=== PATIENT | female | born 1955 | race Caucasian/White ===

== ENCOUNTER 2024-06-10 13:01 | Outpatient (OUT) | payer MEDICARE, SELFPAY ==
[2024-06-10 14:12] LABS: Thyroid Stimulating Hormone 2.357 uIU/mL (0.358-3.740)
== END 2024-06-10 13:02 | disposition home or self-care (01) ==
LOC: LAB 13:06
PROVIDERS: PCP Internal Medicine; Visit Provider Internal Medicine
DX: R53.83 Other fatigue (principal); E11.65 Type 2 diabetes mellitus with hyperglycemia; R20.2 Paresthesia of skin
CPT/HCPCS: 36415; 83036; 84443

== ENCOUNTER 2024-06-18 13:04 | Outpatient (OUT) | payer MEDICARE, SELFPAY ==
--- NOTE | 2024-06-18 13:05 | MM_ITS ---
Patient Name: LEONCIO BENITEZ MR#: [id number] : 1955 Exam Date: 06/18/2024 Ordering Doctor: DR Rob Lopez D.O. RADIOLOGY REPORT PROCEDURE: MM TOMOSYNTHESIS SCREENING BI COMPARISON: MG MAMM ROMELIA SCRN W CAD DIG, 04/01/2007. MG MAMM SCREEN 3D ROMELIA CAD, 09/26/2021. INDICATIONS: Screening Calculator Name NCI Breast Cancer Risk Assessment Tool 5 Year Breast Cancer Risk Not Reported. Lifetime Breast Cancer Risk Not Reported. Personal Breast Cancer No Personal Ovarian Cancer No Treatments None Family Cancers None LOCATION: [facility] BREAST COMPOSITION: There are scattered areas of fibroglandular density. FINDINGS: DIAGNOSTIC CATEGORY 1--NEGATIVE. NO CHANGE FROM COMPARISON ASSESSMENT. Scattered benign-appearing calcifications are present. RIGHT BREAST: No significant suspicious finding. LEFT BREAST: No significant suspicious finding. RECOMMENDATIONS: ROUTINE MAMMOGRAM AND CLINICAL EVALUATION IN 12 MONTHS. PLEASE NOTE: A NORMAL MAMMOGRAM DOES NOT EXCLUDE THE POSSIBILITY OF BREAST CANCER. A CLINICALLY SUSPICIOUS PALPABLE LUMP SHOULD BE BIOPSIED. Dictated by: Nicholas Cabezas MD on 06/18/2024 at 15:31 Approved by: Nicholas Cabezas MD on 06/18/2024 at 15:33
== END 2024-06-18 13:05 | disposition home or self-care (01) ==
LOC: MAMMO 13:04
PROVIDERS: PCP Internal Medicine; Visit Provider Internal Medicine
DX: Z12.31 Encounter for screening mammogram for malignant neoplasm of breast (principal)
CPT/HCPCS: 77063; 77067

== ENCOUNTER 2024-10-13 13:50 | Observation (INO) | payer MEDICARE, SELFPAY ==
[2024-10-13] VITALS (20 sets, daily range): BP systolic 142–174; BP diastolic 71–82; PULSE 51–75; TEMP 36.5–36.9; O2SAT 95–100; BMI 25.8; BMI 28.6
--- NOTE | 2024-10-13 14:13 | ECG_ITS ---
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
--- NOTE | 2024-10-13 14:14 | ED_ITS ---
HPI HPI - General Adult General Chief complaint: Chest Pain Stated complaint: HYPERTENSION Time Seen by Provider: 10/13/24 13:53 Source: patient Mode of arrival: Wheelchair Limitations: no limitations History of Present Illness HPI narrative: Patient is a 69-year-old female who presents to the emergency department with her for the evaluation of not feeling well for the last hour, she describes an onset of dizziness that is worse with change in position of the head, she describes the dizziness as spinning. She has not had visual changes, recent illness or upper respiratory symptoms. She states she feels very nauseous but has not had any vomiting or diarrhea. She states she feels some pressure in the left side of her chest. She states that the onset of all of her symptoms she had minimal shortness of breath but does not feel short of breath now. She feels like her left side is weak. No speech changes. She denies any history of heart or lung issues, she states she takes no medications. Related Data Home Medications ?Medication ?Instructions ?Recorded ?Confirmed No Known Home Medications 10/13/24 10/13/24 Allergies Allergy/AdvReac Type Severity Reaction Status Date / Time Penicillins Allergy Rash Verified 10/13/24 14:12 Opioid HPI Opioid Management Most Recent Opioid Data: Last Pain Scale 5 10/13/24 16:19 10/13/24 Last MAR Pain Assessment 10/13/24 16:19 Review of Systems ROS Constitutional Denies: fever or chills Ears, nose, mouth, and throat Denies: throat pain or nasal congestion Cardiovascular Reports: chest pain Respiratory Reports: shortness of breath; Denies: cough Gastrointestinal Reports: nausea; Denies: vomiting or diarrhea Musculoskeletal Denies: back pain or neck pain Integumentary/Breast Denies: rash Neurological Reports: weakness in extremities and dizziness; Denies: headache Hematologic/Lymphatic Denies: easy bruising or easy bleeding PFSH PFSH Social History Little interest or pleasure in doing things: not at all Feeling down, depressed, or hopeless: not at all Exam Narrative Exam Narrative: Gen.: Awake, alert, in no distress Head: Normocephalic, atraumatic ENT: Moist mucous membranes, left TM is bulging with fluid Respiratory: No respiratory distress, lungs clear bilaterally Cardio: Regular rate and rhythm Gastrointestinal: Abdomen is soft, nondistended and nontender to palpation Extremities: Moves extremities equally Psych: Normal mood and affect Neuro: 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 NIH stroke scale of 2 Skin: Warm, dry, intact Constitutional Vital Signs, click to edit/add: Last Vital Signs Temp 98.5 F 10/13/24 14:04 Pulse 65 10/13/24 15:15 Resp 16 10/13/24 15:15 BP 147/77 H 10/13/24 15:15 Pulse Ox 98 10/13/24 15:15 O2 Del Method Room Air 10/13/24 14:04 Course Vital Signs Vital signs: Vital Signs Temperature 98.5 F 10/13/24 14:04 Pulse Rate 71 10/13/24 14:04 Respiratory Rate 18 10/13/24 14:04 Blood Pressure 173/71 H 10/13/24 14:04 Pulse Oximetry 98 10/13/24 14:04 Oxygen Delivery Method Room Air 10/13/24 14:04 Temperature 98.5 F 10/13/24 14:04 Pulse Rate 65 10/13/24 15:15 Respiratory Rate 16 10/13/24 15:15 Blood Pressure 147/77 H 10/13/24 15:15 Pulse Oximetry 98 10/13/24 15:15 Oxygen Delivery Method Room Air 10/13/24 14:04 Medical Decision Making MDM Narrative Medical decision making narrative: Patient feels significantly better after IV fluids, Antivert and Zofran. She was able to ambulate to the bathroom. She is not noted to have any persistent focal weakness. CT of the brain, CT angio of the head and neck as well as chest x-ray are unremarkable, there is some stenosis noted with no complete occlusion. Case was discussed with Dr. Lebron for stroke interventional services in [place]. He recommended keeping the patient for a TIA workup and is agreement that she can stay at this facility. He requested a full-strength aspirin which was given in the ER and she was given Tylenol for a headache. She is resting comfortably on reevaluation and is admitted to hospitalist service. SUPERVISED APC VISIT, PHYSICIAN ATTESTATION: Based on the medical record the care appears appropriate. ? Medical Records Medical records reviewed: Yes I reviewed the patient's medical records Lab Data Lab results reviewed: Yes I reviewed the patient's lab results Labs: Lab Results 10/13/24 10/13/24 10/13/24 Range/Units 14:25 14:27 16:15 WBC 9.0 (4.0-11.0) 10^3/uL RBC 4.74 (4.20-5.40) 10^6/uL Hgb 14.0 (12.0-16.0) g/dL Hct 40.4 (36.0-48.0) % MCV 85.2 (81.0-99.0) fL MCH 29.5 (26.7-34.0) pg MCHC 34.7 (29.9-35.2) g/dL RDW 12.3 (11.0-15.0) % Plt Count 233 (150-450) 10^3/uL MPV 9.7 (9.5-13.5) fL Neut % (Auto) 51.4 (43.0-75.0) % Lymph % (Auto) 41.6 (20.5-60.0) % [place] % (Auto) 4.8 (1.7-12.0) % Eos % (Auto) 1.2 (0.9-7.0) % Baso % (Auto) 0.7 (0.2-2.0) % Neut # (Auto) 4.6 (1.4-6.5) 10^3/uL Lymph # (Auto) 3.8 (1.2-3.8) 10^3/uL [place] # (Auto) 0.4 (0.3-0.8) 10^3/uL Eos # (Auto) 0.1 (0.0-0.7) 10^3/uL Baso # (Auto) 0.1 (0.0-0.1) 10^3/uL Abs Immat Gran (auto) 0.03 (0.00-0.03) 10^3/uL Imm/Tot Granulo (auto) 0.3 (0.0-0.5) % PT 10.9 (9.0-11.6) sec INR 1.03 Sodium 137 (136-145) mmol/L Potassium 3.2 L (3.5-5.1) mmol/L Chloride 102 (98-107) mmol/L Carbon Dioxide 24.6 (21.0-32.0) mmol/L Anion Gap 13.6 BUN 25.0 H (7.0-18.0) mg/dL Creatinine 0.92 (0.55-1.02) mg/dL Est GFR ( Amer) >60 (>=60 mL/min/1.73m^2) Est GFR (Non-Af Amer) >60 (>=60 mL/min/1.73m^2) BUN/Creatinine Ratio 27.2 Glucose 96 (74-106) mg/dL Lactate 1.3 (0.4-2.0) mmol/L Calcium 9.0 (8.5-10.1) mg/dL Magnesium 1.9 (1.8-2.4) mg/dL Total Bilirubin 0.4 (0.2-1.0) mg/dL AST 25 (15-37) U/L ALT 32 (14-59) U/L Alkaline Phosphatase 89 (46-116) U/L Troponin I High Sens 4.8 6.6 (4.0-51.3) pg/mL Total Protein 7.6 (6.4-8.2) g/dL Albumin 3.8 (3.4-5.0) g/dL Globulin 3.8 g/dL Albumin/Globulin Ratio 1.0 TSH 1.790 (0.358-3.740) uIU/mL POC Glucose 94 (74-106) mg/dL ECG Data Attestation: I personally reviewed and interpreted this ECG as follows: (Normal sinus rhythm at a rate of [address] elevation or ectopy. EKG reviewed by attending physician) Discharge Plan Discharge Chief Complaint: Chest Pain Patient Disposition: Admitted as Observation Time of Disposition Decision: 17:03 Prescriptions / Home Meds: No Action No Known Home Medications Print Language: [place] Referrals: Rob Lopez DO [Primary Care Provider] - 1 week
[2024-10-13 14:28] LABS: Glucometer 94 mg/dL (74-106)
[2024-10-13] MEDS: ONDANSETRON PF 4 MG/2 ML VIAL IV (14:29)
[2024-10-13] MEDS: 0.9 % SODIUM CHLORIDE 1,000 ML 999 ML IV (14:30)
[2024-10-13] MEDS: MECLIZINE HCL 12.5 MG TABLET 25 MG PO (14:30)
[2024-10-13 14:36] LABS: Basophils Absolute Auto 0.1 10^3/uL (0.0-0.1); Basophils Percent Auto 0.7 % (0.2-2.0); Eosinophils Absolute Auto 0.1 10^3/uL (0.0-0.7); Eosinophils Percent Auto 1.2 % (0.9-7.0); Hematocrit 40.4 % (36.0-48.0); Immature Granulocytes Abs Auto 0.03 10^3/uL (0.00-0.03); Immature Granulocytes Pct Auto 0.3 % (0.0-0.5); Lymphocytes Absolute Auto 3.8 10^3/uL (1.2-3.8); Lymphocytes Percent Auto 41.6 % (20.5-60.0); Mean Corpuscular HGB Conc 34.7 g/dL (29.9-35.2); Mean Corpuscular Hemoglobin 29.5 pg (26.7-34.0); Mean Corpuscular Volume 85.2 fL (81.0-99.0); Mean Platelet Volume 9.7 fL (9.5-13.5); Monocytes Absolute Auto 0.4 10^3/uL (0.3-0.8); Monocytes Percent Auto 4.8 % (1.7-12.0); Neutrophils Absolute Auto 4.6 10^3/uL (1.4-6.5); Neutrophils Percent Auto 51.4 % (43.0-75.0); Platelet Count 233 10^3/uL (150-450); Red Blood Count 4.74 10^6/uL (4.20-5.40); Red Cell Distribution Width 12.3 % (11.0-15.0)
--- OUTSIDE RECORDS SUMMARY | 2024-10-13 14:44 | XMS_ITS | CCD ---
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 Role Phone Bobby Todd Attending Provider [phone] Rob Lopez Primary Care Provider Bobby Todd Unavailable JOHN, DR COTTON Admitting Unavailable BALL, DR COTTON Attending Unavailable BALL, DR COTTON Primary Care Unavailable BALL, DR COTTON Consulting Unavailable BALL, DR COTTON Admitting Unavailable BALL, DR COTTON Attending Unavailable BALL, DR COTTON Primary Care Unavailable BALL, DR COTTON Admitting Unavailable BALL, DR COTTON Attending Unavailable BALL, DR COTTON Primary Care Unavailable BALL, DR COTTON Admitting Unavailable BALL, DR COTTON Attending Unavailable BALL, DR COTTON Primary Care Unavailable BALL, DR COTTON Admitting Unavailable BALL, DR COTTON Attending Unavailable BALL, DR COTTON Primary Care Unavailable BALL, DR COTTON Consulting Unavailable BALL, DR COTTON Admitting Unavailable BALL, DR COTTON Attending Unavailable BALL, DR COTTON Primary Care Unavailable BALL, DR COTTON Consulting Unavailable WEST, DR GEORGI Fernandez Consulting Unavailable BALL, DR COTTON Admitting Unavailable BALL, DR COTTON Attending Unavailable BALL, DR COTTON Primary Care Unavailable BALL, DR COTTON Consulting Unavailable Ball, Rob Unavailable Karla Hull Unavailable Allergies Allergy Classification Reported Allergen(s) Allergy Type Date of Onset Reaction(s) Facility Penicillins (antibiotic) (1 source) Penicillins Drug Allergy 1 Swelling of Lip/Tongue/Thro at [facility] (9 sources) Penicillin Drug Allergy hives/swelling Merged With [facility] Other (3 sources) Penicillins Drug allergy (disorder) 5 Swelling of Lip/Tongue/Thro at [facility] (1 source) Penicillin Drug Allergy hives/swelling Merged With [facility] Other (1 source) Penicillin Drug Allergy 4 hives/swelling [facility] Medications Current Medications Medication Drug Class(es) Dates Sig (Normalized) Sig (Original) [id number] 60 actuat albuterol 0.09 mg/actuat metered dose inhaler (2 sources) beta2-Adrenergic Agonist Start: 09-08-2023 take 2 puff(s) by inhalation four times daily as needed Albuterol Sulfate HFA 108 (90 Base) MCG/ACT 2 puffs Inhalation 4 times a day prn Aug, Active azithromycin 250 mg oral tablet (3 sources) Macrolide Antimicrobial Start: 09-06-2023 Azithromycin 250 MG as directed Orally daily for 5 days Aug, Active benzonatate 200 mg oral capsule (2 sources) Non-narcotic Antitussive Start: 09-08-2023 take 1 capsule by mouth every eight hours Benzonatate 200 MG 1 capsule Orally Three times a day Aug, Active cholecalciferol 0.025 mg oral tablet (2 sources) Vitamin D Start: 01-27-2021 take 1 tablet by mouth once daily in the morning Cholecalciferol (Vitamin D3) (Vitamin D3) 25 mcg (1,000 unit) Tablet Active 25 MCG PO Every morning January 27, 2021 11:04am escitalopram 10 mg oral tablet (1 source) Serotonin Reuptake Inhibitor Start: 06-10-2024 take 10 mg by mouth once daily Escitalopram Oxalate Active 10 MG PO Daily June 10, 2024 12:00am fluticasone (2 sources) Corticosteroid FLONASE Active predniSONE 20 mg oral tablet (2 sources) Start: 09-08-2023 take 1 tablet by mouth every twelve hours predniSONE 20 MG 1 tablet Orally bid for 5 day(s) Aug, Active Tumeric (2 sources) Start: 01-27-2021 take 1 tablet by mouth once daily in the morning Tumeric Active 1 TAB PO Every morning January 27, 2021 11:04am Start: 01-27-2021 take 1 tablet by cole th once daily in the morning Tumeric Active 1 TAB PO Every morning January 27, 2021 12:00am Zinc (2 sources) Start: 01-27-2021 take 450 mg by mouth once daily in the morning Zinc Active 450 MG PO Every morning January 27, 2021 11:04am Start: 01-27-2021 take 450 mg by mouth once daily in the morning Zinc Active 450 MG PO Every morning January 27, 2021 12:00am Completed/Discontinued Medications Medication Drug Class(es) Dates Sig (Normalized) Sig (Original) ibuprofen 800 mg oral tablet (9 sources) Nonsteroidal Anti-inflammatory Drug Start: 02-09-2021 take 1 tablet by mouth three times daily at mealtime as needed Ibuprofen 800 MG 1 tablet with food or milk as needed Orally Three times a day for 30 days Jan, Not-Taking/PRN omeprazole 40 mg delayed release oral capsule (9 sources) Proton Pump Inhibitor take 1 capsule by mouth once daily in the morning Omeprazole 40 MG TAKE 1 CAPSULE EVERY DAY IN THE MORNING followed by breakfast Oral for 30 Not-Taking/PRN Triamcinolone (8 sources) Corticosteroid Start: 12-20-2020 Kenalog -40 mg December, 40 mg Problems Active Problems Problem Classification Problem Date Documented Date Episodic/Chronic Abdominal pain (9 sources) Generalized abdominal pain; Translations: [Generalized abdominal pain] Episodic Acute bronchitis (2 sources) Acute bronchitis due to other specified organisms; Translations: [Acute bronchitis, unspecified] Episodic Anxiety disorders (8 sources) Generalized anxiety disorder; Translations: [Generalized anxiety disorder] Chronic Benign neoplasm of uterus (8 sources) Uterine leiomyoma; Translations: [Leiomyoma of uterus, unspecified] Episodic Diabetes mellitus with complications (13 sources) Type 2 diabetes mellitus with hyperglycemia; Translations: [Hyperglycemia due to type 2 diabetes mellitus] Onset: 12-29-19 Chronic Diabetes mellitus without complication (4 sources) Type 2 diabetes mellitus without complications; Translations: [TYPE 2 DM WITHOUT COMPLICATIONS] Onset: 09-05-19 Chronic Diabetes mellitus without complication (8 sources) Impaired fasting glycemia; Translations: [Impaired fasting glucose] Episodic Disorders of lipid metabolism (4 sources) Pure hypercholesterolemia, unspecified; Translations: [PURE HYPERCHOLESTEROLEMIA UNSPEC] Onset: 12-27-19 Chronic Genitourinary symptoms and ill-defined conditions (8 sources) Urgent desire to urinate; Translations: [Urgency of urination] Episodic Immunizations and screening for infectious disease (1 source) Contact with and (suspected) exposure to other viral communicable diseases Episodic Intracranial injury (8 sources) History of traumatic brain injury; Translations: [Personal history of traumatic brain injury] Episodic Malaise and fatigue (1 source) Fatigue; Translations: [Other fatigue] 06-10-2024 Episodic Nausea and vomiting (9 sources) Nausea; Translations: [Nausea] Episodic Nonspecific chest pain (1 source) Intercostal pain Episodic Other and unspecified benign neoplasm (1 source) Benign lipomatous neoplasm of skin and subcutaneous tissue of right arm Episodic Other circulatory disease (1 source) Elevated blood-pressure reading, without diagnosis of hypertension Episodic Other connective tissue disease (8 sources) Acquired trigger finger; Translations: [Trigger finger, right ring finger] Episodic Other connective tissue disease (8 sources) Tear of left rotator cuff; Translations: [Unspecified rotator cuff tear or rupture of left shoulder, not specified as traumatic] Episodic Other connective tissue disease (1 source) Ganglion, unspecified site Episodic Other ear and sense organ disorders (8 sources) Hearing loss of left ear; Translations: [Unspecified hearing loss, left ear] Chronic Other ear and sense organ disorders (1 source) Unspecified hearing loss, left ear Chronic Other eye disorders (8 sources) Subconjunctival hemorrhage of right eye; Translations: [Conjunctival hemorrhage, right eye] Episodic Other gastrointestinal disorders (9 sources) Swollen abdomen; Translations: [Abdominal distension (gaseous)] Episodic Other nervous system disorders (1 source) Paresthesia; Translations: [Paresthesia of skin] 06-10-2024 Episodic Other nutritional; endocrine; and metabolic disorders (1 source) Overweight Episodic Other screening for suspected conditions (not mental disorders or infectious disease) (7 sources) Encounter for screening mammogram for malignant neoplasm of breast; Translations: [Patient encounter status] Onset: 09-26-19 Episodic Otitis media and related conditions (1 source) Other specified disorders of Eustachian tube, left ear Episodic Ovarian cyst (8 sources) Cyst of ovary; Translations: [Unspecified ovarian cyst, unspecified side] Episodic Sprains and strains (2 sources) Strain of other muscles, fascia and tendons at shoulder and upper arm level, left arm, subsequent encounter; Translations: [Strain of muscle and tendon of front wall of thorax, initial encounter] Onset: 05-11-20 Resolved : 05-11-20 21 Episodic Past or Other Problems Problem Classification Problem Date Documented Date Episodic/Chronic Other aftercare (1 source) 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; Translations: [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 LEADER USE ORAL HYPOGLYCEMIC DX] Onset: 09-07-2021 Episodic Other connective tissue disease (1 source) Adhesive capsulitis of left shoulder; Translations: [Adhesive capsulitis of left shoulder M75.02] Onset: 05-11-2021 Resolved: 05-11-2021 Episodic Other non-traumatic joint disorders (1 source) Pain in left shoulder; Translations: [Acute pain of left shoulder M25.512] Onset: 05-11-2021 Resolved: 05-11-2021 Episodic Residual codes; unclassified (1 source) Other specified postprocedural states; Translations: [Other specified postprocedural states Z98.890] Onset: 05-11-2021 Resolved: 05-11-2021 Episodic Unclassified (1 source) Acute cough R05.1 Viral infection (2 sources) COVID-19 Results Test Name Value Interpretation Reference Range Facility COVID + FLU Quick Testingon 09-08-2023 SARS-CoV-2 (COVID-19) RNA KATHY+probe Ql (Unsp spec) Positive Merged With [facility] Other COVID + FLU Quick Testing Negative Speed Dating by [place] [facility] Other CBC AUTO DIFFon 06-30-2022 BASO # 0.1 103/ul Normal 0.0-0.1 [facility] Comment on above: Performed By: #### C BC #### [facility] [address] [place] [address] Dr. Angel Gray Basophils/100 WBC (Bld) 0.8 % Normal 0.2-2.0 [facility] Comment on above: Performed By: #### C BC #### [facility] [address] [place] [address] Dr. Angel Gray EO # 0.2 103/ul Normal 0.0-0.7 [facility] Comment on above: Performed By: #### C BC #### [facility] [address] [place] [address] Dr. Angel Gray Eosinophils/100 WBC (Bld) 2.6 % Normal 0.9-7.0 [facility] Comment on above: Performed By: #### C BC #### [facility] [address] [place] [address] Dr. Angel Gray Erythrocyte distribution width (RBC) [Ratio] 12.4 % Normal 11.0-15.0 [facility] Comment on above: Performed By: #### C BC #### [facility] [address] [place] [address] Dr. Angel Gray Hematocrit (Bld) [Volume fraction] 41.4 % Normal 36.0-48.0 [facility] Comment on above: Performed By: #### C BC #### [facility] [address] [place] [address] Dr. Angel Gray Hemoglobin (Bld) [Mass/Vol] 13.9 g/dL Normal 12.0-16.0 [facility] Comment on above: Performed By: #### C BC #### [facility] [address] [place] [address] Dr. Angel Gray IG # 0.03 10e3/ul Normal 0.00-0.03 [facility] Comment on above: Performed By: #### C BC #### [facility] [address] [place] [address] Dr. Angel Gray IG % 0.4 % Normal 0.0-0.5 [facility] Comment on above: Performed By: #### C BC #### [facility] [address] [place] [address] Dr. Angel Gray LYMPH # 3.4 103/ul Normal 1.2-3.8 [facility] Comment on above: Performed By: #### C BC #### [facility] [address] [place] [address] Dr. Angel Gray Lymphocytes/100 WBC (Bld) 43.9 % Normal 20.5-60.0 [facility] Comment on above: Performed By: #### C BC #### [facility] [address] [place] [address] Dr. Angel Gray MANUAL DIFF REQ NO Normal [facility] Comment on above: Performed By: #### C BC #### [facility] [address] [place] [address] Dr. Angel Gray MCH (RBC) [Entitic mass] 29.5 pg Normal 26.7-34.0 [facility] Comment on above: Performed By: #### C BC #### [facility] [address] [address] [address] Angel Gray MCHC (RBC) [Mass/Vol] 33.6 g/dL Normal 29.9-35.2 [facility] Comment on above: Performed By: #### C BC #### [facility] [address] [address] [address] Angel Gray MCV (RBC) [Entitic vol] 87.9 fL Normal 81.0-99.0 [facility] Comment on above: Performed By: #### C BC #### [facility] [address] [place] [address] Dr. Angel Gray MONO # 0.4 103/ul Normal 0.3-0.8 [facility] Comment on above: Performed By: #### C BC #### [facility] [address] [place] [address] Dr. Angel Gray Monocytes/100 WBC (Bld) 4.7 % Normal 1.7-12.0 [facility] Comment on above: Performed By: #### C BC #### [facility] [address] [place] [address] Dr. Angel Gray NEUT # 3.7 103/ul Normal 1.4-6.5 [facility] Comment on above: Performed By: #### C BC #### [facility] [address] [place] [address] Dr. Angel Gray Neutrophils/100 WBC (Bld) 47.6 % Normal 43.0-75.0 [facility] Comment on above: Performed By: #### C BC #### [facility] [address] [address] [address] Angel Gray Platelet mean volume (Bld) [Entitic vol] 9.7 fL Normal 9.5-13.5 [facility] Comment on above: Performed By: #### C BC #### [facility] [address] [place] [address] Dr. Angel Gray PLT 263 103/ul Normal 150-450 [facility] Comment on above: Performed By: #### C BC #### [facility] [address] [place] [address] Dr. Angel Gray RBC 4.71 106/ul Normal 4.20-5.40 [facility] Comment on above: Performed By: #### C BC #### [facility] [address] [address] [address] Angel Gray WBC 7.7 103/ul Normal 4.0-11.0 [facility] Comment on above: Performed By: #### C BC #### [facility] [address] [place] [address] Dr. Angel Gray GLYCOHEMOGLOBIN A1Con 2021 ADA RECOMMENDATION SEE BELOW Normal [facility] Comment on above: Result Comment: ADA RECOMMENDED LIMIT 4.0 - 6.0 ADA THERAPEUTIC TARGET < 7.0 ACTION SUGGESTED > 7.0 Performed By: #### A 1C #### [facility] [address] [place] [address] Dr. Angel Gray Glucose [Mass/Vol] 126 mg/dL Normal [facility] Comment on above: Performed By: #### A 1C #### [facility] [address] [place] [address] Dr. Angel Gray HbA1c (Bld) [Mass fraction] 6.0 % Normal 4.5-6.2 [facility] Comment on above: Performed By: #### A 1C #### [facility] [address] [place] [address] Dr. Angel Gray LIPID PROFILEon 06-30-2022 CHOL-HDL RATIO NORM SEE BELOW Normal [place] Comment on above: Result Comment: 3.3 - 4.4 LOW RISK 4.4 - 7.1 AVERAGE RISK 7.1 - 11.0 MODERATE RISK >11.0 HIGH RISK Performed By: #### L IPID, CMP #### [facility] [address] [place] [address] Dr. Angel Gray Cholesterol [Mass/Vol] 220 mg/dL Critically high <=200 [facility] Comment on above: Performed By: #### L IPID, CMP #### [facility] [address] [address] [address] Angel Gray Cholesterol in HDL [Mass/Vol] 48 mg/dL Normal 40-60 [facility] Comment on above: Performed By: #### L IPID, CMP #### [facility] [address] [address] [address] Angel Gray Cholesterol in LDL [Mass/Vol] 141.4 mg/dL Normal [facility] Comment on above: Performed By: #### L IPID, CMP #### [facility] [address] [address] [address] Angel Gray Cholesterol.total/Cho lesterol in HDL [Mass ratio] 4.6 {ratio} Normal [facility] Comment on above: Performed By: #### L IPID, CMP #### [facility] [address] [address] [address] Angel Gray HDL NORMAL > or = 60 mg/dl - LOW CARDIOVASCULAR RISK <40 mg/dl - HIGH CARDIOVASCULAR RISK Normal [facility] Comment on above: Performed By: #### L IPID, CMP #### [facility] [address] [address] [address] Angel Gray LDL CALC NORMAL SEE BELOW Normal [facility] Comment on above: Result Comment: <100 mg/dl OPTIMAL 100 - 129 mg/dl NEAR OR ABOVE OPTIMAL 130 - 159 mg/dl BORDERLINE HIGH 160 - 189 mg/dl HIGH >190 mg/dl VERY HIGH Performed By: #### L IPID, CMP #### [facility] [address] [address] [address] Angel Gray Triglyceride [Mass/Vol] 153 mg/dL Critically high <=150 [facility] Comment on above: Performed By: #### L IPID, CMP #### [facility] [address] [address] [address] Angel Gray VLDL CALC 30.6 mg/dL Normal [facility] Comment on above: Performed By: #### L IPID, CMP #### [facility] [address] [address] [address] Angel Gray PROF 14(COMP METB)on 11-12-2 022 Albumin [Mass/Vol] 3.7 g/dL Normal 3.4-5.0 [facility] Comment on above: Performed By: #### L IPID, CMP #### [facility] [address] [address] [address] Angel Gray Albumin/Globulin [Mass ratio] 0.9 {ratio} Normal [facility] Comment on above: Performed By: #### L IPID, CMP #### [facility] [address] [address] [address] Angel Gray ALP [Catalytic activity/Vol] 71 U/L Normal 46-116 [facility] Comment on above: Performed By: #### L IPID, CMP #### [facility] [address] [place] [address] Dr. Angel Gray ALT [Catalytic activity/Vol] 21 U/L Normal 14-59 [facility] Comment on above: Performed By: #### L IPID, CMP #### [facility] [address] [address] [address] Angel Gray Anion gap [Moles/Vol] 10.2 mmol/L Normal [facility] Comment on above: Performed By: #### L IPID, CMP #### [facility] [address] [place] [address] Dr. Angel Gray AST [Catalytic activity/Vol] 17 U/L Normal 15-37 [facility] Comment on above: Performed By: #### L IPID, CMP #### [facility] [address] [address] [address] Angel Gray Bilirubin [Mass/Vol] 0.3 mg/dL Normal 0.2-1.0 [facility] Comment on above: Performed By: #### L IPID, CMP #### [facility] [address] [address] [address] Angel Gray Calcium [Mass/Vol] 9.1 mg/dL Normal 8.5-10.1 [facility] Comment on above: Performed By: #### L IPID, CMP #### [facility] [address] [address] [address] Angel Gray Chloride [Moles/Vol] 103 mmol/L Normal 98-107 [facility] Comment on above: Performed By: #### L IPID, CMP #### [facility] [address] [place] [address] Dr. Angel Gray CO2 [Moles/Vol] 30.0 mmol/L Normal 21.0-32.0 [facility] Comment on above: Performed By: #### L IPID, CMP #### [facility] [address] [place] [address] Dr. Angel Gray Creatinine [Mass/Vol] 0.74 mg/dL Normal 0.55-1.02 [facility] Comment on above: Performed By: #### L IPID, CMP #### [facility] [address] [place] [address] Dr. Angel Gray EGFR-AF TRINIDADIAN >60 Normal >=60 [facility] Comment on above: Performed By: #### L IPID, CMP #### [facility] [address] [place] [address] Dr. Angel Gray EGFR-NON AF TRINIDADIAN >60 Normal >=60 [facility] Comment on above: Performed By: #### L IPID, CMP #### [facility] [address] [place] [address] Dr. Angel Gray Globulin (S) [Mass/Vol] 4.0 g/dL Normal [facility] Comment on above: Performed By: #### L IPID, CMP #### [facility] [address] [place] [address] Dr. Angel Gray Glucose [Mass/Vol] 102 mg/dL Normal 74-106 [facility] Comment on above: Performed By: #### L IPID, CMP #### [facility] [address] [place] [address] Dr. Angel Gray Potassium [Moles/Vol] 4.2 mmol/L Normal 3.5-5.1 [facility] Comment on above: Performed By: #### L IPID, CMP #### [facility] [address] [place] [address] Dr. Angel Gray Protein [Mass/Vol] 7.7 g/dL Normal 6.4-8.2 [facility] Comment on above: Performed By: #### L IPID, CMP #### [facility] [address] [address] [address] Angel Gray Sodium [Moles/Vol] 139 mmol/L Normal 136-145 [facility] Comment on above: Performed By: #### L IPID, CMP #### [facility] [address] [address] [address] Angel Gray Urea nitrogen [Mass/Vol] 21.0 mg/dL Critically high 7.0-18.0 [facility] Comment on above: Performed By: #### L IPID, CMP #### [facility] [address] [place] [address] Dr. Angel Gray Urea nitrogen/Creatinine [Mass ratio] 28.4 mg/mg Normal [facility] Comment on above: Performed By: #### L IPID, CMP #### [facility] [address] [place] [address] Dr. Angel Gray DIRECT LDLon 12-26-2021 Cholesterol in LDL [Mass/Vol] 144 mg/dL Normal [facility] Comment on above: Performed By: #### D LDL #### [facility] [address] [place] [address] Dr. Angel Gray DLDL NORMAL SEE BELOW Normal [facility] Comment on above: Result Comment: <100 mg/dl OPTIMAL 100 - 129 mg/dl NEAR OR ABOVE OPTIMAL 130 - 159 mg/dl BORDERLINE HIGH 160 - 189 mg/dl HIGH >190 mg/dl VERY HIGH Performed By: #### D LDL #### [facility] [address] [place] [address] Dr. Angel Gray GLYCOHEMOGLOBIN A1Con 2021 ADA RECOMMENDATION SEE BELOW Normal [facility] Comment on above: Result Comment: ADA RECOMMENDED LIMIT 4.0 - 6.0 ADA THERAPEUTIC TARGET < 7.0 ACTION SUGGESTED > 7.0 Performed By: #### A 1C #### [facility] [address] [place] [address] Dr. Angel Gray Glucose [Mass/Vol] 128 mg/dL Normal [facility] Comment on above: Performed By: #### A 1C #### [facility] [address] [place] [address] Dr. Angel Gray HbA1c (Bld) [Mass fraction] 6.1 % Normal 4.5-6.2 [facility] Comment on above: Performed By: #### A 1C #### [facility] [id number] Angel Gray MG MAMM SCREEN 3D ROMELIA CADon 09-26-2021 MG MAMM SCREEN 3D ROMELIA CAD Patient: ISABELLE BENITEZ Exam Date: 09/26/2021 : 1955 Gender:F Ordering : DR ROB LOPEZ D.O. Admission #: [id number] Family : Order #: [id number] CLICK HERE TO VIEW EXAM RADIOLOGY REPORT PROCEDURE: MAMMOGRAM SCREENING 3D BILATERAL CAD COMPARISON: MG MAMM ROMELIA SCRN W CAD DIG, 01/13/2003. MG MAMM ROMELIA SCRN W CAD DIG, 04/01/2007. INDICATIONS: Screening mammography Calculator Name NCI Breast Cancer Risk Assessment Tool 5 Year Breast Cancer Risk Not Reported. Lifetime Breast Cancer Risk Not Reported. Personal Breast Cancer No Personal Ovarian Cancer No Treatments None Family Cancers None LOCATION: [facility] BREAST COMPOSITION: Scattered areas fibroglandular density. FINDINGS: DIAGNOSTIC CATEGORY 1--NEGATIVE. NO CHANGE FROM COMPARISON ASSESSMENT. Scattered benign-appearing calcifications are present. Scattered benign-appearing lymph nodes are present. RIGHT BREAST: No significant suspicious finding. LEFT BREAST: No significant suspicious finding. RECOMMENDATIONS: ROUTINE MAMMOGRAM AND CLINICAL EVALUATION IN 12 MONTHS. PLEASE NOTE: A NORMAL MAMMOGRAM DOES NOT EXCLUDE THE POSSIBILITY OF BREAST CANCER. A CLINICALLY SUSPICIOUS PALPABLE LUMP SHOULD BE BIOPSIED. Dictated by: Georgi Cabezas MD on 09/26/2021 at 09:33 Approved by: Georgi Cabezas MD on 09/26/2021 at 09:43 Normal [facility] CBC AUTO DIFFon 08-18-2021 BASO # 0.1 103/ul Normal 0.0-0.1 [facility] Comment on above: Performed By: #### C BC #### [facility] [address] [address] [address] Angel Gray Basophils/100 WBC (Bld) 0.8 % Normal 0.2-2.0 [facility] Comment on above: Performed By: #### C BC #### [facility] [address] [place] [address] Dr. Angel Gray EO # 0.3 103/ul Normal 0.0-0.7 [facility] Comment on above: Performed By: #### C BC #### [facility] [address] [place] [address] Dr. Angel Gray Eosinophils/100 WBC (Bld) 3.1 % Normal 0.9-7.0 [facility] Comment on above: Performed By: #### C BC #### [facility] [address] [place] [address] Dr. Angel Gray Erythrocyte distribution width (RBC) [Ratio] 12.5 % Normal 11.0-15.0 [facility] Comment on above: Performed By: #### C BC #### [facility] [address] [place] [address] Dr. Angel Gray Hematocrit (Bld) [Volume fraction] 42.1 % Normal 36.0-48.0 [facility] Comment on above: Performed By: #### C BC #### [facility] [address] [place] [address] Dr. Angel Gray Hemoglobin (Bld) [Mass/Vol] 13.8 g/dL Normal 12.0-16.0 [facility] Comment on above: Performed By: #### C BC #### [facility] [address] [place] [address] Dr. Angel Gray IG # 0.03 10e3/ul Normal 0.00-0.03 [facility] Comment on above: Performed By: #### C BC #### [facility] [address] [place] [address] Dr. Angel Gray IG % 0.4 % Normal 0.0-0.5 [facility] Comment on above: Performed By: #### C BC #### [facility] [address] [place] [address] Dr. Angel Gray LYMPH # 3.3 103/ul Normal 1.2-3.8 [facility] Comment on above: Performed By: #### C BC #### [facility] [address] [place] [address] Dr. Angel Gray Lymphocytes/100 WBC (Bld) 40.8 % Normal 20.5-60.0 [facility] Comment on above: Performed By: #### C BC #### [facility] [address] [place] [address] Dr. Angel Gray MANUAL DIFF REQ NO Normal [facility] Comment on above: Performed By: #### C BC #### [facility] [address] [place] [address] Dr. Angel Gray MCH (RBC) [Entitic mass] 29.1 pg Normal 26.7-34.0 [facility] Comment on above: Performed By: #### C BC #### [facility] [address] [place] [address] Dr. Angel Gray MCHC (RBC) [Mass/Vol] 32.8 g/dL Normal 29.9-35.2 [facility] Comment on above: Performed By: #### C BC #### [facility] [address] [place] [address] Dr. Angel Gray MCV (RBC) [Entitic vol] 88.8 fL Normal 81.0-99.0 [facility] Comment on above: Performed By: #### C BC #### [facility] [address] [place] [address] Dr. Angel Gray MONO # 0.5 103/ul Normal 0.3-0.8 [facility] Comment on above: Performed By: #### C BC #### [facility] [address] [place] [address] Dr. Angel Gray Monocytes/100 WBC (Bld) 5.8 % Normal 1.7-12.0 [facility] Comment on above: Performed By: #### C BC #### [facility] [address] [place] [address] Dr. Angel Gray NEUT # 3.9 103/ul Normal 1.4-6.5 [facility] Comment on above: Performed By: #### C BC #### [facility] [address] [address] [address] Angel Gray Neutrophils/100 WBC (Bld) 49.1 % Normal 43.0-75.0 [facility] Comment on above: Performed By: #### C BC #### [facility] [address] [place] [address] Dr. Angel Gray Platelet mean volume (Bld) [Entitic vol] 9.8 fL Normal 9.5-13.5 [facility] Comment on above: Performed By: #### C BC #### [facility] [address] [place] [address] Dr. Angel Gray PLT 231 103/ul Normal 150-450 [facility] Comment on above: Performed By: #### C BC #### [facility] [address] [place] [address] Dr. Angel Gray RBC 4.74 106/ul Normal 4.20-5.40 [facility] Comment on above: Performed By: #### C BC #### [facility] [address] [place] [address] Dr. Angel Gray WBC 8.0 103/ul Normal 4.0-11.0 [facility] Comment on above: Performed By: #### C BC #### [facility] [address] [place] [address] Dr. Angel Gray LIPID PROFILEon 08-18-2021 CHOL-HDL RATIO NORM SEE BELOW Normal [place] Comment on above: Result Comment: 3.3 - 4.4 LOW RISK 4.4 - 7.1 AVERAGE RISK 7.1 - 11.0 MODERATE RISK >11.0 HIGH RISK Performed By: #### L IPID, CMP #### [facility] [address] [place] [address] Dr. Angel Gray Cholesterol [Mass/Vol] 249 mg/dL Critically high <=200 [facility] Comment on above: Performed By: #### L IPID, CMP #### [facility] [address] [place] [address] Dr. Angel Gray Cholesterol in HDL [Mass/Vol] 46 mg/dL Normal [facility] Comment on above: Performed By: #### L IPID, CMP #### [facility] [address] [address] [address] Angel Gray Cholesterol in LDL [Mass/Vol] 165.8 mg/dL Normal [facility] Comment on above: Performed By: #### L IPID, CMP #### [facility] [address] [address] [address] Angel Gray Cholesterol.total/Cho lesterol in HDL [Mass ratio] 5.4 {ratio} Normal [facility] Comment on above: Performed By: #### L IPID, CMP #### [facility] [address] [address] [address] Angel Gray HDL NORMAL > or = 60 mg/dl - LOW CARDIOVASCULAR RISK <40 mg/dl - HIGH CARDIOVASCULAR RISK Normal [facility] Comment on above: Performed By: #### L IPID, CMP #### [facility] [address] [place] [address] Dr. Angel Gray LDL CALC NORMAL SEE BELOW Normal [facility] Comment on above: Result Comment: <100 mg/dl OPTIMAL 100 - 129 mg/dl NEAR OR ABOVE OPTIMAL 130 - 159 mg/dl BORDERLINE HIGH 160 - 189 mg/dl HIGH >190 mg/dl VERY HIGH Performed By: #### L IPID, CMP #### [facility] [address] [address] [address] Angel Gray Triglyceride [Mass/Vol] 186 mg/dL Critically high <=150 [facility] Comment on above: Performed By: #### L IPID, CMP #### [facility] [address] [address] [address] Angel Gray VLDL CALC 37.2 mg/dL Normal [facility] Comment on above: Performed By: #### L IPID, CMP #### [facility] [address] [address] [address] Angel Gray PROF 14(COMP METB)on 021 Albumin [Mass/Vol] 3.5 g/dL Normal 3.5-5.0 [facility] Comment on above: Performed By: #### L IPID, CMP #### [facility] [address] [address] [address] Angel Gray Albumin/Globulin [Mass ratio] 0.9 {ratio} Normal [facility] Comment on above: Performed By: #### L IPID, CMP #### [facility] [address] [address] [address] Angel Gray ALP [Catalytic activity/Vol] 79 U/L Normal 38-126 [facility] Comment on above: Performed By: #### L IPID, CMP #### [facility] [address] [address] [address] Angel Gray ALT [Catalytic activity/Vol] 48 U/L Normal 9-52 [facility] Comment on above: Performed By: #### L IPID, CMP #### [facility] [address] [address] [address] Angel Gray Anion gap [Moles/Vol] 13.0 mmol/L Normal [facility] Comment on above: Performed By: #### L IPID, CMP #### [facility] [address] [address] [address] Angel Gray AST [Catalytic activity/Vol] 30 U/L Normal 14-36 [facility] Comment on above: Performed By: #### L IPID, CMP #### [facility] [address] [address] [address] Angel Gray Bilirubin [Mass/Vol] 0.4 mg/dL Normal 0.2-1.3 [facility] Comment on above: Performed By: #### L IPID, CMP #### [facility] [address] [address] [address] Angel Gray Calcium [Mass/Vol] 9.2 mg/dL Normal 8.4-10.2 [facility] Comment on above: Performed By: #### L IPID, CMP #### [facility] [address] [address] [address] Angel Gray Chloride [Moles/Vol] 103 mmol/L Normal 98-107 [facility] Comment on above: Performed By: #### L IPID, CMP #### [facility] [address] [place] [address] Dr. Angel Gray CO2 [Moles/Vol] 28.1 mmol/L Normal 22.0-30.0 [facility] Comment on above: Performed By: #### L IPID, CMP #### [facility] [address] [place] [address] Dr. Angel Gray Creatinine [Mass/Vol] 0.78 mg/dL Normal 0.52-1.04 [facility] Comment on above: Performed By: #### L IPID, CMP #### [facility] [address] [place] [address] Dr. Angel Gray EGFR-AF TRINIDADIAN >60 Normal >=60 [facility] Comment on above: Performed By: #### L IPID, CMP #### [facility] [address] [place] [address] Dr. Angel Gray EGFR-NON AF TRINIDADIAN >60 Normal >=60 [facility] Comment on above: Performed By: #### L IPID, CMP #### [facility] [address] [place] [address] Dr. Angel Gray Globulin (S) [Mass/Vol] 4.0 g/dL Normal [facility] Comment on above: Performed By: #### L IPID, CMP #### [facility] [address] [place] [address] Dr. Angel Gray Glucose [Mass/Vol] 137 mg/dL Critically high 74-106 [facility] Comment on above: Performed By: #### L IPID, CMP #### [facility] [address] [place] [address] Dr. Angel Gray Potassium [Moles/Vol] 4.1 mmol/L Normal 3.4-5.0 [facility] Comment on above: Performed By: #### L IPID, CMP #### [facility] [address] [place] [address] Dr. Angel Gray Protein [Mass/Vol] 7.5 g/dL Normal 6.1-8.2 [facility] Comment on above: Performed By: #### L IPID, CMP #### [facility] [address] [address] [address] Angel Gray Sodium [Moles/Vol] 140 mmol/L Normal 137-145 [facility] Comment on above: Performed By: #### L IPID, CMP #### [facility] [address] [address] [address] Angel Gray Urea nitrogen [Mass/Vol] 26.0 mg/dL Critically high 7.0-17.0 [facility] Comment on above: Performed By: #### L IPID, CMP #### [facility] [address] [address] [address] Angel Gray Urea nitrogen/Creatinine [Mass ratio] 33.3 mg/mg Normal [facility] Comment on above: Performed By: #### L IPID, CMP #### [facility] [address] [address] [address] Angel Gray XR shoulder LT min 2V*on XR shoulder LT min 2V* [facility] [place] [address] XRay Report Signed Patient: Isabelle Benitez MR#: [id number] : 1955 Acct:[id number] Age/Sex: 65 / F ADM Date: 02/09/21 Loc: [facility] Room: Type: [facility] Attending Dr: Bobby Todd MD Ordering Provider: Bobby Todd MD Date of Service: 02/09/21 XR/XR shoulder LT min 2V*: Other specified postprocedural states Copies to: Bobby Todd MD 2 views plain filmLEFT shoulder HISTORY:Status post LEFT shoulder arthroscopic the. Rotator cuff repair COMPARISON:09/27/20 [place] screws in the humeral head. No complication. Bony structures intact. No soft tissue abnormality. XR/XR shoulder LT min 2V* IMPRESSION:Uncompli cated postoperative change. Impression dictated by: Berhane Monreal M.D.02/09/2021 1:21 PM Dictation Location: [place] [address] Transcribed By: [facility] 02/09/21 1321 Dictated By: Berhane Monreal DO 02/09/21 1315 Signed By: 02/09/21 1321 Normal [facility] Albumin [Mass/volume] in Ser um or Plasmaon 01-27-2021 Albumin [Mass/Vol] 3.8 g/dL 3.2-5.5 [facility] Basophils Auto (Bld) [#/Vol] on 01-27-2021 Basophils (Bld) [#/Vol] 0.1 10*3/uL 0.0-0.2 [facility] Basophils/100 WBC Auto (Bld) on 01-27-2021 Basophils/100 WBC (Bld) 0.9 % [facility] Blood hemoglobin measurement (mass/volume)on 01-27-2021 Hemoglobin (Bld) [Mass/Vol] 13.9 g/dL 11.8-15.4 [facility] Blood leukocytes automated c ount (number/volume)on 01-27-2021 WBC (Bld) [#/Vol] 8.1 10*3/uL 4.5-11.0 [facility] COVID-19 FRMCon 01-27-2021 SARS-CoV-2 (COVID-19) RNA KATHY+probe Ql (Unsp spec) Negative Normal Negative [facility] Comment on above: Order Comment: Healt hcare Worker?: N Result Comment: Testing for SARS-CoV-2 by RT-PCR This test was developed and its performance characteristics determined by [employer], [employer] ([employer]) and validated at the [facility]. This test has not been FDA cleared or approved. This test has been authorized by FDA under an Emergency Use Authorization (EUA). This test has been validated in accordance with the FDA's Guidance Document (Policy for Diagnostics Testing in Laboratories Certified to Perform High Complexity Testing under CLIA prior to Emergency Use Authorization for Coronavirus Disease-2019 during the Public Health Emergency) issued on November 19, 2019. This test is only authorized for the duration of time the declaration that circumstances exist justifying the authorization of the emergency use of in vitro diagnostic tests for detection of SARS-CoV-2 virus and/or diagnosis of COVID-19 infection under section 564(b)(1) of the Act, 21 U.S.C. 360bbb-3(b)(1), unless the authorization is terminated or revoked sooner. PERFORMED BY: [place] [id number] PATHOLOGIST MATERIALS ASSISTANT ALFONSO PINEDO M.D. Performed By: #### C OVID 19 [facility] #### [address] COVID-19 Positive/Negativeon 01-27-2021 SARS-CoV-2 (COVID-19) N gene KATHY+probe Ql (Resp) Negative Negative [facility] Comment on above: Testing for SARS-CoV -2 by RT-PCRThis test was developed and its performance characteristics determined by [employer], [employer] ([employer]) and validated at the [facility]. This test has not been FDA cleared or approved. This test has been authorized by FDA under an Emergency Use Authorization (EUA). This test has been validated in accordance with the FDA's Guidance Document (Policy for Diagnostics Testing in Laboratories Certified to Perform High Complexity Testing under CLIA prior to Emergency Use Authorization for Coronavirus Disease-2019 during the Public Health Emergency) issued on November 19, 2019. This test is only authorized for the duration of time the declaration that circumstances exist justifying the authorization of the emergency use of in vitro diagnostic tests for detection of SARS-CoV-2 virus and/or diagnosis of COVID-19 infection under section 564(b)(1) of the Act, 21 U.S.C. 360bbb-3(b)(1), unless the authorization is terminated or revoked sooner. Complete Blood Count Auto Di ffon 01-27-2021 Basophils (Bld) [#/Vol] 0.1 10*3/uL Normal 0.0-0.2 [facility] Comment on above: Result Comment: PERF ORMED BY: [place] [id number] PATHOLOGIST MATERIALS ASSISTANT ALFONSO PINEDO M.D. Performed By: #### C MP, CBC #### [place] [id number] [place] Basophils/100 WBC (Bld) 0.9 % Normal . [facility] Comment on above: Performed By: #### C MP, CBC #### [address] Eosinophils (Bld) [#/Vol] 0.1 10*3/uL Normal 0.0-0.45 [facility] Comment on above: Performed By: #### C MP, CBC #### [address] Eosinophils/100 WBC (Bld) 0.9 % Normal . [facility] Comment on above: Performed By: #### C MP, CBC #### [address] Erythrocyte distribution width (RBC) [Ratio] 12.7 % Normal 11.9-15.3 [facility] Comment on above: Performed By: #### C MP, CBC #### [address] Hematocrit (Bld) [Volume fraction] 40.2 % Normal 34.0-46.4 [facility] Comment on above: Performed By: #### C MP, CBC #### [address] Hemoglobin (Bld) [Mass/Vol] 13.9 g/dL Normal 11.8-15.4 [facility] Comment on above: Performed By: #### C MP, CBC #### [address] Lymphocytes (Bld) [#/Vol] 3.4 10*3/uL Normal 1.00-4.8 [facility] Comment on above: Performed By: #### C MP, CBC #### [address] Lymphocytes/100 WBC (Bld) 42.5 % Normal . [facility] Comment on above: Performed By: #### C MP, CBC #### [address] MCH (RBC) [Entitic mass] 30.5 pg Normal 24.7-34.3 [facility] Comment on above: Performed By: #### C MP, CBC #### [address] MCV (RBC) [Entitic vol] 88.2 fL Normal 80-100 [facility] Comment on above: Performed By: #### C MP, CBC #### [address] Mean Corpuscular HGB Conc 34.6 g/dL Normal 32.0-35.0 [facility] Comment on above: Performed By: #### C MP, CBC #### [address] Monocytes (Bld) [#/Vol] 0.5 10*3/uL Normal 0.0-0.8 [facility] Comment on above: Performed By: #### C MP, CBC #### [address] Monocytes/100 WBC (Bld) 5.9 % Normal . [facility] Comment on above: Performed By: #### C MP, CBC #### [address] Neutrophils (Bld) [#/Vol] 4.0 10*3/uL Normal 1.8-7.7 [facility] Comment on above: Performed By: #### C MP, CBC #### [address] Neutrophils/100 WBC (Bld) 49.8 % Normal . [facility] Comment on above: Performed By: #### C MP, CBC #### [place] [address] [place] Nucleated RBC/100 WBC (Bld) [Ratio] 0.1 % Normal 0-0.5 [facility] Comment on above: Performed By: #### C MP, CBC #### [address] Platelet mean volume (Bld) [Entitic vol] 8.1 fL Normal 6.3-10.7 [facility] Comment on above: Performed By: #### C MP, CBC #### [address] Platelets (Bld) [#/Vol] 247 10*3/uL Normal 150-450 [facility] Comment on above: Performed By: #### C MP, CBC #### [address] RBC (Bld) [#/Vol] 4.56 10*6/uL Normal 3.60-5.00 [facility] Comment on above: Performed By: #### C MP, CBC #### [address] WBC (Bld) [#/Vol] 8.1 10*3/uL Normal 4.5-11.0 [facility] Comment on above: Performed By: #### C MP, CBC #### [address] Comprehensive Metabolic Pane stormy 01-27-2021 Albumin [Mass/Vol] 3.8 g/dL Normal 3.2-5.5 [facility] Comment on above: Performed By: #### C MP, CBC #### [address] Albumin/Globulin [Mass ratio] 1.2 {ratio} Normal [facility] Comment on above: Performed By: #### C MP, CBC #### [address] ALP [Catalytic activity/Vol] 69 U/L Normal 32-92 [facility] Comment on above: Result Comment: PERF ORMED BY: [place] [address] PATHOLOGIST MATERIALS ASSISTANT ALFONSO PINEDO M.D. Performed By: #### C MP, CBC #### [address] ALT [Catalytic activity/Vol] 28 U/L Normal 10-60 [facility] Comment on above: Performed By: #### C MP, CBC #### [facility] [address] [id number] [place] AST [Catalytic activity/Vol] 25 U/L Normal 10-42 [facility] Comment on above: Performed By: #### C MP, CBC #### [facility] [address] [place] [address] [place] Bilirubin [Mass/Vol] 0.5 mg/dL Normal 0.3-1.2 [facility] Comment on above: Performed By: #### C MP, CBC #### [facility] [address] [id number] [place] Calcium [Mass/Vol] 9.6 mg/dL Normal 8.2-10.2 [facility] Comment on above: Performed By: #### C MP, CBC #### [facility] [address] [id number] [place] Chloride [Moles/Vol] 100 mmol/L Normal 95-114 [facility] Comment on above: Performed By: #### C MP, CBC #### [facility] [address] [place] [address] [place] CO2 [Moles/Vol] 27.2 mmol/L Normal 22.0-30.0 [facility] Comment on above: Performed By: #### C MP, CBC #### [facility] [address] [id number] [place] Creatinine [Mass/Vol] 0.71 mg/dL Normal 0.44-1.03 [facility] Comment on above: Performed By: #### C MP, CBC #### [facility] [address] [id number] [place] Estimated GFR ( Aurelia > 60 [facility] Comment on above: Result Comment: GFR estimated reference range: According to KDOQI guidelines, <60 ml/min/1.73m2 is sufficient to diagnose a patient with chronic kidney disease. Performed By: #### C MP, CBC #### [facility] [address] [id number] [place] Estimated GFR (Non- Am > 60 Normal [facility] Comment on above: Performed By: #### C MP, CBC #### [facility] [address] Globulin (S) [Mass/Vol] 3.3 g/dL Normal [facility] Comment on above: Performed By: #### C MP, CBC #### [address] Glucose [Mass/Vol] 85 mg/dL Normal 70-100 [facility] Comment on above: Result Comment: [facility] Glucose Reference Range is dependent on time and content of last meal. Glucose of more than 200 mg/dL in a nonstressed, ambulatory subject supports the diagnosis of Diabetes Mellitus. ADA recommended reference range Performed By: #### C MP, CBC #### [address] Potassium [Moles/Vol] 3.8 mmol/L Normal 3.5-5.1 [facility] Comment on above: Performed By: #### C MP, CBC #### [address] Protein [Mass/Vol] 7.1 g/dL Normal 6.1-7.9 [facility] Comment on above: Performed By: #### C MP, CBC #### [address] Sodium [Moles/Vol] 137 mmol/L Normal 136-146 [facility] Comment on above: Performed By: #### C MP, CBC #### [place] [address] [place] Urea nitrogen [Mass/Vol] 13 mg/dL Normal 9-23 [facility] Comment on above: Performed By: #### C MP, CBC #### [place] [address] [place] Creatinine and Glomerular fi ltration rate.predicted panel (S/P/Bld)on 01-27-2021 Creatinine [Mass/Vol] 0.71 mg/dL 0.44-1.03 [facility] ECG 12 lead ECGon 01-27-2021 ECG 12 lead ECG [facility] [address] [place] [address] Electrocardiograph Report Signed Patient: Isabelle Benitez MR#: [id number] : 1955 Acct:[id number] Age/Sex: 65 / F ADM Date: 01/27/21 Loc: PS Room: Type: [facility] Attending Dr: Bobby Todd MD Ordering Provider: Bobby Todd MD Date of Service: 01/27/21 ECG/ECG 12 lead ECG: LEFT SHOULDER ARTHROSCOPY, RCR Copies to: Test Reason : Blood Pressure : / mmHG Vent. Rate : 058 BPM Atrial Rate : 058 BPM P-R Int : 150 ms QRS Dur : 078 ms QT Int : 422 ms P-R-T Axes : 047 014 036 degrees QTc Int : 414 ms Sinus bradycardia Incomplete right bundle branch block Otherwise normal ECG No previous ECGs available Confirmed by BOBBY HART MD ([id number]) on 01/27/2021 5:24:59 PM Referred By: GRISELDA Electronically Signed By:BOBBY HART MD Transcribed By: RODRÍGUEZ Dictated By: Bobby Hart MD 01/27/21 1043 Signed By: 01/27/21 1725 Normal [facility] Eosinophils Auto (Bld) [#/Vo l]on 01-27-2021 Eosinophils (Bld) [#/Vol] 0.1 10*3/uL 0.0-0.45 [facility] Eosinophils/100 WBC Auto (Bl d)on 01-27-2021 Eosinophils/100 WBC (Bld) 0.9 % [facility] Erythrocyte distribution wid th Auto (RBC) [Ratio]on 01-27-2021 Erythrocyte distribution width (RBC) [Ratio] 12.7 % 11.9-15.3 [facility] Estimated glomerular filtrat ion rate (GFR) non- Americanon 01-27-2021 GFR/1.73 sq M.predicted among non-blacks MDRD (S/P/Bld) [Vol rate/Area] > 60 mL/Min [facility] Globulin Calc (S) [Mass/Vol] on 01-27-2021 Globulin (S) [Mass/Vol] 3.3 g/dL [facility] Hematocrit Auto (Bld) [Volum e fraction]on 01-27-2021 Hematocrit (Bld) [Volume fraction] 40.2 % 34.0-46.4 [facility] Laboratory - Hematology and Cell countson 01-27-2021 Nucleated RBC/100 WBC (Bld) [Ratio] 0.1 % 0-0.5 [facility] Lymphocytes Auto (Bld) [#/Vo l]on 01-27-2021 Lymphocytes (Bld) [#/Vol] 3.4 10*3/uL 1.00-4.8 [facility] Lymphocytes/100 WBC Auto (Bl d)on 01-27-2021 Lymphocytes/100 WBC (Bld) 42.5 % [facility] MCH Auto (RBC) [Entitic mass ]on 01-27-2021 MCH (RBC) [Entitic mass] 30.5 pg 24.7-34.3 [facility] MCHC Auto (RBC) [Mass/Vol]on 01-27-2021 MCHC (RBC) [Mass/Vol] 34.6 g/dL 32.0-35.0 [facility] MCV Auto (RBC) [Entitic vol] on 01-27-2021 MCV (RBC) [Entitic vol] 88.2 fL 80-100 [facility] Monocytes Auto (Bld) [#/Vol] on 01-27-2021 Monocytes (Bld) [#/Vol] 0.5 10*3/uL 0.0-0.8 [facility] Monocytes/100 WBC Auto (Bld) on 01-27-2021 Monocytes/100 WBC (Bld) 5.9 % [facility] Neutrophils Auto (Bld) [#/Vo l]on 01-27-2021 Neutrophils (Bld) [#/Vol] 4.0 10*3/uL 1.8-7.7 [facility] Neutrophils/100 WBC Auto (Bl d)on 01-27-2021 Neutrophils/100 WBC (Bld) 49.8 % [facility] No Panel Informationon 01-27 Estimated GFR () > 60 mL/Min [facility] Comment on above: GFR estimated refere nce range: According to KDOQI guidelines, <60 ml/min/1.73m2 is sufficient to diagnose a patient with chronic kidney disease. Pharmacy Creatinine Clearance (Chem N/A [facility] Platelet mean volume Auto (B ld) [Entitic vol]on 01-27-2021 Platelet mean volume (Bld) [Entitic vol] 8.1 fL 6.3-10.7 [facility] Platelets Auto (Bld) [#/Vol] on 01-27-2021 Platelets (Bld) [#/Vol] 247 10*3/uL 150-450 [facility] Protein [Mass/volume] in Ser um or Plasmaon 01-27-2021 Protein [Mass/Vol] 7.1 g/dL 6.1-7.9 [facility] RBC Auto (Bld) [#/Vol]on RBC (Bld) [#/Vol] 4.56 10*6/uL 3.60-5.00 [facility] Serum or plasma alanine jimenez otransferase measurement without P-5'-P (enzymatic activion 01-27-2021 ALT No additional P-5'-P [Catalytic activity/Vol] 28 U/L 10-60 [facility] Serum or plasma albumin/glob ulin mass ratioon 01-27-2021 Albumin/Globulin [Mass ratio] 1.2 {ratio} [facility] Serum or plasma alkaline yanna sphatase measurement (enzymatic activity/volume)on 01-27-2021 ALP [Catalytic activity/Vol] 69 U/L 32-92 [facility] Serum or plasma aspartate am inotransferase measurement (enzymatic activity/volume)on 01-27-2021 AST [Catalytic activity/Vol] 25 U/L 10-42 [facility] Serum or plasma calcium bernadine urement (mass/volume)on 01-27-2021 Calcium [Mass/Vol] 9.6 mg/dL 8.2-10.2 [facility] Serum or plasma chloride lali surement (moles/volume)on 01-27-2021 Chloride [Moles/Vol] 100 mmol/L 95-114 [facility] Serum or plasma glucose bernadine urement (mass/volume)on 01-27-2021 Glucose [Mass/Vol] 85 mg/dL 70-100 [facility] Comment on above: ADA recommended refe rence rangeRandom Glucose Reference Range is dependent on time and content of last meal. Glucose of more than 200 mg/dL in a nonstressed, ambulatory subject supports the diagnosis of Diabetes Mellitus. Serum or plasma potassium me asurement (moles/volume)on 01-27-2021 Potassium [Moles/Vol] 3.8 mmol/L 3.5-5.1 [facility] Serum or plasma sodium measu rement (moles/volume)on 01-27-2021 Sodium [Moles/Vol] 137 mmol/L 136-146 [facility] Serum or plasma total biliru bin measurement (mass/volume)on 01-27-2021 Bilirubin [Mass/Vol] 0.5 mg/dL 0.3-1.2 [facility] Serum or plasma total carbon dioxide measurement (moles/volume)on 01-27-2021 CO2 [Moles/Vol] 27.2 mmol/L 22.0-30.0 [facility] Serum or plasma urea nitroge n measurement (mass/volume)on 01-27-2021 Urea nitrogen [Mass/Vol] 13 mg/dL 05-11 [facility] Vital Signs Date Time Vital Sign Value Performing Clinician Facility 06-10-2024 11:58-0400 Body height 157.48 cm [facility] 06-10-2024 11:58-0400 Body mass index (BMI) [Ratio] 29 kg/m2 [facility] 06-10-2024 11:58-0400 Body weight 72.17 kg [facility] 06-10-2024 11:58-0400 Diastolic blood pressure 70 mm[Hg] [facility] 06-10-2024 11:58-0400 Heart rate 69 /min [facility] 06-10-2024 11:58-0400 Respiratory rate 12 /min [facility] 06-10-2024 11:58-0400 Systolic blood pressure 124 mm[Hg] [facility] 09-08-2023 11:50-0500 Body height 157.48 cm Karla Hull Other [facility] Other 09-08-2023 11:50-0500 Body mass index (BMI) [Ratio] 29.63 kg/m2 Karla Hull Other [facility] Other 09-08-2023 11:50-0500 Body temperature 98.1 [degF] Karla Motamond Other [facility] Other 09-08-2023 11:50-0500 Body weight 73.48 kg Karla Hull Other [facility] Other 09-08-2023 11:50-0500 Diastolic blood pressure 72 mm[Hg] Karla Hull Other [facility] Other 09-08-2023 11:50-0500 Respiratory rate 18 /min Karla Hull Other [facility] Other 09-08-2023 11:50-0500 SaO2% (BldA) [Mass fraction] 98 % Karla Hull Other [facility] Other 09-08-2023 11:50-0500 Systolic blood pressure 128 mm[Hg] Karla Della Other [facility] Other 09-06-2023 12:15-0500 Body height 157.48 cm Rob Ball Other [facility] Other 09-06-2023 12:15-0500 Diastolic blood pressure 90 mm[Hg] Rob Ball Other [facility] Other 09-06-2023 12:15-0500 Systolic blood pressure 140 mm[Hg] Rob Ball Other [facility] Other 05-30-2023 10:00-0400 Body height 157.48 cm Rob Ball Other [facility] Other 05-30-2023 10:00-0400 Body mass index (BMI) [Ratio] 29.77 kg/m2 Rob Ball Other [facility] Other 05-30-2023 10:00-0400 Body weight 73.85 kg Rob Ball Other [facility] Other 05-30-2023 10:00-0400 Diastolic blood pressure 75 mm[Hg] Rob Ball Other [facility] Other 05-30-2023 10:00-0400 Respiratory rate 12 /min Rob Ball Other [facility] Other 05-30-2023 10:00-0400 Systolic blood pressure 119 mm[Hg] Rob Ball Other [facility] Other 04-18-2023 10:15-0400 Body height 157.48 cm Rob Ball Other [facility] Other 04-18-2023 10:15-0400 Body mass index (BMI) [Ratio] 29.59 kg/m2 Rob Ball Other [facility] Other 04-18-2023 10:15-0400 Body weight 73.39 kg Rob Ball Other [facility] Other 04-18-2023 10:15-0400 Diastolic blood pressure 75 mm[Hg] Rob Ball Other [facility] Other 04-18-2023 10:15-0400 Respiratory rate 12 /min Rob Ball Other [facility] Other 04-18-2023 10:15-0400 Systolic blood pressure 119 mm[Hg] Rob Ball Other [facility] Other 11-02-2022 15:45-0400 Body height 157.48 cm Rob Ball Other [facility] Other 11-02-2022 15:45-0400 Body mass index (BMI) [Ratio] 28.86 kg/m2 Rob Ball Other [facility] Other 11-02-2022 15:45-0400 Body weight 71.58 kg Rob Ball Other [facility] Other 11-02-2022 15:45-0400 Diastolic blood pressure 77 mm[Hg] Rob Ball Other [facility] Other 11-02-2022 15:45-0400 Respiratory rate 12 /min Rob Ball Other [facility] Other 11-02-2022 15:45-0400 Systolic blood pressure 136 mm[Hg] Rob Ball Other [facility] Other 05-11-2021 11:45-0400 Body height 157.48 cm Bobby Olexa Other [facility] Other 05-11-2021 11:45-0400 Body mass index (BMI) [Ratio] 28.53 kg/m2 Bobby Olexa Other [facility] Other 05-11-2021 11:45-0400 Body weight 70.76 kg Bobby Olexa Other [facility] Other Encounters Encounter Date Encounter Type Care Provider Facility Start: 06-10-2024 End: 06-10-2024 [facility] Work Phone: Start: 06-10-2024 End: 06-10-2024 Patient encounter procedure [facility] Work Phone: Start: 06-07-2024 Patient encounter procedure [facility] Start: 09-09-2023 End: 09-09-2023 ambulatory Rob Lopez Other [facility] Other Start: 09-09-2023 Office outpatient vi sit 10 minutes Rob Ball [facility] Start: 09-08-2023 End: 09-08-2023 ambulatory Karla Della Other [facility] Other Start: 09-08-2023 Office outpatient vi sit 15 minutes Karla Della [facility] Start: 09-06-2023 End: 09-06-2023 ambulatory Rob Lopez Other [facility] Other Start: 09-06-2023 Office outpatient vi sit 15 minutes Rob [facility] Start: 05-30-2023 End: 05-30-2023 ambulatory Rob John Other [facility] Other Start: 05-30-2023 Patient encounter procedure [facility] Start: 04-18-2023 End: 04-18-2023 ambulatory Rob Lopez Other [facility] Other Start: 04-18-2023 Office outpatient vi sit 15 minutes Rob [facility] Start: 12-25-2022 End: 12-25-2022 ambulatory Rob Ball Other [facility] Other Start: 12-25-2022 Telephone encounter Rob Lopez [facility] [employer] Start: 11-02-2022 End: 11-02-2022 ambulatory Rob John Other [facility] Other Start: 11-02-2022 Office outpatient vi sit 15 minutes Rob Lopez [facility] Start: 11-02-2022 Telephone encounter Rob Lopez [facility] Start: 07-06-[address] ROB LOPEZ Facilbashir ty:[facility]1 Start: 07-03-2022 Encounter for genera l adult medical examination without abnormal findings DR ROB LOPEZ [facility] Start: 06-30-2022 End: 07-01-[address] ROB LOPEZ Facility:[facility] Start: 06-30-2022 End: 07-01-2022 Encounter for general adult medical examination without abnormal findings DR ROB LOPEZ Facility:[facility] Start: 12-26-2021 End: 12-27-[address] ROB LOPEZ Facility:[facility] Start: 09-26-2021 End: 09-27-[address] ROB LOPEZ Facility:[facility] Start: 09-05-2021 End: 09-06-[address] ROB LOPEZ Facility:[facility] Start: 08-30-[address] ROB Banegas ty:[facility]1 Start: 08-18-2021 End: 08-19-[address] ROB LOPEZ Facility:[facility] Start: 05-11-2021 Office outpatient vi sit 15 minutes Bobby Todd [facility] Start: 01-27-2021 End: 01-27-2021 Patient encounter procedure Bobby Todd Work Phone: -Pre-Surgical Testing Plan of Treatment Date Care Activity Detail Author MG Breast - bilateral Screening [facility] Payers Date Payer Category Payer Self-pay [id number] 1957 Unknown [id number] 1955 Unknown [id number] 2.16.84 [id number] 1955 Unknown [id number] 2.16.84 [id number] 1955 Unknown [id number] 2.16.84 [id number] 1955 Unknown [id number] 2.16.84 [id number] 1955 Unknown [id number] 2.16.84 [id number] 1955 Unknown [id number] 2.16.84 [id number] 1955 Unknown [id number] 2.16.84 [id number] [facility] [id number] Social History Date Type Detail Facility Start: 01-27-2021 End: 02-01-2021 Tobacco smoking status ALIS Ex-smoker (finding) [facility] Start: 1955 Sex Assigned At Female F [facility] Sex Assigned At Sex Assigned At Bir th [facility] Other Medical Equipment Procedure Code Equipment Code Equipment Origin al Text Equipment Identifier Dates Arthroscopy, shoulder Tendon/ligament bone anchor, bioabsorbable [id number] FDA Start: 02-01-2021 Arthroscopy, shoulder Tendon/ligament bone anchor, non-bioabsorbable [id number] FDA Start: 02-01-2021 Arthroscopy, shoulder Tendon/ligament bone anchor, bioabsorbable [id number] FDA Start: 02-01-2021 Clinical Notes 05-11-2021 to 09-09-2023 Note Date & Type Note Facility 09-09-2023 Evaluation note Encounter Date Diagnosis Assessment Notes Aug, COVID-19 (ICD-10 - U07.1) Self isolate at home. - Cannot work - avoid contact with others - avoid pets - wipe counters, door knobs if touched - if can't avoid leaving home, must wear mask to protect others - need to stay isolated for 10 days from onset of symptoms - to discontinue isolation must be 5 days AND must be without fever for 24 hours AND symptoms must be improving. Always wear a mask in public places for complete 10 days Instructed to rest, finish antibiotics and use OTC medication for symptoms Her symptoms have been present > 5 days, negating benefit of Paxlovid Aug, Intercostal pain (ICD-10 - R07.82) Splint chest w/ coughing. Tylenol, Salon Pas patches. Aug, Acute cough (ICD-10 - R05.1) Instructed to use Mucinex DM and hydrate. May need to sleep w/ HOB elevated. [facility] Other 01-21-2024 Evaluation note* Encounter Date Diagnosis Assessment Notes Treatment Notes Treatment Clinical Notes Aug, COVID-19 (ICD-10 - U07.1) Discharge Instructions for COVID-19 (Suspected or Confirmed ) material was printed Drink plenty fluids, get plenty of rest. Take the prednisone as prescribed until gone for your bronchitis and muscle strain. Use the albuterol inhaler as prescribed as needed for cough or shortness of breath. Take the benzonatate capsules as prescribed for cough. Take Tylenol or Motrin as needed for aches pains or fevers. You must quarantine for 5 days after the onset of the symptoms of COVID. Follow-up with your family physician if no improvement in 2 to 3 days Aug, Acute bronchitis, unspecified organism (ICD-10 - J20.9) Aug, Intercostal muscle strain, initial encounter (ICD-10 - S29.011A) Aug, Contact with and (suspected) exposure to other viral communicable diseases (ICD-10 - Z20.828) [facility] Other 01-19-2024 Evaluation note* Encounter Date Diagnosis Assessment Notes Treatment Notes Treatment Clinical Notes Aug, Acute bronchitis due to other specified organisms (ICD-10 - J20.8) Instructed to use Robitussin or Mucinex for cough, saline or Flonase NS for congestion, Tylenol for pain and fever. Aug, Elevated BP without diagnosis of hypertension (ICD-10 - R03.0) This patient is instructed to consume a healthy, low-fat, low-salt diet. They are also encouraged to continue exercise to achieve/maintain a normal BMI. Patient is instructed on home BP measurements: - rest for 5 minutes w/o talking.- positioned w/ feet on floor and arm supported.- average best 2/3 readings w/ goal < 135/85.- update office w/ home readings in 2 weeks. [facility] Other 10-12-2023 Evaluation note* Encounter Date Diagnosis Assessment Notes Treatment Notes Treatment Clinical Notes May, Controlled type 2 diabetes mellitus with hyperglycemia, without long-term current use of insulin (ICD-10 - E11.65) This patient is following a comprehensive diabetic treatment plan. They are checking their feet daily for calluses and nonhealing ulcers. They are being seen for yearly dilated eye examinations. Goals: SBP less than 130, LDL less than 100, FBS less than 140, A1C less than 7%. They are checking their BS daily, will which are reviewed at the office visit. Continue regular routine monitoring of A1C, Microalbumin, Dilated eye exam and Foot exam May, Medicare annual wellness visit, initial (ICD-10 - Z00.00) Personalized health advice was given to the beneficiary including a written plan for screenings discussed and provided. Advanced care planning reviewed and/or information given as requested. Additional counseling was provided here today in regards to, [ ]. The above visit was performed by [ ] under direct supervision of [ ]. Document reviewed and amended by provider signed below. May, Overweight (ICD-10 - E66.3) This patient has been instructed on a low-fat, high-fiber diet. They are instructed to reduce calories, portion sizes and snacks. It is recommended that they exercise for 30 minutes, 3-5 times weekly. May, Screening mammogram for breast cancer (ICD-10 - Z12.31) Instructed patient on monthly SBE and yearly mammograms. [facility] Other 08-31-2023 Evaluation note* Encounter Date Diagnosis Assessment Notes Treatment Notes Treatment Clinical Notes Mar, Lipoma of right upper extremity (ICD-10 - D17.21) Reassured, not changing in size Recommmend discussion w/ Manuscripts Archivist at next skin cancer screening Mar, Controlled type 2 diabetes mellitus with hyperglycemia, without long-term current use of insulin (ICD-10 - E11.65) Healthy diet, exercise and weight loss. Monitor A1C every 6mo. She has made significant improvement in lifestyle to avoid use of medication at this time. Mar, Ganglion cyst (ICD-10 - M67.40) Adjacent to nail and resulted in nail deformity. Recommend discussing w/ Dermatolgist [facility] Other 03-17-2023 Evaluation note* Encounter Date Diagnosis Assessment Notes Treatment Notes Treatment Clinical Notes Oct, Decreased hearing of left ear (ICD-10 - H91.92) Referral for Audiogram / Tympanogram Oct, Dysfunction of left eustachian tube (ICD-10 - H69.82) Valsalva maneuver, FLonase NS [facility] Other 09-23-2021 Evaluation note* Encounter Date Diagnosis Assessment Notes Treatment Notes Treatment Clinical Notes Apr, Traumatic tear of supraspinatus tendon of left shoulder, subsequent encounter (ICD-10 - S46.812D) Patient instructed on the importance of continued daily shoulder motion exercise and rotator cuff strengthening exercise. Discussed that heavy or strenuous use of the shoulder should be avoided. Patient may slowly progress increased activity as pain allows. Discussed importance of continuing motion and strengthening exercises longterm. 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) Apr, Acute pain of left shoulder (ICD-10 - M25.512) Apr, Other specified postprocedural states (ICD-10 - Z98.890) [facility] Other Evaluation noteNo assessment information available [facility] note[facility] InformationNort [employer] Other Evaluation note* Diagnosis Onset Date Resolution Status Medicare annual wellness visit, subsequent acute Screening mammogram for breast cancer acute Type 2 diabetes mellitus with hyperglycemia acute [facility] Work Phone: History general Narrative - Reported* Type Description Date Surgical History bladder suspension, unspecified x2 Surgical History appendectomy Surgical History child x 3 Surgical History hysterectomy Surgical History left shoulder arthro scopy with supraspinatus rotator cuff repair, superior subscapularis tendon repair, subacromial decompression, biceps tenodesis 02/01/21 [facility] Other History general Narrative - Reported* Type Description Date Medical History History of concussion Medical History Ovarian cyst Medical History Urinary urgency Medical History Leiomyoma of uterus Medical History Impaired fasting blood sugar Medical History JAVIER (generalized anxiety disorde r) Medical History Controlled type 2 di abetes mellitus with hyperglycemia, without long-term current use of insulin Medical History Subconjunctival hemorrhage of ri ght eye Medical History Rotator cuff tear, left Medical History Trigger finger, right ring finge r Surgical History bladder suspension, unspecified x2 Surgical History appendectomy Surgical History child x 3 Surgical History hysterectomy Surgical History left shoulder arthro scopy with supraspinatus rotator cuff repair, superior subscapularis tendon repair, subacromial decompression, biceps tenodesis 02/01/21 Hospitalization History see surgical history [facility] Other Reason for referral (narrative)* Reason *FU 11/12 Referral to [facility] for Audiogram/tympanogram on [address] Diagnosis 1 Decreased hearing of left ear (H91.92) Diagnosis 2 Dysfunction of left eustachian tube (H69.82) Referral Organization [facility] ariel Referring Provider First Name Rob Referring Provider Last Name John Referring Provider Specialty Internal Me dicine Referred Organization [facility] Referred Provider Sabi Calix Referred Address ,[place], [place],[address] Referred Provider Specialty Ear, Nose an d Throat Referral Priority Routine General Notes Referral for hearing evaluation Wanda Kelly 11/05/2022 01:42:39 PM >RECEIVED TODAY, NOTES LOCKED, REFERRAL FAXED p2p Clinical Notes She has noticed grad ual loss of hearing over past several years. Associated w/ noise/ringing w/o vertigo. No s/s intercurrent infection in sinuses, pharynx or ears. [employer] Other Chief Complaint and Reason for Visit Chief Complaint Shoulder pain Chief Complaint wellness Reason for Visit Medicare [facility], subsequent Screening mammogram for breast cancer Type 2 diabetes mellitus with hyperglycemia Family History Relationship Condition Age at Onset Recorded Date/T tristan Not Specified Type 2 diabetes mellitus Unknown Hypertension Unknown Cerebrovascular accident (CVA) Unknown brother Type 2 diabetes mellitus Unknown sister Lupus Unknown father Hypertension Unknown brother Malignant neoplasm Unknown sister Disorder of thyroid Unknown Relationship Condition Age at Onset Recorded Date/T tr[place] mother Type 2 diabetes mellitus Unknown Hypertension Unknown Cerebrovascular accident (CVA) Unknown brother Type 2 diabetes mellitus Unknown sister Lupus Unknown father Hypertension Unknown brother Malignant neoplasm Unknown sister Disorder of thyroid Unknown brother Diabetes mellitus Unknown mother Diabetes mellitus Unknown Unknown Advance Directives Advance Directive Response Recorded Date/ Time Advance Directives No January 25 11:39am Summary Purpose Additional Source Comments Goals (unrecognized section and content) Goals may be documented in a n alternate sectionNo InformationNo InformationNo InformationNo InformationNo InformationNo InformationNo InformationNo InformationNo InformationGoals may be documented in an alternate section INFORMATION SOURCE (unrecogn ized section and content) DATE CREATED AUTHOR 09/08/2021 [facility] DATE CREATED AUTHOR AUTHOR'S ORGANIZ ATION 07/07/2022 [facility] REASON FOR VISIT (unrecogniz ed section and content) Recheck Left ShoulderLeft Ea r-Wants in TodayEar PainENT REFERRAL NOTEDISCUSSION ABOUT E OXYGEN TANKSWELLNESSCough, Lungs-COVID Negative- [phone], CHEST CONGESTION, RIB PAINcovid + [phone] Care Teams (unrecognized sec tion and content) Team Status: Active Member Role Status Dates Rob Lopez DO Primary Care Provider Active Team Status: Inactive Member Role Status Dates Rob Lopez DO Primary Care Provide r, Attending Provider Active Start: June 10, 2024 End: June 10, 2024 FOR RECORDS PERTAINING TO PATIENTS WHO ARE OR HAVE BEEN ENROLLED IN A CHEMICAL DEPENDENCY/SUBSTANCEABUSE PROGRAM, SOME INFORMATION MAY BE OMITTED. This clinical summary was aggregated from multiple sources. Caution should be exercised in using it in the provision of clinical care. This summary normalizes information from multiple sources, and as a consequence, information in this document may materially change the coding, format and clinical context of patient data. In addition, data may be omitted in some cases. CLINICAL DECISIONS SHOULD BE BASED ON THE PRIMARY CLINICAL RECORDS. [employer] provides no warranty or guarantee of the accuracy or completeness of information in this document.
[2024-10-13 14:49] LABS: INR 1.03; Prothrombin Time 10.9 sec (9.0-11.6)
[2024-10-13 14:55] LABS: Lactate/Lactic Acid 1.3 mmol/L (0.4-2.0)
[2024-10-13 15:02] LABS: Alanine Aminotransferase 32 U/L (14-59); Albumin Level 3.8 g/dL (3.4-5.0); Alkaline Phosphatase 89 U/L (46-116); Anion Gap 13.6; Aspartate Amino Transferase 25 U/L (15-37); BUN Creatinine Ratio 27.2; Bilirubin Total 0.4 mg/dL (0.2-1.0); Carbon Dioxide 24.6 mmol/L (21.0-32.0); Chloride 102 mmol/L (98-107); Estimated GFR (African America >60 (>=60 mL/min/1.73m^2); Estimated GFR (Non-African Ame >60 (>=60 mL/min/1.73m^2); Globulin 3.8 g/dL; Glucose 96 mg/dL (74-106); Potassium 3.2 mmol/L (3.5-5.1); Sodium 137 mmol/L (136-145); Total Protein 7.6 g/dL (6.4-8.2)
[2024-10-13 15:03] LABS: Magnesium 1.9 mg/dL (1.8-2.4); Troponin I High Sensitivity 4.8 pg/mL (4.0-51.3)
--- NOTE | 2024-10-13 15:46 | PC.NURSE ---
pt is ambulatory to restroom on her own, pt ambulates slowly to restroom
[2024-10-13] MEDS: ACETAMINOPHEN 325 MG TABLET 650 MG PO ×2 (16:19→20:02)
[2024-10-13 16:38] LABS: Troponin I High Sensitivity 6.6 pg/mL (4.0-51.3)
[2024-10-13] MEDS: ASPIRIN 81 MG TAB.CHEW 324 MG PO (17:06)
--- NOTE | 2024-10-13 17:26 | US_ITS ---
[address] [address] Patient Name: LEONCIO BENITEZ MRN: [id number] date: 1955 Sex: F Assigned Patient Location: [place] Current Patient Location: [place] Accession/Order Number: [id number] Exam Date: 10/13/2024 20:57 Report Date: 10/13/2024 21:04 At the request of: CHUCHO BUSBY DO Procedure: US carotid duplex BI US carotid duplex BI 10/13/2024 5:29 PM SIGNS AND SYMPTOMS: ^TIA, dizziness ^Y PROTOCOL: Grayscale and duplex Doppler sonographic images of the common carotid arteries, internal carotid arteries, and vertebral arteries were obtained. COMPARISON: October 13, 2024 FINDINGS: Common carotid arteries: Satisfactory arterial waveforms are noted with satisfactory antegrade flow on color Doppler imaging. Carotid bifurcations show mild to moderate calcified plaque, right greater than left. Right carotid bulb percent stenosis by area: 79% Internal carotid arteries: Right: Peak systolic velocity: 123 cm/s End-diastolic velocity: 30 cm/s Ratio: 1.6 Left: Peak systolic velocity: 98 cm/s End-diastolic velocity: 27.4 cm/s Ratio: 1.2 Vertebral arteries: Antegrade flow bilaterally. US/US carotid duplex BI IMPRESSION: There is 50-69% stenosis of the right internal carotid artery by velocity on duplex Doppler imaging. There is less than 50% stenosis of the left internal carotid artery by velocity and duplex Doppler imaging. There is antegrade flow in the vertebral arteries bilaterally. Impression dictated by: Sarwat Ortiz M.D.10/13/2024 9:04 PM Dictation Location: [place] [address] Electronically authenticated by: [id number] Y Date: 10/13/2024 21:04
--- OUTSIDE RECORDS SUMMARY | 2024-10-13 18:08 | XMS_ITS | CCD ---
Author Organization [facility] Care Team Providers Care Biztalk Administrator Name Role Phone Bobby Todd Attending Provider Rob Lopez Primary Care Provider Bobby Todd Unavailable JOHN, DR CTOTON Admitting Unavailable BALL, DR COTTON Attending Unavailable [...] Drug Allergy 1 Swelling of Lip/Tongue/Thro at [facility] (9 sources) Penicillin Drug Allergy hives/swelling [facility] [employer] Other (3 sources) Penicillins Drug allergy (disorder) 5 Swelling of Lip/Tongue/Thro at [facility] (1 source) Penicillin Drug Allergy hives/swelling [facility] [employer] Other (1 source) Penicillin Drug Allergy 4 hives/swelling [facility] Medications Current Medications Medication Drug Class(es) Dates Sig (Normalized) Sig (Original) [id number] actuat albuterol 0.09 mg/actuat metered dose [...] Documented Date Episodic/Chronic Other aftercare (1 source) 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 Angel Gray Basophils/100 WBC (Bld) 0.8 % Normal 0.2-2.0 [facility] Comment on above: Performed By: #### C BC #### [facility] [address] [place] [address] Dr. Angel Gray EO # 0.2 103/ul Normal 0.0-0.7 [facility] Comment on above: Performed By: #### C BC #### [facility] [address] [place] [address] Dr. Angel Gray Eosinophils/100 WBC (Bld) 2.6 % Normal 0.9-7.0 [facility] Comment on above: Performed By: #### C BC #### [facility] [address] [place] [address] Dr. Angel Gray Erythrocyte distribution width (RBC) [Ratio] 12.4 % Normal 11.0-15.0 [facility] Comment on above: Performed By: #### C BC #### [facility] [address] [place] [address] Dr. Angel Gray Hematocrit (Bld) [Volume fraction] 41.4 % Normal 36.0-48.0 [facility] Comment on above: Performed By: #### C BC #### [facility] [address] [place] [address] Dr. Angel Gray Hemoglobin (Bld) [Mass/Vol] 13.9 g/dL Normal 12.0-16.0 [facility] Comment on above: Performed By: #### C BC #### [facility] [address] [place] [address] Dr. Angel Gray IG # 0.03 10e3/ul Normal 0.00-0.03 [facility] Comment on above: Performed By: #### C BC #### [facility] [address] [place] [address] Dr. Angel Gray IG % 0.4 % Normal 0.0-0.5 [facility] Comment on above: Performed By: #### C BC #### [facility] [address] [place] [address] Dr. Angel Gray LYMPH # 3.4 103/ul Normal 1.2-3.8 [facility] Comment on above: Performed By: #### C BC #### [facility] [address] [place] [address] Dr. Angel Gray Lymphocytes/100 WBC (Bld) 43.9 % Normal 20.5-60.0 [facility] Comment on above: Performed By: #### C BC #### [facility] [address] [place] [address] Dr. Angel Gray MANUAL DIFF REQ NO Normal [facility] Comment on above: Performed By: #### C BC #### [facility] [address] [place] [address] Dr. Angel Gray MCH (RBC) [Entitic mass] 29.5 pg Normal 26.7-34.0 [facility] Comment on above: Performed By: #### C BC #### [facility] [address] [address] [address] Angel Gray MCHC (RBC) [Mass/Vol] 33.6 g/dL Normal 29.9-35.2 [facility] Comment on above: Performed By: #### C BC #### [facility] [address] [address] [address] Angel Gray MCV (RBC) [Entitic vol] 87.9 fL Normal 81.0-99.0 [facility] Comment on above: Performed By: #### C BC #### [facility] [address] [place] [address] Dr. Angel Gray MONO # 0.4 103/ul Normal 0.3-0.8 [facility] Comment on above: Performed By: #### C BC #### [facility] [address] [place] [address] Dr. Angel Gray Monocytes/100 WBC (Bld) 4.7 % Normal 1.7-12.0 [facility] Comment on above: Performed By: #### C BC #### [facility] [address] [place] [address] Dr. Angel Gray NEUT # 3.7 103/ul Normal 1.4-6.5 [facility] Comment on above: Performed By: #### C BC #### [facility] [address] [place] [address] Dr. Angel Gray Neutrophils/100 WBC (Bld) 47.6 % Normal 43.0-75.0 [facility] Comment on above: Performed By: #### C BC #### [facility] [address] [address] [address] Angel Gray Platelet mean volume (Bld) [Entitic vol] 9.7 fL Normal 9.5-13.5 [facility] Comment on above: Performed By: #### C BC #### [facility] [address] [place] [address] Dr. Angel Gray PLT 263 103/ul Normal 150-450 [facility] Comment on above: Performed By: #### C BC #### [facility] [address] [place] [address] Dr. Angel Gray RBC 4.71 106/ul Normal 4.20-5.40 [facility] Comment on above: Performed By: #### C BC #### [facility] [address] [address] [address] Angel Gray WBC 7.7 103/ul Normal 4.0-11.0 [facility] Comment on above: Performed By: #### C BC #### [facility] [address] [place] [address] Dr. Angel Gray GLYCOHEMOGLOBIN A1Con 2021 ADA RECOMMENDATION SEE BELOW Normal [facility] Comment on above: Result Comment: ADA RECOMMENDED LIMIT 4.0 - 6.0 ADA THERAPEUTIC TARGET < 7.0 ACTION SUGGESTED > 7.0 Performed By: #### A 1C #### [facility] [address] [place] [address] Dr. Angel Gray Glucose [Mass/Vol] 126 mg/dL Normal [facility] Comment on above: Performed By: #### A 1C #### [facility] [address] [place] [address] Dr. Angel Gray HbA1c (Bld) [Mass fraction] 6.0 % Normal 4.5-6.2 [facility] Comment on above: Performed By: #### A 1C #### [facility] [address] [place] [address] Dr. Angel Gray LIPID PROFILEon 06-30-2022 CHOL-HDL RATIO NORM SEE BELOW Normal [facility] Comment on above: Result Comment: 3.3 - 4.4 LOW RISK 4.4 - 7.1 AVERAGE RISK 7.1 - 11.0 MODERATE RISK >11.0 HIGH RISK Performed By: #### L IPID, CMP #### [facility] [address] [place] [address] Dr. Angel Gray Cholesterol [Mass/Vol] 220 mg/dL Critically high <=200 [facility] Comment on above: Performed By: #### L IPID, CMP #### [facility] [address] [address] [address] Angel Gray Cholesterol in HDL [Mass/Vol] 48 mg/dL Normal 40-60 [facility] Comment on above: Performed By: #### L IPID, CMP #### [facility] [address] [address] [address] Angel Gray Cholesterol in LDL [Mass/Vol] 141.4 mg/dL Normal [facility] Comment on above: Performed By: #### L IPID, CMP #### [facility] [address] [address] [address] Angel Gray Cholesterol.total/Cho lesterol in HDL [Mass ratio] 4.6 {ratio} Normal [facility] Comment on above: Performed By: #### L IPID, CMP #### [facility] [address] [address] [address] Angel Gray HDL NORMAL > or = 60 mg/dl - LOW CARDIOVASCULAR RISK <40 mg/dl - HIGH CARDIOVASCULAR RISK Normal [facility] Comment on above: Performed By: #### L IPID, CMP #### [facility] [address] [address] [address] Angel Gray LDL CALC NORMAL SEE BELOW Normal [facility] Comment on above: Result Comment: <100 mg/dl OPTIMAL 100 - 129 mg/dl NEAR OR ABOVE OPTIMAL 130 - 159 mg/dl BORDERLINE HIGH 160 - 189 mg/dl HIGH >190 mg/dl VERY HIGH Performed By: #### L IPID, CMP #### [facility] [address] [address] [address] Angel Gray Triglyceride [Mass/Vol] 153 mg/dL Critically high <=150 [facility] Comment on above: Performed By: #### L IPID, CMP #### [facility] [address] [address] [address] Angel Gray VLDL CALC 30.6 mg/dL Normal [facility] Comment on above: Performed By: #### L IPID, CMP #### [facility] [address] [address] [address] Angel Gray PROF 14(COMP METB)on 11-12-2 022 Albumin [Mass/Vol] 3.7 g/dL Normal 3.4-5.0 [facility] Comment on above: Performed By: #### L IPID, CMP #### [facility] [address] [address] [address] Angel Gray Albumin/Globulin [Mass ratio] 0.9 {ratio} Normal [facility] Comment on above: Performed By: #### L IPID, CMP #### [facility] [address] [address] [address] Angel Gray ALP [Catalytic activity/Vol] 71 U/L Normal 46-116 [facility] Comment on above: Performed By: #### L IPID, CMP #### [facility] [address] [place] [address] Dr. Angel Gray ALT [Catalytic activity/Vol] 21 U/L Normal 14-59 [facility] Comment on above: Performed By: #### L IPID, CMP #### [facility] [address] [address] [address] Angel Gray Anion gap [Moles/Vol] 10.2 mmol/L Normal [facility] Comment on above: Performed By: #### L IPID, CMP #### [facility] [address] [place] [address] Dr. Angel Gray AST [Catalytic activity/Vol] 17 U/L Normal 15-37 [facility] Comment on above: Performed By: #### L IPID, CMP #### [facility] [address] [address] [address] Angel rGay Bilirubin [Mass/Vol] 0.3 mg/dL Normal 0.2-1.0 [facility] Comment on above: Performed By: #### L IPID, CMP #### [facility] [address] [address] [address] Angel Gray Calcium [Mass/Vol] 9.1 mg/dL Normal 8.5-10.1 [facility] Comment on above: Performed By: #### L IPID, CMP #### [facility] [address] [address] [address] Angel Gray Chloride [Moles/Vol] 103 mmol/L Normal 98-107 [facility] Comment on above: Performed By: #### L IPID, CMP #### [facility] [address] [place] [address] Dr. Angel Gray CO2 [Moles/Vol] 30.0 mmol/L Normal 21.0-32.0 [facility] Comment on above: Performed By: #### L IPID, CMP #### [facility] [address] [place] [address] Dr. Angel Gray Creatinine [Mass/Vol] 0.74 mg/dL Normal 0.55-1.02 [facility] Comment on above: Performed By: #### L IPID, CMP #### [facility] [address] [place] [address] Dr. Angel Gray EGFR-AF CONGOLESE >60 Normal >=60 [facility] Comment on above: Performed By: #### L IPID, CMP #### [facility] [address] [place] [address] Dr. Angel Gray EGFR-NON AF CONGOLESE >60 Normal >=60 [facility] Comment on above: Performed By: #### L IPID, CMP #### [facility] [address] [place] [address] Dr. Angel Gray Globulin (S) [Mass/Vol] 4.0 g/dL Normal [facility] Comment on above: Performed By: #### L IPID, CMP #### [facility] [address] [place] [address] Dr. Angel Gray Glucose [Mass/Vol] 102 mg/dL Normal 74-106 [facility] Comment on above: Performed By: #### L IPID, CMP #### [facility] [address] [place] [address] Dr. Angel Gray Potassium [Moles/Vol] 4.2 mmol/L Normal 3.5-5.1 [facility] Comment on above: Performed By: #### L IPID, CMP #### [facility] [address] [place] [address] Dr. Angel Gray Protein [Mass/Vol] 7.7 g/dL Normal 6.4-8.2 [facility] Comment on above: Performed By: #### L IPID, CMP #### [facility] [address] [address] [address] Angel Gray Sodium [Moles/Vol] 139 mmol/L Normal 136-145 [facility] Comment on above: Performed By: #### L IPID, CMP #### [facility] [address] [address] [address] Angel Gray Urea nitrogen [Mass/Vol] 21.0 mg/dL Critically high 7.0-18.0 [facility] Comment on above: Performed By: #### L IPID, CMP #### [facility] [address] [place] [address] Dr. Angel Gray Urea nitrogen/Creatinine [Mass ratio] 28.4 mg/mg Normal [facility] Comment on above: Performed By: #### L IPID, CMP #### [facility] [address] [place] [address] Dr. Angel Gray DIRECT LDLon 12-26-2021 Cholesterol in LDL [Mass/Vol] 144 mg/dL Normal [facility] Comment on above: Performed By: #### D LDL #### [facility] [address] [place] [address] Dr. Angel Gray DLDL NORMAL SEE BELOW Normal [facility] Comment on above: Result Comment: <100 mg/dl OPTIMAL 100 - 129 mg/dl NEAR OR ABOVE OPTIMAL 130 - 159 mg/dl BORDERLINE HIGH 160 - 189 mg/dl HIGH >190 mg/dl VERY HIGH Performed By: #### D LDL #### [facility] [address] [place] [address] Dr. Angel Gray GLYCOHEMOGLOBIN A1Con 2021 ADA RECOMMENDATION SEE BELOW Normal [facility] Comment on above: Result Comment: ADA RECOMMENDED LIMIT 4.0 - 6.0 ADA THERAPEUTIC TARGET < 7.0 ACTION SUGGESTED > 7.0 Performed By: #### A 1C #### [facility] [address] [place] [address] Dr. Angel Gray Glucose [Mass/Vol] 128 mg/dL Normal [facility] Comment on above: Performed By: #### A 1C #### [facility] [address] [place] [address] Dr. Angel Gray HbA1c (Bld) [Mass fraction] 6.1 % Normal 4.5-6.2 [facility] Comment on above: Performed By: #### A 1C #### [facility] [id number] Angel Gray MG MAMM SCREEN 3D ROMELIA CADon 09-26-2021 MG MAMM SCREEN 3D ROMELIA CAD Patient: ISABELLE BENITEZ Exam Date: 09/26/2021 : 1955 Gender:F Ordering : DR ROB LOPEZ D.O. Admission #: [id number] Family : Order #: [id number] CLICK HERE TO VIEW EXAM RADIOLOGY REPORT [...] Treatments None Family Cancers None LOCATION: [facility] BREAST COMPOSITION: Scattered areas fibroglandular density. [...] Cabezas MD on 09/26/2021 at 09:43 Normal [facility] CBC AUTO DIFFon 08-18-2021 BASO # 0.1 103/ul Normal 0.0-0.1 [facility] Comment on above: Performed By: #### C BC #### [facility] [address] [address] [address] Angel Gray Basophils/100 WBC (Bld) 0.8 % Normal 0.2-2.0 [facility] Comment on above: Performed By: #### C BC #### [facility] [address] [place] [address] Dr. Angel Gray EO # 0.3 103/ul Normal 0.0-0.7 [facility] Comment on above: Performed By: #### C BC #### [facility] [address] [place] [address] Dr. Angel Gray Eosinophils/100 WBC (Bld) 3.1 % Normal 0.9-7.0 [facility] Comment on above: Performed By: #### C BC #### [facility] [address] [place] [address] Dr. Angel Gray Erythrocyte distribution width (RBC) [Ratio] 12.5 % Normal 11.0-15.0 [facility] Comment on above: Performed By: #### C BC #### [facility] [address] [place] [address] Dr. Angel Gray Hematocrit (Bld) [Volume fraction] 42.1 % Normal 36.0-48.0 [facility] Comment on above: Performed By: #### C BC #### [facility] [address] [place] [address] Dr. Angel Gray Hemoglobin (Bld) [Mass/Vol] 13.8 g/dL Normal 12.0-16.0 [facility] Comment on above: Performed By: #### C BC #### [facility] [address] [place] [address] Dr. Angel Gray IG # 0.03 10e3/ul Normal 0.00-0.03 [facility] Comment on above: Performed By: #### C BC #### [facility] [address] [place] [address] Dr. Angel Gray IG % 0.4 % Normal 0.0-0.5 [facility] Comment on above: Performed By: #### C BC #### [facility] [address] [place] [address] Dr. Angel Gray LYMPH # 3.3 103/ul Normal 1.2-3.8 [facility] Comment on above: Performed By: #### C BC #### [facility] [address] [place] [address] Dr. Angel Gray Lymphocytes/100 WBC (Bld) 40.8 % Normal 20.5-60.0 [facility] Comment on above: Performed By: #### C BC #### [facility] [address] [place] [address] Dr. Angel Gray MANUAL DIFF REQ NO Normal [facility] Comment on above: Performed By: #### C BC #### [facility] [address] [place] [address] Dr. Angel Gray MCH (RBC) [Entitic mass] 29.1 pg Normal 26.7-34.0 [facility] Comment on above: Performed By: #### C BC #### [facility] [address] [place] [address] Dr. Angel Gray MCHC (RBC) [Mass/Vol] 32.8 g/dL Normal 29.9-35.2 [facility] Comment on above: Performed By: #### C BC #### [facility] [address] [place] [address] Dr. Angel Gray MCV (RBC) [Entitic vol] 88.8 fL Normal 81.0-99.0 [facility] Comment on above: Performed By: #### C BC #### [facility] [address] [place] [address] Dr. Angel Gray MONO # 0.5 103/ul Normal 0.3-0.8 [facility] Comment on above: Performed By: #### C BC #### [facility] [address] [place] [address] Dr. Angel Gray Monocytes/100 WBC (Bld) 5.8 % Normal 1.7-12.0 [facility] Comment on above: Performed By: #### C BC #### [facility] [address] [place] [address] Dr. Angel Gray NEUT # 3.9 103/ul Normal 1.4-6.5 [facility] Comment on above: Performed By: #### C BC #### [facility] [address] [address] [address] Angel Gray Neutrophils/100 WBC (Bld) 49.1 % Normal 43.0-75.0 [facility] Comment on above: Performed By: #### C BC #### [facility] [address] [place] [address] Dr. Angel Gray Platelet mean volume (Bld) [Entitic vol] 9.8 fL Normal 9.5-13.5 [facility] Comment on above: Performed By: #### C BC #### [facility] [address] [place] [address] Dr. Angel Gray PLT 231 103/ul Normal 150-450 [facility] Comment on above: Performed By: #### C BC #### [facility] [address] [place] [address] Dr. Angel Gray RBC 4.74 106/ul Normal 4.20-5.40 [facility] Comment on above: Performed By: #### C BC #### [facility] [address] [place] [address] Dr. Angel Gray WBC 8.0 103/ul Normal 4.0-11.0 [facility] Comment on above: Performed By: #### C BC #### [facility] [address] [place] [address] Dr. Angel Gray LIPID PROFILEon 08-18-2021 CHOL-HDL RATIO NORM SEE BELOW Normal [facility] Comment on above: Result Comment: 3.3 - 4.4 LOW RISK 4.4 - 7.1 AVERAGE RISK 7.1 - 11.0 MODERATE RISK >11.0 HIGH RISK Performed By: #### L IPID, CMP #### [facility] [address] [place] [address] Dr. Angel Gray Cholesterol [Mass/Vol] 249 mg/dL Critically high <=200 [facility] Comment on above: Performed By: #### L IPID, CMP #### [facility] [address] [place] [address] Dr. Angel Gray Cholesterol in HDL [Mass/Vol] 46 mg/dL Normal [facility] Comment on above: Performed By: #### L IPID, CMP #### [facility] [address] [address] [address] Angel Gray Cholesterol in LDL [Mass/Vol] 165.8 mg/dL Normal [facility] Comment on above: Performed By: #### L IPID, CMP #### [facility] [address] [address] [address] Angel Gray Cholesterol.total/Cho lesterol in HDL [Mass ratio] 5.4 {ratio} Normal [facility] Comment on above: Performed By: #### L IPID, CMP #### [facility] [address] [address] [address] Angel Gray HDL NORMAL > or = 60 mg/dl - LOW CARDIOVASCULAR RISK <40 mg/dl - HIGH CARDIOVASCULAR RISK Normal [facility] Comment on above: Performed By: #### L IPID, CMP #### [facility] [address] [place] [address] Dr. Angel Gray LDL CALC NORMAL SEE BELOW Normal [facility] Comment on above: Result Comment: <100 mg/dl OPTIMAL 100 - 129 mg/dl NEAR OR ABOVE OPTIMAL 130 - 159 mg/dl BORDERLINE HIGH 160 - 189 mg/dl HIGH >190 mg/dl VERY HIGH Performed By: #### L IPID, CMP #### [facility] [address] [address] [address] Angel Gray Triglyceride [Mass/Vol] 186 mg/dL Critically high <=150 [facility] Comment on above: Performed By: #### L IPID, CMP #### [facility] [address] [address] [address] Angel Gray VLDL CALC 37.2 mg/dL Normal [facility] Comment on above: Performed By: #### L IPID, CMP #### [facility] [address] [address] [address] Angel Gray PROF 14(COMP METB)on 021 Albumin [Mass/Vol] 3.5 g/dL Normal 3.5-5.0 [facility] Comment on above: Performed By: #### L IPID, CMP #### [facility] [address] [address] [address] Angel Gray Albumin/Globulin [Mass ratio] 0.9 {ratio} Normal [facility] Comment on above: Performed By: #### L IPID, CMP #### [facility] [address] [address] [address] Angel Gray ALP [Catalytic activity/Vol] 79 U/L Normal 38-126 [facility] Comment on above: Performed By: #### L IPID, CMP #### [facility] [address] [address] [address] Angel Gray ALT [Catalytic activity/Vol] 48 U/L Normal 9-52 [facility] Comment on above: Performed By: #### L IPID, CMP #### [facility] [address] [address] [address] Angel Gray Anion gap [Moles/Vol] 13.0 mmol/L Normal [facility] Comment on above: Performed By: #### L IPID, CMP #### [facility] [address] [address] [address] Angel Gray AST [Catalytic activity/Vol] 30 U/L Normal 14-36 [facility] Comment on above: Performed By: #### L IPID, CMP #### [facility] [address] [address] [address] Angel Gray Bilirubin [Mass/Vol] 0.4 mg/dL Normal 0.2-1.3 [facility] Comment on above: Performed By: #### L IPID, CMP #### [facility] [address] [address] [address] Angel Gray Calcium [Mass/Vol] 9.2 mg/dL Normal 8.4-10.2 [facility] Comment on above: Performed By: #### L IPID, CMP #### [facility] [address] [address] [address] Angel Gray Chloride [Moles/Vol] 103 mmol/L Normal 98-107 [facility] Comment on above: Performed By: #### L IPID, CMP #### [facility] [address] [place] [address] Dr. Angel Gray CO2 [Moles/Vol] 28.1 mmol/L Normal 22.0-30.0 [facility] Comment on above: Performed By: #### L IPID, CMP #### [facility] [address] [place] [address] Dr. Angel Gray Creatinine [Mass/Vol] 0.78 mg/dL Normal 0.52-1.04 [facility] Comment on above: Performed By: #### L IPID, CMP #### [facility] [address] [place] [address] Dr. Angel Gray EGFR-AF CONGOLESE >60 Normal >=60 [facility] Comment on above: Performed By: #### L IPID, CMP #### [facility] [address] [place] [address] Dr. Angel Gray EGFR-NON AF CONGOLESE >60 Normal >=60 [facility] Comment on above: Performed By: #### L IPID, CMP #### [facility] [address] [place] [address] Dr. Angel Gray Globulin (S) [Mass/Vol] 4.0 g/dL Normal [facility] Comment on above: Performed By: #### L IPID, CMP #### [facility] [address] [place] [address] Dr. Angel Gray Glucose [Mass/Vol] 137 mg/dL Critically high 74-106 [facility] Comment on above: Performed By: #### L IPID, CMP #### [facility] [address] [place] [address] Dr. Angel Gray Potassium [Moles/Vol] 4.1 mmol/L Normal 3.4-5.0 [facility] Comment on above: Performed By: #### L IPID, CMP #### [facility] [address] [place] [address] Dr. Angel Gray Protein [Mass/Vol] 7.5 g/dL Normal 6.1-8.2 [facility] Comment on above: Performed By: #### L IPID, CMP #### [facility] [address] [address] [address] Angel Gray Sodium [Moles/Vol] 140 mmol/L Normal 137-145 [facility] Comment on above: Performed By: #### L IPID, CMP #### [facility] [address] [address] [address] Angel Gray Urea nitrogen [Mass/Vol] 26.0 mg/dL Critically high 7.0-17.0 [facility] Comment on above: Performed By: #### L IPID, CMP #### [facility] [address] [address] [address] Angel Gray Urea nitrogen/Creatinine [Mass ratio] 33.3 mg/mg Normal [facility] Comment on above: Performed By: #### L IPID, CMP #### [facility] [address] [address] [address] Angel Gray XR shoulder LT min 2V*on XR shoulder LT min 2V* [facility] [address] XRay Report Signed Patient: Isabelle Benitez MR#: [id number] : 1955 Acct:[id number] Age/Sex: 65 / F ADM Date: 02/09/21 [place] [facility] [place]: [facility] Attending Dr: Bobby Todd MD Ordering Provider: Bobby Todd MD Date of Service: 02/09/21 XR/XR shoulder LT min 2V*: Other specified postprocedural states Copies to: Bobby Todd MD 2 views plain filmLEFT shoulder HISTORY:Status post LEFT shoulder arthroscopic the. Rotator cuff repair COMPARISON:09/27/20 [place] screws in the humeral head. No complication. Bony structures intact. No soft tissue abnormality. XR/XR shoulder LT min 2V* IMPRESSION:Uncompli cated postoperative change. Impression dictated by: Berhane Monreal M.D.02/09/2021 1:21 PM Dictation Location: [place] [address] Transcribed By: [facility] 02/09/21 1321 Dictated By: Berhane Monreal DO 02/09/21 1315 Signed By: 02/09/21 1321 Normal [facility] Albumin [Mass/volume] in Ser um or Plasmaon 01-27-2021 Albumin [Mass/Vol] 3.8 g/dL 3.2-5.5 [facility] Basophils Auto (Bld) [#/Vol] on 01-27-2021 Basophils (Bld) [#/Vol] 0.1 10*3/uL 0.0-0.2 [facility] Basophils/100 WBC Auto (Bld) on 01-27-2021 Basophils/100 WBC (Bld) 0.9 % [facility] Blood hemoglobin measurement (mass/volume)on 01-27-2021 Hemoglobin (Bld) [Mass/Vol] 13.9 g/dL 11.8-15.4 [facility] Blood leukocytes automated c ount (number/volume)on 01-27-2021 WBC (Bld) [#/Vol] 8.1 10*3/uL 4.5-11.0 [facility] COVID-19 FRMCon 01-27-2021 SARS-CoV-2 (COVID-19) RNA KATHY+probe Ql (Unsp spec) Negative Normal Negative [facility] Comment on above: Order Comment: Healt hcare Worker?: N Result Comment: Testing for SARS-CoV-2 by RT-PCR This test was developed and its performance characteristics determined by [employer] and validated at the [facility]. This test has not been FDA cleared [...] is terminated or revoked sooner. PERFORMED BY: [place] [id number] PATHOLOGIST TABLE GAMES MANAGER ALFONSO PINEDO M.D. Performed By: #### C OVID 19 [facility] [place] #### [address] COVID-19 Positive/Negativeon 01-27-2021 SARS-CoV-2 (COVID-19) N gene KATHY+probe Ql (Resp) Negative Negative [facility] Comment on above: Testing for SARS-CoV -2 by RT-PCRThis test was developed and its performance characteristics determined by [employer]) and validated at the [facility]. This test has not been FDA cleared [...] Basophils (Bld) [#/Vol] 0.1 10*3/uL Normal 0.0-0.2 [facility] Comment on above: Result Comment: PERF ORMED BY: [place] [id number] PATHOLOGIST TABLE GAMES MANAGER ALFONSO PINEDO M.D. Performed By: #### C MP, CBC #### [place] [id number] [place] Basophils/100 WBC (Bld) 0.9 % Normal . [facility] Comment on above: Performed By: #### C MP, CBC #### [address] Eosinophils (Bld) [#/Vol] 0.1 10*3/uL Normal 0.0-0.45 [facility] Comment on above: Performed By: #### C MP, CBC #### [address] Eosinophils/100 WBC (Bld) 0.9 % Normal . [facility] Comment on above: Performed By: #### C MP, CBC #### [address] Erythrocyte distribution width (RBC) [Ratio] 12.7 % Normal 11.9-15.3 [facility] Comment on above: Performed By: #### C MP, CBC #### [address] Hematocrit (Bld) [Volume fraction] 40.2 % Normal 34.0-46.4 [facility] Comment on above: Performed By: #### C MP, CBC #### [address] Hemoglobin (Bld) [Mass/Vol] 13.9 g/dL Normal 11.8-15.4 [facility] Comment on above: Performed By: #### C MP, CBC #### [address] Lymphocytes (Bld) [#/Vol] 3.4 10*3/uL Normal 1.00-4.8 [facility] Comment on above: Performed By: #### C MP, CBC #### [address] Lymphocytes/100 WBC (Bld) 42.5 % Normal . [facility] Comment on above: Performed By: #### C MP, CBC #### [address] MCH (RBC) [Entitic mass] 30.5 pg Normal 24.7-34.3 [facility] Comment on above: Performed By: #### C MP, CBC #### [address] MCV (RBC) [Entitic vol] 88.2 fL Normal 80-100 [facility] Comment on above: Performed By: #### C MP, CBC #### [address] Mean Corpuscular HGB Conc 34.6 g/dL Normal 32.0-35.0 [facility] Comment on above: Performed By: #### C MP, CBC #### [address] Monocytes (Bld) [#/Vol] 0.5 10*3/uL Normal 0.0-0.8 [facility] Comment on above: Performed By: #### C MP, CBC #### [address] Monocytes/100 WBC (Bld) 5.9 % Normal . [facility] Comment on above: Performed By: #### C MP, CBC #### [address] Neutrophils (Bld) [#/Vol] 4.0 10*3/uL Normal 1.8-7.7 [facility] Comment on above: Performed By: #### C MP, CBC #### [address] Neutrophils/100 WBC (Bld) 49.8 % Normal . [facility] Comment on above: Performed By: #### C MP, CBC #### [place] [address] [place] Nucleated RBC/100 WBC (Bld) [Ratio] 0.1 % Normal 0-0.5 [facility] Comment on above: Performed By: #### C MP, CBC #### [address] Platelet mean volume (Bld) [Entitic vol] 8.1 fL Normal 6.3-10.7 [facility] Comment on above: Performed By: #### C MP, CBC #### [address] Platelets (Bld) [#/Vol] 247 10*3/uL Normal 150-450 [facility] Comment on above: Performed By: #### C MP, CBC #### [address] RBC (Bld) [#/Vol] 4.56 10*6/uL Normal 3.60-5.00 [facility] Comment on above: Performed By: #### C MP, CBC #### [address] WBC (Bld) [#/Vol] 8.1 10*3/uL Normal 4.5-11.0 [facility] Comment on above: Performed By: #### C MP, CBC #### [address] Comprehensive Metabolic Pane stormy 01-27-2021 Albumin [Mass/Vol] 3.8 g/dL Normal 3.2-5.5 [facility] Comment on above: Performed By: #### C MP, CBC #### [address] Albumin/Globulin [Mass ratio] 1.2 {ratio} Normal [facility] Comment on above: Performed By: #### C MP, CBC #### [address] ALP [Catalytic activity/Vol] 69 U/L Normal 32-92 [facility] Comment on above: Result Comment: PERF ORMED BY: [place] [address] PATHOLOGIST TABLE GAMES MANAGER ALFONSO PINEDO M.D. Performed By: #### C MP, CBC #### [address] ALT [Catalytic activity/Vol] 28 U/L Normal 10-60 [facility] Comment on above: Performed By: #### C MP, CBC #### [facility] [address] [place] [id number] [place] AST [Catalytic activity/Vol] 25 U/L Normal 10-42 [facility] Comment on above: Performed By: #### C MP, CBC #### [facility] [address] [place] [address] [place] Bilirubin [Mass/Vol] 0.5 mg/dL Normal 0.3-1.2 [facility] Comment on above: Performed By: #### C MP, CBC #### [facility] [address] [place] [id number] [place] Calcium [Mass/Vol] 9.6 mg/dL Normal 8.2-10.2 [facility] Comment on above: Performed By: #### C MP, CBC #### [facility] [address] [place] [id number] [place] Chloride [Moles/Vol] 100 mmol/L Normal 95-114 [facility] Comment on above: Performed By: #### C MP, CBC #### [facility] [address] [place] [address] [place] CO2 [Moles/Vol] 27.2 mmol/L Normal 22.0-30.0 [facility] Comment on above: Performed By: #### C MP, CBC #### [facility] [address] [place] [id number] [place] Creatinine [Mass/Vol] 0.71 mg/dL Normal 0.44-1.03 [facility] Comment on above: Performed By: #### C MP, CBC #### [facility] [address] [place] [id number] [place] Estimated GFR ( Aurelia > [address] [facility] Comment on above: Result Comment: GFR estimated reference range: According to KDOQI guidelines, <60 ml/min/1.73m2 is sufficient to diagnose a patient with chronic kidney disease. Performed By: #### C MP, CBC #### [facility] [address] [place] [id number] [place] Estimated GFR (Non- Am > 60 Normal [facility] Comment on above: Performed By: #### C MP, CBC #### [facility] [address] Globulin (S) [Mass/Vol] 3.3 g/dL Normal [facility] Comment on above: Performed By: #### C MP, CBC #### [address] Glucose [Mass/Vol] 85 mg/dL Normal 70-100 [facility] Comment on above: Result Comment: [facility] Glucose Reference Range is dependent on time and content of last meal. Glucose of more than 200 mg/dL in a nonstressed, ambulatory subject supports the diagnosis of Diabetes Mellitus. ADA recommended reference range Performed By: #### C MP, CBC #### [address] Potassium [Moles/Vol] 3.8 mmol/L Normal 3.5-5.1 [facility] Comment on above: Performed By: #### C MP, CBC #### [address] Protein [Mass/Vol] 7.1 g/dL Normal 6.1-7.9 [facility] Comment on above: Performed By: #### C MP, CBC #### [address] Sodium [Moles/Vol] 137 mmol/L Normal 136-146 [facility] Comment on above: Performed By: #### C MP, CBC #### [place] [address] [place] Urea nitrogen [Mass/Vol] 13 mg/dL Normal 9-23 [facility] Comment on above: Performed By: #### C MP, CBC #### [place] [address] [place] Creatinine and Glomerular fi ltration rate.predicted panel (S/P/Bld)on 01-27-2021 Creatinine [Mass/Vol] 0.71 mg/dL 0.44-1.03 [facility] ECG 12 lead ECGon 01-27-2021 ECG 12 lead ECG [facility] [address] [place] [address] Electrocardiograph Report Signed Patient: Isabelle Benitez MR#: [id number] : 1955 Acct:[id number] Age/Sex: 65 / F ADM Date: 01/27/21 Loc: [place] Room: [facility] Attending Dr: Bobby Todd MD Ordering [...] 01/27/21 1043 Signed By: 01/27/21 1725 Normal [facility] Eosinophils Auto (Bld) [#/Vo l]on 01-27-2021 Eosinophils (Bld) [#/Vol] 0.1 10*3/uL 0.0-0.45 [facility] Eosinophils/100 WBC Auto (Bl d)on 01-27-2021 Eosinophils/100 WBC (Bld) 0.9 % [facility] Erythrocyte distribution wid th Auto (RBC) [Ratio]on 01-27-2021 Erythrocyte distribution width (RBC) [Ratio] 12.7 % 11.9-15.3 [facility] Estimated glomerular filtrat ion rate (GFR) non- Americanon 01-27-2021 GFR/1.73 sq M.predicted among non-blacks MDRD (S/P/Bld) [Vol rate/Area] > 60 mL/Min [facility] Globulin Calc (S) [Mass/Vol] on 01-27-2021 Globulin (S) [Mass/Vol] 3.3 g/dL [facility] Hematocrit Auto (Bld) [Volum e fraction]on 01-27-2021 Hematocrit (Bld) [Volume fraction] 40.2 % 34.0-46.4 [facility] Laboratory - Hematology and Cell countson 01-27-2021 Nucleated RBC/100 WBC (Bld) [Ratio] 0.1 % 0-0.5 [facility] Lymphocytes Auto (Bld) [#/Vo l]on 01-27-2021 Lymphocytes (Bld) [#/Vol] 3.4 10*3/uL 1.00-4.8 [facility] Lymphocytes/100 WBC Auto (Bl d)on 01-27-2021 Lymphocytes/100 WBC (Bld) 42.5 % [facility] MCH Auto (RBC) [Entitic mass ]on 01-27-2021 MCH (RBC) [Entitic mass] 30.5 pg 24.7-34.3 [facility] MCHC Auto (RBC) [Mass/Vol]on 01-27-2021 MCHC (RBC) [Mass/Vol] 34.6 g/dL 32.0-35.0 [facility] MCV Auto (RBC) [Entitic vol] on 01-27-2021 MCV (RBC) [Entitic vol] 88.2 fL 80-100 [facility] Monocytes Auto (Bld) [#/Vol] on 01-27-2021 Monocytes (Bld) [#/Vol] 0.5 10*3/uL 0.0-0.8 [facility] Monocytes/100 WBC Auto (Bld) on 01-27-2021 Monocytes/100 WBC (Bld) 5.9 % [facility] Neutrophils Auto (Bld) [#/Vo l]on 01-27-2021 Neutrophils (Bld) [#/Vol] 4.0 10*3/uL 1.8-7.7 [facility] Neutrophils/100 WBC Auto (Bl d)on 01-27-2021 Neutrophils/100 WBC (Bld) 49.8 % [facility] No Panel Informationon 01-27 Estimated GFR () > 60 mL/Min [facility] Comment on above: GFR estimated refere nce range: According to KDOQI guidelines, <60 ml/min/1.73m2 is sufficient to diagnose a patient with chronic kidney disease. Pharmacy Creatinine Clearance (Chem N/A [facility] Platelet mean volume Auto (B ld) [Entitic vol]on 01-27-2021 Platelet mean volume (Bld) [Entitic vol] 8.1 fL 6.3-10.7 [facility] Platelets Auto (Bld) [#/Vol] on 01-27-2021 Platelets (Bld) [#/Vol] 247 10*3/uL 150-450 [facility] Protein [Mass/volume] in Ser um or Plasmaon 01-27-2021 Protein [Mass/Vol] 7.1 g/dL 6.1-7.9 [facility] RBC Auto (Bld) [#/Vol]on RBC (Bld) [#/Vol] 4.56 10*6/uL 3.60-5.00 [facility] Serum or plasma alanine jimenez otransferase measurement without P-5'-P (enzymatic activion 01-27-2021 ALT No additional P-5'-P [Catalytic activity/Vol] 28 U/L 10-60 [facility] Serum or plasma albumin/glob ulin mass ratioon 01-27-2021 Albumin/Globulin [Mass ratio] 1.2 {ratio} [facility] Serum or plasma alkaline yanna sphatase measurement (enzymatic activity/volume)on 01-27-2021 ALP [Catalytic activity/Vol] 69 U/L 32-92 [facility] Serum or plasma aspartate am inotransferase measurement (enzymatic activity/volume)on 01-27-2021 AST [Catalytic activity/Vol] 25 U/L 10-42 [facility] Serum or plasma calcium bernadine urement (mass/volume)on 01-27-2021 Calcium [Mass/Vol] 9.6 mg/dL 8.2-10.2 [facility] Serum or plasma chloride lali surement (moles/volume)on 01-27-2021 Chloride [Moles/Vol] 100 mmol/L 95-114 [facility] Serum or plasma glucose bernadine urement (mass/volume)on 01-27-2021 Glucose [Mass/Vol] 85 mg/dL 70-100 [facility] Comment on above: ADA recommended refe rence rangeRandom Glucose Reference Range is dependent on time and content of last meal. Glucose of more than 200 mg/dL in a nonstressed, ambulatory subject supports the diagnosis of Diabetes Mellitus. Serum or plasma potassium me asurement (moles/volume)on 01-27-2021 Potassium [Moles/Vol] 3.8 mmol/L 3.5-5.1 [facility] Serum or plasma sodium measu rement (moles/volume)on 01-27-2021 Sodium [Moles/Vol] 137 mmol/L 136-146 [facility] Serum or plasma total biliru bin measurement (mass/volume)on 01-27-2021 Bilirubin [Mass/Vol] 0.5 mg/dL 0.3-1.2 [facility] Serum or plasma total carbon dioxide measurement (moles/volume)on 01-27-2021 CO2 [Moles/Vol] 27.2 mmol/L 22.0-30.0 [facility] Serum or plasma urea nitroge n measurement (mass/volume)on 01-27-2021 Urea nitrogen [Mass/Vol] 13 mg/dL 05-11 [facility] Vital Signs Date Time Vital Sign Value Performing Clinician Facility 06-10-2024 11:58-0400 Body height 157.48 cm [facility] 06-10-2024 11:58-0400 Body mass index (BMI) [Ratio] 29 kg/m2 [facility] 06-10-2024 11:58-0400 Body weight 72.17 kg [facility] 06-10-2024 11:58-0400 Diastolic blood pressure 70 mm[Hg] [facility] 06-10-2024 11:58-0400 Heart rate 69 /min [facility] 06-10-2024 11:58-0400 Respiratory rate 12 /min [facility] 06-10-2024 11:58-0400 Systolic blood pressure 124 mm[Hg] [facility] 09-08-2023 11:50-0500 Body height 157.48 cm Karla Hull Other [facility] Other 09-08-2023 11:50-0500 Body mass index (BMI) [Ratio] 29.63 kg/m2 Karla Hull Other [facility] Other 09-08-2023 11:50-0500 Body temperature 98.1 [degF] Karla Motamond Other [facility] Other 09-08-2023 11:50-0500 Body weight 73.48 kg Karla Hull Other [facility] Other 09-08-2023 11:50-0500 Diastolic blood pressure 72 mm[Hg] Karla Hull Other [facility] Other 09-08-2023 11:50-0500 Respiratory rate 18 /min Karla Hull Other [facility] Other 09-08-2023 11:50-0500 SaO2% (BldA) [Mass fraction] 98 % Karla Hull Other [facility] Other 09-08-2023 11:50-0500 Systolic blood pressure 128 mm[Hg] Karla Della Other [facility] Other 09-06-2023 12:15-0500 Body height 157.48 cm Rob Ball Other [facility] Other 09-06-2023 12:15-0500 Diastolic blood pressure 90 mm[Hg] Rob Ball Other [facility] Other 09-06-2023 12:15-0500 Systolic blood pressure 140 mm[Hg] Rob Ball Other [facility] Other 05-30-2023 10:00-0400 Body height 157.48 cm Rob Ball Other [facility] Other 05-30-2023 10:00-0400 Body mass index (BMI) [Ratio] 29.77 kg/m2 Rob Ball Other [facility] Other 05-30-2023 10:00-0400 Body weight 73.85 kg Rob Ball Other [facility] Other 05-30-2023 10:00-0400 Diastolic blood pressure 75 mm[Hg] Rob Ball Other [facility] Other 05-30-2023 10:00-0400 Respiratory rate 12 /min Rob Ball Other [facility] Other 05-30-2023 10:00-0400 Systolic blood pressure 119 mm[Hg] Rob Ball Other [facility] Other 04-18-2023 10:15-0400 Body height 157.48 cm Rob Ball Other [facility] Other 04-18-2023 10:15-0400 Body mass index (BMI) [Ratio] 29.59 kg/m2 Rob Ball Other [facility] Other 04-18-2023 10:15-0400 Body weight 73.39 kg Rob Ball Other [facility] Other 04-18-2023 10:15-0400 Diastolic blood pressure 75 mm[Hg] Rob Ball Other [facility] Other 04-18-2023 10:15-0400 Respiratory rate 12 /min Rob Ball Other [facility] Other 04-18-2023 10:15-0400 Systolic blood pressure 119 mm[Hg] Rob Ball Other [facility] Other 11-02-2022 15:45-0400 Body height 157.48 cm Rob Ball Other [facility] Other 11-02-2022 15:45-0400 Body mass index (BMI) [Ratio] 28.86 kg/m2 Rob Ball Other [facility] Other 11-02-2022 15:45-0400 Body weight 71.58 kg Rob Ball Other [facility] Other 11-02-2022 15:45-0400 Diastolic blood pressure 77 mm[Hg] Rob Ball Other [facility] Other 11-02-2022 15:45-0400 Respiratory rate 12 /min Rob Ball Other [facility] Other 11-02-2022 15:45-0400 Systolic blood pressure 136 mm[Hg] Rob Ball Other [facility] Other 05-11-2021 11:45-0400 Body height 157.48 cm Bobby Olexa Other [facility] Other 05-11-2021 11:45-0400 Body mass index (BMI) [Ratio] 28.53 kg/m2 Bobby Olexa Other [facility] Other 05-11-2021 11:45-0400 Body weight 70.76 kg Bobby Olexa Other [facility] Other Encounters Encounter Date Encounter Type Care Provider Facility Start: 06-10-2024 End: 06-10-2024 [facility] Work Phone: Start: 06-10-2024 End: 06-10-2024 Patient encounter procedure [facility] Work Phone: Start: 06-07-2024 Patient encounter procedure [facility] Start: 09-09-2023 End: 09-09-2023 ambulatory Rob Lopez Other [facility] Other Start: 09-09-2023 Office outpatient vi sit 10 minutes Rob Ball [facility] Start: 09-08-2023 End: 09-08-2023 ambulatory Karla Della Other [facility] Other Start: 09-08-2023 Office outpatient vi sit 15 minutes Karla Della [facility] Start: 09-06-2023 End: 09-06-2023 ambulatory Rob Lopez Other [facility] Other Start: 09-06-2023 Office outpatient vi sit 15 minutes Rob Ball [facility] Start: 05-30-2023 End: 05-30-2023 ambulatory Rob John Other [facility] Other Start: 05-30-2023 Patient encounter procedure Rob Lopez [facility] Start: 04-18-2023 End: 04-18-2023 ambulatory Rob Lopez Other [facility] Other Start: 04-18-2023 Office outpatient vi sit 15 minutes Rob Ball [facility] Start: 12-25-2022 End: 12-25-2022 ambulatory Rob Ball Other [facility] Other Start: 12-25-2022 Telephone encounter Rob Lopez [facility] [employer] Start: 11-02-2022 End: 11-02-2022 ambulatory Rob John Other [facility] Other Start: 11-02-2022 Office outpatient vi sit 15 minutes Rob Lopez [facility] Start: 11-02-2022 Telephone encounter Rbo Lopez [facility] Start: 07-06-[address] ROB LOPEZ [facility]il[facility] ty:H1 Start: 07-03-2022 Encounter for genera l adult medical examination without abnormal findings DR ROB LOPEZ [facility] Start: 06-30-2022 End: 07-01-[address] ROB [...] outpatient vi sit 15 minutes Bobby Todd [facility] Start: 01-27-2021 End: 01-27-2021 Patient encounter procedure Bobby Todd Work Phone: -Pre-Surgical Testing Plan of Treatment Date Care Activity Detail Author MG Breast - bilateral Screening [facility] Payers Date Payer Category Payer Self-pay [id number] 1957 Unknown [id number] 1955 Unknown [id number] 2.16.84 [id number] 1955 Unknown [id number] 2.16.84 [id number] 1955 Unknown [id number] 2.16.84 [id number] 1955 Unknown [id number] 2.16.84 [id number] 1955 Unknown [id number] 2.16.84 [id number] 1955 Unknown [id number] 2.16.84 [id number] 1955 Unknown [id number] 2.16.84 [id number] [facility] [id number] Social History Date Type Detail Facility Start: 01-27-2021 End: 02-01-2021 Tobacco smoking status KSIS Ex-smoker (finding) [facility] Start: 1955 Sex Assigned At Female F [facility] Sex Assigned At Sex Assigned At Bir th [facility] Other Medical Equipment Procedure Code Equipment Code Equipment Origin al Text Equipment Identifier Dates Arthroscopy, shoulder Tendon/ligament bone anchor, bioabsorbable [id number] FDA Start: 02-01-2021 Arthroscopy, shoulder Tendon/ligament bone anchor, non-bioabsorbable ()[id number] FDA Start: 02-01-2021 Arthroscopy, shoulder Tendon/ligament bone anchor, bioabsorbable ()[id number] FDA Start: 02-01-2021 Clinical Notes 05-11-2021 to [...] May need to sleep w/ HOB elevated. [facility] Other 01-21-2024 Evaluation note* Encounter Date Diagnosis [...] other viral communicable diseases (ICD-10 - Z20.828) [facility] Other 01-19-2024 Evaluation note* Encounter Date Diagnosis [...] office w/ home readings in 2 weeks. [facility] Other 10-12-2023 Evaluation note* Encounter Date Diagnosis [...] patient on monthly SBE and yearly mammograms. [facility] Other 08-31-2023 Evaluation note* Encounter Date Diagnosis Assessment Notes Treatment Notes Treatment Clinical Notes Mar, Lipoma of right upper extremity (ICD-10 - D17.21) Reassured, not changing in size Recommmend discussion w/ Digital Asset Manager at next skin cancer screening Mar, Controlled [...] in nail deformity. Recommend discussing w/ Dermatolgist [facility] Other 03-17-2023 Evaluation note* Encounter Date Diagnosis Assessment Notes Treatment Notes Treatment Clinical Notes Oct, Decreased hearing of left ear (ICD-10 - H91.92) Referral for Audiogram / Tympanogram Oct, Dysfunction of left eustachian tube (ICD-10 - H69.82) Valsalva maneuver, FLonase NS [facility] Other 09-23-2021 Evaluation note* Encounter Date Diagnosis [...] importance of continuing motion and strengthening exercises long-term. 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) Apr, Acute pain of left shoulder (ICD-10 - M25.512) Apr, Other specified postprocedural states (ICD-10 - Z98.890) [facility] Other Evaluation noteNo assessment information available [facility] noteNo InformationNort [employer] Other Evaluation note* Diagnosis Onset Date Resolution Status Medicare annual wellness visit, subsequent acute Screening mammogram for breast cancer acute Type 2 diabetes mellitus with hyperglycemia acute [facility] Work Phone: History general Narrative - Reported* Type Description Date Surgical History bladder suspension, unspecified x2 Surgical History appendectomy Surgical History child x 3 Surgical History hysterectomy Surgical History left shoulder arthro scopy with supraspinatus rotator cuff repair, superior subscapularis tendon repair, subacromial decompression, biceps tenodesis 02/01/21 [facility] Other History general Narrative - Reported* Type [...] tenodesis 02/01/21 Hospitalization History see surgical history [facility] Other Reason for referral (narrative)* Reason *FU 11/12 Referral to [facility] for Audiogram/tympanogram on [address] Diagnosis 1 Decreased hearing of left ear (H91.92) Diagnosis 2 Dysfunction of left eustachian tube (H69.82) Referral Organization [facility] Referring Provider First Name Rob Referring Provider Last Name John Referring Provider Specialty Internal Me dicine Referred Organization [facility] Referred Provider Sabi Calix Referred Address ,[place], [place],[address] Referred Provider Specialty Ear, Nose an d Throat Referral Priority Routine General Notes Referral for hearing evaluation Wanda Kelly 11/05/2022 01:42:39 PM >RECEIVED TODAY, NOTES LOCKED, REFERRAL FAXED p2p Clinical Notes She has noticed grad ual loss of hearing over past several years. Associated w/ noise/ringing w/o vertigo. No s/s intercurrent infection in sinuses, pharynx or ears. [facility] Other Chief Complaint and Reason for Visit Chief Complaint Shoulder pain Chief Complaint wellness Reason for Visit Medicare annual [facility] visit, subsequent Screening mammogram for breast cancer [...] section and content) DATE CREATED AUTHOR 09/08/2021 [facility] DATE CREATED AUTHOR AUTHOR'S ORGANIZ ATION 07/07/2022 [facility] REASON FOR VISIT (unrecogniz ed section and content) Recheck Left ShoulderLeft Ea r-Wants in TodayEar PainENT REFERRAL NOTEDISCUSSION ABOUT E OXYGEN TANKSWELLNESSCough, Lungs-COVID Negative- [phone], CHEST CONGESTION, RIB PAINcovid + [phone] Care Teams (unrecognized sec tion and content) [...] BE BASED ON THE PRIMARY CLINICAL RECORDS. [facility] provides no warranty or guarantee of the accuracy or completeness of information in this document.
[2024-10-13] MEDS: LACTATED RINGER'S SOLUTION 1,000 ML 125 ML IV (21:03)
[2024-10-13] MEDS: HEPARIN SODIUM (PORCINE) 5,000 UNIT/ML VIAL 5000 UNIT SUBQ (21:04)
[2024-10-14] VITALS (12 sets, daily range): BP systolic 113–149; BP diastolic 69–80; PULSE 56–66; TEMP 36.4–36.8; O2SAT 94–95
[2024-10-14] MEDS: ACETAMINOPHEN 325 MG TABLET 650 MG PO ×2 (00:30→09:37)
[2024-10-14] MEDS: MECLIZINE HCL 12.5 MG TABLET 25 MG PO (00:31)
[2024-10-14] MEDS: LACTATED RINGER'S SOLUTION 1,000 ML 125 ML IV (04:27)
[2024-10-14 06:11] LABS: Basophils Absolute Auto 0.1 10^3/uL (0.0-0.1); Basophils Percent Auto 0.9 % (0.2-2.0); Eosinophils Absolute Auto 0.2 10^3/uL (0.0-0.7); Eosinophils Percent Auto 3.7 % (0.9-7.0); Hematocrit 36.6 % (36.0-48.0); Hemoglobin 12.5 g/dL (12.0-16.0); Immature Granulocytes Abs Auto 0.01 10^3/uL (0.00-0.03); Immature Granulocytes Pct Auto 0.2 % (0.0-0.5); Lymphocytes Absolute Auto 3.1 10^3/uL (1.2-3.8); Lymphocytes Percent Auto 52.6 % (20.5-60.0); Mean Corpuscular HGB Conc 34.2 g/dL (29.9-35.2); Mean Corpuscular Hemoglobin 29.6 pg (26.7-34.0); Mean Corpuscular Volume 86.5 fL (81.0-99.0); Mean Platelet Volume 9.9 fL (9.5-13.5); Monocytes Absolute Auto 0.3 10^3/uL (0.3-0.8); Monocytes Percent Auto 4.8 % (1.7-12.0); Neutrophils Absolute Auto 2.2 10^3/uL (1.4-6.5); Neutrophils Percent Auto 37.8 % (43.0-75.0); Platelet Count 213 10^3/uL (150-450); Red Blood Count 4.23 10^6/uL (4.20-5.40); Red Cell Distribution Width 12.5 % (11.0-15.0); White Blood Count 5.9 10^3/uL (4.0-11.0)
[2024-10-14 06:42] LABS: Estimated Average Glucose 131 mg/dL; Glycohemoglobin A1C 6.2 % (4.5-6.2)
[2024-10-14 06:51] LABS: Alanine Aminotransferase 21 U/L (14-59); Albumin Globulin Ratio 0.9; Albumin Level 2.9 g/dL (3.4-5.0); Alkaline Phosphatase 63 U/L (46-116); Anion Gap 10.9; Aspartate Amino Transferase 20 U/L (15-37); BUN Creatinine Ratio 17.6; Bilirubin Total 0.4 mg/dL (0.2-1.0); Calcium 8.5 mg/dL (8.5-10.1); Carbon Dioxide 25.5 mmol/L (21.0-32.0); Chloride 107 mmol/L (98-107); Chol HDL Ratio 4.7; Cholesterol 182 mg/dL (<=200); Estimated GFR (African America >60 (>=60 mL/min/1.73m^2); Estimated GFR (Non-African Ame >60 (>=60 mL/min/1.73m^2); Globulin 3.2 g/dL; Glucose 107 mg/dL (74-106); HDL Cholesterol 39 mg/dL (40-60); Magnesium 1.9 mg/dL (1.8-2.4); Potassium 3.4 mmol/L (3.5-5.1); Sodium 140 mmol/L (136-145); Total Protein 6.1 g/dL (6.4-8.2); Triglycerides 159 mg/dL (<=150); VLDL CHOLESTEROL 31.8 mg/dL
--- NOTE | 2024-10-14 06:55 | CA_ITS ---
Patient Name: LEONCIO BENITEZ MR#: [id number] : 1955 Exam Date: 10/14/2024 Ordering Doctor: Anh Granger . ECHOCARDIOGRAM REPORT PROCEDURE: CA ECHO DOPPLER COMPLETE INDICATIONS: dizziness/ possible TIA COMPARISON: None. DESCRIPTION: COMPLETE ECHOCARDIOGRAM Real-time transthoracic echocardiography with 2D, M-mode, spectral and color flow Doppler performed. QUALITY: Technical quality was good. LEFT VENTRICLE: Normal chamber size. Borderline left ventricular hypertrophy. Global left ventricular systolic function is normal. LV EF: Calculated left ventricular ejection fraction is 60-65 %. DIASTOLIC: Normal diastolic function. ATRIAL SEPTUM: Technically difficult, not well visualized. Poor agitated saline contrast study. LEFT ATRIUM: Normal chamber size. RIGHT ATRIUM: Mild dilatation. RIGHT VENTRICLE: Normal chamber size. Normal right ventricular systolic function. TRICUSPID VALVE: Normal mobility and thickness. No stenosis with trivial regurgitation. No evidence of pulmonary hypertension. RSVP 32 mmHg MITRAL VALVE: Normal mobility and thickness. No evidence of mitral valve stenosis. There is no mitral annular calcification. Trivial mitral regurgitation. AORTIC VALVE: Normal trileaflet appearance. No visible sclerosis. Normal leaflet mobility. No evidence of aortic valve stenosis. No aortic regurgitation. AORTIC ROOT: Normal diameter and appearance. The ascending aorta is normal in size measuring 2.8 cm. PULMONIC VALVE: Normal thickness and mobility. No stenosis. Trivial regurgitation. PERICARDIUM: No evidence of pericardial effusion. IVC: Collapses with inspirations. Normal size PLEURA: CONCLUSION: 1. Borderline left ventricular hypertrophy with normal systolic function. Estimated LVEF is 60 to 65%. 2. Normal right ventricular size and systolic function. 3. No significant valvular dysfunction. 4. Normal right-sided pressures. 5. No pericardial effusion. 6. Poor agitated saline contrast study. Adult Echocardiography Procedure Report Left Ventricle LVEDD (3.7 - 5.6 cm): 4.10 cm LVESD (2.2 - 4.0 cm): 2.76 cm LVIVS thickness (0.6 - 1.2 cm): 1.14 cm LVPW thickness (0.5 - 1.0 cm): 1.09 cm e': 0.09 m/s E - e': 8.57 LVOT Max Gradient: 5.65 mm[Hg] LVOT Area (cm2): 1.19 m/s Peak Velocity (LVOT): 1.19 m/s Mean Velocity (LVOT): 0.76 m/s LVOT Diameter 1.95 cm Left Ventricular Ejection Fraction: 60-65 % Left Atrium LA Volume Index (2D A2C): 28.77 ml/m2 Left Atrium Systolic Dimension: 3.82 cm Mitral Valve MV E to A Ratio: 1.17 Mitral Valve A-Wave Peak Velocity: 0.66 m/s Mitral Valve E-Wave Peak Velocity: 0.77 m/s Right Ventricle RV Internal Diastolic Dimension: 3.47 cm Aorta AO Root Diam: 2.94 cm Ascending Ao Diam: 2.84 cm Aortic Valve AoV Area (Peak Joseph): 2.27 cm2, 2.27 cm2 AoV Area (VTI): 2.21 cm2, 2.21 cm2 Peak Velocity(Antegrade Flow): 1.56 m/s Peak Gradient(Antegrade Flow): 9.71 mm[Hg] Mean Velocity(Antegrade Flow): 0.98 m/s Mean Gradient(Antegrade Flow): 4.43 mm[Hg] Velocity Time Integral: 37.14 cm Tricuspid Valve Peak Velocity (Regurgitant Flow): 2.59 m/s, 2.64 m/s, 2.42 m/s Pulmonic Valve Mean Gradient: 2.15 mm[Hg], 2.60 mm[Hg] Mean Velocity: 0.70 m/s, 0.77 m/s Peak Velocity: 0.97 m/s Peak Gradient: 3.48 mm[Hg], 4.11 mm[Hg] Right Atrium Right Atrium Systolic Pressure: 49.33 ml, 49.33 ml Dictated by: Pb Tristan M.D. on 10/14/2024 at 13:03 Approved by: Pb Tristan M.D. on 10/14/2024 at 13:13
--- NOTE | 2024-10-14 08:36 | PM.HP ---
HPI H&P: HPI History of Present Illness Chief complaint: HYPERTENSION, TIA DIZZINESS Narrative: Patient is a healthy 69 y.o white female who presented to the ER yesterday with new onset of dizziness, like the room is spinning and she felt as if she may pass out. She has not had visual changes, recent illness or upper respiratory symptoms. She states she felt very nauseous but no vomiting or diarrhea. also felt some pressure left side of her chest. She felt like her left side is weak arm and leg. No speech changes. She denies any history of heart or lung issues, she states she takes no medications and no prior stroke or TIA history. This morning on exam, her symptoms have resolved, she just feels tired. ER findings: Trop x 2 negative, CBC and CMP unremarkable, CT of the brain, CT angio of the head and neck as well as chest x-ray are unremarkable, there is some stenosis noted with no complete occlusion. Case was discussed with Dr. Lebron for stroke interventional services in [place] PER ER NOTE. He recommended keeping the patient for a TIA workup and is agreement that she can stay at this facility. He requested a full-strength aspirin which was given in the ER and she was given Tylenol for a headache. She was admitted to the hospitalist service for further work up. She was given IVF, Antivert and Zofran. Carotid dopplers showed <50% on the left and 50-69% stenosis on the right. MRI was negative Echo pending Opioid HPI Opioid Management Most Recent Pain and Opioid Data: Last Pain Scale 5 10/14/24 09:37 10/14/24 Last Pain Assessment 10/14/24 08:24 Last MAR Pain Assessment 10/14/24 09:37 Last ORT Total Score 1 10/13/24 18:12 10/13/24 Last ORT Risk Category Low Risk 10/13/24 18:12 10/13/24 Review of Systems ROS Narrative ROS: a complete review of systems were reviewed with patient and are positive as below or listed in History of Chief Complaint. General: no fever, chills, night sweats Head: no headache, trauma, visual changes, nausea or vomiting, just dizziness Skin: no reported rashes, itching or sores Eyes: no blurriness of vision Ears: no reported hearing loss, earache, or tinnitus Throat: no sore throat, hoarseness, swelling of neck, or tongue pain Heart: no chest pain Lungs: no shortness of breath or cough GI: no diarrhea or vomiting/nausea Urinary: no urinary urgency, frequency or pain Neuro: no numbness or tingling, left sided weakness HEM: no bleeding issues or bruising ENDO: no thyroid problems Psych: no anxiety or depression [facility] Medical History (Updated 10/14/24 @ 08:41 by Anh Granger DO) Pre-diabetes ?R73.03 - Prediabetes (ICD-10) Family History Mother Family history of CHF (congestive heart failure) Family history of myocardial infarction Family history of stroke Family history of diabetes mellitus Family history of hypertension Brother Family history of cancer Father Family history of diabetes mellitus Social History Within the past year, how often did you have a drink containing alcohol: monthly or less Within the past year, how often did you have six or more drinks on one occasion: never Smoking status: Former smoker Second hand tobacco smoke exposure: No Non-prescribed substance use: denies use 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 Known occupational exposures/hazards: No Highest level of school completed/degree received: high school graduate Are you now , , , , never or living with a partner: In a typical week, how many times do you talk on the telephone with family, friends, or neighbors: 3 or more times per week How often do you get together with friends or relatives: 3 or more times per week How often do you attend synagogue or hinduism services: 4 or more times per year Do you belong to any clubs or organizations such as synagogue groups unions, fraternal or athletic groups, or school groups: no Total score: 3 Score interpretation: A score of greater than or equal to 2 indicates the lowest level of social isolation. Little interest or pleasure in doing things: not at all Feeling down, depressed, or hopeless: not at all Feel stressed/tense/nervous/anxious/difficulty sleeping: not at all Due to disability, difficulty making decisions: No Do you think of yourself as: straight/heterosexual Gender Identity: female Meds Home Medications and Allergies Home Medications ?Medication ?Instructions ?Recorded ?Confirmed ?Type No Known Home Medications 10/13/24 10/13/24 History Allergies Allergy/AdvReac Type Severity Reaction Status Date / Time Penicillins Allergy Rash Verified 10/13/24 14:12 Exam Narrative Exam Narrative: General: Patient is alert, and oriented to person, place and time with normal affect, proper hygiene Skin: no visible rashes, or ulcers Head: atraumatic, acephalic Eyes: PERRLA, no nystagmus present, conjunctiva clear, no scleral icterus Ears: normal Tympanic Membrane, normal gross auditory acuity Nose: symmetric, no discharge, no maxillary or frontal sinus tenderness Mouth/Throat: no erythema, exudate, or tonsillar enlargement, normal dentition Neck: no masses palpated, normal thyroid, no JVD or audible carotid bruits Heart: Normal rate and rhythm, no murmurs/rubs/gallops Lungs: no audible wheezes, crackles and normal breath sounds all lung painting Abdomen: Normal audible bowel sounds, no distension, No palpable masses, no organomegaly, no rebound/guarding/ or rigidity Musculoskeletal: no swelling bilateral lower extremities Vascular: Normal carotid, radial, femoral, posterior tibial, and dorsalis pedis pulses Lymph: no supraclavicular, axillary, or anterior/posterior cervical adenopathy Neuro: CN II-X grossly intact, normal sensation upper and lower extremities Constitutional Vital Signs, click to edit/add: Last Vital Signs Temp 98.1 F 10/14/24 08:17 Pulse 56 L 10/14/24 08:17 Resp 18 10/14/24 08:17 BP 134/71 10/14/24 08:17 Pulse Ox 95 10/14/24 08:17 O2 Del Method Room Air 10/14/24 08:17 Results Labs Labs: Short CBC 10/13/24 10/14/24 Range/Units 14:27 05:49 WBC 9.0 5.9 (4.0-11.0) 10^3/uL Hgb 14.0 12.5 (12.0-16.0) g/dL Hct 40.4 36.6 (36.0-48.0) % Plt Count 233 213 (150-450) 10^3/uL BMP 10/13/24 10/14/24 14:27 05:49 Sodium 137 140 Potassium 3.2 L 3.4 L Chloride 102 107 Carbon Dioxide 24.6 25.5 BUN 25.0 H 15.0 Creatinine 0.92 0.85 Glucose 96 107 H Calcium 9.0 8.5 Liver Function 10/13/24 10/14/24 Range/Units 14:27 05:49 Total Bilirubin 0.4 0.4 (0.2-1.0) mg/dL AST 25 20 (15-37) U/L ALT 32 21 (14-59) U/L Alkaline Phosphatase 89 63 (46-116) U/L Albumin 3.8 2.9 L (3.4-5.0) g/dL Assessment and Plan Assessment and Plan (1) Vertigo: Assessment and Plan: continue meclizine and zofran as needed. PT/OT evaluation and may benefit from Vestibular therapy as outpatient. (2) TIA (transient ischemic attack): Assessment and Plan: CT head and negative negative; Will check ECHO, Carotid dopplers ok, MRI showed no acute process , LIpids 182/112/39/159, ha1c 6.2. Continue aspirin. Telestroke follow up today. (3) Right sided weakness: Assessment and Plan: resolved. Plan patient is a full code continue Heparin for DVT prophylaxis Patient is in observation and is not expected to cross 2 midnights.
--- NOTE | 2024-10-14 09:19 | SWNOTE1 ---
SW reviewed OT note and pt independent, no needs at discharge.
[2024-10-14] MEDS: ASPIRIN 325 MG TABLET PO (09:37)
[2024-10-14] MEDS: HEPARIN SODIUM (PORCINE) 5,000 UNIT/ML VIAL 5000 UNIT SUBQ (09:37)
--- NOTE | 2024-10-14 12:24 | CM.NOTE ---
Rounds made with Dr. Granger, discussed plan of care with pt and . Updated pt on CT scan, carotids and blood work. Awaiting echo, MRI and teleneuro consult. Possible discharge to home this evening. No discharge needs identified at this time, pt's symptoms have resolved. Pt lives at home with and is very active. Pt still working and requires no assistance at this time.
--- NOTE | 2024-10-14 14:14 | CM.NOTE ---
Medicare Outpatient Observation Notice discussed with pt, pt verbalizes understanding and signs paper. Original given to pt and copy placed on pt's chart.
--- NOTE | 2024-10-14 14:42 | SWNOTE1 ---
SW reviewed PT note and no skilled needs identified at this time.
--- NOTE | 2024-10-14 16:44 | PM.DS1 ---
DS: Providers Provider Date of admission: 10/13/24 17:50 Primary care physician: Rob Lopez DO Attending physician on admission: Anh Granger Consults: 10/13/24 Consult to Telestroke Routine Reason for consultation: weakness Has provider been notified: Yes 10/13/24 17:26 Occupational Therapy Eval and Treat Routine Reason for consultation: dizziness Has provider been notified: No Physical Therapy Eval and Treat Routine Reason for consultation: dizziness Has provider been notified: No Discharging clinician: Anh Granger DS: Diagnosis Discharge Diagnosis (1) Vertigo: (2) TIA (transient ischemic attack): (3) Right sided weakness: DS: Summary Hospital Course Hospital Course: Please see H&P dated 10/14/24. Patient had normal Echo, MRI. Her symptoms have resolved. I spoke with JUDAH Malone with [facility] Stroke team who make follow up for patient with Dr. Pettit for outpatient to follow her carotid artery. They recommended daily lipitor 40mg daily, aspirin 81mg daily and Plavix 75mg daily x 21 days. These were sent to her pharmacy. All plan of care was discussed with patient. She has follow up's made. She will be discharged home in stable condition. We also discussed keeping a BP log and taking to her PCP follow up appointment. Status at Discharge Functional status at discharge: independent ambulation Overall status at discharge: patient is back to baseline Time Spent with Patient Time attestation: Total time spent providing and/or coordinating discharge services: Time spent: greater than 30 minutes Exam Narrative Exam Narrative: no changes at the time of discharge from the admission H&P exam dated 10/14/24 Constitutional Vital Signs, click to edit/add: Last Vital Signs Temp 97.8 F 10/14/24 11:20 Pulse 64 10/14/24 16:00 Resp 16 10/14/24 11:20 BP 149/80 H 10/14/24 11:20 Pulse Ox 95 10/14/24 08:17 O2 Del Method Room Air 10/14/24 11:20 DS: Data Data Completed and Pending Labs on day of discharge: Labs from last 24 hours 10/14/24 05:49 WBC 5.9 RBC 4.23 Hgb 12.5 Hct 36.6 MCV 86.5 MCH 29.6 MCHC 34.2 RDW 12.5 Plt Count 213 MPV 9.9 Neut % (Auto) 37.8 L Lymph % (Auto) 52.6 [place] % (Auto) 4.8 Eos % (Auto) 3.7 Baso % (Auto) 0.9 Neut # (Auto) 2.2 Lymph # (Auto) 3.1 [place] # (Auto) 0.3 Eos # (Auto) 0.2 Baso # (Auto) 0.1 Abs Immat Gran (auto) 0.01 Imm/Tot Granulo (auto) 0.2 Sodium 140 Potassium 3.4 L Chloride 107 Carbon Dioxide 25.5 Anion Gap 10.9 BUN 15.0 Creatinine 0.85 Est GFR ( Amer) >60 Est GFR (Non-Af Amer) >60 BUN/Creatinine Ratio 17.6 Glucose 107 H Estimat Average Glucose 131 Hemoglobin A1c 6.2 Calcium 8.5 Magnesium 1.9 Total Bilirubin 0.4 AST 20 ALT 21 Alkaline Phosphatase 63 Total Protein 6.1 L Albumin 2.9 L Globulin 3.2 Albumin/Globulin Ratio 0.9 Triglycerides 159 H Cholesterol 182 LDL Cholesterol, Calc 112.0 VLDL Cholesterol 31.8 HDL Cholesterol 39 L Cholesterol/HDL Ratio 4.7 TSH 2.020 Discharge Plan Discharge Disposition: Home, Self-Care Condition: Good Discharge Medications: New atorvastatin [Lipitor] 40 mg tablet 40 mg PO DAILY 30 Days Qty: 30 0RF clopidogrel [Plavix] 75 mg tablet 75 mg PO DAILY 21 Days Qty: 21 0RF aspirin [Adult Aspirin Regimen] 81 mg tablet,delayed release (DR/EC) 81 mg PO DAILY 30 Days Qty: 30 0RF Activity: increase activity as tolerated Diet: advance to your usual diet Print Language: Latvian Forms: Portal Instructions Follow Up Appointments: October 20 @ 11am with Dr. Lopez [phone] Dr. Pettit, [facility] will call you for follow up: please Call [phone] if you do not hear from them in the next few days for appointment time.
--- NOTE | 2024-10-15 13:54 | CM.DCFOLLOWU ---
Person spoke with:patient How are you feeling?well, blood pressure a little high, but monitoring How is your pain?no pain Did you understand your discharge instructions?yes Do you have any questions about your discharge instructions?no Were you given any prescriptions at discharge?yes Were you able to get your prescriptions filled?yes Do you understand how to take your medications as ordered?yes Do you have any questions about your follow up appointment and do you plan to keep your follow up appointment? no questions, reviewed follow up Is there anything else that you would like to discuss?no Questions/Comments/Concerns/Other:none
== END 2024-10-14 17:25 | disposition home or self-care (01) ==
LOC: ER 17:03 → MS 18:05
PROVIDERS: Physician Assistant; Admitting Provider Family Medicine; Emergency Provider Emergency Medicine; PCP Internal Medicine; Visit Provider Family Medicine
DX: G45.9 Transient cerebral ischemic attack, unspecified (principal); R42 Dizziness and giddiness; I10 Essential (primary) hypertension; R07.9 Chest pain, unspecified; Z87.891 Personal history of nicotine dependence; R53.1 Weakness; I65.21 Occlusion and stenosis of right carotid artery; E78.5 Hyperlipidemia, unspecified; I95.1 Orthostatic hypotension
CPT/HCPCS: 36415; 70450; 70496; 70498; 70551; 71045; 80053; 80061; 81001; 83036; 83605; 83735; 84443; 84484; 85025; 85610; 93005; 93306; 93880; 96361; 96372; 96374; 97161; 97165; 99285; G0378; J1644; J2405; Q9967

== ENCOUNTER 2025-02-01 09:42 | Outpatient (OUT) | payer MEDICARE, SELFPAY ==
--- OUTSIDE RECORDS SUMMARY | 2025-02-01 10:07 | XMS_ITS | CCD ---
Author Organization [facility] Care Team Providers Care Puppet Master Name Role Phone John Todd Attending Provider [phone] Rob Lopez Primary Care Provider [phone] John Todd Unavailable JOHN, DR COTTON Admitting Unavailable BALL, DR COTTON Attending Unavailable BALL, DR COTTON Primary Care Unavailable JOHN, DR COTTON Consulting Unavailable JOHN, DR COTTON Admitting Unavailable BALL, DR COTTON Attending Unavailable BALL, DR COTTON Primary Care Unavailable JOHN, DR COTTON Admitting Unavailable BALL, DR COTTON Attending Unavailable BALL, DR COTTON Primary Care Unavailable BALL, DR COTTON Admitting Unavailable BALL, DR COTTON Attending Unavailable BALL, DR COTTON Primary Care Unavailable JOHN, DR COTTON Admitting Unavailable BALL, DR COTTON Attending Unavailable JOHN, DR COTTON Primary Care Unavailable BALL, DR COTTON Consulting Unavailable JOHN, DR COTTON Admitting Unavailable BALL, DR COTTON Attending Unavailable BALL, DR COTTON Primary Care Unavailable BALL, DR COTTON Consulting Unavailable WEST, DR GEORGI Fernandez Consulting Unavailable JOHN, DR COTTON Admitting Unavailable BALL, DR COTTON Attending Unavailable BALL, DR COTTNO Primary Care Unavailable BALL, DR COTTON Consulting Unavailable John, Rob Unavailable Karla Hull Unavailable Rob Lopez DO Primary Care Provider Rob Lopez Primary Care Unavailable Britta Love Attending Unavailable Britta Love Admitting Unavailable Rob Lopez DO Primary Care Provider DALTON PETTIT Attending Unavailable ROB LOPEZ Referring Unavailable ROB LOPEZ Primary Care Unavailable MAIKOL FINNEGAN Attending Unavailable MAIKOL FINNEGAN Attending Unavailable MAIKOL FINNEGAN Referring Unavailable MAIKOL FINNEGAN Referring Unavailable Allergies Allergy Classification Reported Allergen(s) Allergy Type Date of Onset Reaction(s) Facility Penicillins (antibiotic) (1 source) Penicillins Drug Allergy 1 Swelling of Lip/Tongue/Thro at [facility] (9 sources) Penicillin Drug Allergy hives/swelling [facility] Rachio Other (5 sources) Penicillins Drug allergy (disorder) 5 Swelling of Lip/Tongue/Thro at [facility] (1 source) Penicillin Drug Allergy hives/swelling [facility] Other (9 sources) Penicillin; Translations: [penicillin V] Drug Allergy 4 Swelling [facility] (1 source) Penicillins Drug allergy (disorder) 5 [facility] Rep[facility] Medications Current Medications Medication Drug Class(es) Dates Sig (Normalized) Sig (Original) [id number] actuat albuterol 0.09 mg/actuat metered dose inhaler (2 sources) beta2-Adrenergic Agonist Start: 09-08-2023 take 2 puff(s) by inhalation four times daily as needed Albuterol Sulfate HFA 108 (90 Base) MCG/ACT 2 puffs Inhalation 4 times a day prn Aug, Active aspirin 81 mg delayed release oral tablet (8 sources) Platelet Aggregation Inhibitor, Nonsteroidal Anti-inflammatory Drug Start: 10-14-2024 End: 11-16-2024 take 1 tablet by mouth once daily Aspirin Low Dose 81 MG EC tablet Take 81 mg by mouth Daily 10/14/2024 Active atorvastatin 40 mg oral tablet (8 sources) HMG-CoA Reductase Inhibitor Start: 12-25-2024 take 1 tablet by mouth once daily atorvastatin (Lipitor) 40 MG tablet Take 40 mg by mouth Daily 12/25/2024 Active Start: 10-20-2024 End: 11-16-2024 take 1 tablet by mouth once daily Atorvastatin 40 mg tablet Active 40 MG PO Daily November 16, 2024 1:14pm azithromycin 250 mg oral tablet (3 sources) Macrolide Antimicrobial Start: 09-06-2023 Azithromycin 250 MG as directed Orally daily for 5 days Aug, Active benzonatate 200 mg oral capsule (2 sources) Non-narcotic Antitussive Start: 09-08-2023 take 1 capsule by mouth every eight hours Benzonatate 200 MG 1 capsule Orally Three times a day Aug, Active fluticasone (2 sources) Corticosteroid FLONASE Active ibuprofen 800 mg oral tablet (14 sources) Nonsteroidal Anti-inflammatory Drug Start: 01-01-2025 take 1 tablet by mouth in the morning, then take 1 tablet by mouth in the evening, then take 1 tablet by mouth at bedtime ibuprofen 800 MG tablet Indications: Left wrist sprain, initial encounter Take 1 tablet (800 mg) by mouth in the morning and 1 tablet (800 mg) in the evening and 1 tablet (800 mg) before bedtime. 90 tablet 01/07/2025 Active Start: 02-09-2021 take 1 tablet by cole th three times daily at mealtime as needed Ibuprofen 800 MG 1 tablet with food or milk as needed Orally Three times a day for 30 days Jan, Not-Taking/PRN LORazepam 0.5 mg oral tablet (6 sources) Benzodiazepine Start: 10-20-2024 take 0.5-1 tablets by mouth once daily for anxiety LORazepam (Ativan) 0.5 MG tablet TABLET ONE-HALF to ONE TABLET BY MOUTH DAILY FOR ANXIETY 10/20/2024 Active predniSONE 20 mg oral tablet (2 sources) Start: 09-08-2023 take 1 tablet by mouth every twelve hours predniSONE 20 MG 1 tablet Orally bid for 5 day(s) Aug, Active telmisartan 20 mg oral tablet (6 sources) Angiotensin 2 Receptor Jesusita Start: 12-02-2024 take 1 tablet by mouth once daily telmisartan (MIcarDIS) 20 MG tablet Take 20 mg by mouth Daily 12/02/2024 Active Tumeric (4 sources) Start: 01-27-2021 take 1 tablet by mouth once daily in the morning Tumeric Active 1 TAB PO Every morning January 27, 2021 11:04am Start: 01-27-2021 End: 10-20-2024 take 1 tablet by mouth once daily in the morning Tumeric Discontinued 1 TAB PO Every morning January 27, 2021 12:00am October 20, 2024 12:23pm Start: 01-27-2021 End: 10-20-2024 take 1 tablet by mouth once daily in the morning Tumeric Discontinued 1 TAB PO Every morning January 26, 2021 11:00pm October 20, 2024 11:23am Start: 01-27-2021 take 1 tablet by cole th once daily in the morning Tumeric Active 1 TAB PO Every morning January 27, 2021 12:00am Zinc (4 sources) Start: 01-27-2021 take 450 mg by mouth once daily in the morning Zinc Active 450 MG PO Every morning January 27, 2021 11:04am Start: 01-27-2021 End: 10-20-2024 Zinc 50 mg Tablet Discontinu ed 450 MG PO Every morning January 27, 2021 12:00am October 20, 2024 12:23pm Start: 01-27-2021 End: 10-20-2024 Zinc 50 mg Tablet Discontinu ed 450 MG PO Every morning January 26, 2021 11:00pm October 20, 2024 11:23am Start: 01-27-2021 take 450 mg by mouth once daily in the morning Zinc Active 450 MG PO Every morning January 27, 2021 12:00am Completed/Discontinued Medications Medication Drug Class(es) Dates Sig (Normalized) Sig (Original) amLODIPine 2.5 mg oral tablet (2 sources) Dihydropyridine Calcium Channel Jesusita Start: 11-17-2024 End: 12-02-2024 take 1 tablet by mouth once daily Amlodipine 2.5 mg tablet Discontinued 2.5 MG PO Daily November 20, 2024 2:42pm December 02, 2024 6:39pm cholecalciferol 0.025 mg oral tablet (4 sources) Vitamin D Start: 01-27-2021 End: 10-20-2024 take 1 tablet by mouth once daily in the morning Cholecalciferol (Vitamin D3) (Vitamin D3) 25 mcg (1,000 unit) Tablet Discontinued 25 MCG PO Every morning January 27, 2021 12:00am October 20, 2024 12:23pm clopidogrel 75 mg oral tablet (2 sources) P2Y12 Platelet Inhibitor Start: 10-20-2024 End: 11-16-2024 take 1 tablet by mouth once daily Clopidogrel (Plavix) 75 mg tablet Discontinued 75 MG PO Daily October 20, 2024 1:00am November 16, 2024 1:15pm escitalopram 10 mg oral tablet (3 sources) Serotonin Reuptake Inhibitor Start: 06-10-2024 End: 10-20-2024 take 1 tablet by mouth once daily Escitalopram Oxalate 10 mg tablet Discontinued 10 MG PO Daily June 10, 2024 12:00am October 20, 2024 12:23pm omeprazole 40 mg delayed release oral capsule (9 sources) Proton Pump Inhibitor take 1 capsule by mouth once daily in the morning Omeprazole 40 MG TAKE 1 CAPSULE EVERY DAY IN THE MORNING followed by breakfast Oral for 30 Not-Taking/PRN Triamcinolone (8 sources) Corticosteroid Start: 12-20-2020 Kenalog -40 mg December, 40 mg Problems Active Problems Problem Classification Problem Date Documented Da te Episodic/Chronic Abdominal pain (9 sources) Generalized abdominal pain; Translations: [Generalized abdominal pain] Episodic Acute bronchitis (2 sources) Acute bronchitis due to other specified organisms; Translations: [Acute bronchitis, unspecified] Episodic Acute cerebrovascular disease (1 source) Acute cerebrovascular disease Onset: 10-13-2024 Anxiety disorders (13 sources) Generalized anxiety disorder; Translations: [Generalized anxiety disorder] 06-10-2024 Chronic Benign neoplasm of uterus (8 sources) Uterine leiomyoma; Translations: [Leiomyoma of uterus, unspecified] Episodic Conditions associated with dizziness or vertigo (2 sources) Benign paroxysmal positional vertigo; Translations: [Benign paroxysmal vertigo, unspecified ear] 10-18-2024 Episodic Comment on above: Echo: LVEF 60%, norm al RV size/function, RVSP 32, no valvular ds. 09/2024 Diabetes mellitus with complications (18 sources) Type 2 diabetes mellitus with hyperglycemia; Translations: [Hyperglycemia due to type 2 diabetes mellitus] Onset: 12-28-2021 Chronic Diabetes mellitus without complication (4 sources) Type 2 diabetes mellitus without complications; Translations: [TYPE 2 DM WITHOUT COMPLICATIONS] Onset: 09-05-2021 Chronic Diabetes mellitus without complication (8 sources) Impaired fasting glycemia; Translations: [Impaired fasting glucose] Episodic Disorders of lipid metabolism (9 sources) Pure hypercholesterolemia, unspecified; Translations: [Hypercholesterolemia ] Onset: 12-26-2021 Chronic Genitourinary symptoms and ill-defined conditions (8 sources) Urgent desire to urinate; Translations: [Urgency of urination] Episodic Immunizations and screening for infectious disease (1 source) Contact with and (suspected) exposure to other viral communicable diseases Episodic Intracranial injury (8 sources) History of traumatic brain injury; Translations: [Personal history of traumatic brain injury] Episodic Malaise and fatigue (3 sources) Fatigue; Translations: [Other fatigue] 06-10-2024 Episodic Nausea and vomiting (9 sources) Nausea; Translations: [Nausea] Episodic Nonspecific chest pain (1 source) Intercostal pain Episodic Occlusion or stenosis of precerebral arteries (5 sources) Right carotid artery stenosis; Translations: [Occlusion and stenosis of right carotid artery] 10-20-2024 Chronic Other and unspecified benign neoplasm (1 source) [...] abdomen; Translations: [Abdominal distension (gaseous)] Episodic Other injuries and conditions due to external causes (1 source) Unspecified injury of left forearm, initial encounter; Translations: [Unspecified injury of left forearm, initial encounter] Onset: 01-01-2025 Episodic Other nervous system disorders (3 sources) Paresthesia; Translations: [Paresthesia of skin] 06-10-2024 Episodic Other non-traumatic joint disorders (4 sources) Pain in wrist; Translations: [Pain in left wrist] 01-06-2025 Episodic Other nutritional; endocrine; and metabolic disorders (1 source) Overweight Episodic Other nutritional; endocrine; and metabolic disorders (2 sources) Overweight; Translations: [Overweight] 06-10-2024 Episodic Other screening for suspected conditions (not mental disorders or infectious disease) (9 sources) Encounter for screening mammogram for malignant neoplasm of breast; Translations: [Patient encounter status] Onset: 09-26-2021 Episodic Otitis media and related conditions (1 source) Other specified disorders of Eustachian tube, left ear Episodic Ovarian cyst (8 sources) Cyst of ovary; Translations: [Unspecified ovarian cyst, unspecified side] Episodic Paralysis (5 sources) Right hemiparesis; Translations: [Hemiplegia, unspecified affecting right dominant side] 10-18-2024 Chronic Residual codes; unclassified (1 source) Pain, unspecified; Translations: [Pain, unspecified] Onset: 10-14-2024 Episodic Sprains and strains (6 sources) Strain of other muscles, fascia and tendons at shoulder and upper arm level, left arm, subsequent encounter; Translations: [Strain of muscle and tendon of front wall of thorax, initial encounter] Onset: 05-11-2021 Resolved: 05-11-2021 Episodic Transient cerebral ischemia (4 sources) Transient cerebral ischemia; Translations: [Transient cerebral ischemic attack, unspecified] 10-19-2024 Chronic Comment on above: Left sided weakness and dizziness.CTA head/neck: no thrombus, aneurysm or mass, 50-60% siphon portion of B/L ICA, right bulb 60-70% - arotid US: 50-69% KB, < 50% LICA Past or Other Problems Problem Classification Problem Date Documented Date Episodic/Chronic Other aftercare (1 source) group home (current) use of oral hypoglycemic drugs; Translations: [[employer] USE ORAL HYPOGLYCEMIC DX] Onset: 09-07-2021 Episodic [...] Episodic Unclassified (1 source) Acute cough R05.1 Unclassified (2 sources) Sprain of left wrist 01-15-2025 Viral infection (2 sources) COVID-19 Results Test Name Value Interpretation Reference Range Facility MR WRIST LEFT WO IV CONTRAST on 01-15-2025 MR WRIST LEFT WO IV CONTRAST EXAM: MR WRIST LEFT WO IV CONTRAST HISTORY: Wrist pain since a fall TECHNIQUE: Multiplanar multisequence MRI of the wrist was performed without contrast COMPARISON: Radiographs January 15, 2025 FINDINGS: Scapholunate and lunotriquetral ligaments are intact. Articular disc and foveal components of the triangular fibrocartilage complex are intact. Partial tearing of the styloid component of the TFCC. Visualized flexor and extensor tendons are intact. Median nerve is of normal signal and morphology. Mild degenerative changes of the wrist. IMPRESSION: Partial tearing of the styloid component of the TFCC. No evidence of recent fracture. ELECTRONICALLY SIGNED BY: Theodore Chavez DO Normal Not Available MR Wrist - left WO contrasto n 01-15-2025 Partial tearing of the styloid component of the TFCC. No evidence of recent fracture. ELECTRONICALLY SIGNED BY: Theodore Chavez DO IMAGING EXAM: MR WRIST LEFT WO IV CONTRAST HISTORY: Wrist pain since a fall TECHNIQUE: Multiplanar multisequence MRI of the wrist was performed without contrast COMPARISON: Radiographs January 15, 2025 FINDINGS: Scapholunate and lunotriquetral ligaments are intact. Articular disc and foveal components of the triangular fibrocartilage complex are intact. Partial tearing of the styloid component of the TFCC. Visualized flexor and extensor tendons are intact. Median nerve is of normal signal and morphology. Mild degenerative changes of the wrist. IMAGING Theodore Chavez DO - 01/15/2025 EXAM: MR WRIST LEFT WO IV CONTRAST HISTORY: Wrist pain since a fall TECHNIQUE: Multiplanar multisequence MRI of the wrist was performed without contrast COMPARISON: Radiographs January 15, 2025 FINDINGS: Scapholunate and lunotriquetral ligaments are intact. Articular disc and foveal components of the triangular fibrocartilage complex are intact. Partial tearing of the styloid component of the TFCC. Visualized flexor and extensor tendons are intact. Median nerve is of normal signal and morphology. Mild degenerative changes of the wrist. IMPRESSION: Partial tearing of the styloid component of the TFCC. No evidence of recent fracture. ELECTRONICALLY SIGNED BY: Theodore Chavez DO [facility] Radiology Study observation (narrative) [facility] MR Wrist - left WO contrastO rdered By: Theodore Chavez on 01-15-2025 [facility] [employer] Work Phone: XR Wrist - left 2 [facility] Result: AP and Lateral left wrist: No acute fracture or dislocation Mild arthritic changes radial styloid . Scaphoid Unchanged subchondral cystic changes in scaphoid and trapezium Impression- mild degenerative changes left left. No acute fracture. [facility] Study observation (narrative) [facility] [place] No Panel Informationon 01-06 JACOB Zhao 01/06/2025 10:19 PM Cast / Splint / Fx Date/Time: 01/06/2025 1:06 PM Performed by: JACOB Zhao Authorized by: JACOB Zhao Consent given by: patient Injury Location details: left wrist Pre-procedure assessment neurovascularly intact Range of motion: reduced Procedure Manipulation performed? no manipulation performed Immobilization: splint Splint/Brace type: wrist cock-up Post-procedure assessment neurovascularly intact Range of motion: unchanged Patient tolerance: patient tolerated the procedure well with no immediate complications [facility] [place] [employer] XR elbow LT min 3V*on 2024 XR elbow LT min 3V* [facility] [address] XRay Report Signed Patient: Isabelle Benitez MR#: [id number] : 1955 Acct:[id number] Age/Sex: 69 / F ADM Date: 01/01/25 Loc: XDUCLY Room: Type: [facility] Attending Dr: Britta Love APRN Copies to: Britta Love APRN Ordering Provider: Britta Love APRN Date of Service: 01/01/25 XR/XR elbow LT min 3V*: S59.912A - Unspecified injury of left forearm, initial en... ([id number]) XR/XR wrist LT min 3V*: S59.912A - Unspecified injury of left forearm, initial en... LEFT WRIST - 4 views, left elbow 4 views CLINICAL HISTORY: Fall 1 week ago. Left breast in posterior left elbow pain and bruising. COMPARISON: None FINDINGS: Left wrist: Mild soft tissue swelling. Distal radius appears intact. There appears to be a tiny avulsion fracture from the styloid process of the ulna likely chronic. Chondrocalcinosis of the TFCC. Carpus demonstrates degenerative change particularly involving the scaphotrapezial joint and CMC joint of the thumb. No bony erosions. Left elbow: Normal joint effusion. No acute bony process. Joint spaces appear maintained. No bony erosions. XR/XR wrist LT min 3V* IMPRESSION: LEFT WRIST DEMONSTRATE MILD SOFT TISSUE SWELLING WITH WHAT APPEARS TO BE A TINY AVULSION FRACTURE FROM THE STYLOID PROCESS OF THE ULNA LIKELY CHRONIC. CORRELATION WITH AREA OF PAIN IS RECOMMENDED. LEFT ELBOW DEMONSTRATES NO ACUTE BONY PROCESS. Impression dictated by: Thomas Christensen Jr., D.O. 01/01/2025 10:15 AM Dictation Location: [facility]-- Transcribed By: [facility] 01/01/25 1015 Dictated By: Thomas Christensen Jr, DO 01/01/25 1013 Signed By: 01/01/25 1015 Normal [facility] Basophils Auto (Bld) [#/Vol] on 10-14-2024 Basophils (Bld) [#/Vol] Automated basophil count 0.0-0.1 [facility] Basophils/100 WBC Auto (Bld) on 10-14-2024 Basophils/100 WBC (Bld) Automated basophil % 0.2-2.0 [facility] Cholesterol in LDL Calc [Mas s/Vol]on 10-14-2024 Cholesterol in LDL [Mass/Vol] Cholesterol in LDL [Mass/volume] in Serum or Plasma by calculation [facility] Comment on above: <100 mg/dl [id number] 0-129 mg/dl NEAR OR ABOVE [id number] mg/dl BORDERLINE [id number] mg/dl HIGH>190 mg/dl VERY HIGH Cholesterol in VLDL Calc [Ma ss/Vol]on 10-14-2024 Cholesterol in VLDL [Mass/Vol] Cholesterol in VLDL [Mass/volume] in Serum or Plasma by calculation [facility] Eosinophils/100 WBC Auto (Bl d)on 10-14-2024 Eosinophils/100 WBC (Bld) Automated eosinophil % 0.9-7.0 [facility] Erythrocyte distribution wid th Auto (RBC) [Ratio]on 10-14-2024 Erythrocyte distribution width (RBC) [Ratio] Erythrocyte distribution width [Ratio] by Automated count 11.0-15.0 [facility] Estimated glomerular filtrat ion rate (GFR) non- Americanon 10-14-2024 GFR/1.73 sq M.predicted among non-blacks MDRD (S/P/Bld) [Vol rate/Area] Estimated glomerular filtration rate (GFR) non- >=60 mL/min/1.73m 2 [facility] Globulin Calc (S) [Mass/Vol] on 10-14-2024 Globulin (S) [Mass/Vol] Serum globulin measurement by calculation (mass/volume) [facility] Glucose mean value [Mass/vol ume] in Blood Estimated from glycated hemoglobinon 10-14-2024 Average glucose Estimated from glycated hemoglobin (Bld) [Mass/Vol] Glucose mean value [Mass/volume] in Blood Estimated from glycated hemoglobin [facility] Hematocrit Auto (Bld) [Volum e fraction]on 10-14-2024 Hematocrit (Bld) [Volume fraction] Hematocrit [Volume Fraction] of Blood by Automated count 36.0-48.0 [facility] Hemoglobin A1c percentageon 10-14-2024 HbA1c (Bld) [Mass fraction] Hemoglobin A1c percentage 4.5-6.2 [facility] Comment on above: ADA RECOMMENDED LIMI T 4.0 - 6.0ADA THERAPEUTIC TARGET < 7.0ACTION SUGGESTED> 7.0 Hemoglobin [Mass/volume] in Bloodon 10-14-2024 Hemoglobin (Bld) [Mass/Vol] Hemoglobin [Mass/volume] in Blood 12.0-16.0 [facility] Laboratory - Chemistry and C hemistry - challengeon 10-14-2024 Albumin [Mass/Vol] 2.9 g/dL Low 3.4-5.0 [facility] ALP [Catalytic activity/Vol] 63 U/L 46-116 [facility] ALT [Catalytic activity/Vol] 21 U/L 14-59 [facility] AST [Catalytic activity/Vol] 20 U/L 15-37 [facility] Bilirubin [Mass/Vol] 0.4 mg/dL 0.2-1.0 [facility] Calcium [Mass/Vol] 8.5 mg/dL 8.5-10.1 [facility] Chloride [Moles/Vol] 107 mmol/L 98-107 [facility] Cholesterol [Mass/Vol] 182 mg/dL <=200 [facility] Cholesterol in HDL [Mass/Vol] 39 mg/dL Low 40-60 [facility] Comment on above: > or =60 mg/dl - LOW CARDIOVASCULAR RISK<40 mg/dl - HIGH CARDIOVASCULAR RISK CO2 [Moles/Vol] 25.5 mmol/L 21.0-32.0 [facility] Creatinine [Mass/Vol] 0.85 mg/dL 0.55-1.02 [facility] GFR/1.73 sq M.predicted MDRD (S/P/Bld) [Vol rate/Area] mL/min/{1.73_m2} >=60 mL/min/1.73m 2 [facility] Glucose [Mass/Vol] 107 mg/dL High 74-106 [facility] Magnesium [Mass/Vol] 1.9 mg/dL 1.8-2.4 [facility] Potassium [Moles/Vol] 3.4 mmol/L Low 3.5-5.1 [facility] Protein [Mass/Vol] 6.1 g/dL Low 6.4-8.2 [facility] Sodium [Moles/Vol] 140 mmol/L 136-145 [facility] Triglyceride [Mass/Vol] 159 mg/dL High <=150 [facility] TSH Qn 2.020 m[IU]/L 0.358-3.740 [facility] Urea nitrogen [Mass/Vol] 15.0 mg/dL 7.0-18.0 [facility] Urea nitrogen/Creatinine [Mass ratio] 17.6 mg/mg [facility] Laboratory - Hematology and Cell countson 10-14-2024 Immature granulocytes/100 WBC (Bld) 0.2 % 0.0-0.5 [facility] Leukocytes [#/volume] correc vadim for nucleated erythrocytes in Blood by Automated counon 10-14-2024 WBC corrected for nucl RBC Auto (Bld) [#/Vol] Leukocytes [#/volume] corrected for nucleated erythrocytes in Blood by Automated coun 4.0-11.0 [facility] Lymphocytes Auto (Bld) [#/Vo l]on 10-14-2024 Lymphocytes (Bld) [#/Vol] Lymphocytes [#/volume] in Blood by Automated count 1.2-3.8 [facility] Lymphocytes/100 WBC Auto (Bl d)on 10-14-2024 Lymphocytes/100 WBC (Bld) Lymphocytes/100 leukocytes in Blood by Automated count 20.5-60.0 [facility] MCH Auto (RBC) [Entitic mass ]on 10-14-2024 MCH (RBC) [Entitic mass] MCH [Entitic mass] by Automated count 26.7-34.0 [facility] MCHC Auto (RBC) [Mass/Vol]on 10-14-2024 MCHC (RBC) [Mass/Vol] MCHC [Mass/volume] by Automated count 29.9-35.2 [facility] MCV Auto (RBC) [Entitic vol] on 10-14-2024 MCV (RBC) [Entitic vol] MCV [Entitic volume] by Automated count 81.0-99.0 [facility] Monocytes Auto (Bld) [#/Vol] on 10-14-2024 Monocytes (Bld) [#/Vol] Automated blood monocyte count 0.3-0.8 [facility] Monocytes/100 WBC Auto (Bld) on 10-14-2024 Monocytes/100 WBC (Bld) Automated monocyte % 1.7-12.0 [facility] Neutrophils Auto (Bld) [#/Vo l]on 10-14-2024 Neutrophils (Bld) [#/Vol] Neutrophils [#/volume] in Blood by Automated count 1.4-6.5 [facility] Neutrophils/100 WBC Auto (Bl d)on 10-14-2024 Neutrophils/100 WBC (Bld) Automated neutrophil % Low 43.0-75.0 [facility] No Panel Informationon 10-14 Eosinophils # (Auto) 0.2 10 3/uL 0.0-0.7 [facility] Immature Granulocyte # (Auto) 0.01 10 3/uL 0.00-0.03 [facility] Platelet mean volume Auto (B ld) [Entitic vol]on 10-14-2024 Platelet mean volume (Bld) [Entitic vol] Platelet mean volume [Entitic volume] in Blood by Automated count 9.5-13.5 [facility] Platelets Auto (Bld) [#/Vol] on 10-14-2024 Platelets (Bld) [#/Vol] Platelets [#/volume] in Blood by Automated count 150-450 [facility] RBC Auto (Bld) [#/Vol]on RBC (Bld) [#/Vol] Erythrocytes [#/volume] in Blood by Automated count 4.20-5.40 [facility] Serum or plasma albumin/glob ulin mass ratioon 10-14-2024 Albumin/Globulin [Mass ratio] Serum or plasma albumin/globulin mass ratio [facility] Serum or plasma anion gap de terminationon 10-14-2024 Anion gap [Moles/Vol] Serum or plasma anion gap determination [facility] Serum or plasma total choles terol/high density lipoprotein (HDL) cholesterol mass maru 10-14-2024 Cholesterol.total/Ch olesterol in HDL [Mass ratio] Serum or plasma total cholesterol/high density lipoprotein (HDL) cholesterol mass rat [facility] Comment on above: 3.3 - 4.4 LOW RISK4. 4 - 7.1 AVERAGE RISK7.1 - 11.0 MODERATE RISK>11.0 HIGH RISK Basophils Auto (Bld) [#/Vol] on 10-13-2024 Basophils (Bld) [#/Vol] Automated basophil count 0.0-0.1 [facility] Basophils/100 WBC Auto (Bld) on 10-13-2024 Basophils/100 WBC (Bld) Automated basophil % 0.2-2.0 [facility] Eosinophils/100 WBC Auto (Bl d)on 10-13-2024 Eosinophils/100 WBC (Bld) Automated eosinophil % 0.9-7.0 [facility] Erythrocyte distribution wid th Auto (RBC) [Ratio]on 10-13-2024 Erythrocyte distribution width (RBC) [Ratio] Erythrocyte distribution width [Ratio] by Automated count 11.0-15.0 [facility] Hematocrit Auto (Bld) [Volum e fraction]on 10-13-2024 Hematocrit (Bld) [Volume fraction] Hematocrit [Volume Fraction] of Blood by Automated count 36.0-48.0 [facility] Hemoglobin [Mass/volume] in Bloodon 10-13-2024 Hemoglobin (Bld) [Mass/Vol] Hemoglobin [Mass/volume] in Blood 12.0-16.0 [facility] INR in Platelet poor plasma by Coagulation assayon 10-13-2024 INR Coag (PPP) [Relative time] INR in Platelet poor plasma by Coagulation assay [facility] Comment on above: DESIRED INR:2.0-3.0 CONDITIONS NOT LISTED BELOW2.5-3.5 FOR PROSTHETIC HEART VALVE REPLACEMENT2.5-3.5 RECURRENT THROMBOSIS Laboratory - Chemistry and C hemistry - challengeon 10-13-2024 Lactate [Moles/Vol] 1.3 mmol/L 0.4-2.0 [facility] Magnesium [Mass/Vol] 1.9 mg/dL 1.8-2.4 [facility] TSH Qn 1.790 m[IU]/L 0.358-3.740 [facility] Laboratory - Hematology and Cell countson 10-13-2024 Immature granulocytes/100 WBC (Bld) 0.3 % 0.0-0.5 [facility] Leukocytes [#/volume] correc vadim for nucleated erythrocytes in Blood by Automated counon 10-13-2024 WBC corrected for nucl RBC Auto (Bld) [#/Vol] Leukocytes [#/volume] corrected for nucleated erythrocytes in Blood by Automated coun 4.0-11.0 [facility] Lymphocytes Auto (Bld) [#/Vo l]on 10-13-2024 Lymphocytes (Bld) [#/Vol] Lymphocytes [#/volume] in Blood by Automated count 1.2-3.8 [facility] Lymphocytes/100 WBC Auto (Bl d)on 10-13-2024 Lymphocytes/100 WBC (Bld) Lymphocytes/100 leukocytes in Blood by Automated count 20.5-60.0 [facility] MCH Auto (RBC) [Entitic mass ]on 10-13-2024 MCH (RBC) [Entitic mass] MCH [Entitic mass] by Automated count 26.7-34.0 [facility] MCHC Auto (RBC) [Mass/Vol]on 10-13-2024 MCHC (RBC) [Mass/Vol] MCHC [Mass/volume] by Automated count 29.9-35.2 [facility] MCV Auto (RBC) [Entitic vol] on 10-13-2024 MCV (RBC) [Entitic vol] MCV [Entitic volume] by Automated count 81.0-99.0 [facility] Monocytes Auto (Bld) [#/Vol] on 10-13-2024 Monocytes (Bld) [#/Vol] Automated blood monocyte count 0.3-0.8 [facility] Monocytes/100 WBC Auto (Bld) on 10-13-2024 Monocytes/100 WBC (Bld) Automated monocyte % 1.7-12.0 [facility] Neutrophils Auto (Bld) [#/Vo l]on 10-13-2024 Neutrophils (Bld) [#/Vol] Neutrophils [#/volume] in Blood by Automated count 1.4-6.5 [facility] Neutrophils/100 WBC Auto (Bl d)on 10-13-2024 Neutrophils/100 WBC (Bld) Automated neutrophil % 43.0-75.0 [facility] No Panel Informationon 10-13 Troponin I High Sensitivity 6.6 pg/mL 4.0-51.3 [facility] Comment on above: CUT-OFF POINTS HAVE BEEN ESTABLISHED BASED ON THE FOURTHUNIVERSAL DEFINITION OF MYOCARDIAL INFARCTION. THE UPPERREFERENCE LIMIT (URL) OF TROPONIN, DEFINED THE 99THPERCENTILE OF cTnI DISTRIBUTION IN A REFERENCE POPULATION,HAS BEEN CONFIRMED THE DECISION THRESHOLD FOR MIDIAGNOSIS.99TH PERCENTILE = 51.4 PG/MLNOTE: HIGH-SENSITIVITY TROPONIN ASSAY IS NOT INTENDED TO BEUSED IN ISOLATION BUT SHOULD BE INTERPRETED IN CONJUNCTIONWITH OTHER DIAGNOSTIC AND CLINICAL INFORMATION. Eosinophils # (Auto) 0.1 10 3/uL 0.0-0.7 [facility] Immature Granulocyte # (Auto) 0.03 10 3/uL 0.00-0.03 [facility] Platelet mean volume Auto (B ld) [Entitic vol]on 10-13-2024 Platelet mean volume (Bld) [Entitic vol] Platelet mean volume [Entitic volume] in Blood by Automated count 9.5-13.5 [facility] Platelets Auto (Bld) [#/Vol] on 10-13-2024 Platelets (Bld) [#/Vol] Platelets [#/volume] in Blood by Automated count 150-450 [facility] Prothrombin time (PT)on 09-20 PT Coag (PPP) [Time] Prothrombin time (PT) 9.0- 11.6 [facility] RBC Auto (Bld) [#/Vol]on RBC (Bld) [#/Vol] Erythrocytes [#/volume] in Blood by Automated count 4.20-5.40 [facility] COVID + FLU Quick Testingon 09-08-2023 SARS-CoV-2 (COVID-19) RNA KATHY+probe Ql (Unsp spec) Positive [facility]ach[facility] Other COVID + FLU Quick Testing Negative [id number] Other CBC AUTO DIFFon 06-30-2022 BASO # 0.1 103/ul Normal 0.0-0.1 [facility] Comment on above: Performed By: #### C BC #### [facility] [address] [place] [address] Dr. Angel Gray Basophils/100 WBC (Bld) 0.8 % Normal 0.2-2.0 [facility] Comment on above: Performed By: #### C BC #### [facility] [address] [place] [address] Dr. Angel Gray EO # 0.2 103/ul Normal 0.0-0.7 [facility] Comment on above: Performed By: #### C BC #### [facility] [address] [place] [address] Dr. Angel Gray Eosinophils/100 WBC (Bld) 2.6 % Normal 0.9-7.0 [facility] Comment on above: Performed By: #### C BC #### [facility] [address] [place] [address] Dr. Angel Gray Erythrocyte distribution width (RBC) [Ratio] 12.4 % Normal 11.0-15.0 [facility] Comment on above: Performed By: #### C BC #### [facility] [address] [place] [address] Dr. Angel Gray Hematocrit (Bld) [Volume fraction] 41.4 % Normal 36.0-48.0 [facility] Comment on above: Performed By: #### C BC #### [facility] [address] [place] [address] Dr. Angel Gray Hemoglobin (Bld) [Mass/Vol] 13.9 g/dL Normal 12.0-16.0 [facility] Comment on above: Performed By: #### C BC #### [facility] [address] [place] [address] Dr. Angel Gray IG # 0.03 10e3/ul Normal 0.00-0.03 [facility] Comment on above: Performed By: #### C BC #### [facility] [address] [place] [address] Dr. Angel Gray IG % 0.4 % Normal 0.0-0.5 [facility] Comment on above: Performed By: #### C BC #### [facility] [address] [place] [address] Dr. Angel Gray LYMPH # 3.4 103/ul Normal 1.2-3.8 [facility] Comment on above: Performed By: #### C BC #### [facility] [address] [place] [address] Dr. Angel Gray Lymphocytes/100 WBC (Bld) 43.9 % Normal 20.5-60.0 [facility] Comment on above: Performed By: #### C BC #### [facility] [address] [place] [address] Dr. Angel Gray MANUAL DIFF REQ NO Normal [facility] Comment on above: Performed By: #### C BC #### [facility] [address] [place] [address] Dr. Angel Gray MCH (RBC) [Entitic mass] 29.5 pg Normal 26.7-34.0 [facility] Comment on above: Performed By: #### C BC #### [facility] [address] [place] [address] Dr. Angel Gray MCHC (RBC) [Mass/Vol] 33.6 g/dL Normal 29.9-35.2 [facility] Comment on above: Performed By: #### C BC #### [facility] [address] [place] [address] Dr. Angel Gray MCV (RBC) [Entitic vol] 87.9 fL Normal 81.0-99.0 [facility] Comment on above: Performed By: #### C BC #### [facility] [address] [place] [address] Dr. Angel Gray MONO # 0.4 103/ul Normal 0.3-0.8 [facility] Comment on above: Performed By: #### C BC #### [facility] [address] [place] [address] Dr. Angel Gray Monocytes/100 WBC (Bld) 4.7 % Normal 1.7-12.0 [facility] Comment on above: Performed By: #### C BC #### [facility] [address] [place] [address] Dr. Angel Gray NEUT # 3.7 103/ul Normal 1.4-6.5 [facility] Comment on above: Performed By: #### C BC #### [facility] [address] [place] [address] Dr. Angel Gray Neutrophils/100 WBC (Bld) 47.6 % Normal 43.0-75.0 [facility] Comment on above: Performed By: #### C BC #### [facility] [address] [place] [address] Dr. Angel Gray Platelet mean volume (Bld) [Entitic vol] 9.7 fL Normal 9.5-13.5 [facility] Comment on above: Performed By: #### C BC #### [facility] [address] [place] [address] Dr. Angel Gray PLT 263 103/ul Normal 150-450 [facility] Comment on above: Performed By: #### C BC #### [facility] [address] [place] [address] Dr. Angel Gray RBC 4.71 106/ul Normal 4.20-5.40 [facility] Comment on above: Performed By: #### C BC #### [facility] [address] [address] [address] Angel Gray WBC 7.7 103/ul Normal 4.0-11.0 [facility] Comment on above: Performed By: #### C BC #### [facility] [address] [place] [address] Dr. Angel Gray GLYCOHEMOGLOBIN A1Con 2021 ADA RECOMMENDATION SEE BELOW Normal [facility] Comment on above: Result Comment: ADA RECOMMENDED LIMIT 4.0 - 6.0 ADA THERAPEUTIC TARGET < 7.0 ACTION SUGGESTED > 7.0 Performed By: #### A 1C #### [facility] [address] [place] [address] Dr. Angel Gray Glucose [Mass/Vol] 126 mg/dL Normal [facility] Comment on above: Performed By: #### A 1C #### [facility] [address] [place] [address] Dr. Angel Gray HbA1c (Bld) [Mass fraction] 6.0 % Normal 4.5-6.2 [facility] Comment on above: Performed By: #### A 1C #### [facility] [address] [place] [address] Dr. Angel Gray LIPID PROFILEon 06-30-2022 CHOL-HDL RATIO NORM SEE BELOW Normal [facility] Comment on above: Result Comment: 3.3 - 4.4 LOW RISK 4.4 - 7.1 AVERAGE RISK 7.1 - 11.0 MODERATE RISK >11.0 HIGH RISK Performed By: #### L IPID, CMP #### [facility] [address] [place] [address] Dr. Angel Gray Cholesterol [Mass/Vol] 220 mg/dL Critically high <=200 [facility] Comment on above: Performed By: #### L IPID, CMP #### [facility] [address] [place] [address] Dr. Angel Gray Cholesterol in HDL [Mass/Vol] 48 mg/dL Normal 40-60 [facility] Comment on above: Performed By: #### L IPID, CMP #### [facility] [address] [address] [address] Angel Gray Cholesterol in LDL [Mass/Vol] 141.4 mg/dL Normal [facility] Comment on above: Performed By: #### L IPID, CMP #### [facility] [address] [address] [address] Angel Gray Cholesterol.total/Ch olesterol in HDL [Mass ratio] 4.6 {ratio} Normal [facility] Comment on above: Performed By: #### L IPID, CMP #### [facility] [address] [address] [address] Angel Gray HDL NORMAL > or = 60 mg/dl - LO W CARDIOVASCULAR RISK <40 mg/dl - HIGH CARDIOVASCULAR RISK Normal [facility] Comment on above: Performed By: #### L IPID, CMP #### [facility] [address] [address] [address] Angel Gray LDL CALC NORMAL SEE BELOW Normal [facility] Comment on above: Result Comment: <100 mg/dl OPTIMAL 100 - 129 mg/dl NEAR OR ABOVE OPTIMAL 130 - 159 mg/dl BORDERLINE HIGH 160 - 189 mg/dl HIGH >190 mg/dl VERY HIGH Performed By: #### L IPID, CMP #### [facility] [address] [place] [address] Dr. Angel Gray Triglyceride [Mass/Vol] 153 mg/dL Critically high <=150 [facility] Comment on above: Performed By: #### L IPID, CMP #### [facility] [address] [address] [address] Angel Gray VLDL CALC 30.6 mg/dL Normal [facility] Comment on above: Performed By: #### L IPID, CMP #### [facility] [address] [address] [address] Angel Gray PROF 14(COMP METB)on 022 Albumin [Mass/Vol] 3.7 g/dL Normal 3.4-5.0 [facility] Comment on above: Performed By: #### L IPID, CMP #### [facility] [address] [address] [address] Angel Gray Albumin/Globulin [Mass ratio] 0.9 {ratio} Normal [facility] Comment on above: Performed By: #### L IPID, CMP #### [facility] [address] [address] [address] Angel Gray ALP [Catalytic activity/Vol] 71 U/L Normal 46-116 [facility] Comment on above: Performed By: #### L IPID, CMP #### [facility] [address] [address] [address] Angel Gray ALT [Catalytic activity/Vol] 21 U/L Normal 14-59 [facility] Comment on above: Performed By: #### L IPID, CMP #### [facility] [address] [place] [address] Dr. Angel Gray Anion gap [Moles/Vol] 10.2 mmol/L Normal [facility] Comment on above: Performed By: #### L IPID, CMP #### [facility] [address] [place] [address] Dr. Angel Gray AST [Catalytic activity/Vol] 17 U/L Normal 15-37 [facility] Comment on above: Performed By: #### L IPID, CMP #### [facility] [address] [place] [address] Dr. Angel Gray Bilirubin [Mass/Vol] 0.3 mg/dL Normal 0.2-1.0 [facility] Comment on above: Performed By: #### L IPID, CMP #### [facility] [address] [place] [address] Dr. Angel Gray Calcium [Mass/Vol] 9.1 mg/dL Normal 8.5-10.1 [facility] Comment on above: Performed By: #### L IPID, CMP #### [facility] [address] [place] [address] Dr. Angel Gray Chloride [Moles/Vol] 103 mmol/L Normal 98-107 [facility] Comment on above: Performed By: #### L IPID, CMP #### [facility] [address] [address] [address] Angel Gray CO2 [Moles/Vol] 30.0 mmol/L Normal 21.0-32.0 [facility] Comment on above: Performed By: #### L IPID, CMP #### [facility] [address] [address] [address] Angel Gray Creatinine [Mass/Vol] 0.74 mg/dL Normal 0.55-1.02 [facility] Comment on above: Performed By: #### L IPID, CMP #### [facility] [address] [address] [address] Angel Gray EGFR-AF WALLISIAN >60 Normal >=60 [facility] Comment on above: Performed By: #### L IPID, CMP #### [facility] [address] [address] [address] Angel Gray EGFR-NON AF WALLISIAN >60 Normal >=60 [facility] Comment on above: Performed By: #### L IPID, CMP #### [facility] [address] [address] [address] Angel Gray Globulin (S) [Mass/Vol] 4.0 g/dL Normal [facility] Comment on above: Performed By: #### L IPID, CMP #### [facility] [address] [address] [address] Angel Gray Glucose [Mass/Vol] 102 mg/dL Normal 74-106 [facility] Comment on above: Performed By: #### L IPID, CMP #### [facility] [address] [address] [address] Angel Gray Potassium [Moles/Vol] 4.2 mmol/L Normal 3.5-5.1 [facility] Comment on above: Performed By: #### L IPID, CMP #### [facility] [address] [address] [address] Angel Gray Protein [Mass/Vol] 7.7 g/dL Normal 6.4-8.2 [facility] Comment on above: Performed By: #### L IPID, CMP #### [facility] [address] [address] [address] Angel Gray Sodium [Moles/Vol] 139 mmol/L Normal 136-145 [facility] Comment on above: Performed By: #### L IPID, CMP #### [facility] [address] [address] [address] Angel Gray Urea nitrogen [Mass/Vol] 21.0 mg/dL Critically high 7.0-18.0 [facility] Comment on above: Performed By: #### L IPID, CMP #### [facility] [address] [address] [address] Angel Gray Urea nitrogen/Creatinine [Mass ratio] 28.4 mg/mg Normal [facility] Comment on above: Performed By: #### L IPID, CMP #### [facility] [address] [place] [address] Dr. Angel Gray DIRECT LDLon 12-26-2021 Cholesterol in LDL [Mass/Vol] 144 mg/dL Normal [facility] Comment on above: Performed By: #### D LDL #### [facility] [address] [place] [address] Dr. Angel Gray DLDL NORMAL SEE BELOW Normal [facility] Comment on above: Result Comment: <100 mg/dl OPTIMAL 100 - 129 mg/dl NEAR OR ABOVE OPTIMAL 130 - 159 mg/dl BORDERLINE HIGH 160 - 189 mg/dl HIGH >190 mg/dl VERY HIGH Performed By: #### D LDL #### [facility] [address] [place] [address] Dr. Angel Gray GLYCOHEMOGLOBIN A1Con 2021 ADA RECOMMENDATION SEE BELOW Normal [facility] Comment on above: Result Comment: ADA RECOMMENDED LIMIT 4.0 - 6.0 ADA THERAPEUTIC TARGET < 7.0 ACTION SUGGESTED > 7.0 Performed By: #### A 1C #### [facility] [address] [place] [address] Dr. Angel Gray Glucose [Mass/Vol] 128 mg/dL Normal [facility] Comment on above: Performed By: #### A 1C #### [facility] [address] [place] [address] Dr. Angel Gray HbA1c (Bld) [Mass fraction] 6.1 % Normal 4.5-6.2 [facility] Comment on above: Performed By: #### A 1C #### [facility] [address] [place] [address] Dr. Angel Gray MG MAMM SCREEN 3D ROMELIA CADon 09-26-2021 MG MAMM SCREEN 3D ROMELIA CAD Patient: ISABELLE BENITEZ Exam Date: 09/26/2021 : 1955 Gender:F Ordering : DR ROB LOPEZ D.O. Admission #: [id number] Family : Order #: [id number] CLICK HERE TO VIEW EXAM RADIOLOGY REPORT [...] Treatments None Family Cancers None LOCATION: [facility] BREAST COMPOSITION: Scattered areas fibroglandular [...] Cabezas MD on 09/26/2021 at 09:43 Normal [facility] CBC AUTO DIFFon 08-18-2021 BASO # 0.1 103/ul Normal 0.0-0.1 [facility] Comment on above: Performed By: #### C BC #### [facility] [address] [place] [address] Dr. Angel Gray Basophils/100 WBC (Bld) 0.8 % Normal 0.2-2.0 [facility] Comment on above: Performed By: #### C BC #### [facility] [address] [place] [address] Dr. Angel Gray EO # 0.3 103/ul Normal 0.0-0.7 [facility] Comment on above: Performed By: #### C BC #### [facility] [address] [place] [address] Dr. Angel Gray Eosinophils/100 WBC (Bld) 3.1 % Normal 0.9-7.0 [facility] Comment on above: Performed By: #### C BC #### [facility] [address] [place] [address] Dr. Angel Gray Erythrocyte distribution width (RBC) [Ratio] 12.5 % Normal 11.0-15.0 [facility] Comment on above: Performed By: #### C BC #### [facility] [address] [place] [address] Dr. Angel Gray Hematocrit (Bld) [Volume fraction] 42.1 % Normal 36.0-48.0 [facility] Comment on above: Performed By: #### C BC #### [facility] [address] [place] [address] Dr. Angel Gray Hemoglobin (Bld) [Mass/Vol] 13.8 g/dL Normal 12.0-16.0 [facility] Comment on above: Performed By: #### C BC #### [facility] [address] [place] [address] Dr. Angel Gray IG # 0.03 10e3/ul Normal 0.00-0.03 [facility] Comment on above: Performed By: #### C BC #### [facility] [address] [place] [address] Dr. Angel Gray IG % 0.4 % Normal 0.0-0.5 [facility] Comment on above: Performed By: #### C BC #### [facility] [address] [place] [address] Dr. Angel Gray LYMPH # 3.3 103/ul Normal 1.2-3.8 [facility] Comment on above: Performed By: #### C BC #### [facility] [address] [place] [address] Dr. Angel Gray Lymphocytes/100 WBC (Bld) 40.8 % Normal 20.5-60.0 [facility] Comment on above: Performed By: #### C BC #### [facility] [address] [place] [address] Dr. Angel Gray MANUAL DIFF REQ NO Normal [facility] Comment on above: Performed By: #### C BC #### [facility] [address] [place] [address] Dr. Angel Gray MCH (RBC) [Entitic mass] 29.1 pg Normal 26.7-34.0 [facility] Comment on above: Performed By: #### C BC #### [facility] [address] [place] [address] Dr. Angel Gray MCHC (RBC) [Mass/Vol] 32.8 g/dL Normal 29.9-35.2 [facility] Comment on above: Performed By: #### C BC #### [facility] [address] [place] [address] Dr. Angel Gray MCV (RBC) [Entitic vol] 88.8 fL Normal 81.0-99.0 [facility] Comment on above: Performed By: #### C BC #### [facility] [address] [place] [address] Dr. Angel Gray MONO # 0.5 103/ul Normal 0.3-0.8 [facility] Comment on above: Performed By: #### C BC #### [facility] [address] [place] [address] Dr. Angel Gray Monocytes/100 WBC (Bld) 5.8 % Normal 1.7-12.0 [facility] Comment on above: Performed By: #### C BC #### [facility] [address] [place] [address] Dr. Angel Gray NEUT # 3.9 103/ul Normal 1.4-6.5 [facility] Comment on above: Performed By: #### C BC #### [facility] [address] [place] [address] Dr. Angel Gray Neutrophils/100 WBC (Bld) 49.1 % Normal 43.0-75.0 [facility] Comment on above: Performed By: #### C BC #### [facility] [address] [place] [address] Dr. Angel Gray Platelet mean volume (Bld) [Entitic vol] 9.8 fL Normal 9.5-13.5 [facility] Comment on above: Performed By: #### C BC #### [facility] [address] [place] [address] Dr. Angel Gray PLT 231 103/ul Normal 150-450 [facility] Comment on above: Performed By: #### C BC #### [facility] [address] [place] [address] Dr. Angel Gray RBC 4.74 106/ul Normal 4.20-5.40 [facility] Comment on above: Performed By: #### C BC #### [facility] [address] [place] [address] Dr. Angel Gray WBC 8.0 103/ul Normal 4.0-11.0 [facility] Comment on above: Performed By: #### C BC #### [facility] [address] [place] [address] Dr. Angel Gray LIPID PROFILEon 08-18-2021 CHOL-HDL RATIO NORM SEE BELOW Normal [facility] Comment on above: Result Comment: 3.3 - 4.4 LOW RISK 4.4 - 7.1 AVERAGE RISK 7.1 - 11.0 MODERATE RISK >11.0 HIGH RISK Performed By: #### L IPID, CMP #### [facility] [address] [place] [address] Dr. Angel Gray Cholesterol [Mass/Vol] 249 mg/dL Critically high <=200 [facility] Comment on above: Performed By: #### L IPID, CMP #### [facility] [address] [place] [address] Dr. Angel Gray Cholesterol in HDL [Mass/Vol] 46 mg/dL Normal [facility] Comment on above: Performed By: #### L IPID, CMP #### [facility] [address] [address] [address] Angel Gray Cholesterol in LDL [Mass/Vol] 165.8 mg/dL Normal [facility] Comment on above: Performed By: #### L IPID, CMP #### [facility] [address] [address] [address] Angel Gray Cholesterol.total/Ch olesterol in HDL [Mass ratio] 5.4 {ratio} Normal [facility] Comment on above: Performed By: #### L IPID, CMP #### [facility] [address] [address] [address] Angel Gray HDL NORMAL > or = 60 mg/dl - LO W CARDIOVASCULAR RISK <40 mg/dl - HIGH CARDIOVASCULAR RISK Normal [facility] Comment on above: Performed By: #### L IPID, CMP #### [facility] [address] [place] [address] Dr. Angel Gray LDL CALC NORMAL SEE BELOW Normal The [facility] Comment on above: Result Comment: <100 mg/dl OPTIMAL 100 - 129 mg/dl NEAR OR ABOVE OPTIMAL 130 - 159 mg/dl BORDERLINE HIGH 160 - 189 mg/dl HIGH >190 mg/dl VERY HIGH Performed By: #### L IPID, CMP #### [facility] [address] [address] [address] Angel Gray Triglyceride [Mass/Vol] 186 mg/dL Critically high <=150 [facility] Comment on above: Performed By: #### L IPID, CMP #### [facility] [address] [address] [address] Angel Gray VLDL CALC 37.2 mg/dL Normal [facility] Comment on above: Performed By: #### L IPID, CMP #### [facility] [address] [address] [address] Angel Gray PROF 14(COMP METB)on 021 Albumin [Mass/Vol] 3.5 g/dL Normal 3.5-5.0 [facility] Comment on above: Performed By: #### L IPID, CMP #### [facility] [address] [address] [address] Angel Gray Albumin/Globulin [Mass ratio] 0.9 {ratio} Normal [facility] Comment on above: Performed By: #### L IPID, CMP #### [facility] [address] [address] [address] Angel Gray ALP [Catalytic activity/Vol] 79 U/L Normal 38-126 [facility] Comment on above: Performed By: #### L IPID, CMP #### [facility] [address] [address] [address] Angel Gray ALT [Catalytic activity/Vol] 48 U/L Normal 9-52 [facility] Comment on above: Performed By: #### L IPID, CMP #### [facility] [address] [place] [address] Dr. Angel Gray Anion gap [Moles/Vol] 13.0 mmol/L Normal [facility] Comment on above: Performed By: #### L IPID, CMP #### [facility] [address] [place] [address] Dr. Angel Gray AST [Catalytic activity/Vol] 30 U/L Normal 14-36 [facility] Comment on above: Performed By: #### L IPID, CMP #### [facility] [address] [place] [address] Dr. Angel Gray Bilirubin [Mass/Vol] 0.4 mg/dL Normal 0.2-1.3 [facility] Comment on above: Performed By: #### L IPID, CMP #### [facility] [address] [place] [address] Dr. Angel Gray Calcium [Mass/Vol] 9.2 mg/dL Normal 8.4-10.2 [facility] Comment on above: Performed By: #### L IPID, CMP #### [facility] [address] [place] [address] Dr. Angel Gray Chloride [Moles/Vol] 103 mmol/L Normal 98-107 [facility] Comment on above: Performed By: #### L IPID, CMP #### [facility] [address] [place] [address] Dr. Angel Gray CO2 [Moles/Vol] 28.1 mmol/L Normal 22.0-30.0 [facility] Comment on above: Performed By: #### L IPID, CMP #### [facility] [address] [place] [address] Dr. Angel Gray Creatinine [Mass/Vol] 0.78 mg/dL Normal 0.52-1.04 [facility] Comment on above: Performed By: #### L IPID, CMP #### [facility] [address] [place] [address] Dr. Angel Gray EGFR-AF WALLISIAN >60 Normal >=60 [facility] Comment on above: Performed By: #### L IPID, CMP #### [facility] [address] [place] [address] Dr. Angel Gray EGFR-NON AF WALLISIAN >60 Normal >=60 [facility] Comment on above: Performed By: #### L IPID, CMP #### [facility] [address] [place] [address] Dr. Angel Gray Globulin (S) [Mass/Vol] 4.0 g/dL Normal [facility] Comment on above: Performed By: #### L IPID, CMP #### [facility] [address] [place] [address] Dr. Angel Gray Glucose [Mass/Vol] 137 mg/dL Critically high 74-106 T [facility] Comment on above: Performed By: #### L IPID, CMP #### [facility] [address] [place] [address] Dr. Angel Gray Potassium [Moles/Vol] 4.1 mmol/L Normal 3.4-5.0 [facility] Comment on above: Performed By: #### L IPID, CMP #### [facility] [address] [place] [address] Dr. Angel Gray Protein [Mass/Vol] 7.5 g/dL Normal 6.1-8.2 [facility] Comment on above: Performed By: #### L IPID, CMP #### [facility] [address] [place] [address] Dr. Angel Gray Sodium [Moles/Vol] 140 mmol/L Normal 137-145 [facility] Comment on above: Performed By: #### L IPID, CMP #### [facility] [address] [address] [address] Angel Gray Urea nitrogen [Mass/Vol] 26.0 mg/dL Critically high 7.0-17.0 [facility] Comment on above: Performed By: #### L IPID, CMP #### [facility] [address] [address] [address] Angel Gray Urea nitrogen/Creatinine [Mass ratio] 33.3 mg/mg Normal [facility] Comment on above: Performed By: #### L IPID, CMP #### [facility] [address] [address] [address] Angel Gray Albumin [Mass/volume] in Ser um or Plasmaon 01-27-2021 Albumin [Mass/Vol] 3.8 g/dL 3.2-5.5 [facility] Basophils Auto (Bld) [#/Vol] on 01-27-2021 Basophils (Bld) [#/Vol] 0.1 10*3/uL 0.0-0.2 [facility] Basophils/100 WBC Auto (Bld) on 01-27-2021 Basophils/100 WBC (Bld) 0.9 % [facility] Blood hemoglobin measurement (mass/volume)on 01-27-2021 Hemoglobin (Bld) [Mass/Vol] 13.9 g/dL 11.8-15.4 [facility] Blood leukocytes automated c ount (number/volume)on 01-27-2021 WBC (Bld) [#/Vol] 8.1 10*3/uL 4.5-11.0 [facility] COVID-19 Positive/Negativeon 01-27-2021 SARS-CoV-2 (COVID-19) N gene KATHY+probe Ql (Resp) Negative Negative [facility] Comment on above: Testing for SARS-CoV -2 by RT-PCRThis test was developed and its performance characteristics determined by [employer] ([employer]) and validated at the [facility]. This test has not been FDA [...] the authorization is terminated or revoked sooner. Creatinine and Glomerular fi ltration rate.predicted panel (S/P/Bld)on 01-27-2021 Creatinine [Mass/Vol] 0.71 mg/dL 0.44-1.03 [facility] Eosinophils Auto (Bld) [#/Vo l]on 01-27-2021 Eosinophils (Bld) [#/Vol] 0.1 10*3/uL 0.0-0.45 [facility] Eosinophils/100 WBC Auto (Bl d)on 01-27-2021 Eosinophils/100 WBC (Bld) 0.9 % [facility] Erythrocyte distribution wid th Auto (RBC) [Ratio]on 01-27-2021 Erythrocyte distribution width (RBC) [Ratio] 12.7 % 11.9-15.3 [facility] Estimated glomerular filtrat ion rate (GFR) non- Americanon 01-27-2021 GFR/1.73 sq M.predicted among non-blacks MDRD (S/P/Bld) [Vol rate/Area] > 60 mL/Min [facility] Globulin Calc (S) [Mass/Vol] on 01-27-2021 Globulin (S) [Mass/Vol] 3.3 g/dL [facility] Hematocrit Auto (Bld) [Volum e fraction]on 01-27-2021 Hematocrit (Bld) [Volume fraction] 40.2 % 34.0-46.4 [facility] - Hematology and Cell countson 01-27-2021 Nucleated RBC/100 WBC (Bld) [Ratio] 0.1 % 0-0.5 [facility] Lymphocytes Auto (Bld) [#/Vo l]on 01-27-2021 Lymphocytes (Bld) [#/Vol] 3.4 10*3/uL 1.00-4.8 [facility] Lymphocytes/100 WBC Auto (Bl d)on 01-27-2021 Lymphocytes/100 WBC (Bld) 42.5 % [facility] MCH Auto (RBC) [Entitic mass ]on 01-27-2021 MCH (RBC) [Entitic mass] 30.5 pg 24.7-34.3 [facility] MCHC Auto (RBC) [Mass/Vol]on 01-27-2021 MCHC (RBC) [Mass/Vol] 34.6 g/dL 32.0-35.0 [facility] MCV Auto (RBC) [Entitic vol] on 01-27-2021 MCV (RBC) [Entitic vol] 88.2 fL 80-100 [facility] Monocytes Auto (Bld) [#/Vol] on 01-27-2021 Monocytes (Bld) [#/Vol] 0.5 10*3/uL 0.0-0.8 [facility] Monocytes/100 WBC Auto (Bld) on 01-27-2021 Monocytes/100 WBC (Bld) 5.9 % [facility] Neutrophils Auto (Bld) [#/Vo l]on 01-27-2021 Neutrophils (Bld) [#/Vol] 4.0 10*3/uL 1.8-7.7 [facility] Neutrophils/100 WBC Auto (Bl d)on 01-27-2021 Neutrophils/100 WBC (Bld) 49.8 % [facility] No Panel Informationon 01-27 Estimated GFR () > 60 mL/Min [facility] Comment on above: GFR estimated refere nce range: According to KDOQI guidelines, <60 ml/min/1.73m2 is sufficient to diagnose a patient with chronic kidney disease. Pharmacy Creatinine Clearance (Chem N/A [facility] Platelet mean volume Auto (B ld) [Entitic vol]on 01-27-2021 Platelet mean volume (Bld) [Entitic vol] 8.1 fL 6.3-10.7 [facility] Platelets Auto (Bld) [#/Vol] on 01-27-2021 Platelets (Bld) [#/Vol] 247 10*3/uL 150-450 [facility] Protein [Mass/volume] in Ser um or Plasmaon 01-27-2021 Protein [Mass/Vol] 7.1 g/dL 6.1-7.9 [facility] RBC Auto (Bld) [#/Vol]on RBC (Bld) [#/Vol] 4.56 10*6/uL 3.60-5.00 [facility] Serum or plasma alanine jimenez otransferase measurement without P-5'-P (enzymatic activion 01-27-2021 ALT No additional P-5'-P [Catalytic activity/Vol] 28 U/L 10-60 [facility] Serum or plasma albumin/glob ulin mass ratioon 01-27-2021 Albumin/Globulin [Mass ratio] 1.2 {ratio} [facility] Serum or plasma alkaline yanna sphatase measurement (enzymatic activity/volume)on 01-27-2021 ALP [Catalytic activity/Vol] 69 U/L 32-92 [facility] Serum or plasma aspartate am inotransferase measurement (enzymatic activity/volume)on 01-27-2021 AST [Catalytic activity/Vol] 25 U/L 10-42 [facility] Serum or plasma calcium bernadine urement (mass/volume)on 01-27-2021 Calcium [Mass/Vol] 9.6 mg/dL 8.2-10.2 [facility] Serum or plasma chloride lali surement (moles/volume)on 01-27-2021 Chloride [Moles/Vol] 100 mmol/L 95-114 [facility] Serum or plasma glucose bernadine urement (mass/volume)on 01-27-2021 Glucose [Mass/Vol] 85 mg/dL 70-100 [facility] Comment on above: ADA recommended refe rence rangeRandom Glucose Reference Range is dependent on time and content of last meal. Glucose of more than 200 mg/dL in a nonstressed, ambulatory subject supports the diagnosis of Diabetes Mellitus. Serum or plasma potassium me asurement (moles/volume)on 01-27-2021 Potassium [Moles/Vol] 3.8 mmol/L 3.5-5.1 [facility] Serum or plasma sodium measu rement (moles/volume)on 01-27-2021 Sodium [Moles/Vol] 137 mmol/L 136-146 [facility] Serum or plasma total biliru bin measurement (mass/volume)on 01-27-2021 Bilirubin [Mass/Vol] 0.5 mg/dL 0.3-1.2 [facility] Serum or plasma total carbon dioxide measurement (moles/volume)on 01-27-2021 CO2 [Moles/Vol] 27.2 mmol/L 22.0-30.[address] [facility] Serum or plasma urea nitroge n measurement (mass/volume)on 01-27-2021 Urea nitrogen [Mass/Vol] 13 mg/dL 9-23 [facility] Vital Signs Date Time Vital Sign Value Performing Clinician Facility 01-06-2025 10:52-0400 Body height 157.5 cm Maikol JAMES Work Phone: [facility] 01-06-2025 10:52-0400 Body mass index (BMI) [Ratio] 29.26 kg/m2 Maikol JAMES Work Phone: [facility] 01-06-2025 10:52-0400 Body weight 72.58 kg Maikol JAMES Work Phone: [facility] 12-21-2024 09:33-0400 Body height 157.48 cm [facility] 12-21-2024 09:33-0400 Body mass index (BMI) [Ratio] 28.9 kg/m2 [facility] 12-21-2024 09:33-0400 Body weight 71.66 kg [facility] 12-21-2024 09:33-0400 Diastolic blood pressure 79 mm[Hg] [facility] 12-21-2024 09:33-0400 Heart rate 67 /min [facility] 12-21-2024 09:33-0400 Respiratory rate 12 /min [facility] 12-21-2024 09:33-0400 Systolic blood pressure 120 mm[Hg] [facility] 10-20-2024 11:05-0500 Body height 157.48 cm [facility] 10-20-2024 11:05-0500 Body mass index (BMI) [Ratio] 29 kg/m2 [facility] 10-20-2024 11:05-0500 Body weight 72.12 kg [facility] 10-20-2024 11:05-0500 Diastolic blood pressure 73 mm[Hg] [facility] 10-20-2024 11:05-0500 Heart rate 73 /min [facility] 10-20-2024 11:05-0500 Systolic blood pressure 147 mm[Hg] [facility] 06-10-2024 11:58-0400 Body height 157.48 cm [facility] 06-10-2024 11:58-0400 Body mass index (BMI) [Ratio] 29 kg/m2 [facility] 06-10-2024 11:58-0400 Body weight 72.17 kg [facility] 06-10-2024 11:58-0400 Diastolic blood pressure 70 mm[Hg] [facility] 06-10-2024 11:58-0400 Heart rate 69 /min [facility] 06-10-2024 11:58-0400 Respiratory rate 12 /min [facility] 06-10-2024 11:58-0400 Systolic blood pressure 124 mm[Hg] [facility] 09-08-2023 11:50-0500 Body height 157.48 cm Karla Hull Other [facility] [employer] Other 09-08-2023 11:50-0500 Body mass index (BMI) [Ratio] 29.63 kg/m2 Karla Hull Other [facility] Other 09-08-2023 11:50-0500 Body temperature 98.1 [degF] Karla Hull Other [facility] Other 09-08-2023 11:50-0500 Body weight 73.48 kg Karla Hull Other [facility] Other 09-08-2023 11:50-0500 Diastolic blood pressure 72 mm[Hg] Karla Hull Other [facility] Other 09-08-2023 11:50-0500 Respiratory rate 18 /min Karla Hull Other [facility] Other 09-08-2023 11:50-0500 SaO2% (BldA) [Mass fraction] 98 % Karla Hull Other [facility] Other 09-08-2023 11:50-0500 Systolic blood pressure 128 mm[Hg] Karla Hull Other [facility] Other 09-06-2023 12:15-0500 Body height 157.48 cm Rob Ball Other [facility] Other 09-06-2023 12:15-0500 Diastolic blood pressure 90 mm[Hg] Rob Ball Other [facility] Other 09-06-2023 12:15-0500 Systolic blood pressure 140 mm[Hg] Orb Ball Other [facility] Other 05-30-2023 10:00-0400 Body height 157.48 cm Rob Ball Other [facility] Other 05-30-2023 10:00-0400 Body mass index (BMI) [Ratio] 29.77 kg/m2 Rob Ball Other [facility] Other 05-30-2023 10:00-0400 Body weight 73.85 kg Rob Ball Other [facility] Other 05-30-2023 10:00-0400 Diastolic blood pressure 75 mm[Hg] Rob Ball Other [facility] Other 05-30-2023 10:00-0400 Respiratory rate 12 /min Rob Ball Other [facility] Other 05-30-2023 10:00-0400 Systolic blood pressure 119 mm[Hg] Rob Ball Other [facility] Other 04-18-2023 10:15-0400 Body height 157.48 cm Rob Ball Other [facility] Other 04-18-2023 10:15-0400 Body mass index (BMI) [Ratio] 29.59 kg/m2 Rob Ball Other [facility] Other 04-18-2023 10:15-0400 Body weight 73.39 kg Rob Ball Other [facility] Other 04-18-2023 10:15-0400 Diastolic blood pressure 75 mm[Hg] Rob Ball Other [facility] Other 04-18-2023 10:15-0400 Respiratory rate 12 /min Rob Ball Other [facility] Other 04-18-2023 10:15-0400 Systolic blood pressure 119 mm[Hg] Rob Ball Other [facility] Other 11-02-2022 15:45-0400 Body height 157.48 cm Rob Ball Other [facility] Other 11-02-2022 15:45-0400 Body mass index (BMI) [Ratio] 28.86 kg/m2 Rob Ball Other [facility] Other 11-02-2022 15:45-0400 Body weight 71.58 kg Rob Ball Other [facility] Other 11-02-2022 15:45-0400 Diastolic blood pressure 77 mm[Hg] Rob Ball Other [facility] Other 11-02-2022 15:45-0400 Respiratory rate 12 /min Rob Ball Other [facility] Other 11-02-2022 15:45-0400 Systolic blood pressure 136 mm[Hg] Rob Ball Other [facility] Other 05-11-2021 11:45-0400 Body height 157.48 cm John Olexa Other [facility] Other 05-11-2021 11:45-0400 Body mass index (BMI) [Ratio] 28.53 kg/m2 John Olexa Other [facility] Other 05-11-2021 11:45-0400 Body weight 70.76 kg John Olexa Other [facility] Other Encounters Encounter Date Encounter Type Care Provider Facility Start: 01-15-2025 End: 01-15-2025 Bamboo flowsheet Maikol JAMES Work Phone: [facility] Start: 01-15-2025 End: 01-15-2025 Bamboo flowsheet Maikol JAMES Work Phone: [facility] Start: 01-15-2025 End: 01-15-2025 ambulatory MAIKOL FINNEGAN Not Available Start: 01-15-2025 End: 01-15-2025 Office outpatient visit 15 minutes Maikol JAMES Work Phone: [facility] Comment on above: Acute pain of left w rist (Primary Dx); Sprain of wrist, left, subsequent encounter Start: 01-15-2025 End: 01-15-2025 ambulatory MAIKOL FINNEGAN Not Available Start: 01-13-2025 End: 01-13-2025 ambulatory [facility] Start: 01-06-2025 End: 01-06-2025 Bamboo flowsheet Maikol Finnegan PA Work Phone: [facility] Start: 01-06-2025 End: 01-06-2025 Bamboo flowsheet Maikol JAMES Work Phone: [facility] Start: 01-06-2025 End: 01-06-2025 Office outpatient new 30 minutes Maikol JAMES Work Phone: [facility] Comment on above: Acute pain of left w rist (Primary Dx); Left wrist sprain, initial encounter Start: 01-06-2025 End: 01-06-2025 ambulatory MAIKOL FINNEGAN Not Available Start: 01-01-2025 End: 01-01-2025 ambulatory [facility] Facility:[facility] Start: 12-21-2024 End: 12-21-2024 ambulatory [facility] Work Phone: Start: 12-21-2024 End: 12-21-2024 Patient encounter procedure [facility] Work Phone: Start: 10-20-2024 End: 10-20-2024 ambulatory [facility] Work Phone: Start: 10-20-2024 End: 10-20-2024 Patient encounter procedure [facility] Phys[facility] Work Phone: Start: 10-16-2024 End: 10-19-2024 Telephone encounter Bia Espinoza RN [facility] Comment on above: return call Start: 10-15-2024 Non-patient / Non-visit [facility] Work Phone: Start: 10-14-2024 ambulatory [facility] Start: 10-14-2024 Non-patient / Non-visit [facility] Physician [facility] Work Phone: Start: 10-13-2024 Non-patient / Non-visit [facility] Physician [facility] Work Phone: Start: 10-13-2024 End: 10-20-2024 Emergency department patient visit [facility] Start: 10-13-2024 Non-patient / Non-visit [facility] Work Phone: Start: 08-07-2024 Non-patient / Non-visit [facility] Work Phone: Start: 06-10-2024 End: 06-10-2024 ambulatory [facility] Work Phone: Start: 06-10-2024 End: 06-10-2024 Patient encounter procedure [facility] Phys[facility] Work Phone: Start: 06-07-2024 Patient encounter procedure [facility] Start: 09-09-2023 End: 09-09-2023 ambulatory Rob Lopez Other [facility] Other Start: 09-09-2023 Office outpatient vi sit 10 minutes Rob Lopez [facility] Start: 09-08-2023 End: 09-08-2023 ambulatory Karla Hull Other [facility] Other Start: 09-08-2023 Office outpatient vi sit 15 minutes Karla Hull [facility] Start: 09-06-2023 End: 09-06-2023 ambulatory Rob Lopez Other [facility] Other Start: 09-06-2023 Office outpatient vi sit 15 minutes Rob Lopez [facility] Start: 05-30-2023 End: 05-30-2023 ambulatory Rob Lopez Other [facility] Other Start: 05-30-2023 Patient encounter procedure Rob Lopez [facility] Start: 04-18-2023 End: 04-18-2023 ambulatory Rob Lopez Other [facility] Other Start: 04-18-2023 Office outpatient vi sit 15 minutes Rob Lopez [facility] Start: 12-25-2022 End: 12-25-2022 ambulatory Rob oLpez Other [facility] Other Start: 12-25-2022 Telephone encounter Rob HANNA G [employer] [facility] Start: 11-02-2022 End: 11-02-2022 ambulatory Rob Lopez Other [facility] Other Start: 11-02-2022 Office outpatient vi sit 15 minutes Rob Lopez [facility] Start: 11-02-2022 Telephone encounter Rob HANNA G [facility] Start: 07-06-[address] ROB Banegas ty:H1 Start: 07-03-2022 Encounter for genera l adult medical examination without abnormal findings DR ROB LOPEZ [facility] Start: 06-30-2022 End: 07-01-[address] ROB [...] 05-11-2021 Office outpatient vi sit 15 minutes John Todd [facility] Start: 01-27-2021 End: 01-27-2021 Patient encounter procedure John Todd Work Phone: -Pre-Surgical Testing Procedures Date Procedure Procedure Detail Performing Clinician Start: 01-15-2025 Radex wrist 2 views Mat daniel JAMES Work Phone: Start: 01-06-2025 CAST / SPLINT / FX Wilman JAMES Work Phone: Plan of Treatment Date Care Activity Detail Author Start: 02-03-2025 End: 02-03-2025 Patient encounter procedure 02/03/2025 9:45 AM EDT Office Visit [facility] [address] [facility] [id number] Maikol Finnegan PA [address] [place] [address] [facility] Start: 01-15-2025 End: 01-15-2025 Patient encounter procedure [facility] Comment on above: Acute pain of left w rist (Primary Dx); Sprain of wrist, left, subsequent encounter Start: 01-06-2025 End: 01-06-2025 Patient encounter procedure 01/06/2025 11:15 AM EDT Office Visit [facility] [address] [place], [place] [id number] Maikol Finnegan PA [address] [facility] [address] [place] [address] Arrived [facility] Comment on above: Arrived Start: 12-02-2024 End: 12-02-2024 Patient encounter procedure 12/02/2024 1:00 PM EDT Office Visit [facility] [address] [place] [address] Dalton Pettit MD [address] [facility] [place] [address] [facility] Start: 04-19-2024 Influenza vaccination Influenza Vacc ine [facility] Start: 2022 Fall Risk Screening Fall Risk Screen ing [facility] Start: 2007 Administration of varicella zoster vaccine Zoster (Shingles) Vaccine (1 of 2) [facility] Start: 1976 DTaP,Tdap and Td Vaccines (1 - Tdap) DTaP,Tdap and Td Vaccines (1 - Tdap) [facility] Start: 1975 Adult BMI Screening Adult BMI Screen ing [facility] Start: 1969 Depression Screening Depression Scre ening [facility] Start: 1969 Tobacco Screening Tobacco Screening [facility] MG Breast - bilatera l Screening [facility] Payers Date Payer Category Payer Medicare (Managed Care) [employer] [id number] 2024 Medicare HMO [facility] EDICARE [id number] 2024 Unknown [id number] 1959 Self-pay [id number] 1959 Unknown [id number] 1957 Unknown [id number] 2.16.840.1.169346.3.579. 2.593 1957 Unknown [id number] 2.16.840.1.136846.3.579. 2.593 1957 Unknown [id number] 2.16.840.1.631197.3.579. 2.593 1957 Unknown [id number] 2.16.840.1.549889.3.579. 2.593 1957 Unknown [id number] 2.16.840.1.709123.3.579. 2.593 1957 Unknown [id number] 2.16.840.1.170361.3.579. 2.593 1957 Unknown [id number] 2.16.840.1.805095.3.579. 2.593 1957 Unknown [id number] 2.16.840.1.692016.3.579. 2.1286 1957 Unknown [id number] 2.16.840.1.650905.3.579. 2.128 1957 Unknown [id number] 2.16.840.1.920547.3.579. 2.128 1957 Unknown [id number] 2.16.840.1.699543.3.579. 2.128 1957 Unknown [id number] 2.16.840.1.548265.3.579. 2.128 1957 Unknown [id number] 2.16.840.1.625782.3.579. 2.128 1957 Unknown [id number] 2.16.840.1.333691.3.579. 2.1286 1957 Unknown [id number] 2.16.840.1.633881.3.579. 2.1259 1957 Unknown [id number] 2.16.840.1.887492.3.579. 2.1259 1957 Unknown [id number] 2.16.840.1.195422.3.579. 2.1259 1957 Unknown [id number] 2.16.840.1.877552.3.579. 2.1259 [facility] [[email or web address]] [id number] 2.16.840.1.491004.19 Unknown [id number] 2.16.840.1.712892.3.579. 2.531 Social History Date Type Detail Facility Start: 01-27-2021 End: 02-01-2021 Tobacco smoking status OKIS Ex-smoker (finding) [facility] Start: 1955 Sex Assigned At Female F [facility] Start: 01-28-2019 End: 01-15-2025 Sex Assigned At [facility] [employer] Other Tobacco smoking status OKIS Tobacco smoking consumption unknown [facility] Start: 01-28-2019 End: 01-15-2025 History of Social function [facility] Childcare Unknown [facility] Start: 1955 Sex assigned at Not on file P [facility] Start: 03-24-2015 End: 12-21-2024 Sex Female (finding) [facility] Start: 01-06-2025 Tobacco smoking status OKIS Never smoked tobacco [facility] Start: 01-06-2025 Tobacco use and exposure Smokeless tobacco non-user [facility] Start: 01-06-2025 End: 01-15-2025 Alcoholic beverage intake Ex-drinker (finding) [facility] Healthcare Medical Equipment Procedure Code Equipment Code Equipment Origin al Text Equipment Identifier Dates Arthroscopy, shoulder Tendon/ligament bone anchor, bioabsorbable [id number] FDA Start: 02-01-2021 Arthroscopy, shoulder Tendon/ligament bone anchor, non-bioabsorbable [id number] FDA Start: 02-01-2021 Arthroscopy, shoulder Tendon/ligament bone anchor, bioabsorbable [id number] FDA Start: 02-01-2021 Clinical Notes 05-11-2021 to 01-15-2025 JACOB Zhao - 01/15/2025 10:00 AM EDTMattJACOB Dias - 01/06/2025 11:15 AM EDT Note Date & Type Note Facility 01-15-2025 History of Presen t illness Narrative Images from the original note were not included. 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 Erythema: none Ecchymosis: none Edema: mild Deformity: none Palpation Left Left wrist palpation is normal. Wrist tenderness to palpation: radial snuffbox Wrist tenderness to palpation comment: PAIN TO palpation at SNUFF BOX no SCAPHO-LUNATE pain. Palpation additional comments: Pain to dorsal wrist over triquterum has resolved. + pain along 1st dorsal compartment. , neg robinson. Mild soreness. Range of Motion Left Wrist Left wrist range of motion is normal. Active Extension: 60 Passive Extension: 70 Active Flexion: 60 Passive Flexion: 70 Active Radial Deviation: 35 Passive Radial Deviation: 40 Active Ulnar Deviation: 40 Passive Ulnar Deviation: 45 Active Pronation: 80 Passive Pronation: 90 Active Supination: 80 Passive Supination: 90 Strength Left Hand Left hand strength is normal. Left Wrist Left wrist strength is normal. Extension: 4+/5. Flexion: 4+/5. Radial deviation: 4+/5. Ulnar deviation: 4+/5. Pronation: 5/5. Supination: 5/5. Neurovascular Left Left neurovascular exam is normal. Radial pulse: normal and 2+ Capillary refill: brisk and <3 sec Ulnar nerve sensory distribution: normal Median nerve sensory distribution: normal Superficial radial nerve sensory distribution: normal Special Tests Left Robinson's test: negative DRUJ instability: negative CMC grind test: positive TFCC load test: negative General Constitutional: appears stated age Labored breathing: no Neurological: alert and oriented x3 Skin: intact Lymphadenopathy: none No orders of the defined types were placed in this encounter. Procedures Results - Imaging: - Prior x-rays noted a cyst in the scaphoid ICD-10-CM 1. Acute pain of left wrist M25.532 2. Sprain of wrist, left, subsequent encounter S63.502D Assessment & Plan Left wrist pain. Pain in the dorsal wrist and trapezium area has fully resolved. She now experiences pain mostly in the first dorsal compartment CMC joint and the snuffbox. Prior x-rays noted a cyst in the scaphoid area. There is tenderness on direct palpation but no pain with axial loading. Given her age, history, and injury, an MRI of the wrist is recommended to rule out an occult scaphoid fracture versus symptoms from arthritic changes. An x-ray was repeated today and discussed at bedside. She is advised to continue using her brace and work on gentle range of motion exercises to prevent stiffness. Strongly recommend no lifting, loading, or pushing with the left hand. She admits to instant pain when attempting these activities and has not forced her wrist or hand to do any activity. The importance of continued ice application and stretching pending the MRI for further evaluation was discussed. She expressed gratitude and had no further concerns or questions. Diagnostic plan: MRI of the wrist to rule out an occult scaphoid fracture versus symptoms from arthritic changes. An x-ray was repeated today and discussed at bedside. Treatment plan: Continue using her brace and work on gentle range of motion exercises to prevent stiffness. Strongly recommend no lifting, loading, or pushing with the left hand. Continued ice application and stretching pending the MRI for further evaluation. Follow-up: She expressed gratitude and had no further concerns or questions. Questions answered in laymen terms at the bedside. The diagnosis, home exercise plan and any ongoing restrictions/ recommendations reviewed. If unable to be reached in office, I recommend evaluation at nearest Emergency Room if any symptoms worsened or new symptoms develop for requiring urgent evaluation. 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 documented in this encounter [facility] 01-06-2025 History of Presen t illness Narrative Associated Order(s): Cast / Splint / Fx Post-Procedure Diagnose(s): Left wrist sprain, initial encounter Images from the original note were not included. 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 Respiratory: No acute distress Cardiovascular: Radial pulse is 2+. Capillary refill time is less than 2 seconds. Musculoskeletal: The patient can open and close the hand with mild stiffness due to recent splinting. Wrist flexion and extension are adequate, with pain noted on the dorsal aspect during terminal flexion. There is mild tenderness over the triquetrum on the dorsal aspect, but no pain in the distal radial ulnar joint or distal radius or ulnar styloid. No pain is felt during axial loading. A very faint dependent bruising is observed along the ulnar aspect of her little finger at the MCP joint, with no palpable pain or instability. Skin: Warm and dry, no rash. Neurological: No signs of paresthesias or nail injury. Orders Placed This Encounter Procedures Cast / Splint / Fx This order was created via procedure documentation Cast / Splint / Fx Date/Time: 01/06/2025 1:06 PM Performed by: JACOB Zhao Authorized by: JACOB Zhao Consent given by: patient Injury Location details: left wrist Pre-procedure assessment neurovascularly intact Range of motion: reduced Procedure Manipulation performed? no manipulation performed Immobilization: splint Splint/Brace type: wrist cock-up Post-procedure assessment neurovascularly intact Range of motion: unchanged Patient tolerance: patient tolerated the procedure well with no immediate complications Results - Imaging: - Left elbow x-ray: No acute bony process - Left wrist x-ray: Mild soft tissue swelling, possible tiny avulsion fracture of the styloid process of the ulna, likely chronic ICD-10-CM 1. Acute pain of left wrist M25.532 2. Left wrist sprain, initial encounter S63.502A Assessment & Plan Left wrist sprain. X-rays were reviewed and discussed. A triquetral fracture can not be ruled out. Diagnostic plan: An MRI will be considered if symptoms do not improve. Treatment plan: She is advised to transition to a Velcro brace to prevent overuse. Heavy lifting, pushing, or pulling should be avoided, but she may frequently remove the brace to work on range of motion. She may continue with Motrin as needed. Clinical decision making: Swinging a golf club is not recommended until reevaluation in the office. Follow-up: Reevaluation in the office. Questions answered in laymen terms at the bedside. The diagnosis, home exercise plan and any ongoing restrictions/ recommendations reviewed. If unable to be reached in office, I recommend evaluation at nearest Emergency Room if any symptoms worsened or new symptoms develop for requiring urgent evaluation. 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 documented in this encounter [facility] 10-20-2024 Evaluation note Diagnosis Onset Date Resolution Carotid stenosis, right acute M arch 2024 10:51am JAVIER (generalized anxiety disorder) acute October 20, 2024 10:51am Hypercholesterolemia acute Farooq 2024 10:51am Right hemiparesis acute October 202024 10:51am TIA (transient ischemic attack) acute October 20, 2024 10:51am Type 2 diabetes mellitus with hyperglycemia acute October 20 10:51am Carotid stenosis, right acute M ay 2024 9:25am JAVIER (generalized anxiety disorder) acute December 21, 2024 9:25am Hypercholesterolemia acute December 21, 2024 9:25am Right hemiparesis acute December 9:25am Type 2 diabetes mellitus with hyperglycemia acute December 21, 2024 9:25am [facility] Work Phone: 1(648) 957-454202-28-2025 Miscellaneous Notes* Telephone Encounter - Bia Espinoza RN - 10/16/2024 2:41 PM EST ----- Message from FABI Coronel sent at 10/14/2024 4:41 PM EST ----- Regarding: follow up Follow up with dr. Pettit specifically in 4- 6 weeks. Tia, concern for symptomatic carotid artery onthe right. Patient's phone number is [phone] * Telephone Encounter - Veronica Grady CMA - 10/16/2024 2:41 PM EST Called pt to inform what was noted below. Pt was unavailable; left a voicemail. * Telephone Encounter - Veronica Grady CMA - 10/16/2024 2:41 PM EST Patient returned call and scheduled appt. Patient requested have telestroke note sent over to [facility] to be looked over by patient's PCP. Patient will call back with the doctor's fax number. * Telephone Encounter - Melissa Buchanan - 10/16/2024 2:41 PM EST Received a call from patient regarding message below. Patient wanted to give MA that she spoke withthe fax number for PCP office. Fax number: [phone] Please advise * Telephone Encounter - Veronica Grady CMA - 10/16/2024 2:41 PM EST Faxed the notes to the number below. [facility] Telephone encounter Note* Telephone Encounter - Bia Espinoza RN - 10/16/2024 2:41 PM EST ----- Message from FABI Coronel sent at 10/14/2024 4:41 PM EST ----- Regarding: follow up Follow up with dr. Pettit specifically in 4- 6 weeks. Tia, concern for symptomatic carotid artery onthe right. Patient's phone number is [phone] [facility] [id number] Telephone encounter Note* Telephone Encounter - Veronica Grady CMA - 10/16/2024 2:41 PM EST Called pt to inform what was noted below. Pt was unavailable; left a voicemail. [facility]02-28-2025 Telephone encounter Note* Telephone Encounter - Veronica Grady CMA - 10/16/2024 2:41 PM EST Patient returned call and scheduled appt. Patient requested have telestroke note sent over to [facility] to be looked over by patient's PCP. Patient will call back with the doctor's fax number. [facility]02-28-2025 Telephone encounter Note* Telephone Encounter - Melissa Buchanan - 10/16/2024 2:41 PM EST Received a call from patient regarding message below. Patient wanted to give MA that she spoke withthe fax number for PCP office. Fax number: [phone] Please advise [facility]02-28-2025 Telephone encounter Note* Telephone Encounter - Veronica Grady CMA - 10/16/2024 2:41 PM EST Faxed the notes to the number below. [facility]01-22-2024 Evaluation note* Encounter Date Diagnosis Assessment Notes Treatment Notes Treatment Clinical Notes Aug, COVID-19 (ICD-10 - U07.1) Self [...] May need to sleep w/ HOB elevated. [email or web address] Other 01-21-2024 Evaluation note* Encounter Date Diagnosis [...] other viral communicable diseases (ICD-10 - Z20.828) [email or web address] Other 01-19-2024 Evaluation note* Encounter Date Diagnosis [...] office w/ home readings in 2 weeks. [email or web address] Other 10-12-2023 Evaluation note* Encounter Date Diagnosis [...] patient on monthly SBE and yearly mammograms. [email or web address] Other 08-31-2023 Evaluation note* Encounter Date Diagnosis Assessment Notes Treatment Notes Treatment Clinical Notes Mar, Lipoma of right upper extremity (ICD-10 - D17.21) Reassured, not changing in size Recommmend discussion w/ Enzyme Chemist at next skin cancer screening Mar, Controlled [...] in nail deformity. Recommend discussing w/ Dermatolgist [email or web address] Other 03-17-2023 Evaluation note* Encounter Date Diagnosis Assessment Notes Treatment Notes Treatment Clinical Notes Oct, Decreased hearing of left ear (ICD-10 - H91.92) Referral for Audiogram / Tympanogram Oct, Dysfunction of left eustachian tube (ICD-10 - H69.82) Valsalva maneuver, FLonase NS [email or web address] Other 09-23-2021 Evaluation note* Encounter Date Diagnosis [...] importance of continuing motion and strengthening exercises intermediate. 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) Apr, Acute pain of left shoulder (ICD-10 - M25.512) Apr, Other specified postprocedural states (ICD-10 - Z98.890) [facility] [employer] Other Evaluation noteNo assessment information available [facility] noteNo InformationNortC[facility] Other Evaluation note* Diagnosis Onset Date Resolution Status Medicare annual wellness visit, subsequent acute Screening mammogram for breast cancer acute Type 2 diabetes mellitus with hyperglycemia acute [facility] Work Phone: Evaluation note* Diagnosis Onset Date Resolution Status Admit Date Carotid stenosis, right acute M arch 2024 10:51am JAVIER (generalized anxiety disorder) a cute October 20, 2024 10:51am Hypercholesterolemia acute Farooq h 2024 10:51am Right hemiparesis acute October 202024 10:51am TIA (transient ischemic attack) acut e October 20, 2024 10:51am Type 2 diabetes mellitus wit h hyperglycemia acute October 20, 2024 10:51am [facility] Work Phone: Evaluation note* Diagnosis Acute pain of left wrist- Primary Left wrist sprain, initial encounter [facility] Diagnosis Acute pain of left wrist- Primary Sprain of wrist, left, subsequent encounter Sprain of wrist, left, subsequent encounter [facility] Narrative - Reported* Type Description Date Surgical History bladder suspension, unspecified x2 Surgical History appendectomy Surgical History child x 3 Surgical History hysterectomy Surgical History left shoulder arthro scopy with supraspinatus rotator cuff repair, superior subscapularis tendon repair, subacromial decompression, biceps tenodesis 02/01/21 [facility] [employer] Other History general Narrative - Reported* Type [...] tenodesis 02/01/21 Hospitalization History see surgical history [email or web address] Other InstructionsNot on filedocumented in this encounter [facility] (n[facility] Reason *FU 11/12 Referral to [facility] for Audiogram/tympanogram on [address] Diagnosis 1 Decreased hearing of left ear (H91.92) Diagnosis 2 Dysfunction of left eustachian tube (H69.82) Referral Organization [facility] Mora george Referring Provider First Name Rob Referring Provider Last Name John Referring Provider Specialty Internal Me dicine Referred Organization [facility] Referred Provider Sabi Calix Referred Address ,[place], [place],[address] Referred Provider Specialty Ear, Nose an d Throat Referral Priority Routine General Notes Referral for hearing evaluation Wanda Kelly 11/05/2022 01:42:39 PM >RECEIVED TODAY, NOTES LOCKED, REFERRAL FAXED p2p Clinical Notes She has noticed grad ual loss of hearing over past several years. Associated w/ noise/ringing w/o vertigo. No s/s intercurrent infection in sinuses, pharynx or ears. [email or web address] Other Chief Complaint and Reason for Visit Chief Complaint Shoulder pain Chief Complaint wellness Reason for Visit Medicare annual [facility] visit, subsequent Screening mammogram for breast cancer Type 2 diabetes mellitus with hyperglycemia Chief Complaint Admit Date CC Adult Risk Stratification August 072023 1:49pm Amb Documentation October 15, 2024 8:01am TBH/Rt sided weakness/vertigo October 20, 2024 10:51am Reason for Visit Admit Date Carotid stenosis, right October 20, 2024 10:51am JAVIER (generalized anxiety disorder) October 20, 2024 10:51am Hypercholesterolemia October 20, 2024 10: 51am Right hemiparesis October 20, 2024 10:5 1am TIA (transient ischemic attack) October 10:51am Type 2 diabetes mellitus with hyperglyce aliyah October 20, 2024 10:51am Chief Complaint Admit Date Amb Documentation October 15, 2024 8:01am TBH/Rt sided weakness/vertigo October 20, 2024 10:51am 2 month f/u December 21, 2024 9:25am Reason for Visit Admit Date Carotid stenosis, right October 20, 2024 10:51am JAVIER (generalized anxiety disorder) October 20, 2024 10:51am Hypercholesterolemia October 20, 2024 10: 51am Right hemiparesis October 20, 2024 10:5 1am TIA (transient ischemic attack) October 10:51am Type 2 diabetes mellitus with hyperglyce aliyah October 20, 2024 10:51am Carotid stenosis, right December 21, 2024 9: 25am JAVIER (generalized anxiety disorder) December 212024 9:25am Hypercholesterolemia December 21, 2024 9:25a m Right hemiparesis December 21, 2024 9:25am Type 2 diabetes mellitus with hyperglyce aliyah December 21, 2024 9:25am Family History No Family History Records Found Relationship Condition Age at Onset Recorded Date/T [...] mother Diabetes mellitus Unknown Unknown Advance Directives No Advanced Directives Records Found Advance Directive Response Recorded Date/ Time Advance Directives No January 25 11:39am Advance Directive Response Recorded Date/ Time Advance Directives No January 25 10:39am Summary Purpose Additional Source Comments Goals (unrecognized section and content) Goals may be documented in a n alternate sectionNo InformationNo InformationNo InformationNo InformationNo InformationNo InformationNo InformationNo InformationNo InformationGoals may be documented in an alternate sectionNot on filedocumented as of this encounterGoals may be documented in an alternate sectionGoals may be documented in an alternate section REASON FOR VISIT (unrecogniz ed section and content) Reason Onset Date Comments return call 10/16/2024 Reason Comments Pain Reason Comments Pain INFORMATION SOURCE (unrecogn ized section and content) DATE CREATED AUTHOR 07/07/2022 [facility] DATE CREATED AUTHOR AUTHOR'S ORGANIZ ATION 10/21/2024 [facility] DATE CREATED AUTHOR AUTHOR'S ORGANIZ ATION 01/05/2025 [facility] DATE CREATED AUTHOR AUTHOR'S ORGANIZ ATION 01/16/2025 [facility] DATE CREATED AUTHOR AUTHOR'S ORGANIZ ATION 01/19/2025 [facility] EPIC Care Teams (unrecognized sec tion and content) Team Status: Active Member Role Status Dates Rob Lopez DO Primary Care Provider Active Team Status: Active Member Role Status Dates Rob Lopez DO Primary Care Provide r, Attending Provider Active Start: August 07, 2024 Team Status: Active Member Role Status Dates Rob Lopez DO Primary Care Provide r, Attending Provider Active Start: October 13, 2024 Team Status: Active Member Role Status Dates Rob Lopez DO Primary Care Provider Active Start: October 14, 2024 Anh Granger Attending Provider Active Start: [facility] 2024 Team Status: Active Member Role Status Dates Rob Lopez DO Primary Care Provider Active Start: October 15, 2024 Dulce Maria Bryan CMA Attending Provider Active Start: October 15, 2024 Team Status: Inactive Member Role Status Dates Rob Lopez DO Primary Care Provide r, Attending Provider Active Start: October 20, 2024 End: October 20, 2024 Team Status: Inactive Member Role Status Dates Rbo Lopez DO Primary Care Provide r, Attending Provider Active Start: June 10, 2024 End: June 10, 2024 Puppet Master Relationship Specialty Start Date End Date Rob Lopez DO [address] [place] [id number] PCP - General Internal Medicine 10/19/24 Team Status: Inactive Member Role Status Dates Rob Lopez DO Primary Care Provide r, Attending Provider Active Start: December 21, 2024 End: December 21, 2024 Puppet Master Relationship Specialty Start Date End Date Rob Lopez DO [address] [place] [phone] PCP - General Internal Medicine 01/06/25 Puppet Master Relationship Specialty Start Date End Date Rob Lpoez DO [address] [place] [place] [phone] PCP - General Internal Medicine 01/06/25 Puppet Master Relationship Specialty Start Date End Date Rob Lopez DO [address] [place] [phone] PCP - General Internal Medicine 01/06/25 Puppet Master Relationship Specialty Start Date End Date Rob Lopez DO [address] [place] [facility] [phone] PCP - General Internal Medicine 01/06/25 FOR RECORDS PERTAINING TO PATIENTS WHO ARE [...] BE BASED ON THE PRIMARY CLINICAL RECORDS. [facility] [employer] [facility]. provides no warranty or guarantee of the accuracy or completeness of information in this document.
[2025-02-01 10:29] LABS: Estimated Average Glucose 140 mg/dL; Glycohemoglobin A1C 6.5 % (4.5-6.2)
== END 2025-02-01 09:43 | disposition home or self-care (01) ==
LOC: LAB 09:47
PROVIDERS: PCP Internal Medicine; Visit Provider Internal Medicine
DX: E11.65 Type 2 diabetes mellitus with hyperglycemia (principal)
CPT/HCPCS: 36415; 83036

== ENCOUNTER 2025-06-14 08:58 | Outpatient (OUT) | payer MEDICARE, SELFPAY ==
--- OUTSIDE RECORDS SUMMARY | 2025-06-14 09:16 | XMS_ITS | Clinical Summary ---
Author Organization [facility] [employer] Address [id number] [address] [place] [address] Care Team Providers Care Cigarette Seller Name Role Phone Rob Lopez DO Primary Care Provider [phone] Active Problems ProblemNoted DateDiagnosed DateHistory of TIA (transient ischemic attack) 01/13/2025arotid stenosis, right01/13/2025Essential pjgmxcwxvdpo15/28/2025Mixed icpzuobhpfducx94/28/2025 Social History Tobacco UseTypesPacks/DayYears UsedDateSmoking Tobacco: Never AssessedChildcare AnswerDate WncdwjriYcbucwxdpUcatpym96/12/2019EmploymentAnswerDate Recorded PkinmyvcllKyayezy94/12/2019CommentsUnknownSex and Gender Information ValueDate RecordedSex Assigned at BirthNot on fileLegal LdkFzltda23/06/2015 11:22 AM EDTGender IdentityNot on fileSexual OrientationNot on file Plan of Treatment DateTypeDepartmentCare Team (Latest Contact Info)Odwmtmiivnn60/22/2025 1:30 PM ESTOffice Visit [facility] [address] [place] [address] [address] [place] [phone] Homero Terry MD [address] [place] [address] Health MaintenanceDue DateLast DoneCommentsDepression Wntwelkrs68/06/1969Tobacco Cajjezphb07/06/1969Adult BMI Hyrzbsvik38/06/1975DTaP,Tdap and Td Vaccines (1 - Tdap)1976Zoster (Shingles) Vaccine (1 of 2)2007Fall Risk Screening 2022Influenza Mrilrjo4504/19/2025 Medical Devices Not on file Insurance Care Teams Team MemberRelationshipSpecialtyStart DateEnd Date Rob Lopez DO [facility] [place] [address] PCP - GeneralInternal Medicine10/19/24
--- OUTSIDE RECORDS SUMMARY | 2025-06-14 09:16 | XMS_ITS | Clinical Summary ---
Author Organization [facility] Address [address] [place] [address] Care Team Providers Care Research Subject Name Role Phone Rob Lopez DO Primary Care Provider [phone] Mikal Finnegan PA Unavailable [phone] Allergies Active AllergyReactionsCriticalityNoted DateCommentsPenicillin VSwelling 01/06/2025 Medications MedicationSigDispense QuantityRefillsLast FilledStart DateEnd DateStatus Aspirin Low Dose 81 MG EC tablet Take 81 mg by mouth Daily5Active atorvastatin (Lipitor) 40 MG tablet Take 40 mg by mouth Daily5Active LORazepam (Ativan) 0.5 MG tablet TABLET ONE-HALF to ONE TABLET BY MOUTH DAILY FOR BFDGYZI09/04/2025Active telmisartan (MIcarDIS) 20 MG tablet Take 20 mg by mouth Daily5Active ibuprofen 800 MG tablet Indications:Left wrist sprain, initial encounterTake 1 tablet (800 mg) by mouth in the morning and 1 tablet (800 mg) in the evening and 1 tablet (800 mg) before bedtime. 90 tablet 5Active Active Problems No known active problems Encounters DateTypeDepartmentCare FnioTlvukiitksj92/08/2025Orders Only [facility] [address] [place] [address] Vivek Meredith MD Pelvic pressure in female (Primary Dx)03/18/2025 11:15 AM EDTAncillary Procedure [facility] [address] [place] [address] Abdominal pressure (Primary Dx); History of KUB03/18/2025Orders Only [facility] [address] [place] [phone] Vivek Meredith MD 03/18/20253620Nkmhjc84/29/2025 12:00 PM EDTAncillary Procedure [facility] [address] [place] [phone] Abdominal yfjsgrip92/29/2025 9:00 AM EDTAncillary Procedure [facility] [address] [place] [phone] Osteoporosis screening; Boarwisdsgigxk57/29/3427Avggdf74/28/7556Drizns52/28/2025Results Follow-Up [facility] [address] [place] [phone] Vivek Meredith MD IGP, APT HPV,RFX 16/18,45, DEXA bone density, CT abdomen pelvis w IV contrast from Last 3 Months Family History Medical HistoryRelationNameCommentsStrokeMotherRelationNameStatusCommentsFather AliveMotherAlive Social History Tobacco UseTypesPacks/DayYears UsedDateSmoking Tobacco: NeverSmokeless Tobacco: Never Tobacco Cessation:Counseling Given: Not Answered Alcohol UseStandard Drinks/WeekCommentsNot Currently0 (1 standard drink = 0.6 oz pure alcohol)CommentsUnknownSex and Gender InformationValueDate Recorded Sex Assigned at BirthNot on fileLegal YfeEpmlzm86/15/2023 7:06 PM EDTGender IdentityNot on fileSexual OrientationNot on file Last Filed Vital Signs Vital SignReadingTime TakenCommentsBlood Xrhdmckf447/7403/11/2025 10:26 AM EDT Pulse--Temperature--Respiratory Rate--Oxygen Saturation--Inhaled Oxygen Concentration--Husxcz36.1 kg (159 lb)03/11/2025 10:26 AM XDDVxkgvb021.5 cm (5' 2 )01/06/2025 10:52 AM EDTBody Mass Index29.0801/06/2025 10:52 AM EDT Plan of Treatment Health MaintenanceDue DateLast DoneCommentsCT Edbhhcinqzzb1957Colonoscopy 1957FIT1957FOBT1957Medicare Annual Wellness (AWV)1955 Bemnddxwqdkfo99/06/0538Yrgwctcrx77/06/1997Pneumococcal Vaccine: 65+ Years (1 of 1 - PCV)2007Influenza Vaccine (#1)5Colorectal Cancer Screening 07/23/2025FIT-DNA2Cervical Cancer ScreeningDiscontinued HPV/XyyjaoYvzqpwowrniv00/24/2025Pap SmearDiscontinued Procedures Procedure NamePriorityDate/TimeAssociated DiagnosisCommentsCT ABDOMEN PELVIS W IV EXCOPWYUXhozwdz25/31/2025 11:42 AM EDT Abdominal pressure History of KUB EFPYAXKXPBKhvcsmz65/29/2025 12:06 PM EDT Abdominal pressure History of KUB US BAJVQWYhibajf44/29/2025 12:02 PM EDT Abdominal pressure DEXA BONE PIITULKJajgsgt02/29/2025 8:44 AM EDT Osteoporosis screening Postmenopausal IGP, APT HPV,RFX 16/18,21Zftzqwp10/24/2025 12:00 AM EDT Encounter for gynecological examination without abnormal finding Encounter for screening for cervical cancer from Last 3 Months or Most Recently Relevant to Health Maintenance Results * CT abdomen pelvis w IV contrast (03/18/2025 11:42 AM EDT)Anatomical Region LateralityModalityBody, Pelvis, AbdomenComputed TomographySpecimen (Source) Anatomical Location / LateralityCollection Method / VolumeCollection Time Received Time03/18/2025 2:06 PM EDT Impressions 03/18/2025 2:41 PM EDT Impression: 1. The stomach wall appears very thickened and there is a hiatal hernia. It is not well distended. Consider endoscopy. There also is thickening and and defects in the cecum at the ileocecal junction.Which could be retained fecal material but may be better visualized with colonoscopy. 2. Hepatic steatosis ELECTRONICALLY SIGNED BY: Dorothy Sykes DO Narrative 03/18/2025 2:[address] of the abdomen and Pelvis CTDI is 54.36 mGy and DLP is 2535.87 mGy-cm. Technique: Comparison: No prior Lung bases: ??Unremarkable. ??No mass. ??No consolidation. Findings: ABDOMEN: ??Liver: The liver is decreased in attenuation. No intrahepatic ductal dilation is seen. There is asmall hypodensity near the eugenio hepatis measures 4 to 5 mm and is too small to characterize. ??Gallbladder and bile ducts: ??Unremarkable. ??No calcified stones. ??No ductal dilation. ??Pancreas: ??Unremarkable. ??No mass. ??No ductal dilation. ??Spleen: ??Unremarkable. ??No splenomegaly. 13 mm splenule is seen anterior to the spleen ??Adrenals: ??Unremarkable. ??No mass. ??Kidneys and ureters: ??No hydronephrosis or obstructing stone. ??Stomach and bowel: ??Evaluation of the stomach is limited by under ??distention. The stomach wall appears abnormally thickened and there is a hiatal hernia. No small bowel obstruction. Also at the ileocecal junction there appears to be thickening and defect in the cecum which could reflect incomplete distention. ? Intraperitoneal space: ??Unremarkable. ??No free air. ??No significant fluid collection. ??Bones/joints: ??No acute fracture. ??No dislocation. Mild degenerative changes are seen in the spine. ??Soft tissues: A tiny umbilical hernia is seen that contains fat. ??Vasculature: ??Unremarkable. ??No abdominal aortic aneurysm. ??Lymph nodes: ??Nonspecific prominent inguinal and mesenteric lymph nodes may be reactive. PELVIS: ??Appendix: ??Normal appendix. ??Bladder: ??Unremarkable. ??No mass. ??Reproductive: Not visualized/absent. Procedure Note Dorothy Sykes DO - 03/18/2025 CT of the abdomen and Pelvis CTDI is 54.36 mGy and DLP is 2535.87 mGy-cm. Technique: Comparison: No prior Lung bases: Unremarkable. No mass. No consolidation. Findings: ABDOMEN: Liver: The liver is decreased in attenuation. No intrahepatic ductaldilation is seen. There is a small hypodensity near the eugenio hepatismeasures 4 to 5 mm and is too small to characterize. Gallbladder and bile ducts: Unremarkable. No calcified stones. Noductal dilation. Pancreas: Unremarkable. No mass. No ductal dilation. Spleen: Unremarkable. No splenomegaly. 13 mm splenule is seen anteriorto the spleen Adrenals: Unremarkable. No mass. Kidneys and ureters: No hydronephrosis or obstructing stone. Stomach and bowel: Evaluation of the stomach is limited by under distention. The stomach wall appears abnormally thickened and there is ahiatal hernia. No small bowel obstruction. Also at the ileocecal junctionthere appears to be thickening and defect in the cecum which could reflectincomplete distention. Intraperitoneal space: Unremarkable. No free air. No significant fluid collection. Bones/joints: No acute fracture. No dislocation. Mild degenerativechanges are seen in the spine. Soft tissues: A tiny umbilical hernia is seen that contains fat. Vasculature: Unremarkable. No abdominal aortic aneurysm. Lymph nodes: Nonspecific prominent inguinal and mesenteric lymph nodesmay be reactive. PELVIS: Appendix: Normal appendix. Bladder: Unremarkable. No mass. Reproductive: Not visualized/absent. IMPRESSION: Impression: 1. The stomach wall appears very thickened and there is a hiatal hernia.It is not well distended. Consider endoscopy. There also is thickening andand defects in the cecum at the ileocecal junction. Which could beretained fecal material but may be better visualized with colonoscopy. 2. Hepatic steatosis ELECTRONICALLY SIGNED BY: Dorothy Sykes DO Authorizing ProviderResult TypeResult StatusVivek Meredith MDSarah CT PROCEDURES Final Result * Creatinine, Serum (03/16/2025 12:06 PM EDT)ComponentValueRef RangeTest Method Analysis TimePerformed AtPathologist SignatureCreatinine0.690.50 - 1.05 mg/dL YHWCKQSFM03> OR = 60 mL/min/1.84g6PILGYOwkaedcn (Source)Anatomical Location / LateralityCollection Method / VolumeCollection TimeReceived TimeBloodVenous blood specimen / Twsoesb4603/16/2025 12:06 PM EDT03/16/2025 12:06 PM EDT Narrative Resulting Agency Comment Performing Organization Information ?Site ID: QPT ?Name: [employer] [facility] ?Address: [address] [place] [address], [address] [place] [phone] ?Director: Librado Saini MD Authorizing ProviderResult TypeResult StatusVivek Meredith MDHILLSBORO COMMUNITY [facility] BLOOD ORDERABLESFinal ResultPerforming OrganizationAddressCity/State/ZIP CodePhone Number [facility] * US pelvis (03/16/2025 12:02 PM EDT)Anatomical RegionLateralityModalityPelvis UltrasoundSpecimen (Source)Anatomical Location / LateralityCollection Method / VolumeCollection TimeReceived Time03/17/2025 7:37 AM EDT Narrative 03/17/2025 7:37 AM EDT EXAM: US PELVIS HISTORY: ??Mass seen on X-RAY. COMPARISON: ??None available. TECHNIQUE: Two-dimensional transabdominal grayscale ultrasound imaging of the pelvis was performed.Transvaginal was not performed. FINDINGS: The uterus is surgically absent, and the midline pelvis appears unremarkable. The bilateral ovaries are surgically absent. No fluid is present within the cul-de-sac. IMPRESSION: 1. Surgically absent uterus and ovaries. ??Unremarkable ultrasound of the pelvis. Interpreted by: Electronically signed by ELVIRA MADDEN II, ?? , PHD at 17-Mar-2025 07:35:25 AM [facility] Procedure Note Elvira Madden MD - 03/17/2025 EXAM: US PELVIS HISTORY: Mass seen on X-RAY. COMPARISON: None available. TECHNIQUE: Two-dimensional transabdominal grayscale ultrasound imaging ofthe pelvis was performed. Transvaginal was not performed. FINDINGS: The uterus is surgically absent, and the midline pelvis appearsunremarkable. The bilateral ovaries are surgically absent. No fluid is present within the cul-de-sac. IMPRESSION: 1. Surgically absent uterus and ovaries. Unremarkable ultrasound of thepelvis. Interpreted by: Electronically signed by ELVIRA MADDEN II, MD, PHD [id number] 07:35:25 AM [facility] Authorizing ProviderResult TypeResult StatusVivek CHRISTINE US PROCEDURES Final Result * DEXA bone density (03/16/2025 8:44 AM EDT)Anatomical RegionLateralityModality BodyDigital RadiographySpecimen (Source)Anatomical Location / Laterality Collection Method / VolumeCollection TimeReceived Time03/17/2025 10:07 AM EDT Impressions 03/17/2025 10:09 AM EDT Impression: Findings compatible with mild osteopenia with mild increased fracture risk. ELECTRONICALLY SIGNED BY: Agapito Stephenson M.D. Narrative 03/17/2025 10:09 AM EDT Examination: DEXA BONE DENSITY Clinical History: screening, asymptomatic menopausal state Technique: Bone density study was performed. T score values for the lumbar spine, right femoral neck and left femoral neck were obtained. Comparison: None Findings: Value for the lumbar spine from L1-L4 is -0.8. Value for the right femoral neck is -0.8. Value for the left femoral neck is -1.2. Findings are compatible with mild osteopenia with mild increased fracture risk. No evidence of osteoporosis. Procedure Note Agapito Stephenson MD - 03/17/2025 Examination: DEXA BONE DENSITY Clinical History: screening, asymptomatic menopausal state Technique: Bone density study was performed. T score values for the lumbarspine, right femoral neck and left femoral neck were obtained. Comparison: None Findings: Value for the lumbar spine from L1-L4 is -0.8. Value for theright femoral neck is -0.8. Value for the left femoral neck is -1.2.Findings are compatible with mild osteopenia with mild increased fracturerisk. No evidence of osteoporosis. IMPRESSION: Impression: Findings compatible with mild osteopenia with mild increasedfracture risk. ELECTRONICALLY SIGNED BY: Agapito Stephenson M.D. Authorizing ProviderResult TypeResult StatusVivek Meredith MDIMG DXA PROCEDURES Final Result * IGP, APT HPV,RFX 16/18,45 (03/11/2025 12:00 AM EDT)ComponentValueRef RangeTest MethodAnalysis TimePerformed AtPathologist SignatureDiagnosis:CommentLABCORP Comment: NEGATIVE FOR INTRAEPITHELIAL LESION OR MALIGNANCY. CELLULAR CHANGES ASSOCIATED WITH ATROPHY ARE PRESENT. CELLULAR CHANGES ASSOCIATED WITH ATROPHY AND INFLAMMATION ARE PRESENT. Specimen Adequacy:CommentLABCORPComment: Satisfactory for evaluation. ??Endocervical component may not be distinguished in cases of atrophy. Clinician Provided ICD10:CommentLABCORPComment: Z01.419 Z12.4 Performed By:CommentLABCORPComment:Rafael Gaston, Beauty Specialist ([facility])Cyto Comments .LABCORPNote:CommentLABCORPComment: The Pap smear is a screening test designed to aid in the detection of premalignant and malignant conditions of the uterine cervix. ??It is not a diagnostic procedure and should not be used as the sole means of detecting cervical cancer. ??Both false-positive and false-negative reports do occur. Test Methodology:CommentLABCORPComment: This liquid based ThinPrep(R) pap test was screened with the use of an image guided system. HPV AptimaNegativeNegativeLABCORPComment: This nucleic acid amplification test detects fourteen high-risk HPV types (16,18,31,33,35,39,45,51,52,56,58,59,66,68) without differentiation. Specimen (Source)Anatomical Location / LateralityCollection Method / Volume Collection TimeReceived TimeVaginal Fluid/ Narrative [facility] - 03/13/2025 6:07 AM EDT Performed at: 01 - [facility] [address] ??[id number] Box Printing Machine Operator: Penny Barron MD, Phone: ??[phone] Performed at: ??02 - [facility] [address] ??[id number] Box Printing Machine Operator: Penny Barron MD, Phone: ??[phone] Specimen Comment: No. of containers..01 ThinPrep Vial Authorizing ProviderResult TypeResult StatusVivek Meredith MDLAB BLOOD ORDERABLESFinal ResultPerforming OrganizationAddressCity/State/ZIP CodePhone Number [facility] from Last 3 Months or Most Recently Relevant to Health Maintenance Insurance Care Teams Team MemberRelationshipSpecialtyStart DateEnd Date Rob Lopez DO [address] [place] [address] PCP - GeneralInternal Medicine01/06/25 Mikal Finnegan PA [address] [place] [address] PCP - Medical [place] MN08/19/2511
--- OUTSIDE RECORDS SUMMARY | 2025-06-14 09:17 | XMS_ITS | CCD ---
Author Organization [facility] Care Team Providers Care Slot Service Specialist Name Role Phone John Todd Attending Provider Rob Mijares Primary Care Provider John Todd Unavailable MARYANA, DR COTTON Admitting Unavailable BALL, DR COTTON Attending Unavailable BALL, DR COTTON Primary Care Unavailable BALL, DR COTTON Consulting Unavailable MARYANA, DR COTTON Admitting Unavailable BALL, DR COTTON Attending Unavailable BALL, DR COTTON Primary Care Unavailable BALL, DR COTTON Admitting Unavailable BALL, DR COTTON Attending Unavailable BALL, DR COTTON Primary Care Unavailable BALL, DR COTTON Admitting Unavailable BALL, DR COTTON Attending Unavailable BALL, DR COTTON Primary Care Unavailable BALL, DR COTTON Admitting Unavailable BALL, DR COTTON Attending Unavailable BALL, DR COTTON Primary Care Unavailable MARYANA, DR COTTON Consulting Unavailable MARYANA, DR COTTON Admitting Unavailable BALL, DR COTTON Attending Unavailable BALL, DR COTTON Primary Care Unavailable BALL, DR COTTON Consulting Unavailable WEST, DR GEORGI Fernandez Consulting Unavailable MARYANA, DR COTTON Admitting Unavailable BALL, DR COTTON Attending Unavailable BALL, DR COTTON Primary Care Unavailable BALL, DR COTTON Consulting Unavailable Maryana, Rob Unavailable Karla Hull Unavailable Rob Mijares DO Primary Care Provider Rob Mijares DO Primary Care Provider MAYTE PETTIT Attending Unavailable ROB MIJARES Referring Unavailable ROB MIJARES Primary Care Unavailable Maikol El Unavailable MAIKOL FINNEGAN Attending Unavailable MAIKOL FINNEGAN Attending Unavailable MAIKOL FINNEGAN Referring Unavailable MAIKOL FINNEGAN Referring Unavailable MAIKOL FINNEGAN Attending Unavailable MAIKOL FINNEGAN Referring Unavailable VIVEK BOYER Attending Unavailable VIVEK BOYER Referring Unavailable VIVEK BOYER Referring Unavailable VIVEK BOYER Referring Unavailable Rob Mijares DO Primary Care Provider Rob Mijares DO Attending Provider Bruno Howe MD Attending Provider Bruno Howe MD Other Provider Rob Mijares Primary Care Unavailable Bruno Howe Attending Unavailable Bruno Howe Admitting Unavailable Britta Love Admitting Unavailable Rob Mijares Primary Care Unavailable Britta Love Attending Unavailable Allergies Allergy ClassificationReported Allergen(s)Allergy TypeDate of OnsetReaction(s) FacilityPenicillins (antibiotic) (1 source)PenicillinsDrug Gywevyb11-46-8514Aiqgydfv of Lip/Tongue/Throat [facility] (9 sources)PenicillinDrug Allergyhives/swellingFormerly [facility] Other (6 sources)PenicillinsDrug allergy (disorder)11-01-0786Ytreenon of Lip/Tongue/[facility]roatWay[facility] (1 source)PenicillinDrug Allergyhives/swellingNoSub[facility] Other (16 sources)Penicillin; Translations: [penicillin V]Drug Hwhvqha99-68-2299 [facility] (1 source)PenicillinsDrug allergy (disorder)18-81-4214CnevqbagkFayette County [facility] Rep[facility] Medications Current Medications MedicationDrug Class(es)DatesSig (Normalized)Sig (Original)[id number] actuat albuterol 0.09 mg/actuat metered dose inhaler (2 sources)beta2-Adrenergic AgonistStart: 95-53-2318jrvt 2 puff(s) by inhalation four times daily as neededAlbuterol Sulfate HFA 108 (90 Base) MCG/ACT 2 puffs Inhalation 4 times a day prn Aug, Activeaspirin 81 mg delayed release oral tablet (16 sources)Platelet Aggregation Inhibitor, Nonsteroidal Anti-inflammatory Drug Start: 10-14-2024 End: 38-45-1381sirp 1 tablet by mouth once dailyAspirin Low Dose 81 MG EC tablet Take 81 mg by mouth Daily 10/14/2024 Activeatorvastatin 40 mg oral tablet (16 sources)HMG-CoA Reductase InhibitorStart: 95-90-0868vquj 1 tablet by mouth once dailyatorvastatin (Lipitor) 40 MG tablet Take 40 mg by mouth Daily 12/25/2024 ActiveStart: 10-20-2024 End: 75-62-5560igwd 1 tablet by mouth once dailyatorvastatin (Lipitor) 40 MG tablet Take 40 mg by mouth Daily 12/25/2024 Activeazithromycin 250 mg oral tablet (3 sources)Macrolide AntimicrobialStart: 86-08-3001Uscoztfybnun 250 MG as directed Orally daily for 5 days Aug, Activebenzonatate 200 mg oral capsule (2 sources)Non-narcotic AntitussiveStart: 66-07-4083afbq 1 capsule by mouth every eight hoursBenzonatate 200 MG 1 capsule Orally Three times a day Aug, Activefluticasone (2 sources)CorticosteroidFLONASE Activeibuprofen 800 mg oral tablet (20 sources)Nonsteroidal Anti-inflammatory DrugStart: 01-01-2025 End: 07-97-5488bdzj 1 tablet by mouth in the morning, then take 1 tablet by mouth in the evening, then take 1 tablet by mouth at bedtimeibuprofen 800 MG tablet Indications: Left wrist sprain, initial encounter Take 1 tablet (800 mg) bymouth in the morning and 1 tablet (800 mg) in the evening and 1 tablet (800 mg) before bedtime. 90 tablet 01/07/2025 ActiveStart: 24-56-9303fvxj 1 tablet by mouth three times daily at mealtime as neededIbuprofen 800 MG 1 tablet with food or milk as needed Orally Three times a day for 30 days Jan, Not-Taking/PRNlactobacillus acidophilus [id number] unt oral capsule (1 source)Start: 78-11-4331dlph 10 capsules by mouth once dailyLactobacillus Acidophilus (Probiotic) 10 billion cell capsule Active 100 MMU CELLS PO Daily April 20, 2025 12:00am Complies with drug therapyLORazepam 0.5 mg oral tablet (13 sources)BenzodiazepineStart: 53-70-7462vcrz 0.5-1 tablets by mouth once daily for anxietyLORazepam (Ativan) 0.5 MG tablet TABLET ONE-HALF to ONE TABLET BY MOUTH DAILY FOR ANXIETY 10/20/2024 Activepantoprazole 40 mg delayed release oral tablet (1 source)Proton Pump InhibitorStart: 03-01-7262evxb 1 tablet by mouth once dailypredniSONE 20 mg oral tablet (2 sources)Start: 96-41-8175rnpx 1 tablet by mouth every twelve hourspredniSONE 20 MG 1 tablet Orally bid for 5 day(s) Aug, Activetelmisartan 20 mg oral tablet (14 sources)Angiotensin 2 Receptor BlockerStart: 59-74-9257xcxg 1 tablet by mouth once dailyTelmisartan 20 mg tablet Active 0 .ROUTE .COMPLEX December 26, 2024 8:21am TAKE 1 TABLET BY MOUTH DAILY Complies with drug therapyStart: 12-02-2024 End: 45-83-8092cchd 1 tablet by mouth once dailytelmisartan (MIcarDIS) 20 MG tablet Take 20 mg by mouth Daily 12/02/2024 ActiveTumeric (5 sources)Start: 51-12-5175iypu 1 tablet by mouth once daily in the morning Tumeric Active 1 TAB PO Every morning January 27, 2021 11:04amStart: 01-27-2021 End: 53-06-2606ryhr 1 tablet by mouth once daily in the morningTumeric Discontinued 1 TAB PO Every morning January 27, 2021 12:00am October 20, 2024 12:23pmStart: 01-27-2021 End: 52-55-2071yeth 1 tablet by mouth once daily in the morningTumeric Discontinued 1 TAB PO Every morning January 26, 2021 11:00pm October 20, 2024 11:23amStart: 21-61-8874puuo 1 tablet by mouth once daily in the morningTumeric Active 1 TAB PO Every morning January 27, 2021 12:00amZinc (5 sources)Start: 70-02-1549ahrh 450 mg by mouth once daily in the morningZinc Active 450 MG PO Every morning January 27, 2021 11:04amStart: 01-27-2021 End: 39-40-6222Cbkw 50 mg Tablet Discontinued 450 MG PO Every morning January 27, 2021 12:00am October 20, 2024 12:23pmStart: 01-27-2021 End: 96-78-5558Zlxi 50 mg Tablet Discontinued 450 MG PO Every morning January 26, 2021 11:00pm October 20, 2024 11:23amStart: 95-58-4595dbpt 450 mg by mouth once daily in the morningZinc Active 450 MG PO Every morning January 27, 2021 12:00am Completed/Discontinued Medications MedicationDrug Class(es)DatesSig (Normalized)Sig (Original)amLODIPine 2.5 mg oral tablet (5 sources)Dihydropyridine Calcium Channel BlockerStart: 01-01-2025 End: 60-05-0910Nsaocyrhzl 2.5 mg tablet Discontinued MG PO January 01, 2025 12:00am January 01, 2025 9:29amStart: 11-17-2024 End: 69-49-3695ojwi 1 tablet by mouth once dailyAmlodipine 2.5 mg tablet Discontinued 2.5 MG PO Daily November 20, 2024 2:42pm December 0256:39pm cholecalciferol 0.025 mg oral tablet (5 sources)Vitamin DStart: 01-27-2021 End: 32-35-2236gmib 1 tablet by mouth once daily in the morningCholecalciferol (Vitamin D3) (Vitamin D3) 25 mcg (1,000 unit) Tablet Discontinued 25 MCG PO Every morning January 27, 2021 12:00am October 20, 2024 12:23pmclopidogrel 75 mg oral tablet (4 sources)P2Y12 Platelet InhibitorStart: 01-01-2025 End: 51-45-1182Yxvoyvsswae 75 mg tablet Discontinued MG PO January 01, 2025 12:00am January 01, 2025 9:30amStart: 10-20-2024 End: 35-87-1212udvm 1 tablet by mouth once dailyClopidogrel (Plavix) 75 mg tablet Discontinued 75 MG PO Daily October 20, 2024 1:00am November 16, 2024 1:15pmescitalopram 10 mg oral tablet (4 sources)Serotonin Reuptake InhibitorStart: 06-10-2024 End: 28-67-2127ombs 1 tablet by mouth once dailyEscitalopram Oxalate 10 mg tablet Discontinued 10 MG PO Daily June 10, 2024 12:00am October 20, 2024 12:23pmomeprazole 40 mg delayed release oral capsule (9 sources)Proton Pump Inhibitortake 1 capsule by mouth once daily in the morningOmeprazole 40 MG TAKE 1 CAPSULE EVERY DAY IN THE MORNING followed by breakfast Oral for 30 Not-Taking/PRNTriamcinolone (8 sources)CorticosteroidStart: 51-39-3843Bxxmjcc -40 mg December, 40 mg Problems Active Problems Problem ClassificationProblemDateDocumented DateEpisodic/ChronicAbdominal pain (11 sources)Generalized abdominal pain; Translations: [Generalized abdominal pain]01-70-4972GloffrzvLfeca bronchitis (2 sources)Acute bronchitis due to other specified organisms; Translations: [Acute bronchitis, unspecified]EpisodicAcute cerebrovascular disease (1 source)Acute cerebrovascular diseaseOnset: 49-16-1656Gejlmvy disorders (14 sources)Generalized anxiety disorder; Translations: [Generalized anxiety disorder]46-16-1284DxceclcFrfeks neoplasm of uterus (8 sources)Uterine leiomyoma; Translations: [Leiomyoma of uterus, unspecified] EpisodicConditions associated with dizziness or vertigo (3 sources)Benign paroxysmal positional vertigo; Translations: [Benign paroxysmal vertigo, unspecified ear]04-42-5459CqpedpefXnooejy on above:Echo: LVEF 60%, normal RV size/function, RVSP 32, no valvular ds. - 09/2024Diabetes mellitus with complications (19 sources)Type 2 diabetes mellitus with hyperglycemia; Translations: [Hyperglycemia due to type 2 diabetes mellitus]Onset: 91-24-7308EdgxyrnTdrruvpj mellitus without complication (4 sources)Type 2 diabetes mellitus without complications; Translations: [TYPE 2 DM WITHOUT COMPLICATIONS]Onset: 87-17-7094LdssmbnCtkclkal mellitus without complication (8 sources)Impaired fasting glycemia; Translations: [Impaired fasting glucose] EpisodicDisorders of lipid metabolism (12 sources)Pure hypercholesterolemia, unspecified; Translations: [Hypercholesterolemia]Onset: 63-45-4806ZyjibckTgzsscjmz hypertension (3 sources)Essential hypertension; Translations: [Essential (primary) hypertension]Onset: 942818-16-7261XuacuonVqbscvou of upper limb (1 source)Fracture of ulnar styloid; Translations: [Displaced fracture of unspecified ulna styloid process, initial encounter for closed fracture] 00-88-5975LbginvphErmstlxnrrzad symptoms and ill-defined conditions (9 sources)Urgent desire to urinate; Translations: [Urgency of urination] 99-45-9433VgkgujeiUpffpdrvesmov and screening for infectious disease (1 source)Contact with and (suspected) exposure to other viral communicable diseasesEpisodicIntracranial injury (8 sources)History of traumatic brain injury; Translations: [Personal history of traumatic brain injury]EpisodicMalaise and fatigue (4 sources)Fatigue; Translations: [Other fatigue]21-84-0879PueripzzXiydwe and vomiting (9 sources)Nausea; Translations: [Nausea]EpisodicNonspecific chest pain (1 source)Intercostal painEpisodicOcclusion or stenosis of precerebral arteries (8 sources)Right carotid artery stenosis; Translations: [Occlusion and stenosis of right carotid artery]Onset: 584789-18-8172XykmzwmGhijxuhnjoyq (2 sources)Postmenopausal osteoporosis; Translations: [Age-related osteoporosis without current pathological fracture]73-66-8641DateuzvHgbwy and unspecified benign neoplasm (1 source)Benign lipomatous neoplasm of skin and subcutaneous tissue of right armEpisodicOther circulatory disease (1 source)Elevated blood-pressure reading, without diagnosis of hypertension EpisodicOther circulatory disease (2 sources)History of transient ischemic attack; Translations: [Personal history of transient ischemic attack (TIA), and cerebral infarction without residual deficits]Onset: 931368-63-9939EkggevzhFvbzc connective tissue disease (8 sources)Acquired trigger finger; Translations: [Trigger finger, right ring finger]EpisodicOther connective tissue disease (8 sources)Tear of left rotator cuff; Translations: [Unspecified rotator cuff tear or rupture of left shoulder, not specified as traumatic]EpisodicOther connective tissue disease (1 source)Ganglion, unspecified siteEpisodicOther ear and sense organ disorders (8 sources)Hearing loss of left ear; Translations: [Unspecified hearing loss, left ear]ChronicOther ear and sense organ disorders (1 source)Unspecified hearing loss, left earChronicOther eye disorders (8 sources)Subconjunctival hemorrhage of right eye; Translations: [Conjunctival hemorrhage, right eye]EpisodicOther female genital disorders (1 source)Female genital organ symptoms; Translations: [Pelvic pressure in female]83-07-3051CkalohqsCdjyo gastrointestinal disorders (9 sources)Swollen abdomen; Translations: [Abdominal distension (gaseous)] EpisodicOther injuries and conditions due to external causes (1 source)Injury of forearm; Translations: [Unspecified injury of left forearm, initial encounter]20-17-7758HamcnrcjNgtxl injuries and conditions due to external causes (1 source)Injury of left upper arm; Translations: [Unspecified injury of left shoulder and upper arm, initialencounter]58-63-7179UozitznpSxsxl nervous system disorders (4 sources)Paresthesia; Translations: [Paresthesia of skin]08-90-8939Yzitlexr Other non-traumatic joint disorders (6 sources)Pain in wrist; Translations: [Pain in left wrist]53-19-1950Zqatdzom Other nutritional; endocrine; and metabolic disorders (1 source)OverweightEpisodicOther nutritional; endocrine; and metabolic disorders (3 sources)Overweight; Translations: [Overweight]50-90-9855PakkmrvrBsrpi screening for suspected conditions (not mental disorders or infectious disease) (19 sources)Encounter for screening mammogram for malignant neoplasm of breast; Translations: [Patient encounter status]Onset: 02-82-8689OnufzzdrUwbmzk media and related conditions (1 source)Other specified disorders of Eustachian tube, left earEpisodicOvarian cyst (8 sources)Cyst of ovary; Translations: [Unspecified ovarian cyst, unspecified side]EpisodicParalysis (6 sources)Right hemiparesis; Translations: [Hemiplegia, unspecified affecting right dominant side]63-96-3705ZezfbhpEofdculk codes; unclassified (1 source)Pain, unspecified; Translations: [Pain, unspecified]Onset: 10-14-2024 EpisodicResidual codes; unclassified (4 sources)Past history of procedure; Translations: [Personal history of other medical treatment]08-81-4080VtvzhbcyYeoildfo codes; unclassified (2 sources)Postmenopausal state; Translations: [Asymptomatic menopausal state] 22-59-3114XuzltfwbRpdvimr and strains (8 sources)Strain of other muscles, fascia and tendons at shoulder and upper arm level, left arm, subsequent encounter; Translations: [Strain of muscle and tendon of front wall of thorax, initial encounter]Onset: 09-23-2021 Resolved: 67-16-2395YdxklsmjBjqtdducq cerebral ischemia (5 sources)Transient cerebral ischemia; Translations: [Transient cerebral ischemic attack, unspecified]15-72-3527TjvilfnZvaombm on above:Left sided weakness and dizziness.CTA head/neck: no thrombus, aneurysm or mass, 50-60% siphon portion of B/L ICA, right bulb 60-70% - arotid US: 50-69% KB, < 50% LICAUnclassified (2 sources)Patient encounter mcpgye75-97-3493 Past or Other Problems Problem ClassificationProblemDateDocumented DateEpisodic/ChronicOther aftercare (1 source)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; Translations: [[facility] USE ORAL HYPOGLYCEMIC DX]Onset: 77-87-6661FbmjebreDbooh connective tissue disease (1 source)Adhesive capsulitis of left shoulder; Translations: [Adhesive capsulitis of left shoulder M75.02]Onset: 05-11-2021 Resolved: 84-86-4914AufeasqwEziqp injuries and conditions due to external causes (1 source)Unspecified injury of left forearm, initial encounter; Translations: [Unspecified injury of left forearm, initial encounter]Onset: 56-40-5835Yyplrxbe Other non-traumatic joint disorders (1 source)Pain in left shoulder; Translations: [Acute pain of left shoulder M25.512]Onset: 05-11-2021 Resolved: 49-19-3838IondkfhcDjuiglzg codes; unclassified (1 source)Other specified postprocedural states; Translations: [Other specified postprocedural states Z98.890]Onset: 05-11-2021 Resolved: 24-50-6257QziomiptOvrgwdleiqag (1 source)Acute cough R05.1Unclassified (2 sources)Sprain of left xtyat46-31-6829Cytzybubdqmy (2 sources)Finding of sensation of vaiyene63-67-8411Nqkdc infection (2 sources)COVID-19 Results Test NameValueInterpretationReference RangeFacilityPathology Request for Lab Corpon 25-30-2456Qzioejszx Request for Lab CorpNoNovant Health P[facility] Center Physician GroupComment on above:Order Comment: GI SPECIMENResult Comment: See report. Scanned copy available in EMR. PERFORMED BY: [facility] [address] [place] [address] PATHOLOGIST TELEPHONE PLANT POWER OPERATOR OBDULIA ACEVEDO M.D.Performed By: #### PATH TO [facility] #### [place] [id number] USACT ABDOMEN PELVIS W IV CONTRASTon [id number] ABDOMEN PELVIS W IV CONTRASTCT of the abdomen and Pelvis CTDI is 54.36 mGy and DLP is 2535.87 mGy-cm. Technique: Comparison: No prior Lung bases: Unremarkable. No mass. No consolidation. Findings: ABDOMEN: Liver: The liver is decreased in attenuation. No intrahepatic ductal dilation is seen. There is a small hypodensity near the eugenio hepatis measures 4 to 5 mm and is too small to characterize. Gallbladder and bile ducts: Unremarkable. No calcified stones. No ductal dilation. Pancreas: Unremarkable. No mass. No ductal dilation. Spleen: Unremarkable. No splenomegaly. 13 mm splenule is seen anterior to the spleen Adrenals: Unremarkable. No mass. Kidneys and ureters: No hydronephrosis or obstructing stone. Stomach and bowel: Evaluation of the stomach is limited by under distention. The stomach wall appears abnormally thickened and there is a hiatal hernia. No small bowel obstruction. Also at the ileocecal junction there appears to be thickening and defect in the cecum which could reflect incomplete distention. Intraperitoneal space: Unremarkable. No free air. No significant fluid collection. Bones/joints: No acute fracture. No dislocation. Mild degenerative changes are seen in the spine. Soft tissues: A tiny umbilical hernia is seen that contains fat. Vasculature: Unremarkable. No abdominal aortic aneurysm. Lymph nodes: Nonspecific prominent inguinal and mesenteric lymph nodes may be reactive. PELVIS: Appendix: Normal appendix. Bladder: [...] colonoscopy. 2. Hepatic steatosis ELECTRONICALLY SIGNED BY: Nick Silverman AvailableCREATININEon 66-35-1764Ezcpwavhpm [Mass/Vol]0.69 mg/dLNormal0.50-1.05Quest DiagnosticsComment on above:Performed By: #### 375 #### [facility] [address] [place] [address], [address] [place] [address] Heavy Equipment Operator Apprentice: Librado Saini MDGFR/1.73 sq M.predicted among non-blacks MDRD (S/P/Bld) [Vol rate/Area]95 mL/min/{1.73_m2}Normal> OR = 60[facility] Comment on above:Performed By: #### 375 #### [facility] [address] [place] [address], [address] [place] [address] Heavy Equipment Operator Apprentice: Librado Saini MDDEXA BONE DENSITYon 38-64-1034AXSO BONE DENSITYExamination: DEXA BONE DENSITY Clinical History: screening, asymptomatic [...] increased fracture risk. No evidence of osteoporosis. IMPRESSION: Impression: Findings compatible with mild osteopenia with mild increased fracture risk. ELECTRONICALLY SIGNED BY: Agapito Stephenson M.D.NormalNot AvailableUS PELVISon [id number] PELVISEXAM: US PELVIS HISTORY: Mass seen on X-RAY. COMPARISON: None available. TECHNIQUE: Two-dimensional transabdominal grayscale ultrasound imaging of the pelvis was performed.Transvaginal was not performed. FINDINGS: The uterus is surgically absent, and the midline pelvis appears unremarkable. The bilateral ovaries are surgically absent. No fluid is present within the cul-de-sac. IMPRESSION: 1. Surgically absent uterus and ovaries. Unremarkable ultrasound of the pelvis. Interpreted by: Electronically signed by ELVIRA BUCKLEY II, MD, PHD at 17-Mar-2025 07:35:25 AM [facility] TeleradiologyNormalNot AvailableLaboratory - Cytologyon 03-13-2025 Prop And Effects Designer Cyto stain Nom (Cvx/Vag) [ID]CommentNOMS HealthcareComment on above: Rafael Gaston, Prop And Effects Designer (ASCP)Cytology report Cyto stain Doc (Cvx/Vag)Comment NOMS HealthcareComment on above:NEGATIVE FOR INTRAEPITHELIAL LESION OR MALIGNANCY. CELLULAR CHANGES ASSOCIATED WITH ATROPHY ARE PRESENT. CELLULAR CHANGES ASSOCIATED WITH ATROPHY AND INFLAMMATION ARE PRESENT. Cytology report Cyto stain.thin prep Doc (Cvx/Vag)CommentNORusk Rehabilitation CenterComment on above:This liquid based ThinPrep(R) pap test was screened with the use of an image guided system. Statement of adequacy Cyto stain (Cvx/Vag) [Interp]CommentNOOR HealthcareComment on above:Satisfactory for evaluation. Endocervical component may not be distinguished in cases of atrophy. Laboratory - Microbiology and Antimicrobial susceptibilityon [id number] 16+18+31+33+35+39+45+51+52+56+58+59+66+68 DNA Probe+sig amp Ql (Cvx)Negative NegativeNOOR HealthcareComment on above:This nucleic acid amplification test detects fourteen high-risk HPV types (16,18,31,33,35,39,45,51,52,56,58,59,66,68) without differentiation. Microscopic observation Other stain Nom (Unsp spec).NOMS HealthcareLaboratory - Miscellaneous testson 13-79-1554Lmuxzpq comment (Unsp spec) [Interp]CommentNORusk Rehabilitation CenterComment on above:The Pap smear is a screening test designed to aid in the detection of premalignant and malignant conditions of the uterine cervix. It is not a diagnostic procedure and should not be used as the sole means of detecting cervical cancer. Both false-positive and false-negative reports do occur. No Panel Informationon 99-62-3550Xafdvwrks ICD code [Identifier]CommentNORusk Rehabilitation CenterComment on above:Z01.419 Z12.4 Performed at: 01 - [facility] [id number] Manager Global Communications: Penny Barron MD, Phone: [phone] Performed at: 02 - [facility] [address] [id number] Manager Global Communications: Penny Barron MD, Phone: [phone] Specimen Comment: No. of containers..01 ThinPrep VialLABLexington Medical CenterXR Wrist - left 2 Viewson 36-99-3211Bfzevcu Result: AP and lateral left wrist No acute fracture or dislocation Unchanges cystic changes in scaphoid- no widening of scapho-lunate Wrist alignment satisfactory remote injury to ulnar styloid. CMC arthritis of thumb Impression: no acute bony process left wrist.[facility] Radiology Study observation (narrative)[facility] HealthcareGlucose mean value [Mass/volume] in Blood Estimated from glycated hemoglobinOrdered By: Rob Mijares on 73-85-3606Bztzoue glucose Estimated from glycated hemoglobin (Bld) [Mass/Vol]140 mg/dLFayette County Memorial HospitalHemoglobin A1c percentage Ordered By: Rob Mijares on 86-06-0785EkR5c (Bld) [Mass fraction]6.5 %High 4.5-6.2FGuernsey Memorial HospitalComment on above:ADA RECOMMENDED LIMIT 4.0 - 6.0ADA THERAPEUTIC TARGET < 7.0ACTION SUGGESTED> 7.0MR WRIST LEFT WO IV CONTRASTon [id number] WRIST LEFT WO IV CONTRASTEXAM: MR WRIST LEFT WO IV CONTRAST HISTORY: [...] evidence of recent fracture. ELECTRONICALLY SIGNED BY: Dejuan OvallemalNot AvailableMR Wrist - left WO contraston 01-15-2025 Partial tearing of the styloid component of the TFCC. No evidence of recent fracture. ELECTRONICALLY SIGNED BY: DONNA Ovalle EXAM: MR WRIST LEFT WO IV CONTRAST [...] morphology. Mild degenerative changes of the wrist. IMAGINGSteffTheodore holt DO - 01/15/2025 EXAM: MR WRIST LEFT [...] fracture. ELECTRONICALLY SIGNED BY: Theodore Chavez DO [facility] HealthcareRad[facility] Study observation (narrative)[facility] W[facility] - left WO contrastOrdered By: Theodore Chavez on 06-73-1928DACEMissouri Southern Healthcare Work Phone: XR Wrist - left 2 Viewson [phone] Result: AP and Lateral left wrist: No acute fracture or dislocation Mild arthritic changes radial styloid . Scaphoid Unchanged subchondral cystic changes in scaphoid and trapezium Impression- mild degenerative changes left left. No acute fracture.[facility]Rad[facility] Study observation (narrative)[facility] Panel Informationon 83-22-8330YojqxwyJACOB Zhao 01/06/2025 10:19 PM Cast / Splint [...] tolerated the procedure well with no immediate complicationsAtrium Health Steele CreekXR elbow LT min 3V*on 77-99-1729AU elbow LT min 3V*[facility] [place], [place] [id number] XRay Report Signed Patient: Isabelle Benitez MR#: [id number] : 1955 Acct:[id number] Age/Sex: 69 / F ADM Date: 01/01/25 Loc: XDUCLY Room: Type: [facility] Attending Dr: Britta Love APRN Copies to: Britta Love APRN Ordering Provider: Britta Love APRN Date of Service: 01/01/25 XR/XR elbow LT min 3V*: S59.912A - Unspecified injury of left forearm, initial en... ([id number]) XR/XR wrist LT min 3V*: S59.912A - [...] PROCESS. Impression dictated by: Thomas Christensen Jr., D.OCitlali 01/01/2025 10:15 AM Dictation Location: [place] [address] Transcribed By: [facility] 01/01/25 1015 Dictated By: Thomas Christensen Jr, DO 01/01/25 1013 Signed By: 01/01/25 1015[facility] Physician GroupBasophils Auto (Bld) [#/Vol]on 17-25-5850Fyigqpnea (Bld) [#/Vol]Automated basophil count0.0-0.1FGuernsey Memorial HospitalBasophils/100 WBC Auto (Bld)on 38-17-3469Qxsdhjjqy/100 WBC (Bld)Automated basophil %0.2-2.0[facility] HospitalCholesterol in LDL Calc [Mass/Vol]on 89-86-8585Lhjfzauxwza in LDL [Mass/Vol]Cholesterol in LDL [Mass/volume] in Serum or Plasma by calculationFayette County Memorial HospitalComment on above:<100 mg/dl HKSPHGZ393-260 mg/dl NEAR OR ABOVE GYWWNXF229- 159 mg/dl BORDERLINE CZRW975-507 mg/dl HIGH>190 mg/dl VERY HIGHCholesterol in VLDL Calc [Mass/Vol]on 50-75-7426Qhccahtftsb in VLDL [Mass/Vol]Cholesterol in VLDL [Mass/volume] in Serum or Plasma by calculationFayette County Memorial HospitalEosinophils/100 WBC Auto (Bld)on 13-55-3950Qsnmoncbbnt/100 WBC (Bld) Automated eosinophil %0.9-7.0[facility] HospitalErythrocyte distribution width Auto (RBC) [Ratio]on 78-14-8765Rszxdaxqjjn distribution width (RBC) [Ratio]Erythrocyte distribution width [Ratio] by Automated count11.0-15.0 [facility] HospitalEstimated glomerular filtration rate (GFR) non- Americanon 15-59-4132JON/1.73 sq M.predicted among non-blacks MDRD (S/P/Bld) [Vol rate/Area]Estimated glomerular filtration rate (GFR) non->=60 mL/min/1.73m 2FGuernsey Memorial HospitalGlobulin Calc (S) [Mass/Vol]on 16-64-1500Qtdzjtwz (S) [Mass/Vol]Serum globulin measurement by calculation (mass/volume)[facility] HospitalGlucose mean value [Mass/volume] in Blood Estimated from glycated hemoglobinon 67-27-1771Xtkbjck glucose Estimated from glycated hemoglobin (Bld) [Mass/Vol]Glucose mean value [Mass/volume] in Blood Estimated from glycated hemoglobinFayette County Memorial HospitalHematocrit Auto (Bld) [Volume fraction]on 64-84-0155Umnzudirbx (Bld) [Volume fraction]Hematocrit [Volume Fraction] of Blood by Automated count 36.0-48.0[facility] HospitalHemoglobin A1c percentageon 10-14-2024 HbA1c (Bld) [Mass fraction]Hemoglobin A1c percentage4.5-6.2FGuernsey Memorial HospitalComment on above:ADA RECOMMENDED LIMIT 4.0 - 6.0ADA THERAPEUTIC TARGET < 7.0ACTION SUGGESTED> 7.0Hemoglobin [Mass/volume] in Bloodon 10-14-2024 Hemoglobin (Bld) [Mass/Vol]Hemoglobin [Mass/volume] in Blood12.0-16.0[facility] HospitalLaboratory - Chemistry and Chemistry - challengeon 79-43-6565Pluccps [Mass/Vol]2.9 g/dLLow3.4-5.0[facility] ALP [Catalytic activity/Vol]63 U/Z72-105VrtqjqigbFayette County Memorial HospitalALT [Catalytic activity/Vol]21 U/J87-49MgozzzljpFayette County Memorial HospitalAST [Catalytic activity/Vol]20 U/K19-70CjrseejctFayette County Memorial HospitalBilirubin [Mass/Vol]0.4 mg/dL0.2-1.0[facility] HospitalCalcium [Mass/Vol]8.5 mg/dL8.5-10.1FGuernsey Memorial HospitalChloride [Moles/Vol]107 mmol/L 98-107F[facility] HospitalCholesterol [Mass/Vol]182 mg/dL<=200 [facility] HospitalCholesterol in HDL [Mass/Vol]39 mg/lZTqh64-55 [facility] HospitalComment on above:> or =60 mg/dl - LOW CARDIOVASCULAR RISK<40 mg/dl - HIGH CARDIOVASCULAR RISKCO2 [Moles/Vol]25.5 mmol/L21.0-32.0[facility] HospitalCreatinine [Mass/Vol]0.85 mg/dL 0.55-1.02[facility] HospitalGFR/1.73 sq M.predicted MDRD (S/P/Bld) [Vol rate/Area]mL/min/{1.73_m2}>=60 mL/min/1.73m 2FGuernsey Memorial HospitalGlucose [Mass/Vol]107 mg/eRTqjx45-373KatsxmqjkFayette County Memorial Hospital Magnesium [Mass/Vol]1.9 mg/dL1.8-2.4FGuernsey Memorial HospitalPotassium [Moles/Vol]3.4 mmol/LLow3.5-5.1FGuernsey Memorial HospitalProtein [Mass/Vol]6.1 g/dLLow6.4-8.2FDayton Children's Hospitalodium [Moles/Vol] 140 mmol/U370-970OjilhxurzFayette County Memorial HospitalTriglyceride [Mass/Vol]159 mg/dLHigh<=150F[facility] Memorial HospitalTSH Qn2.020 m[IU]/L0.358-3.740 [facility] HospitalUrea nitrogen [Mass/Vol]15.0 mg/dL7.0-18.0 [facility] HospitalUrea nitrogen/Creatinine [Mass ratio]17.6 mg/mg [facility] HospitalLaboratory - Hematology and Cell countson 17-20-3437Euxdbdqg granulocytes/100 WBC (Bld)0.2 %0.0-0.5FGuernsey Memorial HospitalLeukocytes [#/volume] corrected for nucleated erythrocytes in Blood by Automated counon 82-51-8475XIK corrected for nucl RBC Auto (Bld) [#/Vol]Leukocytes [#/volume] corrected for nucleated erythrocytes in Blood by Automated coun4.0-11.0[facility] HospitalLymphocytes Auto (Bld) [#/Vol]on 81-87-8109Ntazunuosez (Bld) [#/Vol]Lymphocytes [#/volume] in Blood by Automated count1.2-3.8[facility] HospitalLymphocytes/100 WBC Auto (Bld)on 33-41-8877Ifjkuxijswf/100 WBC (Bld)Lymphocytes/100 leukocytes in Blood by Automated count20.5-60.0[facility] HospitalMCH Auto (RBC) [Entitic mass]on 69-81-5135ZQY (RBC) [Entitic mass]MCH [Entitic mass] by Automated count26.7-34.0[facility] HospitalMCHC Auto (RBC) [Mass/Vol]on 07-54-5121GBXR (RBC) [Mass/Vol]MCHC [Mass/volume] by Automated count29.9-35.2FGuernsey Memorial HospitalMCV Auto (RBC) [Entitic vol]on 81-89-0535ZRB (RBC) [Entitic vol]MCV [Entitic volume] by Automated count 81.0-99.0[facility] HospitalMonocytes Auto (Bld) [#/Vol]on 31-44-7182Eluxgrhpr (Bld) [#/Vol]Automated blood monocyte count0.3-0.8[facility] HospitalMonocytes/100 WBC Auto (Bld)on 70-03-7848Ucpfkgpnv/100 WBC (Bld)Automated monocyte %1.7-12.0[facility] Neutrophils Auto (Bld) [#/Vol]on 34-32-7524Kkudvfpevuz (Bld) [#/Vol]Neutrophils [#/volume] in Blood by Automated count1.4-6.5FGuernsey Memorial Hospital Neutrophils/100 WBC Auto (Bld)on 72-42-8069Reaobwszwyj/100 WBC (Bld)Automated neutrophil %Low43.0-75.0[facility] HospitalNo Panel Informationon 37-78-3694Ljcntegkize # (Auto)0.2 10 3/uL0.0-0.7FGuernsey Memorial HospitalImmature Granulocyte # (Auto)0.01 10 3/uL0.00-0.03[facility] HospitalPlatelet mean volume Auto (Bld) [Entitic vol]on 48-57-1587Mjrmubgw mean volume (Bld) [Entitic vol]Platelet mean volume [Entitic volume] in Blood by Automated count9.5-13.5FGuernsey Memorial HospitalPlatelets Auto (Bld) [#/Vol]on 75-65-0749Ifhavjlhd (Bld) [#/Vol]Platelets [#/volume] in Blood by Automated huuro685-833DgbbdbjcdFayette County Memorial HospitalRBC Auto (Bld) [#/Vol]on 18-31-3025YMI (Bld) [#/Vol]Erythrocytes [#/volume] in Blood by Automated count 4.20-5.40[facility] Hospitalerum or plasma albumin/globulin mass ratioon 59-86-0158Gvzxtxa/Globulin [Mass ratio]Serum or plasma albumin/globulin mass ratioChillicothe Hospitalerum or plasma anion gap determinationon 00-33-4931Vhepm gap [Moles/Vol]Serum or plasma anion gap determinationChillicothe Hospitalerum or plasma total cholesterol/high density lipoprotein (HDL) cholesterol mass maru 10-14-2024 Cholesterol.total/Cholesterol in HDL [Mass ratio]Serum or plasma total cholesterol/high density lipoprotein (HDL) cholesterol mass [facility] HospitalComment on above:3.3 - 4.4 LOW RISK4.4 - 7.1 AVERAGE RISK7.1 - 11.0 MODERATE RISK>11.0 HIGH RISKBasophils Auto (Bld) [#/Vol]on 83-93-3221Glgbzxpln (Bld) [#/Vol]Automated basophil count0.0-0.1FGuernsey Memorial HospitalBasophils/100 WBC Auto (Bld)on 02-48-0709Btnhvyclz/100 WBC (Bld)Automated basophil %0.2-2.0[facility] Eosinophils/100 WBC Auto (Bld)on 92-96-6914Halbfwjayat/100 WBC (Bld)Automated eosinophil %0.9-7.0[facility] HospitalErythrocyte distribution width Auto (RBC) [Ratio]on 35-15-7791Zodafrifxhk distribution width (RBC) [Ratio]Erythrocyte distribution width [Ratio] by Automated count11.0-15.0 [facility] HospitalHematocrit Auto (Bld) [Volume fraction]on 65-21-5873Xoqvmmomys (Bld) [Volume fraction]Hematocrit [Volume Fraction] of Blood by Automated count36.0-48.0[facility] HospitalHemoglobin [Mass/volume] in Bloodon 15-57-0908Asorqxbueh (Bld) [Mass/Vol]Hemoglobin [Mass/volume] in Blood12.0-16.0[facility] HospitalINR in Platelet poor plasma by Coagulation assayon 55-74-7881DMJ Coag (PPP) [Relative time]INR in Platelet poor plasma by Coagulation assayFayette County Memorial Hospital Comment on above:DESIRED INR:2.0-3.0 CONDITIONS NOT LISTED BELOW2.5-3.5 FOR PROSTHETIC HEART VALVE REPLACEMENT2.5-3.5 RECURRENT THROMBOSISLaboratory - Chemistry and Chemistry - challengeon 51-58-4869Qmlbffr [Moles/Vol]1.3 mmol/L 0.4-2.0[facility] HospitalMagnesium [Mass/Vol]1.9 mg/dL1.8-2.4 [facility] HospitalTS Qn1.790 m[IU]/L0.358-3.740[facility] HospitalLaboratory - Hematology and Cell countson 10-13-2024 Immature granulocytes/100 WBC (Bld)0.3 %0.0-0.5FGuernsey Memorial Hospital Leukocytes [#/volume] corrected for nucleated erythrocytes in Blood by Automated counon 98-37-9460YKD corrected for nucl RBC Auto (Bld) [#/Vol]Leukocytes [#/volume] corrected for nucleated erythrocytes in Blood by Automated coun 4.0-11.0[facility] HospitalLymphocytes Auto (Bld) [#/Vol]on 46-42-0741Xjromknybpr (Bld) [#/Vol]Lymphocytes [#/volume] in Blood by Automated count1.2-3.8[facility] HospitalLymphocytes/100 WBC Auto (Bld)on 32-12-9461Glcvqpzemnp/100 WBC (Bld)Lymphocytes/100 leukocytes in Blood by Automated count20.5-60.0[facility] SystemH Auto (RBC) [Entitic mass]on 90-98-6932SRY (RBC) [Entitic mass]MCH [Entitic mass] by Automated count 26.7-34.0[facility] HospitalMCHC Auto (RBC) [Mass/Vol]on 09-12-9811QFGL (RBC) [Mass/Vol]MCHC [Mass/volume] by Automated count29.9-35.2 [facility] HospitalMCV Auto (RBC) [Entitic vol]on 41-85-4477DBX (RBC) [Entitic vol]MCV [Entitic volume] by Automated count81.0-99.0[facility] HospitalMonocytes Auto (Bld) [#/Vol]on 53-46-0452Qfcgedmpq (Bld) [#/Vol]Automated blood monocyte count0.3-0.8[facility] Monocytes/100 WBC Auto (Bld)on 80-96-1765Vibebjdmc/100 WBC (Bld)Automated monocyte %1.7-12.0[facility] HospitalNeutrophils Auto (Bld) [#/Vol]on 87-92-4801Ttbnzbtyjuo (Bld) [#/Vol]Neutrophils [#/volume] in Blood by Automated count1.4-6.5FGuernsey Memorial HospitalNeutrophils/100 WBC Auto (Bld)on 93-03-5090Svldwmzswex/100 WBC (Bld)Automated neutrophil %43.0-75.0 [facility] HospitalNo Panel Informationon 83-45-9311Hnmaoube I High Sensitivity6.6 pg/mL4.0-51.3FGuernsey Memorial HospitalComment on above:CUT-OFF POINTS HAVE BEEN ESTABLISHED BASED ON THE FOURTHUNIVERSAL DEFINITION OF MYOCARDIAL INFARCTION. THE UPPERREFERENCE LIMIT (URL) OF TROPONIN, DEFINED THE 99THPERCENTILE OF cTnI DISTRIBUTION IN A REFERENCE POPULATION,HAS BEEN CONFIRMED THE DECISION THRESHOLD FOR MIDIAGNOSIS.99TH PERCENTILE = 51.4 PG/MLNOTE: HIGH-SENSITIVITY TROPONIN ASSAY IS NOT INTENDED TO BEUSED IN ISOLATION BUT SHOULD BE INTERPRETED IN CONJUNCTIONWITH OTHER DIAGNOSTIC AND CLINICAL INFORMATION.Eosinophils # (Auto)0.1 10 3/uL0.0-0.7 [facility] HospitalImmature Granulocyte # (Auto)0.03 10 3/uL 0.00-0.03[facility] HospitalPlatelet mean volume Auto (Bld) [Entitic vol]on 51-36-0951Zbcihcik mean volume (Bld) [Entitic vol]Platelet mean volume [Entitic volume] in Blood by Automated count9.5-13.5FGuernsey Memorial HospitalPlatelets Auto (Bld) [#/Vol]on 30-85-2879Imrnchkfe (Bld) [#/Vol] Platelets [#/volume] in Blood by Automated -574OynlmpsaiFayette County Memorial HospitalProthrombin time (PT)on 82-01-7734IH Coag (PPP) [Time]Prothrombin time (PT)9.0-11.6FGuernsey Memorial HospitalRBC Auto (Bld) [#/Vol]on 88-72-9784UHH (Bld) [#/Vol]Erythrocytes [#/volume] in Blood by Automated count 4.20-5.40[facility] HospitalCOVID + FLU Quick Testingon 09-08-2023 SARS-CoV-2 (COVID-19) RNA KATHY+probe Ql (Unsp spec)PositiveOrient [employer] Other COVID + FLU Quick TestingNegativeNochildren's mercy northland [employer] Other CBC AUTO DIFFon 08-14-1551DERE #0.1 103/ulNormal 0.0-0.1The [facility] HospitalComment on above:Performed By: #### CBC #### [facility] [address] [place] [address] Dr. Angel GrayBasophils/100 WBC (Bld)0.8 %Normal0.2-2.0[facility] Comment on above:Performed By: #### CBC #### [facility] [address] [place] [address] [address] Angel Childress #0.2 103/ulNormal0.0-0.7The [facility] HospitalComment on above: Performed By: #### CBC #### [facility] [address] [place] [address] Dr. Angel Wellsosinophils/100 WBC (Bld)2.6 %Normal0.9-7.0[facility] Comment on above:Performed By: #### CBC #### [facility] [address] [place] [address] [address] Angel Wellsrythrocyte distribution width (RBC) [Ratio]12.4 %Igksqs07.0-15.0 The [facility] HospitalComment on above:Performed By: #### CBC #### [facility] [address] [place] [address] Dr. Angel GrayHematocrit (Bld) [Volume fraction]41.4 %Bidsaw63.0-48.0The [facility] HospitalComment on above:Performed By: #### CBC #### [facility] [address] [place] [address] Dr. Angel GrayHemoglobin (Bld) [Mass/Vol]13.9 g/sYFhlxda43.0-16.0The [facility] HospitalComment on above:Performed By: #### CBC #### [facility] [address] [place] [address] Dr. Angel Galeano #0.03 10e3/ulNormal0.00-0.03The [facility] HospitalComment on above:Performed By: #### CBC #### [facility] [address] [place] [address] Dr. Angel Galeano %0.4 %Normal0.0-0.5The [facility] HospitalComment on above: Performed By: #### CBC #### [facility] [address] [place] [address] Dr. Angel Betancur #3.4 103/ulNormal1.2-3.8The [facility] HospitalComment on above:Performed By: #### CBC #### [facility] [address] [place] [address] Dr. Angel Nicholsonhocytes/100 WBC (Bld)43.9 %Fdtnmq05.5-60.0The [facility] HospitalCommclaren central [place] on above:Performed By: #### CBC #### [facility] [address] [place] [address] Dr. Angel DupontUAL DIFF REQNONormalThe [facility] HospitalComment on above: Performed By: #### CBC #### [facility] [address] [place] [address] Dr. Angel Gunn (RBC) [Entitic mass]29.5 jeHkrtfg53.7-34.0The [facility] HospitalComment on above:Performed By: #### CBC #### [facility] [address] [place] [address] Dr. Angel Gunn (RBC) [Mass/Vol]33.6 g/uHGvtlcb79.9-35.2The [facility] HospitalComment on above:Performed By: #### CBC #### [facility] [address] [place] [address] Dr. Angel GunnV (RBC) [Entitic vol]87.9 xQCjdnoq86.0-99.0The [facility] HospitalComment on above:Performed By: #### CBC #### [facility] [address] [place] [address] Dr. Angel Colby #0.4 103/ulNormal0.3-0.8The [facility] HospitalComment on above:Performed By: #### CBC #### [facility] [address] [place] [address] Dr. Angel Ambrizocytes/100 WBC (Bld)4.7 %Normal1.7-12.0[facility] Comment on above:Performed By: #### CBC #### [facility] [address] [place] [address] Dr. Angel Zamora #3.7 103/ulNormal1.4-6.5The [facility] HospitalComment on above:Performed By: #### CBC #### [facility] [address] [place] [address] Dr. Angel Hamlinutrophils/100 WBC (Bld)47.6 %Zghotk19.0-75.0The [facility] HospitalComment on above:Performed By: #### CBC #### [facility] [address] [place] [address] Dr. Angel Estrellalet mean volume (Bld) [Entitic vol]9.7 fLNormal9.5-13.5The [facility] HospitalComment on above:Performed By: #### CBC #### [facility] [address] [place] [address] Dr. Angel GrayPLT263 103/frDxbhij684-881Lzm [facility] HospitalComment on above: Performed By: #### CBC #### [facility] [address] [place] [address] Dr. Angel GrayRBC4.71 106/ulNormal4.20-5.40The [facility] HospitalComment on above:Performed By: #### CBC #### [facility] [address] [place] [address] [address] Angel GrayWBC7.7 103/ulNormal4.0-11.0The [facility] [place] on above: Performed By: #### CBC #### [facility] [address] [place] [address] [address] Angel GrayGLYCOHEMOGLOBIN A1Con 51-41-3912VGP RECOMMENDATIONSEE BELOWMckitrick HospitalCommclaren central [place] on above:Result Comment: ADA RECOMMENDED LIMIT 4.0 - 6.0 ADA THERAPEUTIC TARGET < 7.0 ACTION SUGGESTED > 7.0Performed By: #### A1C #### [facility] [address] [place] [address] Dr. Angel GrayGlucose [Mass/Vol]126 mg/dLNoSumma HealthCommclaren central [place] on above:Performed By: #### A1C #### [facility] [address] [place] [address] Dr. Angel GrayHbA1c (Bld) [Mass fraction]6.0 %Normal4.5-6.2The [facility] HospitalCommclaren central [place] on above:Performed By: #### A1C #### [facility] [address] [place] [address] Dr. Angel PreciadoID PROFILEon 87-73-0844OCNY-HDL RATIO NORMSEE [facility] HealthCommclaren [facility] [place] on above:Result Comment: 3.3 - 4.4 LOW RISK 4.4 - 7.1 AVERAGE RISK 7.1 - 11.0 MODERATE RISK >11.0 HIGH RISKPerformed By: #### LIPID, CMP #### [facility] [address] [place] [address] Dr. Angel GrayCholesterol [Mass/Vol]220 mg/dLCritically high<=200The [facility] [place] on above:Performed By: #### LIPID, CMP #### [facility] [address] [place] [address] Dr. Angel GrayCholesterol in HDL [Mass/Vol]48 mg/eSAkvsok88-87Shp [facility] [place] on above:Performed By: #### LIPID, CMP #### [facility] [address] [place] [address] Dr. Angel GrayCholesterol in LDL [Mass/Vol]141.4 mg/dLPremier Health on above:Performed By: #### LIPID, CMP #### [facility] [address] [place] [address] Dr. Angel Flynnesterstar.total/Cholesterol in HDL [Mass ratio]4.6 {ratio} NormalThe [facility] [place] on above:Performed By: #### LIPID, CMP #### [facility] [address] [place] [address] Dr. Angel Borrego NORMAL> or = 60 mg/dl - LOW CARDIOVASCULAR RISK <40 mg/dl - HIGH CARDIOVASCULAR RISKWilson Memorial HospitalCommclaren central [place] on above:Performed By: #### LIPID, CMP #### [facility] [address] [place] [address] Dr. Angel Moncada CALC NORMALSEE BELOWWilson Memorial HospitalComment on above:Result Comment: <100 mg/dl OPTIMAL 100 - 129 mg/dl NEAR OR ABOVE OPTIMAL 130 - 159 mg/dl BORDERLINE HIGH 160 - 189 mg/dl HIGH >190 mg/dl VERY HIGH Performed By: #### LIPID, CMP #### [facility] [address] [place] [address] Dr. Angel GrayTriglyceride [Mass/Vol]153 mg/dLCritically high<=150The [facility] [place] on above:Performed By: #### LIPID, CMP #### [facility] [address] [place] [address] Dr. Angel ManjarrezLDL CALC30.6 mg/dLNoSumma HealthCommclaren central [place] on above: Performed By: #### LIPID, CMP #### [facility] [address] [place] [address] Dr. Angel Jack 14(COMP METB)on 43-42-1472Mhadoof [Mass/Vol]3.7 g/dLNormal 3.4-5.0The [facility] HospitalComment on above:Performed By: #### LIPID, CMP #### [facility] [address] [address] [address] Angel GrayAlbumin/Globulin [Mass ratio]0.9 {ratio}NormalThe [facility] HospitalComment on above:Performed By: #### LIPID, CMP #### [facility] [address] [address] [address] Angel WislonP [Catalytic activity/Vol]71 U/AKtgllj09-929Tzq [facility] HospitalComment on above:Performed By: #### LIPID, CMP #### [facility] [address] [address] [address] Angel WilsonT [Catalytic activity/Vol]21 U/DNwbnwx10-82Dap [facility] HospitalComment on above:Performed By: #### LIPID, CMP #### [facility] [address] [address] [address] Angel Clarkeon gap [Moles/Vol]10.2 mmol/LNormalThe [facility] Comment on above:Performed By: #### LIPID, CMP #### [facility] [address] [address] [address] Angel GrayAST [Catalytic activity/Vol]17 U/UEupaqt92-14Ies [facility] HospitalComment on above:Performed By: #### LIPID, CMP #### [facility] [address] [address] [address] Angel GrayBilirubin [Mass/Vol]0.3 mg/dLNormal0.2-1.0[facility] Comment on above:Performed By: #### LIPID, CMP #### [facility] [address] [address] [address] Angel GrayCalcium [Mass/Vol]9.1 mg/dLNormal8.5-10.1The [facility] Comment on above:Performed By: #### LIPID, CMP #### [facility] [address] [address] [address] Angel GrayChloride [Moles/Vol]103 mmol/BCpkifa00-663Sut [facility] Comment on above:Performed By: #### LIPID, CMP #### [facility] [address] [address] [address] Angel GrayCO2 [Moles/Vol]30.0 mmol/LYudssp58.0-32.0The [facility] Comment on above:Performed By: #### LIPID, CMP #### [facility] [address] [address] [address] Angel GrayCreatinine [Mass/Vol]0.74 mg/dLNormal0.55-1.02The [facility] HospitalComment on above:Performed By: #### LIPID, CMP #### [facility] [address] [address] [address] Angel WellsGFR-AF BURKINAN>60Normal>=60The [facility] HospitalComment on above:Performed By: #### LIPID, CMP #### [facility] [address] [address] [address] Angel WellsGFR-NON AF BURKINAN>60Normal>=60The [facility] HospitalComment on above:Performed By: #### LIPID, CMP #### [facility] [facility] [address] [address] [address] Angel GrayGlobulin (S) [Mass/Vol]4.0 g/dLNormalThe [facility] HospitalComment on above:Performed By: #### LIPID, CMP #### [facility] [address] [address] [address] Angel GrayGlucose [Mass/Vol]102 mg/jTNcpjga27-555OhyWayne [facility] Comment on above:Performed By: #### LIPID, CMP #### [facility] [address] [place] [address] Dr. Angel GrayPotassium [Moles/Vol]4.2 mmol/LNormal3.5-5.1[facility] Comment on above:Performed By: #### LIPID, CMP #### [facility] [address] [address] [address] Angel GrayProtein [Mass/Vol]7.7 g/dLNormal6.4-8.2[facility] Comment on above:Performed By: #### LIPID, CMP #### [facility] [address] [address] [address] Angel GraySodium [Moles/Vol]139 mmol/RYqnaid960-766Emu [facility] Comment on above:Performed By: #### LIPID, CMP #### [facility] [address] [address] [address] Angel Mg nitrogen [Mass/Vol]21.0 mg/dLCritically high7.0-18.0The [facility] HospitalComment on above:Performed By: #### LIPID, CMP #### [facility] [address] [address] [address] Angel Mg nitrogen/Creatinine [Mass ratio]28.4 mg/mgNoSumma HealthComment on above:Performed By: #### LIPID, CMP #### [facility] [address] [address] [address] Angel PerdomoRECT LDLon 29-72-3605Ldbtqhgilja in LDL [Mass/Vol]144 mg/dL NormalWayne HospitalComment on above:Performed By: #### DLDL #### [facility] [address] [address] [address] Angel GrayDLDL NORMALSEE Madison HealthComment on above: Result Comment: <100 mg/dl OPTIMAL 100 - 129 mg/dl NEAR OR ABOVE OPTIMAL 130 - 159 mg/dl BORDERLINE HIGH 160 - 189 mg/dl HIGH >190 mg/dl VERY HIGHPerformed By: #### DLDL #### [facility] [address] [address] [address] Angel GrayGLYCOHEMOGLOBIN A1Con 84-78-0058UTL RECOMMENDATIONSEE BELOWMckitrick HospitalCommclaren central [place] on above:Result Comment: ADA RECOMMENDED LIMIT 4.0 - 6.0 ADA THERAPEUTIC TARGET < 7.0 ACTION SUGGESTED > 7.0Performed By: #### A1C #### [facility] [address] [address] [address] Angel GrayGlucose [Mass/Vol]128 mg/dLWilson Memorial HospitalComment on above:Performed By: #### A1C #### [facility] [address] [address] [address] Angel GrayHbA1c (Bld) [Mass fraction]6.1 %Normal4.5-6.2The [facility] HospitalComment on above:Performed By: #### A1C #### [facility] [address] [address] [address] Angel GrayMG MAMM SCREEN 3D ROMELIA CADon [id number] MAMM SCREEN 3D ROMELIA CAD Patient: ISABELLE BENITEZ Exam Date: 09/26/2021 : 1955 Gender:F Ordering : DR ROB MIJARES D.O. Admission #: [id number] Family : Order #: [id number] CLICK HERE TO VIEW EXAM RADIOLOGY REPORT [...] Treatments None Family Cancers None LOCATION: [facility] BREAST COMPOSITION: Scattered areas fibroglandular density. FINDINGS: [...] by: Georgi Cabezas MD on 09/26/2021 at 09:43NoSt. Anthony[facility] AUTO DIFFon 57-37-3740PCWU #0.1 103/ulNormal0.0-0.1The [facility] HospitalComment on above:Performed By: #### CBC #### [facility] [address] [place] [address] Dr. Angel GrayBasophils/100 WBC (Bld)0.8 %Normal0.2-2.0[facility] Comment on above:Performed By: #### CBC #### [facility] [address] [place] [address] Dr. Angel Childress #0.3 103/ulNormal0.0-0.7The [facility] HospitalComment on above: Performed By: #### CBC #### [facility] [address] [place] [address] Dr. Angel Wellsosinophils/100 WBC (Bld)3.1 %Normal0.9-7.0[facility] Comment on above:Performed By: #### CBC #### [facility] [address] [place] [address] Dr. Angel Wellsrythrocyte distribution width (RBC) [Ratio]12.5 %Kjpvtb30.0-15.0 The [facility] HospitalComment on above:Performed By: #### CBC #### [facility] [address] [place] [address] Dr. Angel GrayHematocrit (Bld) [Volume fraction]42.1 %Gbtibb16.0-48.0The [facility] HospitalComment on above:Performed By: #### CBC #### [facility] [address] [place] [address] Dr. Angel GrayHemoglobin (Bld) [Mass/Vol]13.8 g/dHKcchij33.0-16.0The [facility] HospitalComment on above:Performed By: #### CBC #### [facility] [address] [place] [address] Dr. Angel Galeano #0.03 10e3/ulNormal0.00-0.03The [facility] HospitalComment on above:Performed By: #### CBC #### [facility] [address] [place] [address] Dr. Angel Galeano %0.4 %Normal0.0-0.5The [facility] HospitalComment on above: Performed By: #### CBC #### [facility] [address] [place] [address] Dr. Yilan ChangLYMPH #3.3 103/ulNormal1.2-3.8The [facility] HospitalComment on above:Performed By: #### CBC #### [facility] [address] [place] [address] Dr. Angel Burksmphocytes/100 WBC (Bld)40.8 %Rwrqgq28.5-60.0The [facility] HospitalComment on above:Performed By: #### CBC #### [facility] [address] [place] [address] Dr. Angel Dang DIFF REQNONormalThe [facility] HospitalComment on above: Performed By: #### CBC #### [facility] [address] [place] [address] Dr. Angel Gunn (RBC) [Entitic mass]29.1 vzSlreks72.7-34.0The [facility] HospitalComment on above:Performed By: #### CBC #### [facility] [address] [place] [address] Dr. Angel Gunn (RBC) [Mass/Vol]32.8 g/bVMhiopy30.9-35.2The [facility] HospitalComment on above:Performed By: #### CBC #### [facility] [address] [place] [address] Dr. Angel Geiger (RBC) [Entitic vol]88.8 cWEokcjb33.0-99.0The [facility] HospitalComment on above:Performed By: #### CBC #### [facility] [address] [place] [address] Dr. Angel Colby #0.5 103/ulNormal0.3-0.8The [facility] HospitalComment on above:Performed By: #### CBC #### [facility] [address] [place] [address] Dr. Angel Ambrizocytes/100 WBC (Bld)5.8 %Normal1.7-12.0[facility] Comment on above:Performed By: #### CBC #### [facility] [address] [place] [address] Dr. Angel Zamora #3.9 103/ulNormal1.4-6.5The [facility] HospitalComment on above:Performed By: #### CBC #### [facility] [address] [place] [address] Dr. Angel Hamlinutrophils/100 WBC (Bld)49.1 %Psinol21.0-75.0The [facility] HospitalCommclaren central [place] on above:Performed By: #### CBC #### [facility] [address] [place] [address] Dr. Angel GrayPlatelet mean volume (Bld) [Entitic vol]9.8 fLNormal9.5-13.5The [facility] HospitalComment on above:Performed By: #### CBC #### [facility] [address] [place] [address] Dr. Angel PotterT231 103/gzMiowam262-570Rke [facility] HospitalCommclaren central [place] on above: Performed By: #### CBC #### [facility] [address] [place] [address] Dr. Angel GrayRBC4.74 106/ulNormal4.20-5.40The [facility] HospitalCommclaren central [place] on above:Performed By: #### CBC #### [facility] [address] [place] [address] Dr. Angel GrayWBC8.0 103/ulNormal4.0-11.0Way[facility] HospitalCommclaren [facility] [place] on above: Performed By: #### CBC #### [facility] [address] [place] [address] Dr. Angel GrayLIPID PROFILEon 85-48-0750IBQK-HDL RATIO NORMSEE [facility] HealthCommclaren [facility] [place] on above:Result Comment: 3.3 - 4.4 LOW RISK 4.4 - 7.1 AVERAGE RISK 7.1 - 11.0 MODERATE RISK >11.0 HIGH RISKPerformed By: #### LIPID, CMP #### [facility] [address] [place] [address] Dr. Angel GrayCholesterol [Mass/Vol]249 mg/dLCritically high<=200The [facility] [place] on above:Performed By: #### LIPID, CMP #### [facility] [address] [address] [address] Angel GrayCholesterol in HDL [Mass/Vol]46 mg/dLWilson Memorial Hospital Comment on above:Performed By: #### LIPID, CMP #### [facility] [address] [address] [address] Angel GrayCholesterol in LDL [Mass/Vol]165.8 mg/dLWilson Memorial HospitalComment on above:Performed By: #### LIPID, CMP #### [facility] [address] [address] [address] Angel Flynnesterstar.total/Cholesterol in HDL [Mass ratio]5.4 {ratio} NormalThe [facility] HospitalCommclaren central [place] on above:Performed By: #### LIPID, CMP #### [facility] [address] [address] [address] Angel Borrego NORMAL> or = 60 mg/dl - LOW CARDIOVASCULAR RISK <40 mg/dl - HIGH CARDIOVASCULAR RISKNoSumma HealthComment on above:Performed By: #### LIPID, CMP #### [facility] [address] [place] [address] Dr. Angel Moncada CALC NORMALSEE BELOWWilson Memorial HospitalCommclaren central [place] on above:Result Comment: <100 mg/dl OPTIMAL 100 - 129 mg/dl NEAR OR ABOVE OPTIMAL 130 - 159 mg/dl BORDERLINE HIGH 160 - 189 mg/dl HIGH >190 mg/dl VERY HIGH Performed By: #### LIPID, CMP #### [facility] [address] [address] [address] Angel GrayTriglyceride [Mass/Vol]186 mg/dLCritically high<=150The [facility] [place] on above:Performed By: #### LIPID, CMP #### [facility] [address] [address] [address] Angel GrayVLDL CALC37.2 mg/dLWilson Memorial HospitalComment on above: Performed By: #### LIPID, CMP #### [facility] [address] [address] [address] Angel GrayPROF 14(COMP METB)on 42-60-2528Ockqwft [Mass/Vol]3.5 g/dLNormal 3.5-5.0The [facility] HospitalComment on above:Performed By: #### LIPID, CMP #### [facility] [address] [address] [address] Angel GrayAlbumin/Globulin [Mass ratio]0.9 {ratio}NormalThe [facility] HospitalComment on above:Performed By: #### LIPID, CMP #### [facility] [address] [address] [address] Angel WilsonP [Catalytic activity/Vol]79 U/IBecpzq03-009Ftw [facility] HospitalComment on above:Performed By: #### LIPID, CMP #### [facility] [address] [place] [address] Dr. Angel Smith [Catalytic activity/Vol]48 U/LNormal9-52[facility] Comment on above:Performed By: #### LIPID, CMP #### [facility] [address] [address] [address] Angel Suresh gap [Moles/Vol]13.0 mmol/LNormalThe [facility] Comment on above:Performed By: #### LIPID, CMP #### [facility] [address] [address] [address] Angel GrayAST [Catalytic activity/Vol]30 U/JVnszvm46-04Idx [facility] HospitalComment on above:Performed By: #### LIPID, CMP #### [facility] [address] [place] [address] Dr. Angel GrayBilirubin [Mass/Vol]0.4 mg/dLNormal0.2-1.3[facility] Comment on above:Performed By: #### LIPID, CMP #### [facility] [address] [place] [address] Dr. Angel GrayCalcium [Mass/Vol]9.2 mg/dLNormal8.4-10.2[facility] Comment on above:Performed By: #### LIPID, CMP #### [facility] [address] [address] [address] Angel GrayChloride [Moles/Vol]103 mmol/BVaedgo48-648Xno [facility] Comment on above:Performed By: #### LIPID, CMP #### [facility] [address] [address] [address] Angel GrayCO2 [Moles/Vol]28.1 mmol/HZuvecr08.0-30.0[facility] Comment on above:Performed By: #### LIPID, CMP #### [facility] [address] [address] [address] Angel GrayCreatinine [Mass/Vol]0.78 mg/dLNormal0.52-1.04The [facility] HospitalComment on above:Performed By: #### LIPID, CMP #### [facility] [address] [address] [address] Angel WellsGFR-AF BURKINAN>60Normal>=60The [facility] HospitalComment on above:Performed By: #### LIPID, CMP #### [facility] [address] [address] [address] Angel WellsGFR-NON AF BURKINAN>60Normal>=60The [facility] HospitalComment on above:Performed By: #### LIPID, CMP #### [facility] [address] [address] [address] Angel GrayGlobulin (S) [Mass/Vol]4.0 g/dLNormalThe [facility] HospitalComment on above:Performed By: #### LIPID, CMP #### [facility] [address] [address] [address] Angel GrayGlucose [Mass/Vol]137 mg/dLCritically cgnc64-265Sib Premier Healthment on above:Performed By: #### LIPID, CMP #### [facility] [address] [address] [address] Angel GrayPotassium [Moles/Vol]4.1 mmol/LNormal3.4-5.0[facility] Comment on above:Performed By: #### LIPID, CMP #### [facility] [address] [address] [address] Angel GrayProtein [Mass/Vol]7.5 g/dLNormal6.1-8.2[facility] Comment on above:Performed By: #### LIPID, CMP #### [facility] [address] [address] [address] Angel GraySodium [Moles/Vol]140 mmol/VXgjhwl299-864Tzt [facility] Comment on above:Performed By: #### LIPID, CMP #### [facility] [address] [address] [address] Angel GrayUrea nitrogen [Mass/Vol]26.0 mg/dLCritically high7.0-17.0The [facility] HospitalComment on above:Performed By: #### LIPID, CMP #### [facility] [address] [address] [address] Angel Mg nitrogen/Creatinine [Mass ratio]33.3 mg/mgNormalThe [facility] HospitalComment on above:Performed By: #### LIPID, CMP #### [facility] [address] [address] [address] Angel GrayAlbumin [Mass/volume] in Serum or Plasmaon 23-16-6107Ezrxtfn [Mass/Vol]3.8 g/dL3.2-5.5FAdena Health System CtrBasophils Auto (Bld) [#/Vol]on 25-76-0124Scbphvfxj (Bld) [#/Vol]0.1 10*3/uL0.0-0.2FAdena Health System CtrBasophils/100 WBC Auto (Bld)on 56-52-8448Dybfcrwww/100 WBC (Bld)0.9 % [facility] CtrBlood hemoglobin measurement (mass/volume)on 28-82-3135Vhrdbsonvb (Bld) [Mass/Vol]13.9 g/dL11.8-15.4FAdena Health System CtrBlood leukocytes automated count (number/volume)on 34-94-0507ACM (Bld) [#/Vol]8.1 10*3/uL4.5-11.0[facility] CtrCOVID-19 Positive/Negativeon 45-49-7496NYZS-CoV-2 (COVID-19) N gene KATHY+probe Ql (Resp) NegativeNegativeDoctors Hospital CtrComment on above:Testing for SARS-CoV-2 by RT-PCRThis test was developed and its performance characteristics determined by [employer] ([employer]) and validated at the [facility]. This test has not been FDA cleared or approved. This test has been authorized by FDA under an Emergency Use Authorization (EUA). This test has been validated in accordance with the FDA's Guidance Document (Policy for Diagnostics Testing in Laboratories Certified to Perform High Complexity Testing under CLIA prior to Emergency Use Authorization for Coronavirus Disease- 2019 during the Public Health Emergency) issued on November 19, 2019. This test is only authorized for the duration of time the declaration that circumstances exist justifying the authorization of the emergency use of in vitro diagnostic tests for detection of SARS-CoV-2 virus and/or diagnosis of COVID-19 infection under section 564(b)(1) of the Act, 21 U.S.C. 360bbb-3(b)(1), unless the authorization is terminated or revoked sooner.Creatinine and Glomerular filtration rate.predicted panel (S/P/Bld)on 29-21-2068Wgtwiinmqg [Mass/Vol]0.71 mg/dL0.44-1.03[facility] CtrEosinophils Auto (Bld) [#/Vol]on 10-33-4081Yxbyrajgqmz (Bld) [#/Vol]0.1 10*3/uL0.0-0.45[facility] CtrEosinophils/100 WBC Auto (Bld)on 31-12-1575Wpqlenozajn/100 WBC (Bld)0.9 % [facility] CtrErythrocyte distribution width Auto (RBC) [Ratio] on 99-92-9852Xeaffuuyxpl distribution width (RBC) [Ratio]12.7 %11.9-15.3 [facility] CtrEstimated glomerular filtration rate (GFR) non- Americanon 18-14-4895HJR/1.73 sq M.predicted among non-blacks MDRD (S/P/Bld) [Vol rate/Area]> 60 mL/MinDoctors Hospital CtrGlobulin Calc (S) [Mass/Vol]on 40-91-7400Vdgaygcd (S) [Mass/Vol]3.3 g/dLDoctors Hospital CtrHematocrit Auto (Bld) [Volume fraction]on 34-83-0149Ygtfrojfqw (Bld) [Volume fraction]40.2 %34.0-46.4FAdena Health System CtrLaboratory - Hematology and Cell countson 14-93-8430Cuwropuxr RBC/100 WBC (Bld) [Ratio]0.1 % 0-0.5FAdena Health System CtrLymphocytes Auto (Bld) [#/Vol]on 01-27-2021 Lymphocytes (Bld) [#/Vol]3.4 10*3/uL1.00-4.8[facility] Lymphocytes/100 WBC Auto (Bld)on 78-87-6531Quwuvjcusar/100 WBC (Bld)42.5 % [facility] JacksonMCH Auto (RBC) [Entitic mass]on 65-59-8518OUF (RBC) [Entitic mass]30.5 pg24.7-34.3FElyria Memorial HospitalMCHC Auto (RBC) [Mass/Vol]on 84-78-3878TUDP (RBC) [Mass/Vol]34.6 g/dL32.0-35.0[facility] JacksonMCV Auto (RBC) [Entitic vol]on 88-15-0765BEK (RBC) [Entitic vol]88.2 yQ53-774TeevphkqaDoctors Hospital CtrMonocytes Auto (Bld) [#/Vol]on 38-69-2116Ytqduqcbm (Bld) [#/Vol]0.5 10*3/uL0.0-0.8[facility] CtrMonocytes/100 WBC Auto (Bld)on 32-67-1944Elmfuonlt/100 WBC (Bld)5.9 % [facility] JacksonNeutrophils Auto (Bld) [#/Vol]on 01-27-2021 Neutrophils (Bld) [#/Vol]4.0 10*3/uL1.8-7.7FAdena Health System Ctr Neutrophils/100 WBC Auto (Bld)on 44-06-4844Mmhxmcxhmpa/100 WBC (Bld)49.8 % [facility] CtrNo Panel Informationon 39-05-3141Atlvtghsm GFR ()> 60 mL/MinDoctors Hospital CtrComment on above:GFR estimated reference range: According to KDOQI guidelines, <60 ml/min/1.73m2 is sufficient todiagnose a patient with chronic kidney disease.Pharmacy Creatinine Clearance (ChemN/AFAdena Health System CtrPlatelet mean volume Auto (Bld) [Entitic vol]on 60-37-3840Jddycqzq mean volume (Bld) [Entitic vol]8.1 fL6.3-10.7 [facility] CtrPlatelets Auto (Bld) [#/Vol]on 00-82-0820Hnvczjfru (Bld) [#/Vol]247 10*3/yT827-559XsgrgaohlDoctors Hospital CtrProtein [Mass/volume] in Serum or Plasmaon 55-30-2233Nnrspsf [Mass/Vol]7.1 g/dL6.1-7.9 [facility] CtrRBC Auto (Bld) [#/Vol]on 89-87-5906FAJ (Bld) [#/Vol]4.56 10*6/uL3.60-5.00[facility] CtrSerum or plasma alanine aminotransferase measurement without P-5'-P (enzymatic activion 96-70-3396SDR No additional P-5'-P [Catalytic activity/Vol]28 U/X14-56GakfrozgjDoctors Hospital CtrSerum or plasma albumin/globulin mass ratioon 01-27-2021 Albumin/Globulin [Mass ratio]1.2 {ratio}[facility] CtrSerum or plasma alkaline phosphatase measurement (enzymatic activity/volume)on 01-27-2021 ALP [Catalytic activity/Vol]69 U/L33-25ZolmqdsojDoctors Hospital CtrSerum or plasma aspartate aminotransferase measurement (enzymatic activity/volume)on 92-37-2194DRE [Catalytic activity/Vol]25 U/U07-54XmhioaakhDoctors Hospital Ctr Serum or plasma calcium measurement (mass/volume)on 34-12-2156Pcgganf [Mass/Vol] 9.6 mg/dL8.2-10.2FAdena Health System CtrSerum or plasma chloride measurement (moles/volume)on 41-91-8257Ifmqxgkb [Moles/Vol]100 mmol/L95-114 [facility] CtrSerum or plasma glucose measurement (mass/volume) on 32-00-4060Fuzucam [Mass/Vol]85 mg/nX94-265WtsxfimcuHolzer Medical Center – Jackson Comment on above:ADA recommended reference rangeRandom Glucose Reference Range is dependent on time and content of last meal. Glucose of more than 200 mg/dL in a nonstressed, ambulatory subject supports the diagnosisof Diabetes Mellitus. Serum or plasma potassium measurement (moles/volume)on 59-45-2464Rgbjplctl [Moles/Vol]3.8 mmol/L3.5-5.1FAdena Health System CtrSerum or plasma sodium measurement (moles/volume)on 11-17-2742Qixxyx [Moles/Vol]137 mmol/Y278-810 [facility] CtrSerum or plasma total bilirubin measurement (mass/volume)on 78-65-1734Wiqvhwrdv [Mass/Vol]0.5 mg/dL0.3-1.2FAdena Health System CtrSerum or plasma total carbon dioxide measurement (moles/volume)on 69-41-9592HE1 [Moles/Vol]27.2 mmol/L22.0-30.0[facility] CtrSerum or plasma urea nitrogen measurement (mass/volume)on 15-23-4765Xikl nitrogen [Mass/Vol]13 mg/dL9-23[facility] Vital Signs Date TimeVital SignValuePerforming AtwhjwxevZocgfemu81-94-8794 12:16-0400 Diastolic blood ebxkmtxs84 mm[Hg]Rob Ball DO Work Phone: [facility]09-12-2025 12:16-0400 Heart rate51 /minBenjamin Ball DO Work Phone: [facility]09-12-2025 12:16-0400 Respiratory rate16 /minBenjamin Ball DO Work Phone: [facility]09-12-2025 12:16-0400 SaO2% (BldA) [Mass fraction]97 %Rob Ball DO Work Phone: [facility]09-12-2025 12:16-0400 Systolic blood medzquww209 mm[Hg]Rob Ball DO Work Phone: [facility]09-12-2025 08:26-0400 Body hvhuwg554.48 cmBenjamin Ball DO Work Phone: [facility]09-12-2025 08:26-0400 Body .57 kgBenjamin Ball DO Work Phone: [facility]07-24-2025 10:26-0400 Body mass index (BMI) [Ratio]29.08 kg/l3VhdzymVivek Boyer MD Work Phone: [facility] HealthcareOxodbtfaiv61-34-1715 10:26-0400Body gilloq90.12 kgVivek Boyer MD Work Phone: [facility] HealthcareQdpivlrpev28-49-7754 10:26-0400Diastolic blood rpjjskku34 mm[Hg]Vivek Boyer MD Work Phone: [facility] HealthcareEzxgshgkwt08-10-4464 10:26-0400Systolic blood yxrtapsn598 mm[Hg]Vivek Boyer MD Work Phone: [facility] HealthcareOckiaxnetv15-52-7610 10:52-0400Body pynuuw112.5 cmMattberry Finnegan PA Work Phone: [facility] HealthcareSgkmncapjx78-81-4562 10:52-0400Body mass index (BMI) [Ratio]29.26 kg/b5Zgdfcws Meyer PA Work Phone: [facility] HealthcareYfkqnxmsoo84-99-3102 10:52-0400Body .58 kgMattberry Finnegan PA Work Phone: [facility] HealthcareWvaomnbegy58-66-1560 09:33-0400Body zokjbl978.48 cmF[facility]05-05-2025 09:33-0400Body mass index (BMI) [Ratio]28.9 kg/f7VawywcldiFayette County Memorial Hospital05-05-2025 09:33-0400Body awlcrv77.66 [facility]05-05-2025 09:33-0400Diastolic blood obqfqphb65 mm[Hg][facility]05-05-2025 09:33-0400 Heart rate67 /[facility]05-05-2025 09:33-0400 Respiratory rate12 /[facility]05-05-2025 09:33-0400 Systolic blood umlqbxmp781 mm[Hg][facility]03-04-2025 11:05-0500Body snqzyt987.48 cmFayette [facility] Hospital03-04-2025 11:05-0500Body mass index (BMI) [Ratio]29 kg/r7DfpthsrfpFayette County Memorial Hospital 10-20-2024 11:05-0500Body .12 [facility] 10-20-2024 11:05-0500Diastolic blood hsrpbwme15 mm[Hg][facility]03-04-2025 11:05-0500Heart rate73 /[facility] 10-20-2024 11:05-0500Systolic blood ghkeghnr669 mm[Hg][facility]10-23-2024 11:58-0400Body nxlhfa130.48 cmFayette County [facility] Hospital10-23-2024 11:58-0400Body mass index (BMI) [Ratio]29 kg/r4UrwzgtxhpFayette County Memorial Hospital10-23-2024 11:58-0400Body yzsztx88.17 [facility]10-23-2024 11:58-0400Diastolic blood aymwcirr58 mm[Hg] [facility]10-23-2024 11:58-0400Heart rate69 /[facility]10-23-2024 11:58-0400Respiratory rate12 /[facility]10-23-2024 11:58-0400Systolic blood mm[Hg] [facility]01-21-2024 11:50-0500Body owekkb228.48 Nikia Hull Other [facility] Other 01-21-2024 11:50-0500Body mass index (BMI) [Ratio] 29.63 kg/o8FygukoKarla Hull Other [facility] Other 01-21-2024 11:50-0500Body qtkxtkorjis12.1 [degF]Karla Hull Other [facility] Other 01-21-2024 11:50-0500Body mwvibt31.48 kgPaashely Hull Other [facility] Other 01-21-2024 11:50-0500Diastolic blood mm[Hg] Karla Motamond Other [facility] Other 01-21-2024 11:50-0500Respiratory rate18 /minKarla Hull Other [facility] Other 01-21-2024 11:50-2531GqV8% (BldA) [Mass fraction]98 % Karla Hull Other [facility] Other 01-21-2024 11:50-0500Systolic blood jcmiumhb054 mm[Hg] Karla Motamond Other [facility] Other 01-19-2024 12:15-0500Body zujbhp582.48 cmBenjamin Ball Other noZaiseoul Other 01-19-2024 12:15-0500Diastolic blood mm[Hg] Rob Ball Other noZaiseoul Other 01-19-2024 12:15-0500Systolic blood mm[Hg] Rob Ball Other noZaiseoul Other 10-12-2023 10:00-0400Body ryeesq014.48 cmBenjamin Ball Other [facility] Other 10-12-2023 10:00-0400Body mass index (BMI) [Ratio] 29.77 kg/m9Ysollens Ball Other [facility] Other 10-12-2023 10:00-0400Body .85 kgBenjamin Ball Other [facility] Other 10-12-2023 10:00-0400Diastolic blood rbleonro25 mm[Hg] Rob Ball Other [facility] Other 10-12-2023 10:00-0400Respiratory rate12 /minBenjamin Ball Other [facility] Other 10-12-2023 10:00-0400Systolic blood drcyiodi422 mm[Hg] Rob Ball Other [facility] Other 08-31-2023 10:15-0400Body .48 cmBenjamin Ball Other [facility] Other 08-31-2023 10:15-0400Body mass index (BMI) [Ratio] 29.59 kg/h1Thwzksin Ball Other [facility] Other 08-31-2023 10:15-0400Body .39 kgBenjamin Ball Other [facility] Other 08-31-2023 10:15-0400Diastolic blood qzxdfywy44 mm[Hg] Rob Ball Other noZaiseoul Other 08-31-2023 10:15-0400Respiratory rate12 /minBenjamin Ball Other [facility] Other 08-31-2023 10:15-0400Systolic blood gpaxqdvo264 mm[Hg] Rob Ball Other noZaiseoul Other 03-17-2023 15:45-0400Body ujszzy905.48 cmBenjamin Ball Other [facility] Other 03-17-2023 15:45-0400Body mass index (BMI) [Ratio] 28.86 kg/o8Rudjbdcj Ball Other [facility] Other 03-17-2023 15:45-0400Body .58 kgBenjamin Ball Other [facility] Other 03-17-2023 15:45-0400Diastolic blood xiwxemun12 mm[Hg] Rob Ball Other [facility] Other 03-17-2023 15:45-0400Respiratory rate12 /minBenjamin Ball Other [facility] Other 03-17-2023 15:45-0400Systolic blood tfktmrez531 mm[Hg] Rob Ball Other [facility] Other 09-23-2021 11:45-0400Body yicsli910.48 cmThomas Olexa Other [facility] Other 09-23-2021 11:45-0400Body mass index (BMI) [Ratio] 28.53 kg/u8Jcejkh Olexa Other NoZaiseoul Other 09-23-2021 11:45-0400Body yoowmw78.76 kgThomas Olexa Other NoSonian [employer] Other Encounters Encounter DateEncounter TypeCare ProviderFacilityStart: 05-26-2025 End: 52-11-1381Mduuqk OnlyVivek Boyer MD Work Phone: [facility] OBGYNComment on above:Pelvic pressure in female (Primary Dx)Start: 04-30-2025 End: 37-85-2364thceouwomsWmskgbxn BallFacility:[facility] Start: 97-49-6275Pli-patient / Non-visitJessicad Carley GARCIA-[facility] Work Phone: Start: 03-18-2025 End: 04-21-6391lgeykmpwjvRENAJZ P JONESNot AvailableStart: 03-16-2025 End: 34-52-6582brbppignclEIPDVQ P JONESNot AvailableStart: 03-16-2025 End: 62-13-5626vsmmcbcsuxNDIVAL P JONESNot AvailableStart: 03-11-2025 End: 89-24-3482Oiahjna encounter procedureVivek Boyer MD Work Phone: [facility] OBGYNComment on above:Encounter for screening for cervical cancer (Primary Dx); Encounter for gynecological examination; Encounter for gynecological examination without abnormal finding; Encounter for screening mammogram for malignant neoplasm of breast; Osteoporosis, post-menopausal ; Osteoporosis screening; Postmenopausal; Abdominal pressure; Colon cancer screening; History of KUBStart: 03-11-2025 End: 10-77-1160Pjvzkse encounter statusVivek Boyer MD Work Phone: noms HealthcareStart: 03-11-2025 End: 97-48-2421vesibcrnilBVMHGG P JONESNot AvailableStart: 02-03-2025 End: 97-60-2134Tzcyos flowsUlysses JAMES Work Phone: [facility] FB ORTHOPAEDICSStart: 02-03-2025 End: 44-25-6273Wwtnlr Marylu JAMES Work Phone: [facility] FB ORTHOPAEDICSStart: 02-03-2025 End: 22-71-9742atxttyspxeQDRWFTQ J MEYERNot AvailableStart: 02-03-2025 End: 25-59-9332Tqrzay outpatient visit 15 minutesMattberry JAMES Work Phone: noms FB ORTHOPAEDICSComment on above:Acute pain of left wrist (Primary Dx); Sprain of wrist, left, subsequent encounterStart: 67-95-5902Wyh-patient / Non-visitBenjamin Ball DO-[facility] Work Phone: Start: 01-15-2025 End: 90-96-4692Pbixgj Marylu JAMES Work Phone: noms FB ORTHOPAEDICSStart: 01-15-2025 End: 72-16-7154Yzhkhs Marylu JAMES Work Phone: noms FB ORTHOPAEDICSStart: 01-15-2025 End: 59-21-7712cfpyybbxunBGDLCHF J MEYERNot AvailableStart: 01-15-2025 End: 97-34-3650Fpemir outpatient visit 15 minutesMaikol JAMES Work Phone: noms FB ORTHOPAEDICSComment on above:Acute pain of left wrist (Primary Dx); Sprain of wrist, left, subsequent encounterStart: 01-15-2025 End: 63-96-5217mrvywelfzkNPWJMSK J MEYERNot AvailableStart: 01-13-2025 End: 10-08-1806tjobcikqkzDCJBStefano Zaman Ring HospitalStart: 01-13-2025 End: 46-88-5963Yedpqs outpatient visit 25 minutesSyed Azra Pettit MD Work Phone: [facility] NorthComment on above:History of TIA (transient ischemic attack) (Primary Dx); Carotid stenosis, right; Essential hypertension; Mixed hyperlipidemiaStart: 01-06-2025 End: 24-96-4985Pqxfda flowsUlysses JAMES Work Phone: noms FB ORTHOPAEDICSStart: 01-06-2025 End: 46-98-7301Hiyfbw flowsheetMaikol JAMES Work Phone: n[facility] FB ORTHOPAEDICSStart: 01-06-2025 End: 42-31-4072Uxtpbk outpatient new 30 minutesMattberry JAMES Work Phone: noms FB ORTHOPAEDICSComment on above:Acute pain of left wrist (Primary Dx); Left wrist sprain, initial encounterStart: 01-06-2025 End: 79-86-0321xdajrgivosEWFALZQ J MEYERNot AvailableStart: 01-01-2025 End: 86-68-4205ylgrxaohfiPkatvg M GrobFacility:[facility] Start: 12-21-2024 End: 47-15-1267gpqmzwmppuKvcdfgdbmMetroHealth [facility] Work Phone: Start: 12-21-2024 End: 37-68-6587Zuqdvyw encounter procedureLife[facility] Work Phone: Start: 10-20-2024 End: 78-66-8912lgxmiomapqXqnblbwzwMetroHealth [facility] Work Phone: Start: 10-20-2024 End: 09-59-5496Nfrygre encounter procedureFirsentara [facility] Work Phone: Start: 10-16-2024 End: 32-50-7178Ukzqicmtm encounterPaese Coughlin [facility] Comment on above:return callStart: 67-45-8582Dxr-patient / Non-visitFirlevin Physician Group-[facility] Work Phone: Start: 40-69-3697kruhwolaaqRxfAdhhom Hospital Ambulatory PPGStart: 59-63-6602Ehg-patient / Non-visitFirelands Physician Group- [facility] Work Phone: Start: 11-25-0711Rzr-patient / Non-visitFiralbanys Physician Group-[facility] Work Phone: Start: 10-13-2024 End: 03-59-3820Gobutfsuy department patient visitVeterans Health Administration Ambulatory PPGStart: 85-79-5079Ktx-patient / Non-visitFiralbanys Physician Group-[facility] Work Phone: Start: 71-83-1826Spp-patient / Non-visitFiralbanys Physician Group-[facility] Work Phone: Start: 06-10-2024 End: 35-34-3768nghvnoxrtkFqvidtssxMetroHealth [facility] Work Phone: Start: 06-10-2024 End: 64-20-2872Pdfumdj encounter procedureLifebrite [facility] Work Phone: Start: 75-55-8704Cmdojkz encounter procedureChillicothe Hospitaltart: 09-09-2023 End: 27-23-6984uhbwyeftrxZvicmkxv Ball Other noZaiseoul Other Start: 22-62-8095Ifirkw outpatient visit 10 minutes Rob [facility] ClinicStart: 09-08-2023 End: 94-68-9300jjhehpgiprCerpcq Dymond Other noZaiseoul Other Start: 60-88-4025Bjhrbo outpatient visit 15 minutes Karla [facility] ClydeStart: 09-06-2023 End: 98-20-1023jyugmdhfllFjytkave Ball Other noZaiseoul Other Start: 51-59-2618Cwvpqp outpatient visit 15 minutes Rob BallFPG [facility] Medical ClinicStart: 05-30-2023 End: 95-53-4761unjvivhvyyJbxsilxo Ball Other [facility]ANCL Other Start: 00-33-6173Xhyktxy encounter procedureBenjamin BallFPG [facility] Medical ClinicStart: 04-18-2023 End: 20-99-5456lleltsqijqLhwjxagc Ball Other VANCL Other Start: 42-88-4063Oyaoak outpatient visit 15 minutes Rob BallFPG [facility] Medical ClinicStart: 12-25-2022 End: 23-05-4174npnhgqzxmkIutwofhw Ball Other noZaiseoul Other Start: 80-48-0952Lecubzlyh encounterBenjamin BallFPG Referral CoordinatorStart: 11-02-2022 End: 86-16-8876hgrtwvbnviFaxeqedv Ball Other noZaiseoul Other Start: 71-19-7585Daqwbc outpatient visit 15 minutes Rob BallFPG [facility] ClinicStart: 53-66-8679Dgmssybsf encounterBenjamin BallFPG [facility] Medical ClinicStart: 16-82-1119twxkrxnpkxXX ROB BALL Facility:C8Erqso: 84-11-1687Fjwpqjzra for general adult medical examination without abnormal findingsDR ROB BALLThe [facility]den Bridge HospitalStart: 06-30-2022 End: 71-94-3571qowjrxmqyiMJ ROB BALLFacility:G7Bletw: 06-30-2022 End: 97-52-2621Gxbuidrpw for general adult medical examination without abnormal findingsDR ROB BALLFacility:W3Edcfk: 12-26-2021 End: 66-46-7948uqiildvtfyBA ROB BALLFacility:J6Uvjum: 09-26-2021 End: 27-84-1870qtqktcuobwZA ROB BALLFacility:L7Kbxew: 09-05-2021 End: 36-05-8288nlpgzytgidKB BENJAMIN BALLFacility:U0Avmhx: 18-67-7001lkcbwnavqk DR ROB MIJARESFacility:B2Bjcyk: 08-18-2021 End: 50-79-1935bkhptqochtPQ BENJAMIN BALLFacility:I4Ajcoi: 20-27-1139Tvlwsl outpatient visit 15 minutesThomas OlexaFPG [facility]bed OrthopedicsStart: 01-27-2021 End: 58-56-3357Towrhzw encounter procedureThomas Olexa Work Phone: -Pre-Surgical Testing Procedures DateProcedureProcedure DetailPerforming ClinicianStart: 69-02-2940SFP, APT HPV,RFX 16/18,45Penkira Boyer MD Work Phone: start: 11-70-2990Imqcj wrist 2 viewsMaabril JAMES Work Phone: Start: 54-93-6789Gnbmh wrist 2 viewsMaabril JAMES Work Phone: Start: 13-69-8170CVNF / SPLINT / FXMaabrli JAMES Work Phone: Plan of Treatment DateCare ActivityDetailAuthorStart: 41-34-7303Kbbmsmefu for malignant neoplasm of colonNOOR HealthcareStart: 52-21-2097YqcflajgjChillicothe Hospitaltart: 50-88-1359Jqjrnpdze vaccinationProMedica Health SystemStart: 03-16-2025 End: 38-07-2325Nbxgiasvlzxw / ancillary services managementNOMS Obed Imaging Start: 03-15-2025 End: 43-34-3701Bweoiuxici [Mass/volume] in Serum or PlasmaCreatinine, Serum Lab Routine Abdominal pressure History of KUB Expected: 03/15/2025 (Approximate), Expires: 03/15/2026NOMS HealthcareComment on above:Expected: 03/15/2025 (Approximate), Expires: 03/15/2026Start: 03-15-2025 End: 71-79-6482ID Abdomen and Pelvis W contrast IVCT abdomen pelvis w IV contrast Imaging Routine Abdominal pressure History of KUB Expected: 03/15/2025 (Approximate), Expires: 03/15/2026NOOR HealthcareComment on above:Expected: 03/15/2025 (Approximate), Expires: 03/15/2026Start: 03-11-2025 End: 98-79-2231JYP Skeletal system Views for bone densityDEXA bone density Imaging Routine Osteoporosis screening Postmenopausal Expected: 03/11/2025, Expires: 03/11/2026NOOR HealthcareComment on above:Expected: 03/11/2025, Expires: 03/11/2026Start: 03-11-2025 End: 28-46-5045VN AbdomenUS abdomen Imaging Routine Abdominal pressure Expected: 03/11/2025, Expires: 05/12/2025NOOR HealthcareComment on above:Expected: 03/11/2025, Expires: 05/12/2025Start: 02-17-2025 End: 56-67-4186Rigsrgb encounter gjjnnfxom38/02/2025 9:15 AM EDT Office Visit [facility] [address] [place] [address] Maikol Finnegan PA [address] [facility] [address] [place] [address] [facility] ORTHOPAEDICSStart: 02-03-2025 End: 04-64-3955Jpzkhjh encounter ttmhtlovo26/18/2025 9:45 AM EDT Office Visit [facility] [address] [address] Maikol Finnegan PA [address] [facility] [address] [place] [address] [facility]THOPAEDICSStart: 01-15-2025 End: 35-46-2267Jafoyvr encounter procedureNOMS FB ORTHOPAEDICSComment on above: Acute pain of left wrist (Primary Dx); Sprain of wrist, left, subsequent encounterStart: 01-06-2025 End: 07-23-5345Bpbmjzj encounter qnptzaflt84/21/2025 11:15 AM EDT Office Visit [facility] [place] [id number] Maikol Finnegan PA [address] [place] [address] [place] [address] Karon GLASER ORTHOPAEDICSComment on above:ArrivedStart: 12-02-2024 End: 76-22-3179Fgsslmm encounter koxbgglds79/16/2025 1:00 PM EDT Office Visit [facility] [address] [place] [address] Mayte Pettit MD [address] [place] [address] [facility] NeurologyStart: 04-19-2024 Influenza vaccinationInfluenza VaccineProSelect Medical [facility] SystemStart: 2022 Fall Risk ScreeningFall Risk ScreeningProSelect [facility] SystemStart: 2007 Administration of varicella zoster vaccineZoster (Shingles) Vaccine (1 of 2) [facility] SystemStart: 30-83-8056Chsczamfgozf Vaccine: 65+ Years (1 of 1 - PCV)Pneumococcal Vaccine: 65+ Years (1 of 1 - PCV)[facility] HealthcareStart: 82-37-4640Mtgxbjfpo for malignant neoplasm of breastMammogramMissouri Southern Healthcare Start: 09-50-9010IClJ,Tdap and Td Vaccines (1 - Tdap)DTaP,Tdap and Td Vaccines (1 - Tdap)[facility] SystemStart: 95-77-1817Lfphn BMI ScreeningAdult BMI ScreeningProSelect Medical [facility] SystemStart: 77-28-8375Lazomszoek ScreeningDepression ScreeningProSelect [facility] SystemStart: 88-08-3543Lwuxvxu ScreeningTobacco ScreeningProSelect Medical [facility] SystemStart: 1955Medicare Annual Wellness (AWV) Medicare Annual Wellness (AWV)[facility] HealthcareStart: 89-29-0277Ndqfzteen for malignant neoplasm of colonNOOR HealthcareDBT Breast - bilateral screening Bilateral screening mammogram with tomosynthesis Imaging Routine Encounter for screening mammogram for malignant neoplasm of breast Ordered: 03/11/2025[facility] Work Phone: comment on above:Ordered: 03/11/2025MG Breast - bilateral ScreeningFayette County Memorial HospitalPatient EducationColon polyps High-fiber diet Gastritis - Discharge instructions [facility] Esophagitis Discharge Instructions [facility] Diverticulosis Discharge Instructions [facility] Hemorrhoids Discharge Instructions Know your MedK[facility] Work Phone: [facility] Payers DatePayer CategoryPayerPolicy [id number] (Managed Care)[employer]ICAL M[employer]UAL MEDICARE [id number] 2025Medicare [place] [id number] [id number]-mfs [id number] 2.16840.1.614639.3.57[id number] 2.16840.1.134724.3.579.[id number] 2.16840.1.856374.3.579.[id number] 2.16840.1.127866.3.579.[id number] 2.840.1.758555.3.579.2.[id number] 2.840.1.149820.3.579.2.95359-95-6912Odsacrf0445914 2.0.1.932188.3.579.[id number] 2.840.1.246396.3.579.[id number] 2.0.1.000334.3.57[id number] 2.840.1.356825.3.57[id number] 2.0.1.141429.3.579.[id number] 2.840.1.670669.3.579.2.064665-39-1917Fdwtwpn144251529 2.840.1.472281.3.579.2.8[id number] 2.840.1.671091.3.579.2.634217-84-7977Mlnttgx08328962 2.840.1.532269.3.579.2.[id number] 2.840.1.196899.3.579.2.[id number] 2.16840.1.580893.3.579.2.116253-12-6913Pvlqfod79313934 2.0.1.431860.3.579.2.342942-47-5755Mmoyzhy05135261 2.0.1.379010.3.579.2.592834-54-7737Yadnyqx32329378 2.0.1.418794.3.57[id number] 2.0.1.946600.3.579.2.845662-76-2292Bjohhjz1442830 2.0.1.126629.3.579.2.674727-63-0823Jjbflrf5775376 2.0.1.026018.3.579.2.[id number] 2.0.1.264267.3.579.2.978282-47-2820Fdfkcil1705723 2.0.1.757427.3.579.2.1259BlMercy Health [facility] Hospital FakvnyIHL927H24954 2.0.1.500802.11Lsuxkul82805851 2.0.1.043150.3.579.2.198Srdxnwn01756888 2.0.1.422016.3.579.2.531 Social History DateTypeDetailFacilityStart: 01-27-2021 End: 36-88-7345Yxhaqqb smoking status NHISEx-smoker (finding)[facility]tart: 74-90-4818Gzl [facility] At [facility] 01-28[facility]2019 End: 27-65-2386Gow Assigned At [facility] [employer] Other Tobacco smoking status NHISTobacco smoking consumption unknownAdams County Hospital SystemStart: 01-28-2019 End: 14-91-2797Rsdgiem of Social functionProSelect Medical [facility] SystemChildcareUnknown [facility] SystemStart: 62-92-7779Qwa assigned at [facility] hospitalNot on file [facility]axhawtart: 03-24-2015 End: 28-20-6225GppNauywx (finding)[facility] SystemStart: 01-06-2025 Tobacco smoking status NHISNever smoked tobaccoLOGAN REGIONAL [facility]ITAL HealthcareStart: 01-06-2025 Tobacco use and exposureSmokeless tobacco non-userNOOR HealthcareStart: 01-06-2025 End: 67-71-2803Fblfkqdni beverage intakeEx-drinker (finding)[facility] Medical Equipment Procedure CodeEquipment CodeEquipment Original TextEquipment IdentifierDates Arthroscopy, shoulderTendon/ligament bone anchor, bioabsorbable ()[id number] FDAStart: 05-94-6770Yzsxgfdkjud, shoulderTendon/ligament bone anchor, non-bioabsorbable ()[id number] FDAStart: 10-29-9076Dgiftcqmelh, shoulderTendon/ligament bone anchor, bioabsorbable ()[id number] FDAStart: 02-01-2021 Clinical Notes 05-11-2021 to 05-26-2025 Note Date & AyydWdijKpgnowec76-16-7685 History of Present illness Narrative* Vivek Boyer MD - 05/26/2025 8:11 AM EDT Pelvic pressure documented in this encounterMissouri Southern HealthcareDkbutprfyf91-25-7371 History of Present illness Narrative* Vivek Boyer MD - 03/11/2025 10:30 AM EDT Spoke with patient, she is scheduled for 03/11/25 to go over these and see you * Vivek Boyer MD - 03/11/2025 10:30 AM EDT Images from the original note were not included. 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 She reports a sensation of pressure in her abdomen, which she initially attributed to her history of a total hysterectomy and two Terry-Harjit procedures. She also mentions keloid congestion inthe area and lower back issues. She is not experiencing any pain but describes a feeling of fullness. She is relieved to confirm that she is not . She had an x-ray after experiencing a mini stroke in 09/2024. She was having trouble with her balance, so she went to the chiropractor. He took an x-ray of her spine before adjusting her and recommended her to come and see it. She had a partialhysterectomy initially, with half of one ovary retained. Later, at age 38, she underwent a completehysterectomy. GYNECOLOGICAL HISTORY: Gynecology History discussed OBSTETRICAL HISTORY: Obstetrics History discussed : N/A, Para: PAST SURGICAL HISTORY: - Total hysterectomy - Two Terry-Harjit procedures The patient is a woman with a history of total hysterectomy presenting for evaluation of abdominal pressure and fullness. She reports experiencing pressure in her belly, which she initially attributed to her previous hysterectomy and Terry-Harjit procedures. The patient mentions having big babies in the past, which may have contributed to her gynecological history. The patient describes her main symptom as a feeling of pressure and fullness in her abdomen. She denies pain but notes the sensation of pressure. The patient has a history of receiving steroid injections in the area and reports having lower back issues, which she considered as potential causes for her symptoms. She states that she is pretty healthy overall but was concerned enough about the abdominal pressure to seek medical attention. Recently, the patient visited a chiropractor due to balance issues. During this visit, an X-ray wastaken before her adjustment, which led to the discovery of an unspecified condition that prompted her current gynecological evaluation Patient presents for follow-up of an unspecified abdominal issue. The patient reports being very regular with her bowel movements, occasionally experiencing loose stools. She denies any nausea or vomiting. . The patient has a primary care physician, Dr. Rob Mijares who may be involved in further evaluation of her condition. Visit Vitals BP 120/74 (BP Location: Left arm) Wt 159 lb BMI 29.08 kg/m Smoking Status Never BSA 1.78 m History of Present Illness, Associated Treatments and Results - OB History No obstetric history on file. Review of Systems - Constitutional: Negative. HENT: Negative. Eyes: Negative. Respiratory: Negative. Cardiovascular: Negative. Gastrointestinal: Negative. Endocrine: Negative. Genitourinary: Negative. Musculoskeletal: Negative. Skin: Negative. Allergic/Immunologic: Negative. Neurological: Negative. Hematological: Negative. Psychiatric/Behavioral: Negative. Allergies Allergen Reactions Penicillin V Swelling Current Outpatient Medications: Aspirin Low Dose 81 MG EC tablet, Take 81 mg by mouth Daily, Disp: , Rfl: atorvastatin (Lipitor) 40 MG tablet, Take 40 mg by mouth Daily, Disp: , Rfl: ibuprofen 800 MG tablet, Take 1 tablet (800 mg) by mouth in the morning and 1 tablet (800 mg) in the evening and 1 tablet (800 mg) before bedtime., Disp: 90 tablet, Rfl: 0 LORazepam (Ativan) 0.5 MG tablet, TABLET ONE-HALF to ONE TABLET BY MOUTH DAILY FOR ANXIETY, Disp: ,Rfl: telmisartan (MIcarDIS) 20 MG tablet, Take 20 mg by mouth Daily, Disp: , Rfl: Past Medical History: Diagnosis Date High cholesterol Stroke (HCC) 09/2024 Past Surgical History: Procedure Laterality Date BLADDER SUSPENSION HYSTERECTOMY SHOULDER ARTHROSCOPY Left 2020 LT SHOULDER SCOPE Family History Problem Relation Name Age of Onset Stroke Mother Social History Tobacco Use Smoking Status Never Smokeless Tobacco Never Physical Exam - General appearance, mentation, extraocular movements, facial strength and movement, hearing, upper and lower extremity strength and tone, sensation to gross testing, coordination, and gait are normalor at baseline unless noted below. Physical Exam Constitutional: Appearance: Normal appearance. Genitourinary: Right Labia: No lesions. Left Labia: No lesions. Vaginal cuff intact. Mild vaginal atrophy present. Right Adnexa: not tender and no mass present. Left Adnexa: not tender and no mass present. Cervix is absent. Uterus is absent. Breasts: Right: Normal. No mass or nipple discharge. Left: Normal. No mass or nipple discharge. HENT: Head: Normocephalic and atraumatic. Cardiovascular: Rate and Rhythm: Normal rate and regular rhythm. Pulmonary: Breath sounds: Normal breath sounds. Abdominal: General: There is no distension. Palpations: Abdomen is soft. There is no mass. Tenderness: There is no abdominal tenderness. Musculoskeletal: General: Normal range of motion. Cervical back: Neck supple. Neurological: Mental Status: She is alert and oriented to person, place, and time. Skin: General: Skin is warm and dry. Psychiatric: Mood and Affect: Mood normal. Assessment/Plan ICD-10-CM 1. Encounter for gynecological examination Z01.419 2. Encounter for gynecological examination without abnormal finding Z01.419 3. Encounter for screening for cervical cancer Z12.4 4. Encounter for screening mammogram for malignant neoplasm of breast Z12.31 5. 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 Osteoporosis screening Z13.820 7. Postmenopausal Z78.0 Pap and exam performed. Mammogram ordered Results can be found in MyChart in 7 days Bone health discussed Return 1 year 1. Abdominal mass of unknown etiology Assessment: Patient reports abdominal pressure and fullness. She has a history of total hysterectomy with ovarian preservation, followed by removal of remaining ovarian tissue at age 38. Recent X-rayrevealed an abdominal mass, initially thought to be fibroids by another provider. Given the patient's surgical history, fibroids are unlikely. Differential diagnoses include ovarian remnant syndrome,adnexal mass, or other intra-abdominal pathology. Further evaluation with ultrasound is necessary to characterize the mass and determine its origin. Plan: - Perform pelvic ultrasound to evaluate abdominal mass - Reviewed ultrasound results with patient and discuss findings of no fibroid uterus -CT scan ordered 3. Abdominal Concerns Assessment: Patient reports being very regular with bowel movements, occasionally experiencing loose stools. Recent imaging showed no fibroids or other gynecological abnormalities. The etiology of the patient's abdominal concerns remains unclear, necessitating further investigation. Plan: - Schedule abdominal ultrasound - Schedule CT scan (likely following ultrasound) - Patient to follow up with primary care physician, Dr. Rob Goldman, for further management and interpretation of results 4. Preventive Care Assessment: Patient due for routine preventive screenings. Plan: - Schedule mammogram - Recommend colonoscopy (to be ordered by primary care physician) 1. Abdominal lump. - The patient reports a history of pressure in the belly, which she attributed to her hysterectomy. - The x-ray results are inconclusive, necessitating further investigation. - An ultrasound conducted today shows remote JOSE L-BSO-No gynpathology CT scan and abdominal US ordered Follow up PCP Assessment & Plan 1 documented in this encounterMissouri Southern [id number] History of Present illness Narrative* JACOB Zhao - 02/03/2025 9:45 AM EDT Images from the original note were not included. Orthopedic Office note: NAME: Isabelle Benitez : 1955 EST PT RECHECK LT WRIST INJURY 12/24/24(5WKS 6DAYS) - HERE FOR MRI LT WRIST RESULTS 01/15/25 EPIC XRAY LT WRIST TODAY EPIC 02/03/25 XRAY LT WRIST EPIC 01/15/25 XRAY LT WRIST/LT ELBOW 01/01/25 [facility] [place] MRI LT WRIST 01/15/25 EPIC CONTINUES TO HAVE PAIN- +INTERMITTENT SWELLING- DOES HEP- NOTES TIGHTNESS- PT STATES SHE IS NOT ABLE TO GOLF- +IBUPROFEN PRN - PT IS RT HAND DOMINANT - PT STATES SHE DOES NOT FEEL LIKE SHE WOULD ABLETO WORK YET [place]CHITA: PT STATES SHE FELL AT HOME 12/24/24- PT HAD INCREASE PAIN AFTER MOVING AN AIR CONDITIONER 01/01/25 PT NO LONGER ON PLAVIX- TAKES ASA Physical Exam General Appearance: Normal. Respiratory: No acute distress. Musculoskeletal: Mild swelling to the distal radius, focal tenderness at the distal radius, minimal soreness with syndesmotic compression of the distal radius and ulna, no pain with axial loading, no pain to the anatomical snuffbox or baseof the thumb, nontender scapholunate, no pain with gentle manipulation of the wrist joint, full pronation and supination, pain on end range of motion with terminal flexion and extension; no pain in the proximal forearm and elbow; abrasions on the knee. Skin: Multiple healing cat scratches are present on the forearm without evidence of lymphangitis or infection. Neurological: Normal. No orders of the defined types were placed in this encounter. Procedures Results Left Wrist MRI- 01/15/25 Scapholunate and lunotriquetral ligaments are intact. Articular disc and foveal components of the triangular fibrocartilage complex are intact. Partial tearing of the styloid component of the TFCC. Visualized flexor and extensor tendons are intact. Median nerve is of normal signal and morphology. Mild degenerative changes of the wrist. IMPRESSION: Partial tearing of the styloid component of the TFCC. No evidence of recent fracture. - Imaging (MRI): - TFCC tear - Intact scapholunate ligament No diagnosis found. Assessment & Plan Left wrist pain An x-ray was performed today, showing no evidence of a fracture. A repeat x-ray is recommended in 10 to 14 days to rule out an occult injury, as the fall occurred post-MRI. Passive and active stretching exercises are advised, but loading the wrist should be avoided until symptoms improve. Splintingwill be deferred due to previous wrist stiffness and stretching exercises. Consulting with a neurologist regarding falls is ongoing. Diagnostic plan: Repeat x-ray in 10 to 14 days. Treatment plan: Passive and active stretching exercises are advised, but loading the wrist should be avoided until symptoms improve. Splinting will be deferred due to previous wrist stiffness and stretching exercises. Follow-up: Repeat x-ray in 10 to 14 days. Questions answered in laymen terms at the bedside. The diagnosis, home exercise plan and any ongoing restrictions/ recommendations reviewed. If unable to be reached in office, I recommend evaluation at nearest Emergency Room if any symptoms worsened or new symptoms develop for requiring urgent evaluation. 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 documented in this encounterMissouri Southern [id number] History of Present illness Narrative* JACOB Zhao - 01/15/2025 10:00 AM EDT Images from the original note were not included. Orthopedic Office note: NAME: Isabelle Benitez : 1955 EST PT RECHECK LT WRIST INJURY 12/24/24 (3WKS 1DAY)- S/P VELCRO SPLINT XRAY LT WRIST TODAY EPIC 01/15/25 XRAY LT WRIST/LT ELBOW 01/01/25 [facility] NO MRI NOTES PAIN WITH WB- NOTES [...] PAIN TO palpation at SNUFF BOX no SCAPHO- LUNATE pain. Palpation additional comments: Pain to dorsal wrist over triquterum has resolved. + pain along 1st dorsal compartment. , neg tyler. Mild soreness. Range of Motion Left Wrist [...] nerve sensory distribution: normal Special Tests Left Tyler's test: negative DRUJ instability: negative CMC grind [...] pain with axial loading. Given her age, history,and injury, an MRI of the wrist is recommended to rule out an occult scaphoid fracture versus symptoms from arthritic changes. An x-ray was repeated today and discussed at bedside. She is advised to continue using her brace and work on gentle range of motion exercises to prevent stiffness. Stronglyrecommend no lifting, loading, or pushing with the [...] requiring urgent evaluation. 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 documented in this encounterMissouri Southern [id number] History of Present illness Narrative* Mayte Pettit MD - 01/13/2025 2:30 PM EDT Images from the original note were not included. [facility] Telestroke Clinic Visit [address] [facility] [id number] Patient: Isabelle Benitez Date of : 1955 Encounter Date: 01/13/2025 Patient Care Team: Rob Mijares DO as PCP - General (Internal Medicine) Patient Location: Home Patient Consent obtained: yes, Verbal Prior to beginning this clinical portion of this visit, the patient/family has consented to the useof this telemedicine E-visit and initiated the contact. They have also consented to using [employer] as a communications platform, understanding the privacy limitations, and telehealth and HIPAA waivers as established in the CMS expansion of telehealth benefits under the 1135 waiver authority and the Coronavirus Preparedness and Response Supplemental Appropri ations Act Dated October and as summarized in November 03, 2019 [facility] FAQ on the Coronavirus (COVID-19) public health emergency. The patient has an established relationship with ia and was last seen on November 2024. Reason for Visit: Hospital follow up History of Present Illness: Subjective: Isabelle Benitez is a 69-year-old female patient with history hypertension who initially presented to [facility] for evaluation of transient left-sided weakness. Patient's symptoms resolved byhospital arrival. CT angiogram was concerning for right internal carotid artery stenosis. MRI brainwas negative for acute process. Carotid ultrasound suggested 50-69% stenosis of the right internal carotid artery. Patient was discharged on dual antiplatelets with instructions to follow up with theStroke Clinic. Patient has been recovering remarkably well. ADLs and IADLs are intact. She is driving and participating in all hobbies. Reports no residual symptoms. She was taking aspirin daily. She stopped Plavix after 21 days. Continues to take her statin. She was monitoring her blood pressure at home and states it typically runs in the 140 systolic however primary care physician is adjusting her medications. No recurrent neurologic episodes reported. Past Medical, Family, Surgical, and Social History Update: The following portions of the patient's history were reviewed and updated as appropriate: allergies, current medications, past family history, past medical history, past social history, past surgicalhistory and problem list. Review of Systems ROS Medications-aspirin, Lipitor, telmisartan Past medical history TIA, hypertension, hyperlipidemia Past surgical history noncontributory Family history noncontributory Social history nonsmoker, rare alcohol, no alcohol use Allergies: Not on File Objective: There were no vitals taken for this visit. Please note that this exam was done through telemedicine, thus specific portions may be limited. Physical Exam: Neurology Physical Exam NIH Stroke Scale 1a Level of consciousness: 0=alert; keenly responsive 1b. LOC questions: 0=Performs both tasks correctly 1c. LOC commands: 0=Performs both tasks correctly 2. Best Gaze: 0=normal 3. Visual: 0=No visual loss 4. Facial Palsy: 0=Normal symmetric movement 5a. Motor left arm: 0=No drift, limb holds 90 (or 45) degrees for full 10 seconds 5b. Motor right arm: 0=No drift, limb holds 90 (or 45) degrees for full 10 seconds 6a. motor left le=No drift, limb holds 90 (or 45) degrees for full 10 seconds 6b Motor right le=No drift, limb holds 90 (or 45) degrees for full 10 seconds 7. Limb Ataxia: 0=Absent 8. Sensory: 0=Normal; no sensory loss 9. Best Language: 0=No aphasia, normal 10. Dysarthria: 0=Normal 11. Extinction and Inattention: 0=No abnormality Total: 0 General Appearance: Alert, active, cooperative, and in no distress Head: Normocephalic, without obvious abnormality, atraumatic Eyes: conjunctivae/corneas clear. PERRL, EOM's intact. Lungs: Non-labored Skin: Skin color, texture, turgor normal. No rashes or lesions Neurologic: Grossly normal Modified [place] Score: 0 Risk Factor Management: Hypertension target range 130-140/70-80 Lipid range - LDL < 70 and checked every 6 months, fasting Diabetes - HgB A1C <7 Assessment/Plan: TIA -Continue ASA, no recurrance 2. KB stenosis -Moderate at this point, recommend follow up CUS in 1 year -Continue ASA, statin 3. Hypertension- Advise continuing to monitor for target SBP <130 -Continue antihypertensive regimen 4. Hyperlipidemia- low fat/low cholesterol diet -Continue statin therapy -Recommend diet and exercise -Follow up with PCP for lipid management In addition I did review the signs/ symptoms of stroke including BE FAST (B) balance issues, (E) acute eye/ vision changes, (F) facial droop, (A) Arm/ leg weakness, (S) speech disturbance and (T) time to call 911 if these symptoms occur. This note was completed using a voice tour narrator system. Every effort was made to ensure accuracy; however, inadvertent computerized tour narrator errors may be present Please note case was done in collaboration with: Dr Pettit I have spent 30 minutes personally reviewing previous history, imaging, and performing a face to face real time video health assessment on this patient via camera. If you have any further questions please feel free to contact our office at [facility]. This is a telemedicine visit. Verbal and/or written consent to participate in video visit was obtained. This visit occurred during in a Coronavirus (COVID-19) Public Health Emergency. I discussed with the patient the nature of his/her telemedicine visits that: - I would evaluate the patient and recommend diagnostics and treatments based on my assessment. - our sessions are not being recorded and that personal health information is being protected to the best of my ability. - our team would provide follow-up care in person if/ when the patient needs it documented in this encounterMarymount HospitalGliknik Bronson Lakeview [id number] History of Present illness Narrative* JACOB Zhao - 01/06/2025 11:15 AM EDTAssociated Order(s): Cast / Splint / Fx Post-Procedure Diagnose(s): Left wrist sprain, initial encounter Images from the original note were not included. Orthopedic Office note: NAME: Isabelle Benitez : 1955 NEW PT WITH LT WRIST INJURY SUSTAINED 12/24/24 (14DAYS)- PT STATES SHE FELL AT HOME; NO TX INITIALLY-PT HAD INCREASE PAIN AFTER MOVING AN AIR CONDITIONER 01/01/25 (5DAYS) - WENT TO [facility] [place]NOTE 2[place] TX; XRAYS/SLING/IBUPROFEN 800MG XRAY LT WRIST/LT ELBOW 01/01/25 [facility] PAIN GENERALLY WRIST REGION-+BRUISING/SWELLING- +IBUPROFEN- PT IS RT HAND DOMINANT Physical Exam General Appearance: The left wrist appears normal upon inspection, with mild swelling on the dorsalaspect. Respiratory: No acute distress Cardiovascular: Radial pulse [...] is felt during axial loading. A very fa int dependent bruising is observed along the ulnar [...] requiring urgent evaluation. 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 documented in this encounterMissouri Southern [id number] Evaluation note* Diagnosis Onset Date Resolution Status Admit Date Carotid stenosis, right acuteMarch 2024 10:51amGAD (generalized anxiety disorder)acuteMarch 2024 10:51amHypercholesterolemiaacuteMarch 2024 10:51amRight hemiparesis acuteMarch 2024 10:51amTIA (transient ischemic attack)acuteMarch 2024 10:51amType 2 diabetes mellitus with hyperglycemiaacuteMarch 2024 10:51am Carotid stenosis, rightacuteMay 2024 9:25amGAD (generalized anxiety disorder)acuteMay 2024 9:25amHypercholesterolemiaacuteMay 2024 9:25am Right hemiparesisacuteMay 2024 9:25amType 2 diabetes mellitus with hyperglycemiaacuteMay 2024 9:25am [facility] Work Phone: 1([phone]) 968-289602-28-2025 Miscellaneous Notes* Telephone Encounter - Bia Espinoza RN - 10/16/2024 2:41 PM EST ----- Message from FABI Coronel sent at 10/14/2024 4:41 PM EST ----- Regarding: follow up Follow up with dr. Pettit specifically in 4- 6 weeks. Tia, concern for symptomatic carotid artery onthe right. Patient's phone number is [phone] * Telephone Encounter - Veronica Grady CMA - 10/16/2024 2:41 PM EST Called pt to inform what was noted below. Pt was unavailable; left a voicemail. * Telephone Encounter - Veronica Grady CMA - 10/16/2024 2:41 PM EST Patient returned call and scheduled appt. Patient requested have telestroke [facility] to be looked over by patient's PCP. Patient will call back with the doctor's fax number. * Telephone Encounter - Melissa Buchanan - 10/16/2024 2:41 PM EST Received a call from patient regarding message below. Patient wanted to give MA that she spoke withthe fax number for PCP office. Fax number: [phone] Please advise * Telephone Encounter - Veronica Grady CMA - 10/16/2024 2:41 PM EST Faxed the notes to the number below. documented in this encounterAs[facility]ula [facility] Hospital SailPlay [id number] Telephone encounter Note* Telephone Encounter - Bia Espinoza RN - 10/16/2024 2:41 PM EST ----- Message from FABI Coronel sent at 10/14/2024 4:41 PM EST ----- Regarding: follow up Follow up with dr. Pettit specifically in 4- 6 weeks. Tia, concern for symptomatic carotid artery onthe right. Patient's phone number is [phone] [facility] Aura [id number] Telephone encounter Note* Telephone Encounter - Veronica Grady CMA - 10/16/2024 2:41 PM EST Called pt to inform what was noted below. Pt was unavailable; left a voicemail. Ubooly02-28-2025 Telephone encounter Note* Telephone Encounter - Veronica Grady CMA - 10/16/2024 2:41 PM EST Patient returned call and scheduled appt. Patient requested have telestroke note sent over to critical [facility] to be looked over by patient's PCP. Patient will call back with the doctor's fax number. Ubooly02-28-2025 Telephone encounter Note* Telephone Encounter - Melissa Buchanan - 10/16/2024 2:41 PM EST Received a call from patient regarding message below. Patient wanted to give MA that she spoke withthe fax number for PCP office. Fax number: [phone] Please advise Ubooly02-28-2025 Telephone encounter Note* Telephone Encounter - Veronica Grady CMA - 10/16/2024 2:41 PM EST Faxed the notes to the number below. Ubooly01-22-2024 Evaluation note* Encounter Date Diagnosis Assessment Notes [...] > 5 days, negating benefit of Paxlovid Aug,Intercostal pain (ICD-10 - R07.82)Splint chest w/ coughing. Tylenol, Salon Pas patches. Aug,cute cough (ICD-10 - R05.1)Instructed to use Mucinex DM and hydrate. May need to sleep w/ HOB elevated. [facility] Other 01-21-2024 Evaluation note* Encounter Date Diagnosis [...] no improvement in 2 to 3 days Aug,cute bronchitis, unspecified organism (ICD-10 - J20.9) Aug,Intercostal muscle strain, initial encounter (ICD-10 - S29.011A) Aug,ontact with and (suspected) exposure to other viral communicable diseases (ICD-10 - Z20.828) [facility] Other 01-19-2024 Evaluation note* Encounter Date Diagnosis Assessment Notes Treatment Notes Treatment Clinical Notes Aug, Acute bronchitis due to other sp ecified organisms (ICD-10 - J20.8) Instructed to use Robitussin or Mucinex for cough, saline or Flonase NS for congestion, Tylenol forpain and fever. Aug,Elevated BP without diagnosis of hypertension (ICD-10 - R03.0)This patient is instructed to consume a healthy, low-fat, low-salt diet. They are also encouraged to continue exercise to achieve/maintain a normal BMI. Patient is instructed on home BP measurements: - rest for 5 minutes w/o talking.- positioned w/ feet on floor and arm supported.- average best 2/3 readings w/ goal < 135/85.- update office w/ homereadings in 2 weeks. [facility] Other 10-12-2023 Evaluation note* Encounter Date Diagnosis Assessment Notes Treatment Notes Treatment Clinical Notes May, Controlled type 2 di abetes mellitus with [...] office visit. Continue regular routine monitoring of A1C,Microalbumin, Dilated eye exam and Foot exam May,Medicare annual wellness visit, initial (ICD-10 - Z00.00) Personalized health advice was given to the beneficiary including a written plan for screenings discussed and provided. Advanced care planning reviewed and/or information given as requested. Additional counseling was provided here today in regards to, [ ]. The above visit was performed by [ ] underdirect supervision of [ ]. Document reviewed and amended by provider signed below. May,Overweight (ICD-10 - E66.3)This patient has been instructed on a low-fat, high-fiber diet. They are instructed to reduce calories, portion sizes and snacks. It is recommended that they exercise for 30 minutes, 3-5 times weekly. May,Screening mammogram for breast cancer (ICD-10 - Z12.31)Instructed patient on monthly SBE and yearly mammograms. [facility] Other 08-31-2023 Evaluation note* Encounter Date Diagnosis Assessment Notes Treatment Notes Treatment Clinical Notes Mar, Lipoma of right upper extremity (ICD-10 - D17.21) Reassured, not changing in size Recommmend discussion w/ Religious Assistant at next skin cancer screening Mar,ontrolled type 2 diabetes mellitus with hyperglycemia, without long-term current use of insulin (ICD-10 - E11.65)Healthy diet, exercise and weight loss. Monitor A1C every 6mo. She has made significant improvement in lifestyle to avoid use of medication at this time. Mar,anglion cyst (ICD-10 - M67.40)Adjacent to nail and resulted in nail deformity. Recommend discussing w/ Dermatolgist [facility] Other 03-17-2023 Evaluation note* Encounter Date Diagnosis Assessment Notes Treatment Notes Treatment Clinical Notes Oct, Decreased hearing of left ear (I CD-10 - H91.92) Referral for Audiogram / Tympanogram Oct,ysfunction of left eustachian tube (ICD-10 - H69.82)Valsalva maneuver, FLonase NS [facility] Other 09-23-2021 Evaluation note* Encounter Date Diagnosis Assessment Notes Treatment Notes Treatment Clinical Notes Apr, Traumatic tear of pedraza praspinatus tendon of left shoulder, subsequent encounter (ICD-10 - S46.812D) Patient instructed on the importance of continued daily shoulder motion exercise and rotator cuff strengthening exercise. Discussed that heavy or strenuous use of the shoulder should be avoided. Patient may slowly progress increased activity as pain allows. Discussed importance of continuing motion and strengthening exercises retirement. Apr,dhesive capsulitis of left shoulder (ICD-10 - M75.02) Apr,cute pain of left shoulder (ICD-10 - M25.512) Apr,Other specified postprocedural states (ICD-10 - Z98.890) [facility] Other Evaluation noteNo assessment information available [facility]Evaluation noteNo InformationNort [employer] Other Evaluation note* Diagnosis Onset Date Resolution Status Medicare annual wellness visit, subseque nt acuteScreening mammogram for breast canceracuteType 2 diabetes mellitus with hyperglycemiaacute [facility] Work Phone: Evaluation note* Diagnosis Onset Date Resolution Status Admit Date Carotid stenosis, right acuteMarch 2024 10:51amGAD (generalized anxiety disorder)acuteMarch 2024 10:51amHypercholesterolemiaacuteMarch 2024 10:51amRight hemiparesis acuteMarch 2024 10:51amTIA (transient ischemic attack)acuteMarch 2024 10:51amType 2 diabetes mellitus with hyperglycemiaacuteMarch 2024 10:51am [facility] Work Phone: Evaluation note* Diagnosis Acute pain of left wrist- Primary Left wrist sprain, initial encounter documented in this encounter [facility] HealthcareEvaluation note* Diagnosis Acute pain of left wrist- Primary Sprain of wrist, left, subsequent encounter Sprain of wrist, left, subsequent encounter documented in this encounter [facility]* Diagnosis Acute pain of left wrist- Primary Sprain of wrist, left, subsequent encounter documented in this encounter [facility] HealthcareEvaluation note* Diagnosis History of TIA (transient ischemic attack)- Primary Carotid stenosis, right Occlusion and stenosis of carotid artery without mention of cerebral infarction Essential hypertension Unspecified essential hypertension Mixed hyperlipidemia [facility] Diagnosis Encounter for screening for cervical cancer- Primary Encounter for gynecological examination Encounter for gynecological examination without abnormal finding Encounter for screening mammogram for malignant neoplasm of breast Osteoporosis, post-menopausal Senile osteoporosis Osteoporosis screening Special screening for osteoporosis Postmenopausal Asymptomatic postmenopausal status (age-related) (natural) Abdominal pressure Abdominal pain, unspecified site Colon cancer screening Special screening for malignant neoplasms, colon History of KUB documented in this encounter [facility] HealthcareEvaluation note* Diagnosis Pelvic pressure in female- Primary documented in this encounter [facility] HealthcareHistory general Narrative - Reported* Type Description Date Surgical History bladder suspension, unspecified x2 Surgical HistoryappendectomySurgical Historychild x 3Surgical History hysterectomySurgical Historyleft shoulder arthroscopy with supraspinatus rotator cuff repair, superior subscapularis tendon repair, subacromial decompression, biceps tenodesis02/01/21 [facility] Other History general Narrative - Reported* Type Description Date Medical History History of concussion Medical HistoryOvarian cystMedical HistoryUrinary urgencyMedical History Leiomyoma of uterusMedical HistoryImpaired fasting blood sugarMedical HistoryGAD (generalized anxiety disorder)Medical HistoryControlled type 2 diabetes mellitus with hyperglycemia, without long-term current use of insulinMedical History Subconjunctival hemorrhage of right eyeMedical HistoryRotator cuff tear, left Medical HistoryTrigger finger, right ring fingerSurgical Historybladder suspension, unspecified [id number] HistoryappendectomySurgical Historychild x 3Surgical HistoryhysterectomySurgical Historyleft shoulder arthroscopy with supraspinatus rotator cuff repair, superior subscapularis tendon repair, subacromial decompression, biceps tenodesis02/01/21Hospitalization Historysee surgical history [facility] Other Hospital Discharge instructions Additional Instructions DISCHARGE INSTRUCTIONS FOR UPPER ENDOSCOPY WHAT TO EXPECT: - You may feel full, gassy or cramping after your procedure. In some cases, this may be from a few hours to a day. Walking may help relieve the discomfort. - Your throat may feel sore today from the scope that the doctor passed through your throat to visualize your stomach. Take a throat lozenge or suck on ice to ease the discomfort. - You may notice some streaks of blood in your sputum if the doctor has taken a biopsy. - You should begin to recover from anesthesia within 1 hour of the procedure, however may feel groggy for the next 24 hours. DO's AND DON'Ts: - Call your doctor right away if you have a hard abdomen, severe pain, vomiting or if you cough up large amounts of blood. - Call your doctor if you develop any rashes, hives or difficulty breathing. - If you take 81 mg aspirin for your heart it is safe to resume this medication. - If you take other blood thinner medications your doctor will instruct you when these can safely be resumed. - Do NOT drive for 24 hours. - Do NOT operate machinery such as power tools, lawn mowers, snow blowers, sewing machines, etc. for 24 hours. - Avoid alcoholic beverages and drugs for allergies, nerves, or sleep. - Do NOT stay alone. Do NOT leave your child unattended. - Do NOT make important personal or business decisions or sign any legal documents. - Eat solid foods and drink liquids in smaller amounts than usual until normal appetite returns. If you should experience an upset stomach, liquids high in sugar content (soda, Ramiro-Aid, non-acid juices) are recommended. - Do NOT smoke. - Do take it easy today. You need not stay in bed, but avoid strenuous activities such as jogging or working out. DISCHARGE INSTRUCTIONS FOR COLONOSCOPY WHAT TO EXPECT: - You may feel full, gassy or cramping after your procedure. In some cases, this may be from a few hours to a day. Walking may help relieve the discomfort. - If you have polyp(s) removed you may note some minor bloody discharge after your first bowel movements. - You should begin to recover from anesthesia within 1 hour of the procedure, however may feel groggy for the next 24 hours. DO's AND DON'Ts: - Call your doctor right away if you have a hard abdomen, sever pain, are passing lots of bright red blood or clots. - Call your doctor if you develop any rashes, hives or difficulty breathing. - Let your doctor know if you have not had a bowel movement by 3 days after your procedure. - If you take 81 mg aspirin for your heart it is safe to resume this medication. - If you take other blood thinner medications your doctor will instruct you when these can safely be resumed. - Do NOT drive for 24 hours. - Do NOT operate machinery such as power tools, Narvalousn mowers, snow blowers, sewing machines, etc. for 24 hours. - Avoid alcoholic beverages and drugs for allergies, nerves, or sleep. - Do NOT stay alone. Do NOT leave your child unattended. - Do NOT make important personal or business decisions or sign any legal documents. - Eat solid foods and drink liquids in smaller amounts than usual until normal appetite returns. If you should experience an upset stomach, liquids high in sugar content (soda, Ramiro-Aid, non-acid juices) are recommended. - You can resume normal activities tomorrow. FOLLOW UP & RECOMMENDATIONS: -Start pantoprazole 40 mg daily -Notify the doctor if you have any problems. -Repeat colonoscopy based on polyp pathology - Office number [phone]. [facility] Work Phone: InstructionsNot on filedocumented in this encounter [facility] SystemInstructionsNot on filedocumented in this encounter [facility]Reason for [facility] (narrative)* Reason *FU 11/12 Referral to [facility] for Audiogram/tympanogram on [address] Diagnosis 1 Decreased hearing of left ear (H91.92) Diagnosis 2 Dysfunction of left eustachian tube (H69.82) Referral Organization [facility] ariel Referring Provider First Name Rob Referring Provider Last Name Maryana Referring Provider Specialty Internal Me dicine Referred Organization [facility] Referred Provider Sabi Calix Referred Address ,[place], [place],[address] Referred Provider Specialty Ear, Nose an d Throat Referral Priority Routine General Notes Referral for hearing evaluation Wanda Kelly 11/05/2022 01:42:39 PM >RECEIVED TODAY, NOTES LOCKED, REFERRAL FAXED [id number] NotesShe has noticed gradual loss of hearing over past several years. Associated w/ noise/ringing w/o vertigo. No s/s intercurrent infection in sinuses, pharynx or ears. [facility] Other Reason for referral (narrative)No reason for referral information availableDoctors Hospital Ctr Work Phone: Chief Complaint and Reason for Visit Chief Complaint Shoulder pain Chief Complaint wellness Reason for Visit Medicare annual well ness visit, subsequent Screening mammogram for breast cancer [...] with hyperglyce aliyah December 21, 2024 9:25am Chief Complaint Admit Date STOMACH WALL THICKENING, HIATAL HERNIA, SCREENING April 30, 2025 8:05am Family History Relationship Condition Age at Onset Recorded Date/T tristan Not Specified Type 2 diabetes mellitus Unknown HypertensionUnknownCerebrovascular accident (CVA)UnknownbrotherType 2 diabetes mellitusUnknownsisterLupusUnknownfatherHypertensionUnknownbrotherMalignant neoplasmUnknownsisterDisorder of thyroidUnknown Relationship Condition Age at Onset Recorded Date/T tristan mother Type 2 diabetes mellitus Unknown HypertensionUnknownCerebrovascular accident (CVA)UnknownbrotherType 2 diabetes mellitusUnknownsisterLupusUnknownfatherHypertensionUnknownbrotherMalignant neoplasmUnknownsisterDisorder of thyroidUnknownbrotherDiabetes mellitusUnknown motherDiabetes mellitusUnknownDeceasedUnknown Advance Directives Advance Directive Response Recorded Date/ [...] sectionGoals may be documented in an alternate sectionNot on filedocumented as of this encounterGoals may be documented in an alternate section REASON FOR VISIT (unrecogniz ed section and content) ReasonOnset DateCommentsreturn call10/16/2024ReasonCommentsPainReasonComments PainReasonCommentsGynecologic Exam INFORMATION SOURCE (unrecogn ized section and content) DATE CREATED AUTHOR 07/07/2022 [facility] DATE CREATED AUTHOR AUTHOR'S ORGANIZ ATION 10/21/2024 [facility] DATE CREATED AUTHOR AUTHOR'S ORGANIZ ATION 01/16/2025 [facility] DATE CREATED AUTHOR AUTHOR'S ORGANIZ ATION 03/19/2025 [facility] DATE CREATED AUTHOR AUTHOR'S ORGANIZ ATION 03/23/2025 [facility] EPIC DATE CREATED AUTHOR AUTHOR'S ORGANIZ ATION 05/10/2025 [facility] Care Teams (unrecognized sec tion and content) Team Status: Active Member Role Status Dates Rob Mijares DO Primary Care Provider Active Team Status: Active Member Role Status Dates Rob Mijares DO Primary Care Provide r, Attending Provider Active Start: August 07, 2024 Team Status: Active Member Role Status Dates Rob Mijares DO Primary Care Provide r, Attending Provider Active Start: October 13, 2024 Team Status: Active Member Role Status Dates Rob Mijares DO Primary Care Provider Active Start: October 14, 2024 Anh De Luna ProviderActiveStart: October 14, 2024 Team Status: Active Member Role Status Dates Rob Mijares DO Primary Care Provider Active Start: October 15, 2024 Vijaya Isabel ProviderActiveStart: October 15, 2024 Team Status: Inactive Member Role Status Dates Rob Mijares DO Primary Care Provide r, Attending Provider Active Start: October 20, 2024 End: October 20, 2024 Team Status: Inactive Member Role Status Dates Rob Mijares DO Primary Care Provide r, Attending Provider Active Start: June 10, 2024 End: June 10, 2024Team MemberRelationshipSpecialtyStart DateEnd Date Rob Mijares DO [address] [place] [id number] PCP - GeneralInternal Medicine10/19/24 Team Status: Inactive Member Role Status Dates Rob Mijares DO Primary Care Provide r, Attending Provider Active Start: December 21, 2024 End: December 21, 2024Team MemberRelationshipSpecialtyStart DateEnd Date Rob Mijares DO [address] [place] [address] PCP - GeneralInternal Medicine01/06/25Team MemberRelationshipSpecialtyStart Date End Date Rob Mijares, DO [address] [place] [facility] [address] PCP - GeneralInternal Medicine01/06/25Team MemberRelationshipSpecialtyStart Date End Date Rob Mijares, DO [address] [place] [facility] [address] PCP - GeneralInternal Medicine01/06/25Team MemberRelationshipSpecialtyStart Date End Date Rob Mijares DO [address] [facility] [phone] PCP - GeneralInternal Medicine01/06/25Team MemberRelationshipSpecialtyStart Date End Date Rob Mijares, DO [address] [facility] [phone] PCP - GeneralInternal Medicine01/06/25Team MemberRelationshipSpecialtyStart Date End Date Rob Mijares, DO [address] [facility] [phone] PCP - GeneralInternal Medicine01/06/25Team MemberRelationshipSpecialtyStart Date End Date Rob Mijares, DO [address] [place] [address] PCP - GeneralInternal Medicine10/19/24Team MemberRelationshipSpecialtyStart Date End Date Rob Mijares, DO [address] [facility] [phone] [facility] - [facility]01/06/25 Maikol Finnegan PA [address] [place] [address] [facility]08/19/2511 Team Status: Active Member Role Status Dates Rob Mijares DO Primary Care Provider Active Start: February 01, 2025 Rob Mijares DOAttjonathon ProviderActiveStart: February 01, 2025 Team Status: Active Member Role Status Dates Rob Mijares DO Primary Care Provider Active Start: April 30, 2025 Bruno Howe MDAttending ProviderActiveStart: April 30, 2025 Bruno Howe MDOther ProviderActiveStart: April 30, 2025 Team MemberRelationshipSpecialtyStart DateEnd Date Rob Mijares DO [address] [place] [phone] PCP - [facility]01/06/25 Maikol Finnegan PA [address] [place] [address] [facility]08/19/2511 FOR RECORDS PERTAINING TO PATIENTS WHO ARE [...] BE BASED ON THE PRIMARY CLINICAL RECORDS. [facility] [employer] [facility]. provides no warranty or guarantee of the accuracy or completeness of information in this document.
[2025-06-14 10:25] LABS: Hematocrit 42.0 % (36.0-48.0); Hemoglobin 13.7 g/dL (12.0-16.0); Immature Granulocytes Abs Auto 0.02 10^3/uL (0.00-0.03); Immature Granulocytes Pct Auto 0.2 % (0.0-0.5); Lymphocytes Absolute Auto 3.7 10^3/uL (1.2-3.8); Mean Corpuscular HGB Conc 32.6 g/dL (29.9-35.2); Mean Corpuscular Hemoglobin 29.7 pg (26.7-34.0); Mean Corpuscular Volume 90.9 fL (81.0-99.0); Platelet Count 251 10^3/uL (150-450); Red Blood Count 4.62 10^6/uL (4.20-5.40); White Blood Count 8.2 10^3/uL (4.0-11.0)
[2025-06-14 11:09] LABS: Potassium 3.7 mmol/L (3.5-5.1); Sodium 136 mmol/L (136-145)
[2025-06-14 11:10] LABS: Alanine Aminotransferase 36 U/L (14-59); Alkaline Phosphatase 89 U/L (46-116); Anion Gap 11.0; Aspartate Amino Transferase 22 U/L (15-37); Blood Urea Nitrogen 19.0 mg/dL (7.0-18.0); Calcium 9.1 mg/dL (8.5-10.1); Carbon Dioxide 29.7 mmol/L (21.0-32.0); Chloride 99 mmol/L (98-107); Estimated GFR (African America >60 (>=60 mL/min/1.73m^2); Estimated GFR (Non-African Ame >60 (>=60 mL/min/1.73m^2); Glucose 123 mg/dL (74-106); Total Protein 7.8 g/dL (6.4-8.2)
[2025-06-14 11:11] LABS: Albumin Globulin Ratio 0.9; Albumin Level 3.7 g/dL (3.4-5.0); Cholesterol 244 mg/dL (<=200); Globulin 4.1 g/dL; HDL Cholesterol 45 mg/dL (40-60); Thyroid Stimulating Hormone 1.910 uIU/mL (0.358-3.740); Triglycerides 172 mg/dL (<=150); VLDL CHOLESTEROL 34.4 mg/dL
== END 2025-06-14 08:59 | disposition home or self-care (01) ==
LOC: LAB 09:12
PROVIDERS: PCP Internal Medicine; Visit Provider Internal Medicine
DX: E78.00 Pure hypercholesterolemia, unspecified (principal); E11.65 Type 2 diabetes mellitus with hyperglycemia; R53.83 Other fatigue; I10 Essential (primary) hypertension
CPT/HCPCS: 36415; 80053; 80061; 82043; 82570; 83036; 84443; 84450; 84460; 85025